=== PATIENT | female | born 1970 ===

== ENCOUNTER 2020-01-12 12:18 | Emergency (ER) | payer OTHER, SELFPAY ==
[2020-01-12 13:01] VITALS: BP 141/74; PULSE 70; RESP 20; TEMP 37.1; O2SAT 99; BMI 34.9
[2020-01-12 13:11] VITALS: O2SAT 99
--- NOTE | 2020-01-12 13:39 | XR_ITS ---
EXAMINATION: CHEST 1 VIEW CLINICAL INFORMATION: Shortness of breath. COMPARISON: September 09, 2019. TECHNIQUE: An AP view of the chest is provided. FINDINGS: The cardiac silhouette is not enlarged. The mediastinal and hilar contours are unremarkable. There are neither pleural effusions nor pneumothoraces. There are no consolidations. The osseous structures are stable. XR/XR chest 1V IMPRESSION: No evidence for acute disease.
--- NOTE | 2020-01-12 13:45 | ED_ITS ---
HPI - SOB/Dyspnea General Chief Complaint: Dyspnea Stated Complaint: COUGH,SOB Time Seen by Provider: 01/12/20 13:27 Source: patient Mode of arrival: ambulatory Limitations: no limitations History of Present Illness HPI Narrative: patient is a 49-year-old female with a past medical history of HTN, anemia, asthma, seasonal allergies and migraines complaining of a 4 days of fatigue, chills, body aches, abdominal pain, dizziness, dry cough. Also states her sister has been tested positive for COVID, she did see her sister last week. She denies fever, nausea vomiting diarrhea. States she has been eating a redu asaf amount every day but still manages to have small intake of food and fluids. Related Data Previous Rx's Medication Instructions Recorded lisinopril 20 mg tablet 20 mg PO DAILY #30 tab 01/11/20 azithromycin 500 mg PO DAILY 3 Days #3 tab 01/12/20 Allergies Allergy/AdvReac Type Severity Reaction Status Date / Time iron Allergy Unknown vomiting Unverified 09/12/19 00:00 iron dextran complex AdvReac Intermediate FLUSHING,SOB,VOMITING,INCREASED Unverified 12/01/19 15:58 [Iron Dextran Complex] ANXIETY,LOW BACK PAIN, Review of Systems Review of Systems: Const: + chills, + body aches, + dizziness ENT/Mouth: no sore throat, no runny nose Eyes: No Discharge Cardiovascular: No Chest Pain, No SOB Respiratory: + Cough, No Sputum, No Wheezing, No Smoke Exposure, + Dyspnea Gastrointestinal: No Nausea, No Vomiting, No Diarrhea, + abd pn Genitourinary: no irregular bleeding, No Dysuria, No Urinary Frequency, No Hematuria, No Urinary Incontinence, No Urgency, No Flank Pain, Musculoskeletal: + Myalgia Skin: No rash Neuro: No Headache Yes all other systems are reviewed and are negative PMFSH Past Medical History Attestation statement: The following information was validated with the patient. Medical History (Updated 01/12/20 @ 15:05 by OSIEL Solis) Anemia Asthma HTN (hypertension) Migraines Surgical History H/O: hysterectomy History of knee surgery Social History Social History Alcohol intake: never Smoking Status: Never smoker Use of substances other than those prescribed or required for medical reasons: No Advance Directives: No Advance Directives Information Provided: No Physical Exam Vital Signs: Vital Signs: Vital Signs Temp Pulse Resp BP Pulse Ox 01/12/20 16:40 96.8 F 66 19 116/74 97 01/12/20 15:24 98.3 F 54 14 109/63 98 01/12/20 14:00 98.7 F 70 19 141/74 H 98 01/12/20 13:11 99 01/12/20 13:01 98.7 F 70 20 141/74 H 99 Body Mass Index 34.9 Const: General: cooperative, healthy appearing, comfortable, no acute distress and well developed Orientation/consciousness: patient oriented x3 Limitations: no limitations HENMT: Head: Yes normal to inspection Face and sinus: Yes normal facial exam Mouth: moist mucous membranes abnormal (dry) Eyes: General: appearance normal, both eyes and all related structures Neck: Neck: Yes normal visual inspection, Yes full ROM and Yes supple Resp: Effort & Inspection: normal respiratory effort and able to speak in complete sentences Auscultation: clear to auscultation bilaterally, no crackles, no rales, no rhonchi and no wheezes Cardio: Rate: regular rate Rhythm: regular rhythm Heart sounds: normal S1 and S2 GI: Inspection: Yes normal to inspection Palpation (GI): Soft to palpation and Tenderness to palpation present (GI) ( Slightly tender throughout) Auscultation: normal bowel sounds Skin: General skin exam: no rashes or lesions noted Neuro: General: patient oriented x3 Extrem: General: Yes normal to inspection and Yes no pedal edema Psych: Appearance: grossly normal Course Course Course Narrative: 49-year-old female with past medical history of hypertension, anemia, asthma, migraines and seasonal allergies presents with 4 days of chills, body aches, fatigue, abdominal pain, dizziness, shortness of breath and dry cough she was exposed to her sister last week who tested positive for COVID. will get chest x-ray, EKG, COVID test and labs. MDM - SOB/Dyspnea MDM Narrative Medical decision making narrative: labs unremarkable, chest x-ray no acute disease, repeat VSS, COVID test will not results for 1-2days but as patient did have a positive contact from her sister, presumptive COVID, will give some rehydration, Tylenol and discharged with strict precautions on when to return to the emergency department or seek emergency medical care. RX sent in correctly, I called [facility] and spoke with pharmacy staff and had it did to be a Z-Wei. they will change the prescription. Differential Diagnosis Differential diagnosis: Likely congestive heart failure, pneumonia, asthma with exacerbation and pleural effusion Lab Data Attestation: I reviewed the patient's lab results. Result diagrams: 01/12/20 13:55 01/12/20 13:55 Labs: Lab Results 01/12/20 01/12/20 01/12/20 Range/Units 13:55 13:55 13:55 WBC 7.4 (4.8-10.8) X10*3/uL RBC 3.90 L (4.20-5.50) X10*6/uL Hgb 12.6 (12.0-16.0) g/dl Hct 37.1 (37-47) % MCV 95.1 (80-98) fL MCH 32.3 (27.0-33.0) pg MCHC 34.0 (31.0-35.0) g/dl RDW 12.0 (11.0-16.0) % Plt Count 291 (160-400) X10*3/uL MPV 9.6 (9.4-12.3) fL Immature Gran % (Auto) 0.4 (0.0-0.4) % Neut % (Auto) 66.0 (45-73) % Lymph % (Auto) 24.8 (20-40) % [place] % (Auto) 7.2 (2-11) % Eos % (Auto) 1.2 (0-4) % Baso % (Auto) 0.4 (0-2) % Lymph # (Auto) 1.8 (1.2-4.9) X10*3/uL [place] # (Auto) 0.5 (0.1-1.2) X10*3/uL Eos # (Auto) 0.1 (0.0-0.4) X10*3/uL Baso # (Auto) 0.0 (0.0-0.2) X10*3/uL Abs Immat Gran (auto) 0.03 (0.00-0.03) X10*3/uL Absolute Neuts (auto) 4.9 (2.0-8.3) X10*3/uL Absolute Nucleated RBC 0.000 (0.0-0.012) X10*3/uL Nucleated RBC % (auto) 0.0 (0.0-0.2) /100WBC Hold Blue Top SEE NOTE Sodium 138 (135-145) mmol/L Potassium 4.1 (3.3-5.1) mmol/l Chloride 105 (96-108) mmol/L Carbon Dioxide 26 (22-29) mmol/L Anion Gap 11 L (12-20) BUN 10 (9-16) mg/dL Creatinine 0.71 (0.5-1.4) mg/dL Estim Creat Clear Calc 96.8 Estimated GFR > 60 Random Glucose 92 (60-115) mg/dL Calcium 9.2 (8.4-10.2) mg/dL Troponin I High Sens (<3.5-17.0) ng/L B-Natriuretic Peptide (<100) pg/mL Urine Color Urine Appearance Urine pH (5.0-8.0) Ur Specific Al[place] (1.005-1.025) Urine Protein (NEG-TRACE) MG/DL Urine Glucose (UA) (NEG) MG/DL Urine Ketones (NEG) MG/DL Urine Blood (NEG) Urine Nitrite (NEG) Ur Leukocyte Esterase (NEG) Urine RBC (0) /HPF Urine WBC (0-4) /HPF Ur Squamous Epith Cells /LPF Urine Bacteria /LPF Urine Mucus /LPF 01/12/20 01/12/20 Range/Units 13:55 14:33 WBC (4.8-10.8) X10*3/uL RBC (4.20-5.50) X10*6/uL Hgb (12.0-16.0) g/dl Hct (37-47) % MCV (80-98) fL MCH (27.0-33.0) pg MCHC (31.0-35.0) g/dl RDW (11.0-16.0) % Plt Count (160-400) X10*3/uL MPV (9.4-12.3) fL Immature Gran % (Auto) (0.0-0.4) % Neut % (Auto) (45-73) % Lymph % (Auto) (20-40) % [place] % (Auto) (2-11) % Eos % (Auto) (0-4) % Baso % (Auto) (0-2) % Lymph # (Auto) (1.2-4.9) X10*3/uL [place] # (Auto) (0.1-1.2) X10*3/uL Eos # (Auto) (0.0-0.4) X10*3/uL Baso # (Auto) (0.0-0.2) X10*3/uL Abs Immat Gran (auto) (0.00-0.03) X10*3/uL Absolute Neuts (auto) (2.0-8.3) X10*3/uL Absolute Nucleated RBC (0.0-0.012) X10*3/uL Nucleated RBC % (auto) (0.0-0.2) /100WBC Hold Blue Top Sodium (135-145) mmol/L Potassium (3.3-5.1) mmol/l Chloride (96-108) mmol/L Carbon Dioxide (22-29) mmol/L Anion Gap (12-20) BUN (9-16) mg/dL Creatinine (0.5-1.4) mg/dL Estim Creat Clear Calc Estimated GFR Random Glucose (60-115) mg/dL Calcium (8.4-10.2) mg/dL Troponin I High Sens < 3.5 (<3.5-17.0) ng/L B-Natriuretic Peptide 33 (<100) pg/mL Urine Color YELLOW Urine Appearance HAZY Urine pH 6.0 (5.0-8.0) Ur Specific Albers 1.025 (1.005-1.025) Urine Protein NEG (NEG-TRACE) MG/DL Urine Glucose (UA) NEG (NEG) MG/DL Urine Ketones NEG (NEG) MG/DL Urine Blood 1+ H (NEG) Urine Nitrite NEG (NEG) Ur Leukocyte Esterase 1+ H (NEG) Urine RBC 1-4 (0) /HPF Urine WBC 10-14 H (0-4) /HPF Ur Squamous Epith Cells 1+ /LPF Urine Bacteria 1+ /LPF Urine Mucus 1+ /LPF Imaging Data Chest x-ray: Attestation: I personally reviewed and interpreted this imaging study as follows: My impression: no acute disease Radiologist's impression: [facility] [address] [place] [address] XRay Report Signed Patient: Kiki Banks#: [id number] : 1970Acct:[id number] Age/Sex: 49 / FADM Date: 01/12/20 Loc: HO.ED Attending Dr: Ordering Physician: ADY NÚÑEZ Date of Service: 01/12/20 Procedure(s): XR chest 1V Accession Number(s): [id number] cc: ADY NÚÑEZ~ EXAMINATION: CHEST 1 VIEW CLINICAL INFORMATION: Shortness of breath. COMPARISON: September 09, 2019. TECHNIQUE: An AP view of the chest is provided. FINDINGS: The cardiac silhouette is not enlarged. The mediastinal and hilar contours are unremarkable. There are neither pleural effusions nor pneumothoraces. There are no consolidations. The osseous structures are stable. XR/XR chest 1V IMPRESSION: No evidence for acute disease. Dictated By:ODELL SHORT MD Signed By:<Electronically signed by ODELL SHORT MD in OV>01/12/20 1414 ECG Data Attestation: I personally reviewed and interpreted this ECG as follows: ECG interpretation date: 01/12/20 ECG interpretation time: 16:44 Prior ECG tracings: not available for review Interpretation: bradycardia 56bpm, pr int 132ms, QRS 70ms, QTc 414ms Discharge Plan Discharge Clinical Impression: Viral URI Patient Disposition: Home, Self-Care Instructions: COVID-19 (Coronavirus Disease 2019) (ED) Prescriptions: New azithromycin 500 mg tablet 500 mg PO DAILY 3 Days Qty: 3 RF: 0 No Action lisinopril 20 mg tablet 20 mg PO DAILY Qty: 30 RF: 1 Referrals: Rj,Maurice Heart MD [Primary Care Provider] - 2 days Discharge Date/Time: 01/12/20 16:48
[2020-01-12 14:00] VITALS: BP 141/74; PULSE 70; RESP 19; TEMP 37.1; O2SAT 98
--- NOTE | 2020-01-12 14:07 | PC.NURSE ---
iv inserted, labs drawn, covid swab performed, patient sinus sherri to nsr on the clinical research monitor 60s-70s, vss, pt states she is unable to give a urine at this time, will continue to monitor.
[2020-01-12 14:11] LABS: MANUAL DIFF FLAG NO
[2020-01-12 14:12] LABS: Basophils Percent Auto 0.4 % (0-2); Eosinophils Absolute Auto 0.1 X10*3/uL (0.0-0.4); Eosinophils Percent Auto 1.2 % (0-4); Hematocrit 37.1 % (37-47); Hemoglobin 12.6 g/dl (12.0-16.0); Imm Gran Abs Auto 0.03 X10*3/uL (0.00-0.03); Imm Gran Pct Auto 0.4 % (0.0-0.4); Lymphocytes Absolute Auto 1.8 X10*3/uL (1.2-4.9); Lymphocytes Percent Auto 24.8 % (20-40); Mean Corpuscular Hemoglobin 32.3 pg (27.0-33.0); Mean Corpuscular Volume 95.1 fL (80-98); Mean Platelet Volume 9.6 fL (9.4-12.3); Monocytes Absolute Auto 0.5 X10*3/uL (0.1-1.2); Monocytes Percent Auto 7.2 % (2-11); Neutrophils Absolute Auto 4.9 X10*3/uL (2.0-8.3); Platelet Count 291 X10*3/uL (160-400); White Blood Count 7.4 X10*3/uL (4.8-10.8)
[2020-01-12] MEDS: Acetaminophen 325 MG TABLET 650 MG PO (14:23)
--- NOTE | 2020-01-12 14:24 | PC.NURSE ---
patient medicated per order
[2020-01-12 14:40] LABS: Anion Gap 11 (12-20); Blood Urea Nitrogen 10 mg/dL (9-16); Calcium 9.2 mg/dL (8.4-10.2); Carbon Dioxide 26 mmol/L (22-29); Chloride 105 mmol/L (96-108); Creatinine Clr Calc Pharmacy 96.8; Estimated Glomerular Filt Rate > 60; Glucose Random 92 mg/dL (60-115); Potassium 4.1 mmol/l (3.3-5.1); Sodium 138 mmol/L (135-145)
[2020-01-12 14:42] LABS: Glucose Urine UA NEG (NEG); Leukocyte Esterase Urine 1+ (NEG); Nitrite Urine NEG (NEG); Specific Gravity - Urine 1.025 (1.005-1.025); Urine Blood 1+ (NEG); Urine Ketones NEG (NEG); Urine Protein NEG (NEG-TRACE)
[2020-01-12 14:43] LABS: Appearance Urine HAZY; Color Urine YELLOW
[2020-01-12 14:48] LABS: B Type Natriuretic Peptide 33 pg/mL (<100); Troponin-I High Sensitivity < 3.5 ng/L (<3.5-17.0)
[2020-01-12 14:52] LABS: Bacteria Urine 1+ /LPF; Mucus Urine 1+ /LPF; Squamous Epithelial Cell Urine 1+ /LPF
[2020-01-12] MEDS: 0.9 % Sodium Chloride 1,000 ML 999 ML IVCONT (15:23)
[2020-01-12 15:24] VITALS: BP 109/63; PULSE 54; RESP 14; TEMP 36.8; O2SAT 98
[2020-01-12 16:40] VITALS: BP 116/74; PULSE 66; RESP 19; TEMP 36; O2SAT 97
== END 2020-01-12 16:48 | disposition home or self-care (01) ==
PROVIDERS: Physician Assistant; Emergency Provider Emergency Medicine; PCP Internal Medicine
DX: J06.9 Acute upper respiratory infection, unspecified (principal); R05 Cough; R06.02 Shortness of breath; I10 Essential (primary) hypertension; Z20.828 Contact with and (suspected) exposure to other viral communicable diseases
CPT/HCPCS: 36415; 71045; 80048; 81001; 83880; 84484; 85025; 87086; 87635; 96360; 99284

== ENCOUNTER 2020-01-16 16:38 | Outpatient (REF) | payer OTHER, SELFPAY ==
[2020-01-16 17:29] LABS: Influenza A PCR NEGATIVE (Negative); Influenza B PCR NEGATIVE (Negative)
[2020-01-16 17:34] LABS: Resp Syncy Virus RNA Qual PCR NEGATIVE (Negative)
== END 2020-01-16 16:39 | disposition home or self-care (01) ==
LOC: HO.LNP 16:38
PROVIDERS: Visit Provider Hospitalist
DX: Z20.828 Contact with and (suspected) exposure to other viral communicable diseases (principal); B34.9 Viral infection, unspecified
CPT/HCPCS: 87631; U0003

== ENCOUNTER 2020-01-31 15:42 | Outpatient (REF) | payer OTHER, SELFPAY ==
--- NOTE | 2020-01-31 15:48 | XR_ITS ---
EXAMINATION: XR CHEST CLINICAL INFORMATION: Asthma with acute exacerbation COMPARISON: 01/12/2020 TECHNIQUE: 2 views of the chest were obtained. FINDINGS: The lungs are well expanded. There is no focal consolidation, edema, or effusion. No pneumothorax. The cardiomediastinal silhouette is within normal limits. No acute osseous abnormality. XR/XR chest 2V IMPRESSION: No acute pulmonary finding.
== END 2020-01-31 15:43 | disposition home or self-care (01) ==
LOC: HO.XRAY 15:42
PROVIDERS: PCP Internal Medicine; Visit Provider Internal Medicine
DX: J45.901 Unspecified asthma with (acute) exacerbation (principal)
CPT/HCPCS: 71046

== ENCOUNTER 2020-02-21 12:10 | Outpatient (REF) | payer OTHER, SELFPAY ==
[2020-02-21 13:17] LABS: Alanine Aminotransferase < 6 U/L (0-31); Albumin Level 4.2 g/dL (3.5-5.0); Alkaline Phosphatase 76 U/L (39-117); Anion Gap 13 (12-20); Aspartate Amino Transferase 17 U/L (5-31); Bilirubin Total 0.6 mg/dL (0.0-1.0); Blood Urea Nitrogen 10 mg/dL (9-16); Calcium 9.6 mg/dL (8.4-10.2); Carbon Dioxide 27 mmol/L (22-29); Chloride 102 mmol/L (96-108); Estimated Glomerular Filt Rate > 60; Glucose Fasting 93 mg/dL (60-99); Potassium 4.4 mmol/l (3.3-5.1); Sodium 138 mmol/L (135-145); Total Protein 7.2 g/dL (6.5-8.0)
[2020-02-21 13:27] LABS: Rheumatoid Factor < 15.0 IU/mL (<15.0)
[2020-02-21 14:09] LABS: Erythrocyte Sedimentation Rate 19 MM/HR (0-20)
[2020-02-21 14:11] LABS: Urine Cytology See Pathology rpt
[2020-02-24 00:12] LABS: Anti Nuclear Antibody Pattern Nuclear, Speckled; Anti Nuclear Antibody Screen POSITIVE (NEGATIVE); Anti Nuclear Antibody Titer 1:40 titer
== END 2020-02-21 12:11 | disposition home or self-care (01) ==
LOC: HO.LAB 12:10
PROVIDERS: PCP Internal Medicine; Visit Provider Internal Medicine
DX: J45.909 Unspecified asthma, uncomplicated (principal); I10 Essential (primary) hypertension; E66.9 Obesity, unspecified; K21.9 Gastro-esophageal reflux disease without esophagitis; R31.9 Hematuria, unspecified; M25.50 Pain in unspecified joint; R73.01 Impaired fasting glucose
CPT/HCPCS: 36415; 80053; 85652; 86038; 86039; 86431; 88112

== ENCOUNTER 2020-03-13 15:25 | Outpatient (REF) | payer OTHER, SELFPAY ==
--- NOTE | 2020-03-13 16:14 | XR_ITS ---
EXAMINATION: XR SHOULDER, LEFT CLINICAL INFORMATION: Left shoulder pain. COMPARISON: Left humerus fractures dated 09/09/2019. TECHNIQUE: AP external rotation, Grashey, scapular Y, and axillary views of the left shoulder. FINDINGS: The bones and soft tissues are normal. No fracture. Glenohumeral and acromioclavicular alignment is anatomic with normal joint space. No abnormal soft tissue calcifications. XR/XR shoulder LT min 2V IMPRESSION: Unremarkable left shoulder.
--- NOTE | 2020-03-13 16:14 | XR_ITS ---
EXAMINATION: XR FOOT, RIGHT CLINICAL INFORMATION: Right foot pain. COMPARISON: None TECHNIQUE: AP, lateral, and oblique views of the right foot. FINDINGS: There is no acute fracture or dislocation. The tarsal bones are normally aligned. Small plantar and retrocalcaneal spurs are seen. The soft tissues are unremarkable. XR/XR foot RT 2V IMPRESSION: Small degenerative calcaneal spurs without other significant abnormality.
--- NOTE | 2020-03-13 16:14 | XR_ITS ---
EXAMINATION: XR WRIST, RIGHT CLINICAL INFORMATION: Right wrist pain. COMPARISON: None TECHNIQUE: PA, lateral, and oblique views of the right wrist. FINDINGS: A curvilinear lucency is seen to the lunate bone seen on a single image. The carpal bones are normally aligned. The distal radius and ulna are intact. The soft tissues are unremarkable. XR/XR wrist RT 2V IMPRESSION: Curvilinear lucency through the lunate bone is only seen on one image and is nonspecific. This is likely secondary to position/artifact however a nondisplaced fracture of indeterminate age cannot be completely excluded. If suspicion is high for acute fracture and/or the patient has persistent pain in this region, MRI should be considered.
[2020-03-13 17:07] LABS: MANUAL DIFF FLAG NO
[2020-03-13 17:12] LABS: Appearance Urine HAZY; Color Urine YELLOW; Glucose Urine UA NEG (NEG); Leukocyte Esterase Urine TRACE (NEG); Nitrite Urine NEG (NEG); Specific Gravity - Urine >= 1.030 (1.005-1.025); Urine Blood 2+ (NEG); Urine Ketones NEG (NEG); Urine Protein NEG (NEG-TRACE)
[2020-03-13 17:13] LABS: Basophils Percent Auto 0.3 % (0-2); Eosinophils Absolute Auto 0.1 X10*3/uL (0.0-0.4); Eosinophils Percent Auto 0.7 % (0-4); Hematocrit 39.4 % (37-47); Hemoglobin 13.3 g/dl (12.0-16.0); Imm Gran Abs Auto 0.03 X10*3/uL (0.00-0.03); Imm Gran Pct Auto 0.3 % (0.0-0.4); Lymphocytes Absolute Auto 2.5 X10*3/uL (1.2-4.9); Lymphocytes Percent Auto 28.5 % (20-40); Mean Corpuscular HGB Conc 33.8 g/dl (31.0-35.0); Mean Corpuscular Hemoglobin 32.4 pg (27.0-33.0); Mean Corpuscular Volume 96.1 fL (80-98); Mean Platelet Volume 9.7 fL (9.4-12.3); Monocytes Absolute Auto 0.6 X10*3/uL (0.1-1.2); Monocytes Percent Auto 6.6 % (2-11); Neutrophils Absolute Auto 5.5 X10*3/uL (2.0-8.3); Neutrophils Percent Auto 63.6 % (45-73); Platelet Count 341 X10*3/uL (160-400); Red Cell Distribution Width 12.1 % (11.0-16.0); White Blood Count 8.6 X10*3/uL (4.8-10.8)
[2020-03-13 17:25] LABS: Bacteria Urine 2+ /LPF; Hyaline Casts Urine 0-2 /LPF; Mucus Urine 1+ /LPF; Squamous Epithelial Cell Urine 3+ /LPF
[2020-03-13 17:47] LABS: Alanine Aminotransferase 8 U/L (0-31); Albumin Level 4.7 g/dL (3.5-5.0); Alkaline Phosphatase 80 U/L (39-117); Anion Gap 11 (12-20); Aspartate Amino Transferase 18 U/L (5-31); Bilirubin Total 0.4 mg/dL (0.0-1.0); Blood Urea Nitrogen 13 mg/dL (9-16); C Reactive Protein 0.84 mg/dL (< or = 0.50); Calcium 9.9 mg/dL (8.4-10.2); Carbon Dioxide 29 mmol/L (22-29); Chloride 102 mmol/L (96-108); Estimated Glomerular Filt Rate > 60; Glucose Random 93 mg/dL (60-115); Potassium 4.4 mmol/l (3.3-5.1); Rheumatoid Factor < 15.0 IU/mL (<15.0); Sodium 138 mmol/L (135-145); Total Protein 7.8 g/dL (6.5-8.0)
[2020-03-13 18:01] LABS: Erythrocyte Sedimentation Rate 19 MM/HR (0-20)
[2020-03-14 14:42] LABS: Complement C3 144 mg/dL (83-193)
[2020-03-14 17:47] LABS: Thyroglobulin Antibodies 3 IU/mL (< or = 1); Thyroid Peroxidase Antibodies 219 IU/mL (<9)
[2020-03-15 12:03] LABS: Cyclic Citrullinated Peptide <16 UNITS
[2020-03-15 14:03] LABS: Anti DNA DS Antibody 1 IU/mL; Antibody to SS-A Antigen <1.0 NEG AI (<1.0 NEG); Antibody to SS-B Antigen <1.0 NEG AI (<1.0 NEG); SM/Ribonucleoprotein Ab <1.0 NEG AI (<1.0 NEG); Smith Protein <1.0 NEG AI (<1.0 NEG)
== END 2020-03-13 15:26 | disposition home or self-care (01) ==
LOC: HO.LAB 15:25
PROVIDERS: PCP Internal Medicine; Visit Provider Student in an Organized Health Care Education/Training Program
DX: M25.512 Pain in left shoulder (principal); M79.671 Pain in right foot
CPT/HCPCS: 36415; 73030; 73100; 73620; 80053; 81001; 85025; 85652; 86140; 86160; 86200; 86225; 86235; 86376; 86431; 86800; 99202

== ENCOUNTER → 2020-04-17 14:16 | Outpatient (BNVA) | payer OTHER, SELFPAY | PROVIDERS: PCP Internal Medicine; Visit Provider Student in an Organized Health Care Education/Training Program | DX: M25.50 Pain in unspecified joint (principal); R76.8 Other specified abnormal immunological findings in serum; R93.7 Abnormal findings on diagnostic imaging of other parts of musculoskeletal system | CPT/HCPCS: 99212 ==

== ENCOUNTER 2020-05-02 12:50 | Outpatient (REF) | payer OTHER, SELFPAY ==
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
== END 2020-05-02 12:51 | disposition home or self-care (01) ==
LOC: HO.MRI 12:50
PROVIDERS: Visit Provider Student in an Organized Health Care Education/Training Program
DX: R93.7 Abnormal findings on diagnostic imaging of other parts of musculoskeletal system (principal)
CPT/HCPCS: 73221

== ENCOUNTER 2020-05-22 13:35 | Outpatient (REF) | payer OTHER, SELFPAY ==
--- NOTE | ~2020-05-22 | MM_ITS ---
EXAMINATION: MM SCREENING DIGITAL BREAST TOMOSYNTHESIS, BILATERAL CLINICAL INFORMATION: Screening. Asymptomatic. The lifetime risk of breast cancer based on the Tyrer-Cuzick Model is 5.7%. COMPARISON: Mammography: May 19, 2019 and studies dating back to January 03, 2010 TECHNIQUE: Digital breast tomosynthesis is performed in both the craniocaudal and mediolateral oblique views along with computer-aided detection (CAD). Synthesized 2D images are generated from the tomosynthesis. FINDINGS: There are scattered areas of fibroglandular density (ACR BI-RADS breast composition Category b). There are no significant masses, abnormal calcifications, or other abnormalities. MM/MM tomosynthesis screening BI IMPRESSION: There are no significant changes from prior study. ASSESSMENT: BI-RADS 1: Negative RECOMMENDATION: Routine annual mammography screening. This patient's information was entered into a reminder system with a target due date for their next mammogram.
== END 2020-05-22 13:36 | disposition home or self-care (01) ==
LOC: HO.MAMMO 13:35
PROVIDERS: PCP Internal Medicine; Visit Provider Internal Medicine
DX: Z12.31 Encounter for screening mammogram for malignant neoplasm of breast (principal)
CPT/HCPCS: 77063; 77067

== ENCOUNTER 2020-07-20 10:01 | Outpatient (REF) | payer OTHER, SELFPAY ==
[2020-07-20 11:09] LABS: MANUAL DIFF FLAG NO
[2020-07-20 12:03] LABS: Basophils Absolute Auto 0.1 X10*3/uL (0.0-0.2); Basophils Percent Auto 0.5 % (0-2); Eosinophils Absolute Auto 0.1 X10*3/uL (0.0-0.4); Eosinophils Percent Auto 0.5 % (0-4); Hematocrit 38.6 % (37-47); Hemoglobin 13.2 g/dl (12.0-16.0); Imm Gran Abs Auto 0.04 X10*3/uL (0.00-0.03); Imm Gran Pct Auto 0.4 % (0.0-0.4); Lymphocytes Absolute Auto 3.7 X10*3/uL (1.2-4.9); Mean Corpuscular HGB Conc 34.2 g/dl (31.0-35.0); Mean Corpuscular Volume 93.7 fL (80-98); Mean Platelet Volume 9.8 fL (9.4-12.3); Monocytes Absolute Auto 0.6 X10*3/uL (0.1-1.2); Monocytes Percent Auto 5.6 % (2-11); Neutrophils Absolute Auto 6.5 X10*3/uL (2.0-8.3); Platelet Count 341 X10*3/uL (160-400); Red Blood Count 4.12 X10*6/uL (4.20-5.50); Red Cell Distribution Width 11.9 % (11.0-16.0); White Blood Count 10.9 X10*3/uL (4.8-10.8)
[2020-07-20 12:11] LABS: Alanine Aminotransferase < 6 U/L (0-31); Albumin Level 4.3 g/dL (3.5-5.0); Alkaline Phosphatase 67 U/L (39-117); Anion Gap 12 (12-20); Aspartate Amino Transferase 14 U/L (5-31); Bilirubin Total 0.5 mg/dL (0.0-1.0); Blood Urea Nitrogen 14 mg/dL (9-16); Calcium 9.7 mg/dL (8.4-10.2); Carbon Dioxide 28 mmol/L (22-29); Chloride 105 mmol/L (96-108); Cholesterol 205 mg/dL; Estimated Glomerular Filt Rate > 60; Glucose Random 79 mg/dL (60-115); HDL Cholesterol 52 mg/dL; LDL Cholesterol Calculated 119 mg/dl; Potassium 3.9 mmol/L (3.3-5.1); Sodium 141 mmol/L (135-145); Total Protein 7.4 g/dL (6.5-8.0); Triglycerides 172 mg/dL
[2020-07-20 12:28] LABS: Folate 11.9 ng/mL (> or = 4.0); Vitamin B12 276 pg/mL (200-900)
[2020-07-20 12:32] LABS: Free T4 (Free Thyroxine) 0.93 ng/dL (0.71-1.85); Thyroid Stimulating Hormone 7.64 uIU/mL (0.32-4.0); Vitamin D 25-OH Total 17.4 ng/mL (>30)
== END 2020-07-20 10:02 | disposition home or self-care (01) ==
LOC: HO.LAB 10:01
PROVIDERS: PCP Internal Medicine; Visit Provider Internal Medicine
DX: E78.00 Pure hypercholesterolemia, unspecified (principal); R79.89 Other specified abnormal findings of blood chemistry; I10 Essential (primary) hypertension
CPT/HCPCS: 36415; 80053; 80061; 82306; 82607; 82746; 84439; 84443; 85025

== ENCOUNTER 2020-08-28 15:00 | Outpatient (RCR) | payer OTHER, SELFPAY ==
--- NOTE | 2020-07-06 15:40 | MHC.PT.EP ---
[facility] [place] [facility] [place] Office [place] Office [address] [phone] F: [phone] F: [phone] F: [phone] F: [phone] Physical Therapy Plan of Care Date of Evaluation: Date of Surgery: NA Diagnosis: LEFT SHOULDER PAIN (IMPINGEMENT) Assessment: Pt IS A PLEASANT 50 YO FEMALE WITH INCREASING SHOULDER PAIN OVER THE LAST SEVERAL MONTHS. IMPAIRMENTS INCLUDE DECREASED SHOULDER ROM, DECREASED STRENGTH, ALTERED POSTURE AND POSITIONING, INCREASED PAIN. FUNCTIONAL LIMITATIONS INCLUDE DECREASED TOLERANCE TO LIFTING, REACHING, PUSHING PULLING AND CARRYING. SHE REPORTS DISRUPTED SLEEP AND DECREASED ABILITY TO PARTICIPATE IN FITNESS AND RECREATIONAL TASKS. 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 Manual therapy to restore motion and function. Therapeutic exercise to improve strength and flexibility. Neuromuscular re-education for posture and balance. Therapeutic activities to return to functional activities of daily living. Electronically signed by: ALEXANDRIA RAMIREZ PT, DPT Please sign and return to therapist. Thank you for your referral.
--- NOTE | 2020-10-26 09:35 | MHC.PT.DC ---
[facility] [place] Office [place] Office [place] Office [address] [phone] F: [phone] F: [phone] F: [phone] F: [phone] Physical Therapy Discharge Report Diagnosis: LEFT SHOULDER PAIN (IMPINGEMENT) Date of Surgery: NA Date of Evaluation: 07/05/20 Date of Discharge: 09/06/20 Treatments to Date: 8 Cancellations to Date: 4 No Shows to Date: Discharge Status: Improved Function Independent with HEP Discharge Summary: Whitney cancelled last visit, did not wish to schedule more at that time and we have not heard from her. At last attended visit, note states pt reported slight increase in pain after ER strengthening but otherwise reported good stretch sensation. pt required very little verbal cueing for correct performance of ther ex. pt self-limited to 90* w/ flexion AAROM at this time. Continue to progress periscap strengthening and AAROM next visit. Electronically signed by: Debbie Roque PT, DPT Please sign and return to therapist. Thank you for your referral.
--- NOTE | 2020-10-26 09:36 | MHC.PT.DC ---
[facility] [place] Office [place] Office [place] Office [address] [phone] F: [phone] F: [phone] F: [phone] F: [phone] Physical Therapy Discharge Report Diagnosis: LEFT SHOULDER PAIN (IMPINGEMENT) Date of Surgery: NA Date of Evaluation: 07/05/20 Date of Discharge: 09/06/20 Treatments to Date: 8 Cancellations to Date: 4 No Shows to Date: Discharge Status: Improved Function Independent with HEP Discharge Summary: Whitney cancelled last visit, did not wish to schedule more at that time and we have not heard from her. At last attended visit, note states pt reported slight increase in pain after ER strengthening but otherwise reported good stretch sensation. pt required very little verbal cueing for correct performance of ther ex. pt self-limited to 90* w/ flexion AAROM at this time. Continue to progress periscap strengthening and AAROM next visit. Electronically signed by: Debbie Roque PT, DPT Please sign and return to therapist. Thank you for your referral.
== END 2020-10-26 09:36 | disposition home or self-care (01) ==
LOC: HO.PT 15:00
PROVIDERS: PCP Internal Medicine; Visit Provider Internal Medicine
DX: M25.512 Pain in left shoulder (principal)
CPT/HCPCS: 97110; 97112; 97140; 97162

== ENCOUNTER 2020-10-01 13:32 | Outpatient (REF) | payer OTHER, SELFPAY ==
[2020-10-01 14:34] LABS: Blood Urea Nitrogen 15 mg/dL (9-16); Estimated Glomerular Filt Rate > 60
[2020-10-01 14:53] LABS: Free T4 (Free Thyroxine) 0.96 ng/dL (0.71-1.85)
[2020-10-01 14:56] LABS: Thyroid Stimulating Hormone 2.05 uIU/mL (0.32-4.0)
== END 2020-10-01 13:33 | disposition home or self-care (01) ==
LOC: HO.LAB 13:32
PROVIDERS: Student in an Organized Health Care Education/Training Program; PCP Internal Medicine; Visit Provider Internal Medicine
DX: R93.7 Abnormal findings on diagnostic imaging of other parts of musculoskeletal system (principal); E03.9 Hypothyroidism, unspecified
CPT/HCPCS: 36415; 82565; 84439; 84443; 84520

== ENCOUNTER 2020-11-14 15:04 | Outpatient (REF) | payer OTHER, SELFPAY ==
[2020-11-14 16:12] LABS: COVID-19 Test Negative (Negative)
== END 2020-11-14 15:05 | disposition home or self-care (01) ==
LOC: HO.LAB 15:04
PROVIDERS: PCP Internal Medicine; Visit Provider Internal Medicine
DX: Z20.822 Contact with and (suspected) exposure to COVID-19 (principal)
CPT/HCPCS: 36415; 87635

== ENCOUNTER 2020-11-23 14:31 | Emergency (ER) | payer OTHER, SELFPAY ==
--- NOTE | 2020-11-23 | ECG_ITS ---
Test Reason : CP,COUGH Blood Pressure : / mmHG Vent. Rate : 074 BPM Atrial Rate : 074 BPM P-R Int : 132 ms QRS Dur : 068 ms QT Int : 398 ms P-R-T Axes : 042 000 056 degrees QTc Int : 441 ms Normal sinus rhythm Normal ECG When compared with ECG of 09-SEP-2019 12:40, No significant change was found Referred By: Generic ED Physician Electronically Signed By:GILMA GONZALEZ
--- NOTE | ~2020-11-23 | XR_ITS ---
EXAMINATION: XR CHEST CLINICAL INFORMATION: Chest pain, shortness of breath COMPARISON: Chest radiographs 01/31/2020, 01/12/2020 TECHNIQUE: Frontal view of the chest was obtained. FINDINGS: The lungs are clear. There is no pneumothorax, pleural reaction, airspace opacity, or effusion. The heart is normal in size. The vascularity is normal. The hilar and mediastinal contours and visualized bony structures are unremarkable. XR/XR chest 1V IMPRESSION: Unremarkable examination.
[2020-11-23 14:47] VITALS: BP 150/72; PULSE 72; RESP 16; TEMP 36.8; O2SAT 98; BMI 25.0
[2020-11-23 16:06] LABS: MANUAL DIFF FLAG NO
[2020-11-23 16:09] LABS: Basophils Percent Auto 0.4 % (0-2); Eosinophils Absolute Auto 0.1 X10*3/uL (0.0-0.4); Hematocrit 37.9 % (37-47); Imm Gran Abs Auto 0.02 X10*3/uL (0.00-0.03); Imm Gran Pct Auto 0.2 % (0.0-0.4); Lymphocytes Percent Auto 24.9 % (20-40); Mean Corpuscular HGB Conc 34.3 g/dl (31.0-35.0); Mean Corpuscular Hemoglobin 32.4 pg (27.0-33.0); Mean Corpuscular Volume 94.5 fL (80-98); Mean Platelet Volume 9.7 fL (9.4-12.3); Monocytes Absolute Auto 0.5 X10*3/uL (0.1-1.2); Monocytes Percent Auto 5.9 % (2-11); Neutrophils Absolute Auto 5.5 X10*3/uL (2.0-8.3); Neutrophils Percent Auto 67.6 % (45-73); Platelet Count 296 X10*3/uL (160-400); Red Blood Count 4.01 X10*6/uL (4.20-5.50); Red Cell Distribution Width 11.9 % (11.0-16.0); White Blood Count 8.2 X10*3/uL (4.8-10.8)
[2020-11-23 16:20] LABS: Anion Gap 10 (12-20); Blood Urea Nitrogen 10 mg/dL (9-16); Calcium 9.9 mg/dL (8.4-10.2); Carbon Dioxide 28 mmol/L (22-29); Chloride 106 mmol/L (96-108); Creatinine Clr Calc Pharmacy 77.9; Estimated Glomerular Filt Rate > 60; Glucose Random 109 mg/dL (60-115); Potassium 4.1 mmol/L (3.3-5.1); Sodium 140 mmol/L (135-145)
[2020-11-23 16:23] LABS: COVID-19 Test Negative (Negative); IDNOW Serial# 9DD0AD1C
[2020-11-23 16:28] LABS: B Type Natriuretic Peptide 60 pg/mL (<100); Troponin-I High Sensitivity < 3.5 ng/L (<3.5-17.0)
--- NOTE | 2020-11-23 20:51 | ED_ITS ---
HPI - SOB/Dyspnea General Chief Complaint: Dyspnea Stated Complaint: sob, chest pain, flu like symptoms Time Seen by Provider: 11/23/20 18:35 Source: patient Mode of arrival: ambulatory Limitations: no limitations History of Present Illness HPI Narrative: 40-year-old who presents for cough, headache, body aches, fat igue, chest pain, and shortness of breath. Symptoms started yesterday evening. Patient's chest pain started at 7:00 p.m. last night and is intermittent but worse with coughing. Patient is vaccinated for COVID, her is positive for COVID and her sister is positive for COVID. Patient has a history of asthma. No hemoptysis, no nausea vomiting diarrhea abdominal pain MD elicited complaint: cough Pertinent past history: asthma Onset (ago): day(s) (1) Timing: intermittent Severity: moderate Exacerbating factors: exertion Relieving factors: rest Known history of: asthma Associated symptoms: chest pain and cough Treatment prior to arrival: none Related Data Home Medications Medication Instructions Recorded Confirmed albuterol sulfate 90 mcg/actuation 2 puff INHALATION Q4-6H PRN 01/31/20 08/27/20 aerosol inhaler (ProAir HFA) multivitamin 1 tab PO DAILY 01/31/20 08/27/20 Previous Rx's Medication Instructions Recorded lisinopril 20 mg tablet 20 mg PO DAILY #90 tab 08/09/20 levothyroxine 25 mcg tablet 25 mcg PO DAILY #90 tab 10/30/20 (Synthroid) albuterol sulfate 1.25 mg/3 mL 2.5 mg INHALATION Q4-6H PRN #90 ml 11/23/20 solution for nebulization albuterol sulfate 90 mcg/actuation 2 puff INHALATION Q4-6H PRN #8.5 g 11/23/20 aerosol inhaler benzonatate 200 mg capsule 200 mg PO TID 5 Days #15 cap 11/23/20 dexamethasone 6 mg tablet 6 mg PO DAILY 7 Days #7 tab 11/23/20 Allergies Allergy/AdvReac Type Severity Reaction Status Date / Time iron Allergy Unknown vomiting Verified 08/27/20 14:20 iron dextran complex AdvReac Intermediate FLUSHING,SOB,VOMITING,INCREASED Verified 08/27/20 14:20 [Iron Dextran Complex] ANXIETY,LOW BACK PAIN, Review of Systems Constitutional: Constitutional: Reports body ache(s), Denies chills, Reports fatigue, Denies fever(s), Reports headache(s), Reports malaise and Denies weakness Eyes: Eyes: Denies blurry vision and Denies diplopia ENT: Denies vertigo, Denies dizziness, Denies otalgia, Reports headache(s), Denies mouth pain, Denies post nasal drip, Denies sinus pain, Denies sinus pressure, Reports sore throat and Denies throat swelling Cardiovascular: Cardiovascular: Reports chest pain, Denies syncope, Denies leg edema, Denies lightheadedness, Denies Loss of Consciousness, Denies palpitations and Reports dyspnea Respiratory: Respiratory: Reports chest congestion, Reports cough, Reports dyspnea and Reports wheezing Gastrointestinal: Gastrointestinal: Denies abdominal pain, Denies hematochezia, Denies constipation, Denies diarrhea and Denies vomiting Musculoskeletal: Musculoskeletal: Reports no additional musculoskeletal com plaints Integumentary/Breasts: Skin/Breast: Reports system reviewed and no additional complaints, except as docu Neurologic: Denies confusion, Denies vertigo, Denies dizziness, Denies syncope, Reports headache(s) and Denies weakness Psychiatric: Psychiatric: Denies anxiety, Denies confusion and Denies depression Endocrine: Endocrine: Reports fatigue and Denies palpitations Allergic/Immunologic: Allergic/Immunologic: Denies throat swelling and Reports wheezing PMFSH Past Medical History Medical History Anemia Arthritis Asthma Esophageal stricture HTN (hypertension) Migraines Obesity (BMI 30-39.9) Polyarthralgia TSH elevation Uterine fibroid Vitamin D deficiency Surgical History H/O: hysterectomy History of arthroscopy of right knee History of bladder surgery History of knee surgery History of laparoscopy History of tubal ligation Family History Family History (Updated 08/27/20 @ 14:46 by Maurice De La Rosa MD) Father Stroke Mother Bladder cancer Maternal Grandmother Myocardial infarction Maternal Aunt Myocardial infarction Paternal Aunt No problems noted. Social History Social History Housing: House Alcohol intake: never Patient Tobacco Use Status: Never used Tobacco Second Hand Smoke Exposure: No Advance Directives: No Advance Directives Information Provided: No service: No Current occupational status: employed Physical Exam Vital Signs: Vital Signs: Last Vital Signs Temp 98.2 F 11/23/20 14:47 Pulse 72 11/23/20 14:47 Resp 16 11/23/20 14:47 BP 150/72 H 11/23/20 14:47 Pulse Ox 98 11/23/20 14:47 Body Mass Index 25.0 Const: General: No confusion Nutritional Appearance: well nourished Orientation/consciousness: No confusion Limitations: no limitations HENMT: Head: Yes normal to inspection, Yes normocephalic and Yes atraumatic Ears: hearing grossly normal bilaterally, external ears normal, TM's normal b ilaterally and EAC's normal General nose exam: Normal external nose present Face and sinus: Yes normal facial exam and Yes sinuses nontender Mouth: Normal oral and palatal mucosa present Throat: Yes posterior oropharynx normal Eyes: Conjunctivae: conjunctivae normal Pupils: Equal, round and reactive pupils present EOM: EOMs intact bilaterally Neck: Neck: Yes full ROM, Yes no lymphadenopathy and Yes supple Resp: Effort & Inspection: normal respiratory effort and able to speak in complete sentences Auscultation: clear to auscultation bilaterally, no crackles, no rales, no rhonchi and no wheezes Cardio: Rate: regular rate Rhythm: regular rhythm Heart sounds: S1 normal heart sound present and S2 normal heart sound present GI: Inspection: Yes normal to inspection Palpation (GI): Soft to palpation, nontender, no guarding and not rigid Percussion: Yes normal to percussion Auscultation: normal bowel sounds Skin: General skin exam: no rashes or lesions noted Neuro: General: No confusion Cranial nerves: Yes Equal, round and reactive pupils present Extrem: General: Yes normal to inspection and Yes full ROM Psych: Appearance: grossly normal Affect: Anxious affect present Attitude: cooperative Thought process: Normal thought process present Course Course Course Narrative: 50-year-old female presents with cough, chest pain, shortness of breath, in the setting of COVID exposures and associated upper respiratory symptoms. Patient has also had headache, body aches, nasal congestion, mild sore throat. On exam, patient is anxious, afebrile, satting 98% on room air with a respiratory rate of 16. Patient's lungs are clear to auscultation bilaterally. Patient's COVID test is negative. CXR was normal. Labs are unremarkable, troponin is negative, EKG is normal. Chest pain is associated with coughing. Prescribed Tessalon Perles, albuterol nebulizer bullets, albuterol MDI, dexamethasone, advised patient to quarantine and take Tylenol and ibuprofen. Advised patient to return if she got more short of breath, her coughing got worse, her chest pain did not resolve, or if she had any other new or concerning symptoms. MDM - SOB/Dyspnea Lab Data Result diagrams: 11/23/20 15:51 11/23/20 15:51 Labs: Lab Results 11/23/20 11/23/20 11/23/20 Range/Units 15:47 15:51 15:51 WBC 8.2 (4.8-10.8) X10*3/uL RBC 4.01 L (4.20-5.50) X10*6/uL Hgb 13.0 (12.0-16.0) g/dl Hct 37.9 (37-47) % MCV 94.5 (80-98) fL MCH 32.4 (27.0-33.0) pg MCHC 34.3 (31.0-35.0) g/dl RDW 11.9 (11.0-16.0) % Plt Count 296 (160-400) X10*3/uL MPV 9.7 (9.4-12.3) fL Immature Gran % (Auto) 0.2 (0.0-0.4) % Neut % (Auto) 67.6 (45-73) % Lymph % (Auto) 24.9 (20-40) % Scott % (Auto) 5.9 (2-11) % Eos % (Auto) 1.0 (0-4) % Baso % (Auto) 0.4 (0-2) % Lymph # (Auto) 2.0 (1.2-4.9) X10*3/uL Scott # (Auto) 0.5 (0.1-1.2) X10*3/uL Eos # (Auto) 0.1 (0.0-0.4) X10*3/uL Baso # (Auto) 0.0 (0.0-0.2) X10*3/uL Abs Immat Gran (auto) 0.02 (0.00-0.03) X10*3/uL Absolute Neuts (auto) 5.5 (2.0-8.3) X10*3/uL Absolute Nucleated RBC 0.000 (0.0-0.012) X10*3/uL Nucleated RBC % (auto) 0.0 (0.0-0.2) /100WBC Sodium 140 (135-145) mmol/L Potassium 4.1 (3.3-5.1) mmol/L Chloride 106 (96-108) mmol/L Carbon Dioxide 28 (22-29) mmol/L Anion Gap 10 L (12-20) BUN 10 (9-16) mg/dL Creatinine 0.74 (0.5-1.4) mg/dL Estim Creat Clear Calc 77.9 Estimated GFR > 60 Random Glucose 109 (60-115) mg/dL Calcium 9.9 (8.4-10.2) mg/dL Troponin I High Sens (<3.5-17.0) ng/L B-Natriuretic Peptide (<100) pg/mL COVID-19 ([facility]) Negative (Negative) COVID-19 Clin Com See Note 11/23/20 Range/Units 15:51 WBC (4.8-10.8) X10*3/uL RBC (4.20-5.50) X10*6/uL Hgb (12.0-16.0) g/dl Hct (37-47) % MCV (80-98) fL MCH (27.0-33.0) pg MCHC (31.0-35.0) g/dl RDW (11.0-16.0) % Plt Count (160-400) X10*3/uL MPV (9.4-12.3) fL Immature Gran % (Auto) (0.0-0.4) % Neut % (Auto) (45-73) % Lymph % (Auto) (20-40) % Scott % (Auto) (2-11) % Eos % (Auto) (0-4) % Baso % (Auto) (0-2) % Lymph # (Auto) (1.2-4.9) X10*3/uL Scott # (Auto) (0.1-1.2) X10*3/uL Eos # (Auto) (0.0-0.4) X10*3/uL Baso # (Auto) (0.0-0.2) X10*3/uL Abs Immat Gran (auto) (0.00-0.03) X10*3/uL Absolute Neuts (auto) (2.0-8.3) X10*3/uL Absolute Nucleated RBC (0.0-0.012) X10*3/uL Nucleated RBC % (auto) (0.0-0.2) /100WBC Sodium (135-145) mmol/L Potassium (3.3-5.1) mmol/L Chloride (96-108) mmol/L Carbon Dioxide (22-29) mmol/L Anion Gap (12-20) BUN (9-16) mg/dL Creatinine (0.5-1.4) mg/dL Estim Creat Clear Calc Estimated GFR Random Glucose (60-115) mg/dL Calcium (8.4-10.2) mg/dL Troponin I High Sens < 3.5 (<3.5-17.0) ng/L B-Natriuretic Peptide 60 (<100) pg/mL COVID-19 ([facility]) (Negative) COVID-19 Clin Com ECG Data Interpretation: Sinus at a rate of 74 beats per minute, normal axis, QRS 68, QTC 441, no VA prolongation, no ST elevation or depression. Discharge Plan Discharge Clinical Impression: Viral respiratory illness Patient Disposition: Home, Self-Care Instructions: Viral Syndrome (ED) Additional Instructions: Fall please fill prescriptions at [facility]. Please quarantine. Please return to emergency room if you feel more short of breath. YOur chest x-ray was negative today, all your labs were fine, a new chest x-ray was normal. However, this could be COVID despite a pelvic negative test today, and if you feel worse please return Call PCP for follow-up appointment on Thursday Prescriptions: New albuterol sulfate 1.25 mg/3 mL solution for nebulization 2.5 mg inhalation Q4-6H PRN (Reason: shortness of breath or wheezing) Qty: 90 RF: 0 albuterol sulfate 90 mcg/actuation HFA aerosol inhaler 2 puff inhalation Q4-6H PRN (Reason: shortness of breath or wheezing) Qty: 8.5 RF: 0 dexamethasone 6 mg tablet 6 mg PO DAILY 7 Days Qty: 7 RF: 0 benzonatate 200 mg capsule 200 mg PO TID 5 Days Qty: 15 RF: 0 No Action lisinopril 20 mg tablet 20 mg PO DAILY Qty: 90 RF: 2 levothyroxine [Synthroid] 25 mcg tablet 25 mcg PO DAILY Qty: 90 RF: 2 multivitamin Tablet 1 tab PO DAILY RF: 0 albuterol sulfate [ProAir HFA] 90 mcg/actuation HFA aerosol inhaler 2 puff inhalation Q4-6H PRNRF: 0 Interventions: ED Discharge Assessment Last Done: 11/23/20 19:11 Discharge Date/Time: 11/23/20 19:11
== END 2020-11-23 19:11 | disposition home or self-care (01) ==
PROVIDERS: Emergency Provider Emergency Medicine Emergency Medical Services; PCP Internal Medicine
DX: J06.9 Acute upper respiratory infection, unspecified (principal); R06.02 Shortness of breath; R06.00 Dyspnea, unspecified; Z20.822 Contact with and (suspected) exposure to COVID-19; Z79.899 Other long term (current) drug therapy
CPT/HCPCS: 36415; 71045; 80048; 83880; 84484; 85025; 87635; 93005; 99283

== ENCOUNTER 2020-11-30 16:46 | Emergency (ER) | payer OTHER, SELFPAY ==
--- NOTE | ~2020-11-30 | US_ITS ---
EXAMINATION: US ABDOMEN LIMITED CLINICAL INFORMATION: Abdominal pain. COMPARISON: CT abdomen pelvis 02/02/2018 and ultrasound abdomen 05/21/2017 TECHNIQUE: Real-time imaging of the right upper quadrant abdominal viscera. FINDINGS: PANCREAS: The pancreas appears unremarkable, without masses or ductal dilatation, with the exception of the tail which is obscured by bowel gas. LIVER: The liver is normal in size. The liver contour is normal. Parenchymal echogenicity is normal. No focal hepatic lesion. There is no intrahepatic biliary duct dilatation seen. GALLBLADDER: The gallbladder is physiologically distended without evidence of stones, sludge, polyps, wall thickening or pericholecystic fluid. COMMON BILE DUCT: Common bile duct is mildly dilated measuring measuring at its largest diameter 1.1 cm. Findings were similar on the 05/21/2017 ultrasound RIGHT KIDNEY: No hydronephrosis. No renal calculi or focal parenchymal lesions. The kidney measures 10.4 cm in maximum dimension. FREE FLUID: None. US/US abdomen limited IMPRESSION: Negative study aside from mild stable prominence of the common bile duct
--- NOTE | ~2020-11-30 | XR_ITS ---
EXAMINATION: XR CHEST CLINICAL INFORMATION: Right-sided chest pain COMPARISON: Chest x-ray November 23, 2020 TECHNIQUE: Frontal view of the chest was obtained. 6:56 PM FINDINGS: No significant abnormality is noted involving the heart, lungs, mediastinum, bony thorax or soft tissues. XR/XR chest 1V IMPRESSION: Unremarkable examination.
--- NOTE | ~2020-11-30 | CT_ITS ---
EXAMINATION: CT ABDOMEN AND PELVIS WITHOUT CONTRAST CLINICAL INFORMATION: Right flank pain COMPARISON: 02/02/2018 TECHNIQUE: Multidetector volumetric imaging was performed from the superior aspect of the liver through the pubic symphysis. Sagittal and coronal reformatted images were obtained on the technologist's workstation. This CT examination was performed using dose optimization techniques as appropriate, variously including the following: *Automated exposure control *Adjustment of mA and/or kV according to patient size (this includes techniques or standardized protocols for targeted exams where dose is matched to indication/reason for exam; i.e. extremities or head) *Use of iterative reconstruction technique DLP: 1149 mGy-cm FINDINGS: LUNG BASES: The visualized lung bases are unremarkable. LIVER, GALLBLADDER, AND BILIARY TREE: The liver is normal in size, shape, and attenuation. No focal hepatic lesion or biliary ductal dilatation is present. The gallbladder is unremarkable with no evidence of radiopaque gallstones, gallbladder wall thickening, or obvious pericholecystic inflammatory changes. PANCREAS: Unremarkable. SPLEEN: Unremarkable. ADRENAL GLANDS: Unremarkable. KIDNEYS AND URETERS: The kidneys are normal in size, shape, and attenuation. No hydronephrosis, hydroureter, or calculi seen. No perinephric stranding. BLADDER: Unremarkable. GASTROINTESTINAL TRACT: The small and large bowel are unremarkable. The appendix is unremarkable. ABDOMINAL WALL: No significant hernia is appreciated. LYMPH NODES: Normal. VASCULAR: Unremarkable. PELVIC VISCERA: Pelvic organs appear to be surgically absent. OSSEOUS STRUCTURES: Unremarkable. CT/CT abdomen pelvis wo con IMPRESSION: No significant abnormality.
[2020-11-30 16:52] VITALS: BP 148/92; PULSE 66; O2SAT 100
[2020-11-30 17:15] VITALS: BP 131/77; PULSE 75; RESP 18; TEMP 36.3; O2SAT 97; BMI 34.4
--- NOTE | 2020-11-30 17:47 | ECG_ITS ---
Test Reason : CHEST TIGHTNESS Blood Pressure : / mmHG Vent. Rate : 061 BPM Atrial Rate : 061 BPM P-R Int : 128 ms QRS Dur : 072 ms QT Int : 444 ms P-R-T Axes : 038 030 055 degrees QTc Int : 446 ms Normal sinus rhythm Normal ECG When compared with ECG of 23-NOV-2020 14:33, No significant change was found Referred By: Rick Mireles Electronically Signed By:GILMA GONZALEZ
--- NOTE | 2020-11-30 17:49 | ED_ITS ---
HPI - General Adult General Chief complaint: Back Pain/Injury Stated complaint: abd pain Time Seen by Provider: 11/30/20 17:40 Source: patient, family, EMS and mill controller Mode of arrival: EMS Limitations: no limitations History of Present Illness HPI narrative: 50-year-old female came in by EMS for evaluation of right upper quadrant pain and right upper back pain. Patient's symptoms started since 5 days ago patient was seen in the emergency department was told to have a viral infection, patient returned today because worsening of the pain in the right upper quadrant/right flank area since this morning, patient stated that the pain is constant and severe /, mostly focal an epigastric goes to the right upper quadrant and radiates to the right flank area under the right breast area. No associated symptoms with that. Related Data Home Medications Medication Instructions Recorded Confirmed albuterol sulfate 90 mcg/actuation 2 puff INHALATION Q4-6H PRN 01/31/20 11/30/20 aerosol inhaler (ProAir HFA) multivitamin 1 tab PO DAILY 01/31/20 11/30/20 Previous Rx's Medication Instructions Recorded lisinopril 20 mg tablet 20 mg PO DAILY #90 tab 08/09/20 levothyroxine 25 mcg tablet 25 mcg PO DAILY #90 tab 10/30/20 (Synthroid) albuterol sulfate 1.25 mg/3 mL 2.5 mg INHALATION Q4-6H PRN #90 ml 11/23/20 solution for nebulization albuterol sulfate 90 mcg/actuation 2 puff INHALATION Q4-6H PRN #8.5 g 11/23/20 aerosol inhaler benzonatate 200 mg capsule 200 mg PO TID 5 Days #15 cap 11/23/20 nitrofurantoin 100 mg PO Q12H 7 Days #14 cap 11/30/20 monohydrate/macrocrystals 100 mg capsule (Macrobid) prednisone 20 mg tablet 20 mg PO DAILY 5 Days #5 tab 11/30/20 Allergies Allergy/AdvReac Type Severity Reaction Status Date / Time iron Allergy Unknown vomiting Verified 11/30/20 15:56 iron dextran complex AdvReac Intermediate FLUSHING,SOB,VOMITING,INCREASED Verified 11/30/20 15:56 [Iron Dextran Complex] ANXIETY,LOW BACK PAIN, Review of Systems Review of Systems: All other systems are reviewed and are negative Constitutional: Reports as per HPI and Reports no additional constitutional complaints Eyes: Reports as per HPI and Reports no additional eye complaints Reports system reviewed and no additional complaints, except as documented Cardiovascular: Reports as per HPI and Reports no additional cardiovascular complaints Respiratory: Reports as per HPI and Reports no additional respiratory complaints Gastrointestinal: Reports as per HPI and Reports no additional gastrointestinal complaints Genitourinary: Reports no additional female genitourinary complaints Musculoskeletal: Reports no additional musculoskeletal complaints Skin/Breast: Reports system reviewed and no additional complaints, except as docu Psychiatric: Reports no additional psychiatric complaints Endocrine: Reports no additional endocrine complaints Hematologic/Lymphatic: Reports no additional hematologic/lymphatic complaints Allergic/Immunologic: Reports no additional allergic/immunologic complaints Reports system reviewed and no additional complaints, except as documented and Reports Abnormal speech present REPLACED BY [facility] Past Medical History Medical History Anemia Arthritis Asthma Esophageal stricture HTN (hypertension) Migraines Obesity (BMI 30-39.9) Polyarthralgia TSH elevation Uterine fibroid Vitamin D deficiency Surgical History H/O: hysterectomy History of arthroscopy of right knee History of bladder surgery History of knee surgery History of laparoscopy History of tubal ligation Family History Family History Father Stroke Mother Bladder cancer Maternal Grandmother Myocardial infarction Maternal Aunt Myocardial infarction Paternal Aunt No problems noted. Social History Social History Housing: House Alcohol intake: never Patient Tobacco Use Status: Never used Tobacco Second Hand Smoke Exposure: No Use of substances other than those prescribed or required for medical reasons: No Advance Directives: No Advance Directives Information Provided: No service: No Current occupational status: employed Physical Exam Vital Signs: Vital Signs: Last Vital Signs Temp 97.4 F 11/30/20 17:15 Pulse 75 11/30/20 17:15 Resp 18 11/30/20 17:15 BP 131/77 11/30/20 17:15 Pulse Ox 97 11/30/20 17:15 Body Mass Index 34.4 Vital signs have been reviewed as appeared to be correct. Blood pressure normal. Heart rate normal. Respiration rate normal. Temperature normal. Oxygen saturation normal. Appearance: Alert. Oriented X3. No acute distress. Head: Normal external exam. Normocephalic. Atraumatic. No Mora signs noted. No raccoon eyes noted Eyes: PERRLA. EOMI. Conjunctiva and sclera normal. Eyelids normal. ENT: TM's Normal. Pharynx normal. Uvula midline. Moist mucous membranes. No trismus noted. No drooling noted. No muffled voice noted. Neck: Normal inspection. Neck supple. FROM. No adenopathy. Thyroid Normal. No m eningeal signs. No neck mass noted. CVS: Normal heart rate and rhythm. Heart sound normal. No murmurs noted. Pulses normal throughout. Respiratory: No respiratory distress. Painless inspiration. Breath sounds normal. No wheezes/rales/rhonchi noted. Chest nontender. No accessory muscle usage noted or decreased air movement noted. Abdomen: Soft,+ right upper quadrant tenderness,+ right CVA tenderness, Bowel sounds normal in all 4 quadrants. No distention noted. No organomegaly noted. No visible injury noted. Back: R CVA tenderness. Full range of motion noted. Skin: Skin warm and dry. Normal skin color. Normal skin turgor. No rashes/lesions/lacerations noted. Extremities: No lower extremity edema. Extremities exhibit normal range of motion. Extremities nontender. Neuro: Oriented X 3. Cranial nerve exam: II-XII are grossly intact No motor deficit. No sensory deficit. Reflexes normal. Course Course Course Narrative: Assessment and plan. 50-year-old female came in for evaluation of a right flank/right upper quadrant pain for a while but worsening today. Patient was given morphine in the emergency department on IV hydration now is feeling better. Patient also had blood workup including troponin which is unremarkable. EKG was unremarkable, chest x-ray was unremarkable, patient also had CT of the abdomen pelvis which was unremarkable, a slight elevation of WBCs in the urine analyses but patient has no symptoms to indicate UTI, Patient also had an ultrasound of the gallbladder which was unremarkable, CT of the abdomen pelvis was unremarkable so. Impression: questionable asymptomatic UTI that now is worsening to a right pyelonephritis versus right flank muscular pain. Will start the patient on Macrobid for 1 week and drink plenty of fluids, patient was instructed to use Tylenol or ibuprofen for pain. Medical Decision Making Lab Data Lab results reviewed: Yes I reviewed the patient's lab results. Result diagrams: 11/30/20 18:38 11/30/20 18:38 Labs: Lab Results 11/30/20 11/30/20 11/30/20 Range/Units 18:38 18:38 18:38 WBC 15.4 H (4.8-10.8) X10*3/uL RBC 4.35 (4.20-5.50) X10*6/uL Hgb 14.1 (12.0-16.0) g/dl Hct 40.3 (37-47) % MCV 92.6 (80-98) fL MCH 32.4 (27.0-33.0) pg MCHC 35.0 (31.0-35.0) g/dl RDW 11.9 (11.0-16.0) % Plt Count 338 (160-400) X10*3/uL MPV 9.5 (9.4-12.3) fL Immature Gran % (Auto) 1.7 H (0.0-0.4) % Neut % (Auto) 57.8 (45-73) % Lymph % (Auto) 32.9 (20-40) % Scott % (Auto) 6.8 (2-11) % Eos % (Auto) 0.5 (0-4) % Baso % (Auto) 0.3 (0-2) % Lymph # (Auto) 5.1 H (1.2-4.9) X10*3/uL Scott # (Auto) 1.0 (0.1-1.2) X10*3/uL Eos # (Auto) 0.1 (0.0-0.4) X10*3/uL Baso # (Auto) 0.0 (0.0-0.2) X10*3/uL Abs Immat Gran (auto) 0.26 H (0.00-0.03) X10*3/uL Absolute Neuts (auto) 8.9 H (2.0-8.3) X10*3/uL Absolute Nucleated RBC 0.000 (0.0-0.012) X10*3/uL Nucleated RBC % (auto) 0.0 (0.0-0.2) /100WBC Smear Tech's Comments VERIFIED D-Dimer < 200 NG/ML Sodium 138 (135-145) mmol/L Potassium 3.8 (3.3-5.1) mmol/L Chloride 104 (96-108) mmol/L Carbon Dioxide 23 (22-29) mmol/L Anion Gap 15 (12-20) BUN 20 H D (9-16) mg/dL Creatinine 0.87 (0.5-1.4) mg/dL Estim Creat Clear Calc 77.4 Estimated GFR > 60 Random Glucose 105 (60-115) mg/dL Calcium 9.3 D (8.4-10.2) mg/dL Total Bilirubin 0.5 (0.0-1.0) mg/dL Direct Bilirubin < 0.2 (0.0-0.5) mg/dL AST 13 (5-31) U/L ALT 9 (0-31) U/L Alkaline Phosphatase 69 (39-117) U/L Troponin I High Sens (<3.5-17.0) ng/L B-Natriuretic Peptide (<100) pg/mL Total Protein 7.1 (6.5-8.0) g/dL Albumin 4.3 (3.5-5.0) g/dL Lipase 81 H (8-78) U/L Urine Color Urine Appearance Urine pH (5.0-8.0) Ur Specific [place] (1.005-1.025) Urine Protein (NEG-TRACE) MG/DL Urine Glucose (UA) (NEG) MG/DL Urine Ketones (NEG) MG/DL Urine Blood (NEG) Urine Nitrite (NEG) Ur Leukocyte Esterase (NEG) Urine RBC (0) /HPF Urine WBC (0-4) /HPF Ur Squamous Epith Cells /LPF Urine Bacteria /LPF Urine Mucus /LPF 11/30/20 11/30/20 Range/Units 18:38 18:38 WBC (4.8-10.8) X10*3/uL RBC (4.20-5.50) X10*6/uL Hgb (12.0-16.0) g/dl Hct (37-47) % MCV (80-98) fL MCH (27.0-33.0) pg MCHC (31.0-35.0) g/dl RDW (11.0-16.0) % Plt Count (160-400) X10*3/uL MPV (9.4-12.3) fL Immature Gran % (Auto) (0.0-0.4) % Neut % (Auto) (45-73) % Lymph % (Auto) (20-40) % Scott % (Auto) (2-11) % Eos % (Auto) (0-4) % Baso % (Auto) (0-2) % Lymph # (Auto) (1.2-4.9) X10*3/uL Scott # (Auto) (0.1-1.2) X10*3/uL Eos # (Auto) (0.0-0.4) X10*3/uL Baso # (Auto) (0.0-0.2) X10*3/uL Abs Immat Gran (auto) (0.00-0.03) X10*3/uL Absolute Neuts (auto) (2.0-8.3) X10*3/uL Absolute Nucleated RBC (0.0-0.012) X10*3/uL Nucleated RBC % (auto) (0.0-0.2) /100WBC Smear Tech's Comments D-Dimer NG/ML Sodium (135-145) mmol/L Potassium (3.3-5.1) mmol/L Chloride (96-108) mmol/L Carbon Dioxide (22-29) mmol/L Anion Gap (12-20) BUN (9-16) mg/dL Creatinine (0.5-1.4) mg/dL Estim Creat Clear Calc Estimated GFR Random Glucose (60-115) mg/dL Calcium (8.4-10.2) mg/dL Total Bilirubin (0.0-1.0) mg/dL Direct Bilirubin (0.0-0.5) mg/dL AST (5-31) U/L ALT (0-31) U/L Alkaline Phosphatase (39-117) U/L Troponin I High Sens < 3.5 (<3.5-17.0) ng/L B-Natriuretic Peptide 65 (<100) pg/mL Total Protein (6.5-8.0) g/dL Albumin (3.5-5.0) g/dL Lipase (8-78) U/L Urine Color YELLOW Urine Appearance CLEAR Urine pH 5.5 (5.0-8.0) Ur Specific [place] 1.025 (1.005-1.025) Urine Protein NEG (NEG-TRACE) MG/DL Urine Glucose (UA) NEG (NEG) MG/DL Urine Ketones 5 (NEG) MG/DL Urine Blood TRACE (NEG) Urine Nitrite NEG (NEG) Ur Leukocyte Esterase NEG (NEG) Urine RBC 1-4 (0) /HPF Urine WBC 5-9 H (0-4) /HPF Ur Squamous Epith Cells TRACE /LPF Urine Bacteria TRACE /LPF Urine Mucus TRACE /LPF Imaging Data CT scan - abdomen: Radiologist's impression: No significant abnormality. Abdominal ultrasound.: Radiologist's impression: Negative study aside from mild stable prominence of the common bile duct Chest x-ray: Radiologist's impression: Unremarkable examination. ECG Data Interpretation: Normal sinus rhythm at 61 beats per minutes, normal intervals, no ST-T changes. Discharge Plan Discharge Clinical Impression: Acute myofascial pain, Pyelonephritis Patient Disposition: Home, Self-Care Instructions: Kidney Infection (ED) Prescriptions: New nitrofurantoin monohyd/m-cryst [Macrobid] 100 mg capsule 100 mg PO Q12H 7 Days Qty: 14 RF: 0 No Action lisinopril 20 mg tablet 20 mg PO DAILY Qty: 90 RF: 2 levothyroxine [Synthroid] 25 mcg tablet 25 mcg PO DAILY Qty: 90 RF: 2 albuterol sulfate 1.25 mg/3 mL solution for nebulization 2.5 mg inhalation Q4-6H PRN (Reason: shortness of breath or wheezing) Qty: 90 RF: 0 albuterol sulfate 90 mcg/actuation HFA aerosol inhaler 2 puff inhalation Q4-6H PRN (Reason: shortness of breath or wheezing) Qty: 8.5 RF: 0 benzonatate 200 mg capsule 200 mg PO TID 5 Days Qty: 15 RF: 0 prednisone 20 mg tablet 20 mg PO DAILY 5 Days Qty: 5 RF: 0 multivitamin Tablet 1 tab PO DAILY RF: 0 albuterol sulfate [ProAir HFA] 90 mcg/actuation HFA aerosol inhaler 2 puff inhalation Q4-6H PRNRF: 0 Referrals: Po,Maurice Heart MD [Primary Care Provider] - 2 days
[2020-11-30] MEDS: 0.9 % Sodium Chloride 1,000 ML 999 ML IVCONT (18:13)
[2020-11-30] MEDS: Ketorolac Tromethamine 15 MG/ML VIAL IVPUSH (18:13)
[2020-11-30] MEDS: Morphine Sulfate 2 MG/ML CARTRIDGE 1 MG IVPUSH (18:14)
[2020-11-30 18:50] LABS: Appearance Urine CLEAR; Color Urine YELLOW; Glucose Urine UA NEG (NEG); Leukocyte Esterase Urine NEG (NEG); Nitrite Urine NEG (NEG); PH 5.5 (5.0-8.0); Specific Gravity - Urine 1.025 (1.005-1.025); UACC Culture Trigger NO; Urine Blood TRACE (NEG); Urine Ketones 5 MG/DL (NEG); Urine Protein NEG (NEG-TRACE)
[2020-11-30 18:57] LABS: D Dimer < 200 NG/ML
[2020-11-30 19:00] LABS: Alanine Aminotransferase 9 U/L (0-31); Albumin Level 4.3 g/dL (3.5-5.0); Alkaline Phosphatase 69 U/L (39-117); Anion Gap 15 (12-20); Aspartate Amino Transferase 13 U/L (5-31); Bilirubin Direct < 0.2 mg/dL (0.0-0.5); Bilirubin Total 0.5 mg/dL (0.0-1.0); Blood Urea Nitrogen 20 mg/dL (9-16); Calcium 9.3 mg/dL (8.4-10.2); Carbon Dioxide 23 mmol/L (22-29); Chloride 104 mmol/L (96-108); Creatinine Clr Calc Pharmacy 77.4; Estimated Glomerular Filt Rate > 60; Glucose Random 105 mg/dL (60-115); Lipase 81 U/L (8-78); Potassium 3.8 mmol/L (3.3-5.1); Sodium 138 mmol/L (135-145); Total Protein 7.1 g/dL (6.5-8.0)
[2020-11-30 19:01] LABS: Basophils Percent Auto 0.3 % (0-2); Eosinophils Absolute Auto 0.1 X10*3/uL (0.0-0.4); Eosinophils Percent Auto 0.5 % (0-4); Hematocrit 40.3 % (37-47); Hemoglobin 14.1 g/dl (12.0-16.0); Imm Gran Abs Auto 0.26 X10*3/uL (0.00-0.03); Imm Gran Pct Auto 1.7 % (0.0-0.4); Lymphocytes Absolute Auto 5.1 X10*3/uL (1.2-4.9); Lymphocytes Percent Auto 32.9 % (20-40); MANUAL DIFF FLAG SCAN; Mean Corpuscular Hemoglobin 32.4 pg (27.0-33.0); Mean Corpuscular Volume 92.6 fL (80-98); Mean Platelet Volume 9.5 fL (9.4-12.3); Monocytes Percent Auto 6.8 % (2-11); Neutrophils Absolute Auto 8.9 X10*3/uL (2.0-8.3); Neutrophils Percent Auto 57.8 % (45-73); Platelet Count 338 X10*3/uL (160-400); Red Blood Count 4.35 X10*6/uL (4.20-5.50); Red Cell Distribution Width 11.9 % (11.0-16.0); SCAN SMEAR FLAG 1; White Blood Count 15.4 X10*3/uL (4.8-10.8)
[2020-11-30 19:06] LABS: B Type Natriuretic Peptide 65 pg/mL (<100); Troponin-I High Sensitivity < 3.5 ng/L (<3.5-17.0)
[2020-11-30 19:28] LABS: SLIDE REVIEW VERIFIED
[2020-11-30 19:30] LABS: Bacteria Urine TRACE /LPF; Mucus Urine TRACE /LPF; Squamous Epithelial Cell Urine TRACE /LPF; UACC CULT YES
[2020-11-30] MEDS: Nitrofurantoin Monohyd/M-Cryst 100 MG CAPSULE PO (20:44)
[2020-11-30 20:50] VITALS: BP 118/66; PULSE 55; RESP 16; TEMP 36.6; O2SAT 99
== END 2020-11-30 20:55 | disposition home or self-care (01) ==
PROVIDERS: Emergency Provider Emergency Medicine; PCP Internal Medicine
DX: N12 Tubulo-interstitial nephritis, not specified as acute or chronic (principal); R10.11 Right upper quadrant pain; R06.02 Shortness of breath; Z79.899 Other long term (current) drug therapy
CPT/HCPCS: 36415; 71045; 74176; 76705; 80048; 80076; 81001; 83690; 83880; 84484; 85025; 85379; 87086; 93005; 96361; 96374; 96375; 99284; J1885; J2270

== ENCOUNTER 2021-03-13 14:39 | Emergency (ER) | payer OTHER, SELFPAY ==
--- NOTE | ~2021-03-13 | CT_ITS ---
EXAMINATION: CT ABDOMEN AND PELVIS WITHOUT CONTRAST CLINICAL INFORMATION: Left-sided abdominal pain COMPARISON: 11/30/2020 TECHNIQUE: Multidetector volumetric imaging was performed from the superior aspect of the liver through the pubic symphysis. Sagittal and coronal reformatted images were obtained on the technologist's workstation. This CT examination was performed using dose optimization techniques as appropriate, variously including the following: *Automated exposure control *Adjustment of mA and/or kV according to patient size (this includes techniques or standardized protocols for targeted exams where dose is matched to indication/reason for exam; i.e. extremities or head) *Use of iterative reconstruction technique DLP: 707 mGy-cm FINDINGS: LUNG BASES: Minimal dependent atelectasis bilaterally. LIVER, GALLBLADDER, AND BILIARY TREE: The liver is normal in size, shape, and attenuation. No focal hepatic lesion or biliary ductal dilatation is present. The gallbladder is unremarkable with no evidence of radiopaque gallstones, gallbladder wall thickening, or obvious pericholecystic inflammatory changes. PANCREAS: Unremarkable. SPLEEN: Unremarkable. ADRENAL GLANDS: Unremarkable. KIDNEYS AND URETERS: The kidneys are normal in size, shape, and attenuation. No hydronephrosis, hydroureter, or calculi seen. No perinephric stranding. BLADDER: Unremarkable. GASTROINTESTINAL TRACT: No evidence of bowel obstruction or significant wall thickening. The appendix is unremarkable. No free fluid or free air is seen. ABDOMINAL WALL: No significant hernia is appreciated. LYMPH NODES: There is mild interval increase in prominence of multiple left-sided mesenteric lymph nodes compared to 11/30/2020, though these remain subcentimeter in size in the short axis dimension. VASCULAR: Unremarkable. PELVIC VISCERA: Patient appears to be status post hysterectomy. OSSEOUS STRUCTURES: Unremarkable. CT/CT abdomen pelvis wo con IMPRESSION: Mild prominence of subcentimeter mesenteric lymph nodes in the left abdomen, increased compared to 11/30/2020. Follow-up CT in approximately 3 months is advised to assess for progressive enlargement, which would increase suspicion for a malignant etiology. No additional acute findings identified in the abdomen/pelvis. Fleischner guidelines were followed.
[2021-03-13 17:02] VITALS: BP 168/81; PULSE 82; RESP 18; TEMP 36.2; O2SAT 98; BMI 34.7
[2021-03-13] MEDS: Acetaminophen 325 MG TABLET 650 MG PO (17:11)
[2021-03-13 17:33] LABS: MANUAL DIFF FLAG NO
[2021-03-13 17:38] LABS: Basophils Percent Auto 0.3 % (0-2); Eosinophils Absolute Auto 0.1 X10*3/uL (0.0-0.4); Eosinophils Percent Auto 1.4 % (0-4); Hematocrit 39.5 % (37.0-47.0); Hemoglobin 13.7 g/dl (12.0-16.0); Imm Gran Abs Auto 0.02 X10*3/uL (0.00-0.03); Imm Gran Pct Auto 0.3 % (0.0-0.4); Lymphocytes Absolute Auto 1.7 X10*3/uL (1.2-4.9); Lymphocytes Percent Auto 22.3 % (20-40); Mean Corpuscular HGB Conc 34.7 g/dl (31.0-35.0); Mean Corpuscular Hemoglobin 32.5 pg (27.0-33.0); Mean Corpuscular Volume 93.8 fL (80.0-98.0); Mean Platelet Volume 9.4 fL (9.4-12.3); Monocytes Absolute Auto 0.7 X10*3/uL (0.1-1.2); Monocytes Percent Auto 9.3 % (2-11); Neutrophils Absolute Auto 5.2 x10*3/uL (2.0-8.3); Neutrophils Percent Auto 66.4 % (45-73); Platelet Count 277 X10*3/uL (160-400); Red Blood Count 4.21 X10*6/uL (4.20-5.50); Red Cell Distribution Width 11.8 % (11.0-16.0); White Blood Count 7.8 X10*3/uL (4.8-10.8)
[2021-03-13 17:52] LABS: Appearance Urine HAZY; Color Urine YELLOW; Glucose Urine UA NEG (NEG); Leukocyte Esterase Urine NEG (NEG); Nitrite Urine NEG (NEG); PH 5.5 (5.0-8.0); Specific Gravity - Urine >= 1.030 (1.005-1.025); UACC Culture Trigger NO; Urine Blood 2+ (NEG); Urine Ketones NEG (NEG); Urine Protein NEG (NEG-TRACE)
[2021-03-13 18:02] LABS: Alanine Aminotransferase 10 U/L (0-31); Albumin Level 4.4 g/dL (3.5-5.0); Alkaline Phosphatase 79 U/L (39-117); Anion Gap 9 (12-20); Aspartate Amino Transferase 21 U/L (5-31); Bilirubin Total 0.6 mg/dL (0.0-1.0); Blood Urea Nitrogen 12 mg/dL (9-16); Calcium 9.7 mg/dL (8.4-10.2); Carbon Dioxide 29 mmol/L (22-29); Chloride 104 mmol/L (96-108); Creatinine Clr Calc Pharmacy 97.2; Estimated Glomerular Filt Rate > 60; Glucose Random 94 mg/dL (60-115); Potassium 3.8 mmol/L (3.3-5.1); Sodium 138 mmol/L (135-145); Total Protein 7.5 g/dL (6.5-8.0)
[2021-03-13 18:15] LABS: Squamous Epithelial Cell Urine 2+ /LPF; UACC CULT YES
[2021-03-13 22:28] VITALS: BP 177/88; PULSE 72; RESP 16; TEMP 36.7; O2SAT 99
--- NOTE | 2021-03-13 22:33 | ED_ITS ---
HPI - Female Genitourinary General Chief complaint: Urogenital-Female Stated complaint: abdominal pain back pain blood in urine Time Seen by Provider: 03/13/21 22:24 Source: patient Limitations: no limitations History of Present Illness HPI Narrative: This is a 51-year-old female who complains of left-sided abdominal pain as well as flank pain that has been constant since Thursday. The patient has felt like she has had a fever, has not measured it. She has had a headache off and on. She denies any cough or shortness of breath. She has had nausea, denies vomiting. She denies any diarrhea. She denies hematuria but notes she went to urgent care today and they told her she had blood in her urine and referred her to the emergency department. A she denies dysuria per se, has had urinary frequency as well. She also notes that she has pain in her legs, Related Data Home Medications Medication Instructions Recorded Confirmed albuterol sulfate 90 mcg/actuation 2 puff INHALATION Q4-6H PRN 01/31/20 11/30/20 aerosol inhaler (ProAir HFA) multivitamin 1 tab PO DAILY 01/31/20 11/30/20 Previous Rx's Medication Instructions Recorded lisinopril 20 mg tablet 20 mg PO DAILY #90 tab 08/09/20 levothyroxine 25 mcg tablet 25 mcg PO DAILY #90 tab 10/30/20 (Synthroid) albuterol sulfate 1.25 mg/3 mL 2.5 mg (6 mL) INHALATION Q4-6H PRN 11/23/20 solution for nebulization #90 ml albuterol sulfate 90 mcg/actuation 2 puff INHALATION Q4-6H PRN #8.5 g 11/23/20 aerosol inhaler benzonatate 200 mg capsule 200 mg PO TID 5 Days #15 cap 11/23/20 nitrofurantoin 100 mg PO Q12H 7 Days #14 cap 11/30/20 monohydrate/macrocrystals 100 mg capsule (Macrobid) prednisone 20 mg tablet 20 mg PO DAILY 5 Days #5 tab 11/30/20 cephalexin 500 mg capsule 500 mg PO Q8H #20 cap 03/14/21 tramadol 50 mg tablet 50 - 100 mg PO Q4H PRN #20 tab 03/14/21 Allergies Allergy/AdvReac Type Severity Reaction Status Date / Time iron Allergy Unknown vomiting Verified 03/13/21 13:45 iodine Allergy Vomiting Verified 03/13/21 17:02 iron dextran complex AdvReac Intermediate FLUSHING,SOB,VOMITING,INCREASED Verified 03/13/21 13:45 [Iron Dextran Complex] ANXIETY,LOW BACK PAIN, Review of Systems Review of Systems: Yes all other systems are reviewed and are negative Constitutional: Constitutional: Reports as per HPI, Reports body ache(s) and Denies fever(s) Eyes: Eyes: Reports as per HPI and Reports no additional eye complaints ENT: Reports system reviewed and no additional complaints, except as documented, Reports as per HPI, Denies nasal congestion, Denies nasal discharge and Denies sore throat Cardiovascular: Cardiovascular: Reports as per HPI, Denies chest pain and Denies dyspnea Respiratory: Respiratory: Reports as per HPI, Denies cough and Denies dyspnea Gastrointestinal: Gastrointestinal: Reports as per HPI, Denies abdominal pain, Denies diarrhea and Denies vomiting Genitourinary: Genitourinary: Reports as per HPI, Denies hematuria, Denies urinary frequency and Denies dysuria Musculoskeletal: Musculoskeletal: Reports no additional musculoskeletal complaints and Denies numbness Integumentary/Breasts: Skin/Breast: Reports as per HPI and Denies rash Neurologic: Reports as per HPI, Denies focal weakness, Denies numbness and Denies Sensory deficit (Neuro) Psychiatric: Psychiatric: Reports no additional psychiatric complaints and Reports as per HPI Endocrine: Endocrine: Reports no additional endocrine complaints and Reports as per HPI Hematologic/Lymphatic: Hematologic/Lymphatic: Reports no additional hematologic/lymphatic complaints, Reports as per HPI and Reports other (No peripheral edema) PMFSH Past Medical History Medical History Anemia Arthritis Asthma Esophageal stricture HTN (hypertension) Migraines Obesity (BMI 30-39.9) Polyarthralgia TSH elevation Uterine fibroid Vitamin D deficiency Surgical History H/O: hysterectomy History of arthroscopy of right knee History of bladder surgery History of knee surgery History of laparoscopy History of tubal ligation Family History Family History Father Stroke Mother Bladder cancer Maternal Grandmother Myocardial infarction Maternal Aunt Myocardial infarction Paternal Aunt No problems noted. Social History Social History Housing: House Alcohol intake: never Patient Tobacco Use Status: Never used Tobacco Second Hand Smoke Exposure: No Use of substances other than those prescribed or required for medical reasons: No Advance Directives: No Advance Directives Information Provided: No Patient : No service: No Current occupational status: employed Physical Exam Vital Signs: Vital Signs: Last Vital Signs Temp 98.0 F 03/13/21 22:28 Pulse 65 03/13/21 23:48 Resp 18 03/13/21 23:48 BP 116/69 03/13/21 23:48 Pulse Ox 96 03/13/21 23:48 BMI result Body Mass Index 34.7 Const: Other: Depressed, mildly anxious appearing affect General: cooperat tr[place], no acute distress and alert Orientation/consciousness: patient oriented x3 HENMT: Head: Yes normal to inspection Eyes: General: appearance normal, both eyes and all related structures Eyelids: Yes eyelids normal Conjunctivae: conjunctivae normal Pupils: Equal, round and reactive pupils present Neck: Neck: Yes normal visual inspection and Yes supple Chest: Chest palpation & inspection: normal inspection of the chest Resp: Effort & Inspection: normal respiratory effort Auscultation: clear to auscultation bilaterally Cardio: Rate: regular rate Rhythm: regular rhythm Heart sounds: S1 normal heart sound present, S2 normal heart sound present, no gallops, no murmurs and no rubs GI: Palpation (GI): Soft to palpation, Tenderness to palpation present (GI) (Mildly tender left upper quadrant, left lower quadrant, no guarding), No Rebound tenderness present and Other GI palpation findings present (Non- distended) Auscultation: normal bowel sounds Skin: General skin exam: no rashes or lesions noted Neuro: General: patient oriented x3, no focal motor deficits and CN's II-XI intact bilaterally Cranial nerves: Yes Equal, round and reactive pupils present Cognition (Neuro): normal cognition Motor exam (neuro): 5/5 motor strength present throughout Sensory Exam: No Sensory deficit (Neuro) Extrem: General: Yes normal to inspection and Yes no pedal edema Psych: Appearance: grossly normal Affect: normal affect MDM - Female Genitourinary MDM Narrative Medical decision making narrative: Patient with complaint of abdominal pain, worse on the left, for 4 days. Patient appeared somewhat depressed and anxious. Labs unremarkable except for mild pyuria. Urine was sent for culture. CT of the abdomen pelvis showed no evidence of kidney stone or diverticulitis. There was nonspecific adenopathy that was present on prior but somewhat worse. Patient advised to have repeat CT 3 months. Patient will be treated for UTI. Lab Data Attestation: I reviewed the patient's lab results. Result diagrams: 03/13/21 17:28 03/13/21 17:28 Labs: Lab Results 03/13/21 03/13/21 03/13/21 Range/Units 17:28 17:28 17:34 WBC 7.8 (4.8-10.8) X10*3/uL RBC 4.21 (4.20-5.50) X10*6/uL Hgb 13.7 (12.0-16.0) g/dl Hct 39.5 (37.0-47.0) % MCV 93.8 (80.0-98.0) fL MCH 32.5 (27.0-33.0) pg MCHC 34.7 (31.0-35.0) g/dl RDW 11.8 (11.0-16.0) % Plt Count 277 (160-400) X10*3/uL MPV 9.4 (9.4-12.3) fL Immature Gran % (Auto) 0.3 (0.0-0.4) % Neut % (Auto) 66.4 (45-73) % Lymph % (Auto) 22.3 (20-40) % [place] % (Auto) 9.3 (2-11) % Eos % (Auto) 1.4 (0-4) % Baso % (Auto) 0.3 (0-2) % Lymph # (Auto) 1.7 (1.2-4.9) X10*3/uL [place] # (Auto) 0.7 (0.1-1.2) X10*3/uL Eos # (Auto) 0.1 (0.0-0.4) X10*3/uL Baso # (Auto) 0.0 (0.0-0.2) X10*3/uL Abs Immat Gran (auto) 0.02 (0.00-0.03) X10*3/uL Absolute Neuts (auto) 5.2 (2.0-8.3) x10*3/uL Absolute Nucleated RBC 0.000 (0.0-0.012) X10*3/uL Nucleated RBC % (auto) 0.0 (0.0-0.2) /100WBC Sodium 138 (135-145) mmol/L Potassium 3.8 (3.3-5.1) mmol/L Chloride 104 (96-108) mmol/L Carbon Dioxide 29 (22-29) mmol/L Anion Gap 9 L (12-20) BUN 12 (9-16) mg/dL Creatinine 0.69 (0.5-1.4) mg/dL Estim Creat Clear Calc 97.2 Estimated GFR > 60 Random Glucose 94 (60-115) mg/dL Calcium 9.7 (8.4-10.2) mg/dL Total Bilirubin 0.6 (0.0-1.0) mg/dL AST 21 D (5-31) U/L ALT 10 (0-31) U/L Alkaline Phosphatase 79 (39-117) U/L Total Protein 7.5 (6.5-8.0) g/dL Albumin 4.4 (3.5-5.0) g/dL Urine Color YELLOW Urine Appearance HAZY Urine pH 5.5 (5.0-8.0) Ur Specific [place] >= 1.030 H (1.005-1.025) Urine Protein NEG (NEG-TRACE) MG/DL Urine Glucose (UA) NEG (NEG) MG/DL Urine Ketones NEG (NEG) MG/DL Urine Blood 2+ H (NEG) Urine Nitrite NEG (NEG) Ur Leukocyte Esterase NEG (NEG) Urine RBC 1-4 (0) /HPF Urine WBC 15-29 H (0-4) /HPF Ur Squamous Epith Cells 2+ /LPF Urine Bacteria NONE /LPF Imaging Data CT scan - abdomen: Radiologist's impression: IMPRESSION: Mild prominence of subcentimeter mesenteric lymph nodes in the left abdomen, increased compared to 11/30/2020. Follow-up CT in approximately 3 months is advised to assess for progressive enlargement, which would increase suspicion for a malignant etiology. No additional acute findings identified in the abdomen/pelvis.? Discharge Plan Discharge Clinical Impression: Abdominal pain, UTI (urinary tract infection), Lymphadenopathy, abdominal Patient Disposition: Home, Self-Care Instructions: Urinary Tract Infection in Women (ED), Lymphadenopathy (ED), Abdominal Pain (ED) Additional Instructions: Drink plenty of fluids. Take the cephalexin as prescribed for urinary tract infection. Follow up with primary care physician: You do have some enlarged lymph nodes in her abdomen and the radiologist recommends a repeat CT scan in 3 months to reassess these. You have no other definite pathology and her abdomen. You do have an elevated number of white blood cells in your urine which might suggest a urinary tract infection. Use the tramadol as prescribed for pain. You can also use acetaminophen. Prescriptions: New tramadol 50 mg tablet 50 - 100 mg PO Q4H PRN (Reason: pain) Qty: 20 RF: 0 cephalexin 500 mg capsule 500 mg PO Q8H Qty: 20 RF: 0 No Action lisinopril 20 mg tablet 20 mg PO DAILY Qty: 90 RF: 2 levothyroxine [Synthroid] 25 mcg tablet 25 mcg PO DAILY Qty: 90 RF: 2 albuterol sulfate 1.25 mg/3 mL solution for nebulization 2.5 mg inhalation Q4-6H PRN (Reason: shortness of breath or wheezing) Qty: 90 RF: 0 albuterol sulfate 90 mcg/actuation HFA aerosol inhaler 2 puff inhalation Q4-6H PRN (Reason: shortness of breath or wheezing) Qty: 8.5 RF: 0 benzonatate 200 mg capsule 200 mg PO TID 5 Days Qty: 15 RF: 0 nitrofurantoin monohyd/m-cryst [Macrobid] 100 mg capsule 100 mg PO Q12H 7 Days Qty: 14 RF: 0 prednisone 20 mg tablet 20 mg PO DAILY 5 Days Qty: 5 RF: 0 multivitamin Tablet 1 tab PO DAILY RF: 0 albuterol sulfate [ProAir HFA] 90 mcg/actuation HFA aerosol inhaler 2 puff inhalation Q4-6H PRNRF: 0 Stand Alone Forms: Work/School Release Interventions: ED Discharge Assessment Last Done: 03/14/21 01:05 Discharge Date/Time: 03/14/21 01:35
[2021-03-13 22:47] VITALS: RESP 18
[2021-03-13] MEDS: 0.9 % Sodium Chloride 1,000 ML 999 ML IV (22:47)
[2021-03-13] MEDS: ondansetron HCL 4 MG/2 ML VIAL IVPUSH (22:47)
[2021-03-13] MEDS: Morphine Sulfate 4 MG/ML CARTRIDGE IVPUSH (22:47)
[2021-03-13 23:48] VITALS: BP 116/69; PULSE 65; RESP 18; O2SAT 96
[2021-03-14] MEDS: cephALEXin 500 MG CAPSULE PO (01:14)
== END 2021-03-14 01:35 | disposition home or self-care (01) ==
PROVIDERS: Emergency Provider Emergency Medicine; PCP Internal Medicine
DX: R10.9 Unspecified abdominal pain (principal); N39.0 Urinary tract infection, site not specified; R59.9 Enlarged lymph nodes, unspecified; I10 Essential (primary) hypertension
CPT/HCPCS: 36415; 74176; 80053; 81001; 85025; 87086; 96361; 96374; 96375; 99284; 99285; J2270; J2405

== ENCOUNTER 2021-04-05 12:41 | Outpatient (REF) | payer OTHER, SELFPAY ==
[2021-04-05 14:06] LABS: Appearance Urine CLEAR; Color Urine YELLOW; Glucose Urine UA NEG (NEG); Leukocyte Esterase Urine NEG (NEG); Nitrite Urine NEG (NEG); PH 5.5 (5.0-8.0); Specific Gravity - Urine >= 1.030 (1.005-1.025); UACC Culture Trigger NO; Urine Blood 1+ (NEG); Urine Ketones NEG (NEG); Urine Protein NEG (NEG-TRACE)
[2021-04-05 14:35] LABS: Bacteria Urine TRACE /LPF; Squamous Epithelial Cell Urine 1+ /LPF
== END 2021-04-05 12:42 | disposition home or self-care (01) ==
LOC: HO.LAB 12:41
PROVIDERS: PCP Internal Medicine; Visit Provider Nurse Practitioner Family
DX: R31.9 Hematuria, unspecified (principal)
CPT/HCPCS: 81001; 81003

== ENCOUNTER 2021-05-23 13:39 | Outpatient (REF) | payer OTHER, SELFPAY ==
--- NOTE | ~2021-05-23 | MM_ITS ---
EXAMINATION: MM SCREENING DIGITAL BREAST TOMOSYNTHESIS, BILATERAL CLINICAL INFORMATION: Screening. Asymptomatic. The lifetime risk of breast cancer based on the Tyrer-Cuzick Model is 7%. COMPARISON: Mammography: 05/22/2020, 05/19/2019, 05/17/2019, 07/29/2017 TECHNIQUE: Digital breast tomosynthesis is performed in both the craniocaudal and mediolateral oblique views along with computer-aided detection (CAD). Synthesized 2D images are generated from the tomosynthesis. FINDINGS: There are scattered areas of fibroglandular density (ACR BI-RADS breast composition Category b). There are no significant masses, abnormal calcifications, or other abnormalities. Parenchymal pattern is similar to prior studies. There is no developing density or architectural abnormality. The axilla and skin contours are unremarkable. No significant changes. MM/MM tomosynthesis screening BI IMPRESSION: No mammographic evidence of malignancy. ASSESSMENT: BI-RADS 1: Negative RECOMMENDATION: Routine annual mammography screening. This patient's information was entered into a reminder system with a target due date for their next mammogram.
== END 2021-05-23 13:40 | disposition home or self-care (01) ==
LOC: HO.MAMMO 13:39
PROVIDERS: PCP Internal Medicine; Visit Provider Internal Medicine
DX: Z12.31 Encounter for screening mammogram for malignant neoplasm of breast (principal)
CPT/HCPCS: 77063; 77067

== ENCOUNTER 2021-05-30 10:36 | Outpatient (REF) | payer OTHER, SELFPAY ==
[2021-05-30 16:33] LABS: Urine Cytology See Pathology rpt
== END 2021-05-30 10:37 | disposition home or self-care (01) ==
LOC: HO.LAB 10:36
PROVIDERS: PCP Internal Medicine
DX: R31.9 Hematuria, unspecified (principal)
CPT/HCPCS: 88112; 99212

== ENCOUNTER → 2021-08-08 11:56 | Outpatient (BNVA) | payer OTHER, SELFPAY | PROVIDERS: PCP Internal Medicine; Visit Provider Obstetrics & Gynecology | DX: N90.4 Leukoplakia of vulva (principal) | CPT/HCPCS: 99202 ==

== ENCOUNTER 2021-09-09 14:42 | Outpatient (REF) | payer OTHER, SELFPAY | END 2021-09-09 14:43 | disposition home or self-care (01) | LOC: HO.LAB 14:42 | PROVIDERS: Visit Provider Obstetrics & Gynecology | DX: N90.89 Other specified noninflammatory disorders of vulva and perineum (principal) | CPT/HCPCS: 56605; 56606; 88305; 88312 ==

== ENCOUNTER → 2021-09-10 10:16 | Outpatient (REF) | payer OTHER, SELFPAY ==
--- NOTE | ~2021-09-10 | XR_ITS ---
EXAMINATION: XR hips LISA min 3V CLINICAL INFORMATION: Pain COMPARISON: CT abdomen pelvis 03/14/2021 TECHNIQUE: 2 views of the bilateral hips. FINDINGS: No acute fracture or dislocation. Mild degenerative changes of the hips with marginal acetabular osteophytes. Soft tissues are unremarkable. Narrowing of the pubic symphysis with sclerosis and subchondral cystic change, similar to 2020. XR/XR hips LISA min 3V IMPRESSION: Mild degenerative changes of the hips. Narrowing of the pubic symphysis with sclerosis and subchondral cystic change similar to 202. Differential considerations could include degenerative changes or osteitis pubis, correlation with clinical symptoms is recommended.
--- NOTE | ~2021-09-10 | XR_ITS ---
EXAMINATION: XR SHOULDER, LEFT CLINICAL INFORMATION: Pain COMPARISON: 03/13/2020 shoulder radiographs TECHNIQUE: Four views of the left shoulder. FINDINGS: Mild degenerative changes of the acromioclavicular joint with degenerative spurring. Glenohumeral joint space is maintained. No acute fracture or dislocation. Soft tissues are unremarkable. XR/XR shoulder LT min 2V IMPRESSION: Mild degenerative changes of the acromioclavicular joint.
--- NOTE | ~2021-09-10 | XR_ITS ---
EXAMINATION: XR knee LT 4V, XR knee RT 4V CLINICAL INFORMATION: Pain COMPARISON: 05/24/2019 knee radiographs TECHNIQUE: 4 views of the bilateral knees FINDINGS: Right knee: Moderate degenerative changes of the knee with loss of medial and lateral compartment joint space and quadriceps tendon enthesopathy. Trace suprapatellar joint effusion. Mineralization within the tibiofemoral joint space suggesting chondrocalcinosis. Mild varus examination of the knee. No acute fracture or dislocation. Left knee: No acute fracture or dislocation. Mild degenerative changes of the knee with quadriceps tendon enthesopathy similar to prior. Trace suprapatellar joint effusion. Joint spaces are maintained. Soft tissues otherwise unremarkable. XR/XR knee LT 4V IMPRESSION: * Similar moderate degenerative changes of the right knee with findings of chondrocalcinosis and a new trace suprapatellar joint effusion. * Similar mild degenerative changes of the left knee with a trace joint effusion.
--- NOTE | ~2021-09-10 | XR_ITS ---
EXAMINATION: XR knee LT 4V, XR knee RT 4V CLINICAL INFORMATION: Pain COMPARISON: 05/24/2019 knee radiographs TECHNIQUE: 4 views of the bilateral knees FINDINGS: Right knee: Moderate degenerative changes of the knee with loss of medial and lateral compartment joint space and quadriceps tendon enthesopathy. Trace suprapatellar joint effusion. Mineralization within the tibiofemoral joint space suggesting chondrocalcinosis. Mild varus examination of the knee. No acute fracture or dislocation. Left knee: No acute fracture or dislocation. Mild degenerative changes of the knee with quadriceps tendon enthesopathy similar to prior. Trace suprapatellar joint effusion. Joint spaces are maintained. Soft tissues otherwise unremarkable. XR/XR knee RT 4V IMPRESSION: * Similar moderate degenerative changes of the right knee with findings of chondrocalcinosis and a new trace suprapatellar joint effusion. * Similar mild degenerative changes of the left knee with a trace joint effusion.
--- NOTE | ~2021-09-10 | XR_ITS ---
EXAMINATION: XR SHOULDER, RIGHT CLINICAL INFORMATION: Pain COMPARISON: Right scapular radiographs 07/04/2015 TECHNIQUE: Four views of the right shoulder. FINDINGS: No fracture or dislocation. Moderate degenerative changes of the acromioclavicular joint with loss of joint space and degenerative spurring. Glenohumeral joint space is maintained. Soft tissues are unremarkable. XR/XR shoulder RT min 2V IMPRESSION: Moderate degenerative changes of the shoulder involving the acromioclavicular joint.
[2021-09-10 10:35] LABS: MANUAL DIFF FLAG NO
[2021-09-10 11:05] LABS: Basophils Percent Auto 0.4 % (0-2); Eosinophils Absolute Auto 0.1 X10*3/uL (0.0-0.4); Hematocrit 38.2 % (37.0-47.0); Hemoglobin 13.1 g/dl (12.0-16.0); Imm Gran Abs Auto 0.02 X10*3/uL (0.00-0.03); Imm Gran Pct Auto 0.3 % (0.0-0.4); Lymphocytes Absolute Auto 1.9 X10*3/uL (1.2-4.9); Lymphocytes Percent Auto 26.8 % (20-40); Mean Corpuscular HGB Conc 34.3 g/dl (31.0-35.0); Mean Corpuscular Hemoglobin 32.3 pg (27.0-33.0); Mean Corpuscular Volume 94.1 fL (80.0-98.0); Mean Platelet Volume 9.7 fL (9.4-12.3); Monocytes Absolute Auto 0.5 X10*3/uL (0.1-1.2); Neutrophils Absolute Auto 4.4 x10*3/uL (2.0-8.3); Neutrophils Percent Auto 63.5 % (45-73); Platelet Count 300 X10*3/uL (160-400); Red Blood Count 4.06 X10*6/uL (4.20-5.50); Red Cell Distribution Width 11.9 % (11.0-16.0)
[2021-09-10 11:44] LABS: Alanine Aminotransferase 7 U/L (0-31); Albumin Level 4.3 g/dL (3.5-5.0); Alkaline Phosphatase 73 U/L (39-117); Anion Gap 11 (12-20); Aspartate Amino Transferase 20 U/L (5-31); Bilirubin Total 0.4 mg/dL (0.0-1.0); Blood Urea Nitrogen 14 mg/dL (9-16); C Reactive Protein 0.75 mg/dL (< or = 0.50); Calcium 9.7 mg/dL (8.4-10.2); Carbon Dioxide 27 mmol/L (22-29); Chloride 105 mmol/L (96-108); Cholesterol 210 mg/dL; Estimated Glomerular Filt Rate > 60; Glucose Random 94 mg/dL (60-115); HDL Cholesterol 46 mg/dL; LDL Cholesterol Calculated 134 mg/dl; Potassium 4.3 mmol/L (3.3-5.1); Sodium 139 mmol/L (135-145); Total Protein 7.3 g/dL (6.5-8.0); Triglycerides 154 mg/dL
[2021-09-10 11:49] LABS: Erythrocyte Sedimentation Rate 23 MM/HR (0-20)
[2021-09-10 12:06] LABS: Free T4 (Free Thyroxine) 1.03 ng/dL (0.71-1.85); Thyroid Stimulating Hormone 2.39 uIU/mL (0.32-4.0); Vitamin D 25-OH Total 30.8 ng/mL (>30)
[2021-09-10 12:37] LABS: Folate > 20.0 ng/mL (> or = 4.0); Vitamin B12 374 pg/mL (200-900)
== END ==
LOC: HO.SL 10:16
PROVIDERS: PCP Internal Medicine; Visit Provider Internal Medicine
DX: E03.9 Hypothyroidism, unspecified (principal); E78.00 Pure hypercholesterolemia, unspecified; M25.551 Pain in right hip; M25.552 Pain in left hip; G47.10 Hypersomnia, unspecified; G47.33 Obstructive sleep apnea (adult) (pediatric); R31.9 Hematuria, unspecified
CPT/HCPCS: 36415; 73030; 73522; 73564; 80053; 80061; 82306; 82607; 82746; 84439; 84443; 85025; 85652; 86140; 95806; 99212

== ENCOUNTER → 2021-09-17 13:20 | Outpatient (BNVA) | payer OTHER, SELFPAY | PROVIDERS: PCP Internal Medicine; Visit Provider Obstetrics & Gynecology | DX: L28.0 Lichen simplex chronicus (principal) | CPT/HCPCS: 99212 ==

== ENCOUNTER → 2021-10-15 14:40 | Outpatient (BNVA) | payer OTHER, SELFPAY | PROVIDERS: PCP Internal Medicine; Visit Provider Obstetrics & Gynecology | DX: L28.0 Lichen simplex chronicus (principal) | CPT/HCPCS: 99212 ==

== ENCOUNTER 2021-11-04 12:29 | Outpatient (REF) | payer OTHER, SELFPAY ==
--- NOTE | ~2021-11-04 | US_ITS ---
EXAMINATION: US RETROPERITONEAL LIMITED (RENAL ONLY) CLINICAL INFORMATION: Hematuria, unspecified. COMPARISON: CT abdomen and pelvis 03/14/2021. Ultrasound abdomen limited 11/30/2020. Ultrasound abdomen complete 05/21/2017. X-ray KUB 07/12/2015 and 11/12/2012. TECHNIQUE: Real-time imaging of the kidneys. FINDINGS: RIGHT KIDNEY: 11.7 x 5.2 x 5.9 cm (SAG x AP x TRV). The kidney is normal in size, contour, and echogenicity. Renal cortical thickness is normal. No calculi or focal parenchymal lesions. No hydronephrosis. LEFT KIDNEY: 10.6 x 5.3 x 5.4 cm (SAG x AP x TRV). The kidney is normal in size, contour, and echogenicity. Renal cortical thickness is normal. No renal calculi or hydronephrosis. There is anechoic cyst lower pole measuring 2.1 x 1.7 x 1.9 cm. US/US renal BI IMPRESSION: Anechoic cyst lower pole left kidney. The right kidney is unremarkable.
== END 2021-11-04 12:30 | disposition home or self-care (01) ==
LOC: HO.US 12:29
DX: R31.9 Hematuria, unspecified (principal)
CPT/HCPCS: 76775

== ENCOUNTER → 2021-11-20 09:30 | Outpatient (BNVA) | payer OTHER, SELFPAY | PROVIDERS: PCP Internal Medicine; Visit Provider Obstetrics & Gynecology | DX: L28.0 Lichen simplex chronicus (principal) | CPT/HCPCS: 99212 ==

== ENCOUNTER → 2021-12-18 14:27 | Outpatient (BNVA) | payer OTHER, SELFPAY | PROVIDERS: PCP Internal Medicine; Visit Provider Obstetrics & Gynecology | DX: L28.0 Lichen simplex chronicus (principal) | CPT/HCPCS: 99212 ==

== ENCOUNTER 2022-02-28 16:58 | Outpatient (REF) | payer OTHER, SELFPAY ==
[2022-02-28 17:50] LABS: Influenza A PCR NEGATIVE (Negative); Influenza B PCR NEGATIVE (Negative); Resp Syncy Virus RNA Qual PCR NEGATIVE (Negative); SARS COV2 PCR INHOUSE NEGATIVE (Negative)
== END 2022-02-28 16:59 | disposition home or self-care (01) ==
LOC: HO.LNP 16:58
PROVIDERS: Visit Provider Physician Assistant
DX: Z20.822 Contact with and (suspected) exposure to COVID-19 (principal); B34.9 Viral infection, unspecified
CPT/HCPCS: 0241U

== ENCOUNTER 2022-05-28 14:01 | Outpatient (REF) | payer OTHER, SELFPAY ==
--- NOTE | ~2022-05-28 | MM_ITS ---
EXAMINATION: MM SCREENING DIGITAL BREAST TOMOSYNTHESIS, BILATERAL CLINICAL INFORMATION: Screening. Asymptomatic. The lifetime risk of breast cancer based on the Tyrer-Cuzick Model is 6%. COMPARISON: Mammography: 05/23/2021, 05/22/2020, 05/19/2019, 05/17/2019, 07/29/2017 TECHNIQUE: Digital breast tomosynthesis is performed in both the craniocaudal and mediolateral oblique views along with computer-aided detection (CAD). Synthesized 2D images are generated from the tomosynthesis. FINDINGS: There are scattered areas of fibroglandular density (ACR BI-RADS breast composition Category b). There are no significant masses, abnormal calcifications, or other abnormalities. No architectural abnormality or developing density or significant change from prior studies. The axilla and skin contours are unremarkable. MM/MM tomosynthesis screening BI IMPRESSION: No mammographic evidence of malignancy. ASSESSMENT: BI-RADS 1: Negative RECOMMENDATION: Routine annual mammography screening. This patient's information was entered into a reminder system with a target due date for their next mammogram.
== END 2022-05-28 14:02 | disposition home or self-care (01) ==
LOC: HO.MAMMO 14:01
PROVIDERS: PCP Internal Medicine; Visit Provider Internal Medicine
DX: Z12.31 Encounter for screening mammogram for malignant neoplasm of breast (principal)
CPT/HCPCS: 77063; 77067

== ENCOUNTER 2022-06-04 10:48 | Outpatient (REF) | payer OTHER, SELFPAY ==
[2022-06-04 10:55] LABS: MANUAL DIFF FLAG NO
[2022-06-04 12:08] LABS: Basophils Absolute Auto 0.1 X10*3/uL (0.0-0.2); Basophils Percent Auto 0.8 % (0-2); Eosinophils Absolute Auto 0.2 X10*3/uL (0.0-0.4); Eosinophils Percent Auto 2.7 % (0-4); Hematocrit 41.1 % (37.0-47.0); Hemoglobin 13.7 g/dl (12.0-16.0); Imm Gran Abs Auto 0.02 X10*3/uL (0.00-0.03); Imm Gran Pct Auto 0.3 % (0.0-0.4); Lymphocytes Absolute Auto 2.4 X10*3/uL (1.2-4.9); Lymphocytes Percent Auto 30.4 % (20-40); Mean Corpuscular HGB Conc 33.3 g/dl (31.0-35.0); Mean Corpuscular Hemoglobin 31.6 pg (27.0-33.0); Mean Corpuscular Volume 94.7 fL (80.0-98.0); Mean Platelet Volume 9.9 fL (9.4-12.3); Monocytes Absolute Auto 0.6 X10*3/uL (0.1-1.2); Monocytes Percent Auto 7.4 % (2-11); Neutrophils Absolute Auto 4.6 x10*3/uL (2.0-8.3); Neutrophils Percent Auto 58.4 % (45-73); Platelet Count 332 X10*3/uL (160-400); Red Blood Count 4.34 X10*6/uL (4.20-5.50); Red Cell Distribution Width 11.7 % (11.0-16.0); White Blood Count 7.9 X10*3/uL (4.8-10.8)
[2022-06-04 14:52] LABS: Alanine Aminotransferase 7 U/L (0-31); Albumin Level 4.4 g/dL (3.5-5.0); Alkaline Phosphatase 86 U/L (39-117); Anion Gap 11 (12-20); Aspartate Amino Transferase 20 U/L (5-31); Bilirubin Total 0.6 mg/dL (0.0-1.0); Blood Urea Nitrogen 15 mg/dL (9-16); Carbon Dioxide 30 mmol/L (22-29); Chloride 103 mmol/L (96-108); Cholesterol 223 mg/dL; Estimated Glomerular Filt Rate > 60; Glucose Random 88 mg/dL (60-115); HDL Cholesterol 47 mg/dL; LDL Cholesterol Calculated 143 mg/dl; Potassium 4.3 mmol/L (3.3-5.1); Sodium 140 mmol/L (135-145); Total Protein 7.3 g/dL (6.5-8.0); Triglycerides 167 mg/dL
[2022-06-04 15:27] LABS: Folate 14.9 ng/mL (> or = 4.0); Free T4 (Free Thyroxine) 0.98 ng/dL (0.71-1.85); Thyroid Stimulating Hormone 3.19 uIU/mL (0.32-4.0); Vitamin D 25-OH Total 37.6 ng/mL (>30)
[2022-06-05 06:46] LABS: Vitamin B12 434 pg/mL (200-900)
== END 2022-06-04 10:49 | disposition home or self-care (01) ==
LOC: HO.LAB 10:48
PROVIDERS: PCP Internal Medicine; Visit Provider Internal Medicine
DX: I10 Essential (primary) hypertension (principal); E78.00 Pure hypercholesterolemia, unspecified
CPT/HCPCS: 36415; 80053; 80061; 82306; 82607; 82746; 84439; 84443; 85025

== ENCOUNTER 2022-10-07 10:06 | Outpatient (AMB) | payer OTHER, SELFPAY ==
--- NOTE | 2022-10-07 10:16 | A.OFFVIS_ITS ---
Intake Vital Signs 10/07/22 10:23 Height 5 ft 2 in Weight 184 lb BMI 33.7 Intake Visit Reasons: New Pt - right knee pain Intake Note: Whitney is a 52 year old female who presents today as a new patient for a evaluation for her bilateral knee pain, hx of right knee . Hx of injections with 2-3 months of relief. Hx of PT with no relief. Patient reports ongoing pain for many years but in the last 2-3 months her right knee has gotten worse. She states that her right knee gives out daily which causes her a lot of pain. Her pain is on the lateral and medial aspect of the knee and it moves to the back of the knee. Pain is worse when walking, when getting up from the chair and using the stairs. Allergies iron Allergy (Unknown, Verified 10/07/22 10:18) vomiting iodine Allergy (Verified 10/07/22 10:18) Vomiting iron dextran complex [Iron Dextran Complex] Adverse Reaction (Intermediate, Verified 10/07/22 10:18) FLUSHING,SOB,VOMITING,INCREASED ANXIETY,LOW BACK PAIN, HPI New Pt - right knee pain HPI Details 52-year-old female who presents in the office today, as a new patient, for an evaluation of right knee pain. The patient reports chronic pain in the bilateral knees for many years. She reports an increase in pain in the last 2-3 months in the right knee. She claims the right knee gives out daily, which causes her pain. She reports the pain is located on the lateral and medial aspect of the right knee that radiates to the back of the knee. She states her pain increases when ambulating, getting up from the chair, or use of stairs. She states she feels the knee is shifting in. Patient has a history of right knee arthroscopy. Patient has a history of cortisone injections with 2-3 months of relief. Patient has a history of physical therapy with no relief. [facility] Medical History Anemia Asthma Axillary adenopathy Bilateral flank pain Esophageal stricture HTN (hypertension) Left lower quadrant abdominal pain Low back pain Migraines Obesity (BMI 30-39.9) Polyarthralgia Right upper quadrant pain Seasonal allergies Shortness of breath TSH elevation Upper respiratory infection Uterine fibroid Viral infection Vitamin D deficiency Surgical History H/O: hysterectomy History of arthroscopy of right knee History of bladder surgery History of knee surgery History of laparoscopy History of tubal ligation Family History Father Stroke Mother Bladder cancer Maternal Grandmother Myocardial infarction Maternal Aunt Myocardial infarction Paternal Aunt No problems noted. Maternal Aunt Stroke Social History Housing: House Alcohol intake: never Patient Tobacco Use Status: Never used Tobacco e-Cigarette/Vaping Use: Never Used Second Hand Smoke Exposure: No service: No Current occupational status: employed Cognitive needs: No Hearing needs: No Vision needs: Yes (reading glasses) Female Reproductive History Menstrual Age of Menarche: 12 Review of Systems Const All systems reviewed & are unremarkable except as noted in HPI and below Physical Exam Vital Signs: BMI result Body Mass Index 33.7 Const General: cooperative, healthy appearing, comfortable, no acute distress, well developed and alert Orientation/consciousness: patient oriented x3 HEENT Head: Yes normal to inspection, Yes normocephalic and Yes atraumatic Eyes General: appearance normal, both eyes and all related structures Resp Effort & Inspection: normal respiratory effort and able to speak in complete sentences Cardio Rate: regular rate Peripheral pulses: Peripheral pulses 2+ throughout GI Palpation (GI): Soft to palpation Skin Lesions: no lesions Rashes: no rashes Neuro General: patient oriented x3 Extrem Other: Right knee: Normal to inspection. No ecchymosis, erythema, or joint effusion. No tenderness to palpation to the medial or lateral joint lines. Full knee extension and flexion. Crepitus felt with ROM. NVI. Office Procedures Joint Injection/Drain Joint Injection/Drain Secondary Site: right knee Prep: site was prepped using aseptic technique, ethochloride spray was applied and injection warnings given Injected: 80 mg of, DepoMedrol and with 8 mL of (2% plain lido ) Approach Used: anterolateral Procedure: The patient tolerated the procedure well, but had some pain with the injection and there was some relief with the local anesthesia Coding 66620 - Large joint Procedure code (CPT) selection complete Results Reviewed Results Reviewed: 10/07/22 10:29 Lidocaine HCl 2 % MPF [Xylocaine 2 % MPF] 5 ml .ROUTE .STK-MED ONE methylPREDNISolone acetate [DEPO-MedroL] 80 mg .ROUTE .STK-MED ONE Assessment & Plan Assessment & Plan (1) Osteoarthritis of right knee: Code(s): M17.11 - Unilateral primary osteoarthritis, right knee Plan Ms. Banks is a 52-year-old female, who is Uzbek speaking, presents in the office today, as a new patient, for an evaluation of right knee pain. The patient reports chronic pain in the bilateral knees for many years. She reports an increase in pain in the last 2-3 months in the right knee. She claims the right knee gives out daily, which causes her pain. She reports the pain is located on the lateral and medial aspect of the right knee that radiates to the back of the knee. She states her pain increases when ambulating, getting up from the chair, or use of stairs. She states she feels the knee is shifting in. Patient has a history of right knee arthroscopy. Patient has a history of cortisone injections with 2-3 months of relief. Patient has a history of physical therapy with no relief. The patient was offered a cortisone injection in the right knee with 80 mg of DepoMedrol. The patient was explained the risk, benefits, and alternatives to receiving this injection. After receiving consent for the injection, the patient had the procedure done while in office today. The patient tolerated the procedure well with no complications. Follow up will be PRN, or sooner if needed. X-rays of the right knee which were obtained while in the office today and were reviewed by me, Radha Farah PA-C, revealed no evidence of acute fractures or dislocation. Right osteoarthritis. Orders: Orders XR knee RT 2V Today M25.569 - Pain in unspecified knee XR knee standing BI Today M25.569 - Pain in unspecified knee Patient Instructions: Scribed for Radha Farah PA-C by Halle López infertility medical assistant, on 10/07/2022 at 10:11 am, EST. Your attestation Coding Level of Care Code New Pt Level 4 (60397) Diagnoses Osteoarthritis of right knee M17.11 CPT Codes Coding - 93060 Large joint: 17987 - Large joint ([id number])
[2022-10-07 10:23] VITALS: BMI 33.7
== END 2022-10-07 11:54 | disposition home or self-care (01) ==
PROVIDERS: PCP Internal Medicine; Visit Provider Physician Assistant
DX: M17.11 Unilateral primary osteoarthritis, right knee (principal)
CPT/HCPCS: 20610; 99204

== ENCOUNTER 2022-10-07 10:52 | Outpatient (REF) | payer OTHER, SELFPAY ==
--- NOTE | ~2022-10-07 | XR_ITS ---
Examination: Bilateral knee standing and right knee. CLINICAL INDICATION: Pain. COMPARISON: Right knee 09/10/2021. TECHNIQUE: Right knee 2 views. AP bilateral knee standing 1 view. FINDINGS: AP bilateral knee: There is moderate loss of medial and lateral compartment joint space both knees with mild periarticular spurring medial compartment right knee. Also visualized is lateral intercondylar eminence spurring both knees. No loose body seen. Right knee: There is loss of patellofemoral compartment joint space with superior patellar spurring. No loose bodies, joint effusion or soft tissue swelling seen. XR/XR knee RT 2V IMPRESSION: 1. Degenerative arthritic changes medial and lateral compartment both knees with periarticular spurring. 2. Mild degenerative changes patellofemoral compartment right knee with superior patellar spurring.
--- NOTE | ~2022-10-07 | XR_ITS ---
Examination: Bilateral knee standing and right knee. CLINICAL INDICATION: Pain. COMPARISON: Right knee 09/10/2021. TECHNIQUE: Right knee 2 views. AP bilateral knee standing 1 view. FINDINGS: AP bilateral knee: There is moderate loss of medial and lateral compartment joint space both knees with mild periarticular spurring medial compartment right knee. Also visualized is lateral intercondylar eminence spurring both knees. No loose body seen. Right knee: There is loss of patellofemoral compartment joint space with superior patellar spurring. No loose bodies, joint effusion or soft tissue swelling seen. XR/XR knee standing BI IMPRESSION: 1. Degenerative arthritic changes medial and lateral compartment both knees with periarticular spurring. 2. Mild degenerative changes patellofemoral compartment right knee with superior patellar spurring.
== END 2022-10-07 10:53 | disposition home or self-care (01) ==
LOC: HO.HOSX 10:52
PROVIDERS: Visit Provider Physician Assistant
DX: M25.561 Pain in right knee (principal)
CPT/HCPCS: 73560; 73565

== ENCOUNTER 2022-10-07 12:57 | Outpatient (REF) | payer OTHER, SELFPAY ==
--- NOTE | ~2022-10-07 | US_ITS ---
EXAMINATION: US RETROPERITONEAL LIMITED (RENAL ONLY) CLINICAL INFORMATION: Hematuria, unspecified. COMPARISON: Ultrasound retroperitoneal limited (renal only) 11/04/2021. CT abdomen and pelvis without contrast 03/14/2021. Ultrasound abdomen limited 11/30/2020. X-ray abdomen KUB 07/12/2015 and 11/12/2012. TECHNIQUE: Real-time imaging of the kidneys. FINDINGS: RIGHT KIDNEY: 10.9 x 5.3 x 5.5 cm (SAG x AP x TRV). The kidney is normal in size, contour, and echogenicity. Renal cortical thickness is normal. No calculi or focal parenchymal lesions. No hydronephrosis. LEFT KIDNEY: 10.3 x 6.0 x 4.6 cm (SAG x AP x TRV). The kidney is normal in size, contour, and echogenicity. Renal cortical thickness is normal. No calculi or focal parenchymal lesions. No hydronephrosis. A previously described 2 cm simple cyst in the lower pole the left kidney is not identified in this examination. US/US renal BI IMPRESSION: No acute sonographic abnormalities.
== END 2022-10-07 12:58 | disposition home or self-care (01) ==
LOC: HO.US 12:57
PROVIDERS: PCP Internal Medicine; Visit Provider Urology
DX: R31.9 Hematuria, unspecified (principal); M17.11 Unilateral primary osteoarthritis, right knee
CPT/HCPCS: 20610; 76775; 99202; J1040

== ENCOUNTER 2022-10-20 12:57 | Outpatient (AMB) | payer OTHER, SELFPAY ==
--- NOTE | 2022-10-20 13:04 | MHC.OFFVIS ---
Intake Intake Visit Reasons: 1 year follow up hematuria with u.s.(set) Intake Note: Patient presents for follow up hematuria/ultrasound (imaging 10/07) Urology Medications: none Blood Thinner: none Head Of Sales Promotion Required: Yes Head Of Sales Promotion Name: marilu Prototype Model Maker: Prototype Model Maker Present Accompanied by: Self / Same As Patient Allergies iron Allergy (Unknown, Verified 10/20/22 13:32) vomiting iodine Allergy (Verified 10/20/22 13:32) Vomiting iron dextran complex [Iron Dextran Complex] Adverse Reaction (Intermediate, Verified 10/20/22 13:32) FLUSHING,SOB,VOMITING,INCREASED ANXIETY,LOW BACK PAIN, Medication List - Last Reconciled 10/20/22 by RICHMOND Vivar albuterol sulfate 90 mcg/actuation 2 puffs inhalation Q4-6H PRN albuterol sulfate 2.5 mg (0.5 mL) inhalation Q6H PRN hydroxyzine HCl 25 mg PO QID PRN levothyroxine (Synthroid) 25 mcg PO DAILY lidocaine 5% 1 patch topical DAILY melatonin 3 mg PO BEDTIME PRN meloxicam 15 mg PO DAILY multivitamin 1 tab PO DAILY HPI HPI Comments History of Present Illness Details Whitney is a very pleasant 52-year-old French-speaking female patient of Dr. De La Rosa. She has a past medical history of anemia, asthma, esophageal stricture, hypertension, low back pain, migraines, obesity, polyarthralgia, seasonal allergies, uterine fibroid, and vitamin-D deficiency. She presents to the office today for follow-up of her microscopic hematuria. In discussion with the patient today she reports to be doing and feeling well. She discusses her ongoing issues with vaginal itching and buring. She reports having followed up with [facility] SUPERVISOR here at [facility] last year and being put on multiple topical creams as well as p.r.n. medications for pruritus. She reports she continues with intermittent episodes of vaginal itching and burning. In review of patient's chart it appears biopsy was performed and reported Lichen simplex chronicus. She otherwise denies any urinary issues or concerns at this time. She denies urinary urgency, urinary frequency, incontinence, nocturia, hematuria, foul smelling urine, changes to urinary stream, flank pain, fever, and or chills. She is happy with her current voiding parameters. Recent renal imaging results reviewed with the patient today. Right kidney with no calculi, lesions, and or hydronephrosis noted. Left kidney with no lesions or hydronephrosis. A previously described 2 cm simple cyst in the lower pole of the left kidney is not identified on this examination. No acute sonographic abnormalities noted. In office urinalysis results reviewed with the patient today. Previous urine cytologies time two Negative for high grade urothelial carcinoma.? Patient denies any known chemical exposure or smoking history. She otherwise offers no issues or concerns at this time. [facility] Medical History Anemia Asthma Axillary adenopathy Bilateral flank pain Esophageal stricture HTN (hypertension) Left lower quadrant abdominal pain Low back pain Migraines Obesity (BMI 30-39.9) Polyarthralgia Right upper quadrant pain Seasonal allergies Shortness of breath TSH elevation Upper respiratory infection Uterine fibroid Viral infection Vitamin D deficiency Surgical History H/O: hysterectomy History of arthroscopy of right knee History of bladder surgery History of knee surgery History of laparoscopy History of tubal ligation Family History Father Stroke Mother Bladder cancer Maternal Grandmother Myocardial infarction Maternal Aunt Myocardial infarction Paternal Aunt No problems noted. Maternal Aunt Stroke Social History Housing: House Alcohol intake: never Patient Tobacco Use Status: Never used Tobacco e-Cigarette/Vaping Use: Never Used Second Hand Smoke Exposure: No service: No Current occupational status: employed Cognitive needs: No Hearing needs: No Vision needs: Yes (reading glasses) Female Reproductive History Menstrual Age of Menarche: 12 Review of Systems Const Reports as per HPI Eyes Reports no additional complaints ENT Reports no additional complaints Card Reports as per HPI Resp Reports as per HPI GI Reports as per HPI Reports as per HPI Musc Reports as per HPI Neuro Reports as per HPI Psych Reports no additional complaints Endo Reports no additional complaints Aller/Immun Reports as per HPI Physical Exam Const General: cooperative, healthy appearing, comfortable, no acute distress, well developed, alert and awake Orientation/consciousness: patient oriented x3 Limitations: no limitations HEENT Head: Yes normal to inspection, Yes normocephalic and Yes atraumatic Ears: hearing grossly normal bilaterally Eyes General: appearance normal, both eyes and all related structures Neck Neck: Yes normal visual inspection and Yes trachea midline Chest Chest palpation & inspection: normal inspection of the chest Resp Effort & Inspection: normal respiratory effort and able to speak in complete sentences Cardio Rate: regular rate GI Inspection: Yes normal to inspection General: Yes no CVA tenderness External Female Exam: other (bilateral leukoplakia no open areas noted) Speculum Exam - Vagina: normal appearance of the vagina, normal palpation and normal vaginal discharge Bimanual exam- vagina & uterus: normal palpation Back/Spine/Pelvis Back: no CVA tenderness Skin General skin exam: no rashes or lesions noted Neuro General: patient oriented x3 Extrem General: Yes normal to inspection Psych Appearance: grossly normal and well kempt Mental Status: mental status grossly normal Speech and movement: Normal speech and movement present and Clear speech present Affect: normal affect Attitude: cooperative Thought process: Normal thought process present Thought content: Normal thought content present Insight: Good insight present (Psych) Judgement: Good judgement present (Psych) Results AMB Urinalysis, Automated UA Leukoctes 15 Kaitlyn/uL Last Edit by adaffix on 10/20/22 13:24 UA Nitrite Negative Last Edit by adaffix on 10/20/22 13:24 UA Urobilinogen 0.2 mg/dL Last Edit by adaffix on 10/20/22 13:24 UA Protein 0 mg/dL Last Edit by adaffix on 10/20/22 13:24 UA pH 5.5 Last Edit by adaffix on 10/20/22 13:24 UA Blood 80 Bao/uL Last Edit by adaffix on 10/20/22 13:24 UA Specific [place] 1.025 Last Edit by adaffix on 10/20/22 13:24 UA Ketone Last Edit by adaffix on 10/20/22 13:24 UA Bilirubin 1 mg/dL Last Edit by adaffix on 10/20/22 13:24 UA Glucose 0 mg/dL Last Edit by adaffix on 10/20/22 13:24 Results Reviewed Results Reviewed: Laboratory Last Values Urine pH (Auto) 5.5 10/20/22 13:12 Specific [place] (Auto) 1.025 10/20/22 13:12 Urine Protein (Auto) 0 mg/dL 10/20/22 13:12 Glucose (UA)(Auto) 0 mg/dL 10/20/22 13:12 Urine Blood (Auto) 80 Bao/uL 10/20/22 13:12 Urine Nitrite (Auto) Negative 10/20/22 13:12 Urine Bilirubin (Auto) 1 mg/dL 10/20/22 13:12 Urine Urobilinogen (Auto) 0.2 mg/dL 10/20/22 13:12 Leukocyte Esterase (Auto) 15 Kaitlyn/uL 10/20/22 13:12 Date of Service: 10/07/22 EXAMINATION: US RETROPERITONEAL LIMITED (RENAL ONLY) FINDINGS: RIGHT KIDNEY: 10.9 x 5.3 x 5.5 cm (SAG x AP x TRV). The kidney is normal in size, contour, and echogenicity. Renal cortical thickness is normal. No calculi or focal parenchymal lesions. No hydronephrosis. LEFT KIDNEY: 10.3 x 6.0 x 4.6 cm (SAG x AP x TRV). The kidney is normal in size, contour, and echogenicity. Renal cortical thickness is normal. No calculi or focal parenchymal lesions. No hydronephrosis. A previously described 2 cm simple cyst in the lower pole the left kidney is not identified in this examination. IMPRESSION: No acute sonographic abnormalities. Assessment & Plan Assessment & Plan (1) Renal cyst: Code(s): N28.1 - Cyst of kidney, acquired (2) Microhematuria: Code(s): R31.29 - Other microscopic hematuria (3) Lichen simplex chronicus: Code(s): L28.0 - Lichen simplex chronicus Plan In office urinalysis results reviewed with the patient today; will send for urine cytology. Discussed at length potential causes for microscopic hematuria Discussed further microscopic hematuria workup with in office cystoscopy however patient declines at this time. Start Estrace cream as discussed and prescribed. Start betamethasone as discussed and prescribed. Discussed avoiding irritants such as soaps, detergents, shower gels, bubble baths, and overzealous washing and drying of the vagina. Continue hydroxyzine p.r.n. Recent renal imaging results reviewed with the patient today. Patient denies any bothersome urinary issues at this time Patient reports to be happy with current voiding parameters Retroperitoneal ultrasound in 1 year Follow-up in 1 year with imaging to be completed; or sooner with any issues, concerns, and or questions Orders: Orders US retroperitoneal comp 364 Days N28.1 - Cyst of kidney, acquired, R31.29 - Other microscopic hematuria Urine Cytology Today R31.29 - Other microscopic hematuria AMB Urinalysis Automated Today Z13.9 - Encounter for screening, unspecified Medications: New estradiol 0.01%(0.1mg/gram) 2 grams vaginal 3XW 30 days 42.5 grams 3RF betamethasone dipropionate 0.05% alternate with estrogen cream that was also prescribed as discussed in the office 1 appl topical .every other day 30 days 15 grams 0RF L28.0 - Lichen simplex chronicus Patient Instructions: The patient had an opportunity to ask questions regarding the treatment plan. All questions were answered. Physical exam, labs, and imaging were discussed and reviewed in detail. As well as risks, benefits, and discussion of treatment choices. No major barriers to understanding were identified. The patient expressed understanding and agreement with the above treatment plan. The patient was made aware they should contact our office by phone for worsening of their current condition, the appearance of new symptoms, or with any questions or concerns. Compliance is encouraged with any medications and follow up testing that is ordered. It is a privilege to be allowed the opportunity to participate in? your urological care.? Again, if you have any questions or concerns If you have any questions or concerns please do not hesitate to contact me. The office is [phone]. This note is constructed using voice recognition software. While every effort has been made to ensure accuracy drier take off tender errors may have been included. Yours sincerely, RICHMOND Vivar Coding Level of Care Code Est Pt Level 4 (91742) Diagnoses Renal cyst N28.1 Microhematuria R31.29 Lichen simplex chronicus L28.0
== END 2022-10-20 13:58 | disposition home or self-care (01) ==
PROVIDERS: Visit Provider Nurse Practitioner Family
DX: N28.1 Cyst of kidney, acquired (principal); R31.29 Other microscopic hematuria; L28.0 Lichen simplex chronicus
CPT/HCPCS: 99214

== ENCOUNTER 2022-10-20 12:57 | Outpatient (REF) | payer OTHER, SELFPAY ==
[2022-10-20 17:20] LABS: Urine Cytology See Pathology rpt
== END 2022-10-20 12:58 | disposition home or self-care (01) ==
LOC: HO.LNP 12:57
PROVIDERS: Visit Provider Nurse Practitioner Family
DX: R31.29 Other microscopic hematuria (principal); L28.0 Lichen simplex chronicus; N28.1 Cyst of kidney, acquired; I10 Essential (primary) hypertension; Z79.899 Other long term (current) drug therapy
CPT/HCPCS: 88112; 99212

== ENCOUNTER 2022-12-15 11:30 | Outpatient (AMB) | payer OTHER, SELFPAY ==
[2022-12-15 11:31] VITALS: BP 110/62; PULSE 67; O2SAT 97; BMI 33.3
--- NOTE | 2022-12-15 11:31 | MHC.PC.OV ---
Vital Signs 12/15/22 11:31 Height 5 ft 2 in Weight 82.554 kg BMI 33.3 BP 110/62 Blood Pressure Location Lt brachial Position Sitting Pulse 67 Pulse Source Pulse Oximeter Temp Source Skin Pulse Oximetry (%) 97 Oxygen Delivery Method Room Air Intake Visit Reasons: 3 Months F/U KNEE PAIN Continuous Pillowcase Cutter Required: No Allergies iron Allergy (Unknown, Verified 12/15/22 11:32) vomiting iodine Allergy (Verified 12/15/22 11:32) Vomiting iron dextran complex [Iron Dextran Complex] Adverse Reaction (Intermediate, Verified 12/15/22 11:32) FLUSHING,SOB,VOMITING,INCREASED ANXIETY,LOW BACK PAIN, Medication List - Last Reconciled 12/15/22 by Maurice De La Rosa, albuterol sulfate 90 mcg/actuation 2 puffs inhalation Q4-6H PRN albuterol sulfate 2.5 mg (0.5 mL) inhalation Q6H PRN betamethasone dipropionate 0.05% 1 appl topical .every other day 30 days estradiol 0.01%(0.1mg/gram) 2 grams vaginal 3XW 30 days hydroxyzine HCl 25 mg PO QID PRN levothyroxine (Synthroid) 25 mcg PO DAILY lidocaine 5% 1 patch topical DAILY lisinopril 20 mg PO DAILY melatonin 3 mg PO BEDTIME PRN meloxicam 15 mg PO DAILY multivitamin 1 tab PO DAILY Tobacco use date assessed: 12/15/22 Dental Screening Dental Screen Date: 12/15/22 Did you have a dental visit in the last 12 months?: Yes Did you have a dental problem in the last 6 months where you did not have access to dental care?: No Was dental information given to patient?: Patient has dentist HPI 3 Months F/U KNEE PAIN HPI Details 52-year-old obese female with hypertension asthma hypothyroid hypercholesterolemia GERD migraines and right knee osteoarthritis coming in for follow-up. Patient was last seen in August 2022 patient is up-to-date with colonoscopy and mammogram. With the hematuria patient was sent to urology ultrasound of the kidneys negative advised urine cytology started on steroid and female hormone cream. Patient has bilateral knee osteoarthritis and has been referred to orthopedics. Patient did have a shot on the right knee little bit better but still having a lot of pain. Deny any fall or trauma patient also complains about right flank pain. Ultrasound has been done before no kidney stone discussed about muscle pains also patient has meloxicam and this is revealed. As for the blood pressure continuing with blood pressure medication and refill done. Patient was supposed to have cholesterol test and reminded about this blood work [facility] Medical History Anemia Asthma Axillary adenopathy Bilateral flank pain Esophageal stricture HTN (hypertension) Left lower quadrant abdominal pain Low back pain Migraines Obesity (BMI 30-39.9) Polyarthralgia Right upper quadrant pain Seasonal allergies Shortness of breath TSH elevation Upper respiratory infection Uterine fibroid Viral infection Vitamin D deficiency Surgical History H/O: hysterectomy History of arthroscopy of right knee History of bladder surgery History of knee surgery History of laparoscopy History of tubal ligation Family History Father Stroke Mother Bladder cancer Maternal Grandmother Myocardial infarction Maternal Aunt Myocardial infarction Paternal Aunt No problems noted. Maternal Aunt Stroke Social History Housing: House Alcohol intake: never Patient Tobacco Use Status: Never used Tobacco e-Cigarette/Vaping Use: Never Used Second Hand Smoke Exposure: No service: No Current occupational status: employed Cognitive needs: No Hearing needs: No Vision needs: Yes (reading glasses) Female Reproductive History Menstrual Age of Menarche: 12 Questionnaire Thrive Questionnaire Date Thrive assessed: 06/02/22 AUDIT C Alcohol Use Questionnaire (AUDIT-C) 1. How often do you have a drink containing alcohol?: Never Total Score: 0 LOTUS-7 AMB Questionnaire LOTUS-7 Date LOTUS - 7 assessed: 06/02/22 Source: Developed by Drs. Jorge Cameron, Yaneth Blair, Jakub Salvador and colleagues, with an educational johnson from [employer]. Physical exam (Primary Care) Vital Signs: Last Vital Signs Pulse 67 12/15/22 11:31 BP 110/62 12/15/22 11:31 Pulse Ox 97 12/15/22 11:31 Oxygen Delivery Method Room Air 12/15/22 11:31 BMI result Body Mass Index 33.3 Tobacco/Smoking Status: Tobacco use Status Tobacco use date assessed 12/15/22 12/15/22 11:32 Patient Tobacco Use Status Never used Tobacco 12/15/22 11:32 e-Cigarette/Vaping Use Never Used 12/15/22 11:32 Thrive Assessment: Date of Thrive Assessment Date Thrive assessed 06/02/22 12/15/22 11:32 Const General: alert; No acute distress Eyes Conjunctivae: conjunctivae normal Resp Auscultation: clear to auscultation bilaterally Cardio Rate: regular rate Rhythm: regular rhythm GI Inspection: Yes normal to inspection Extrem General: Yes normal to inspection and No edema Office Procedures Flu Questionnaire Does the patient have a severe egg allergy?: No Does the patient have severe life threatening allergies?: No Does the patient have a fever or illness today?: No Has the patient ever had Guillain-[place] Syndrome?: No Has the patient ever had any past reaction to a flu shot?: No Flu Questionnaire Does the patient have a severe egg allergy?: No Does the patient have severe life threatening allergies?: No Does the patient have a fever or illness today?: No Has the patient ever had Guillain-[place] Syndrome?: No Has the patient ever had any past reaction to a flu shot?: No Immunizations flu vacc [id number] 6mos up(PF) 60 mcg(15 mcgx4)/0.5 mL IM syringe Performing Provider: Maurice De La Rosa MD Performing Location: [facility] Documented (not given) by: BOBBY Carroll on 12/15/22 11:37 Reason Not Given: Patient Refused flu vacc [id number] 6mos up(PF) 60 mcg(15 mcgx4)/0.5 mL IM syringe Performing Provider: Maurice De La Rosa MD Performing Location: [facility] Administered by: Flor Deal CMA on 12/15/22 12:11 Dose Route Admin Location Dispensed Lot Number Expiration Date NDC Party Host 0.5 mL IM Left Deltoid 0.5 mL [id number] 09/13/23 69549-899-88 [employer] VIS Given Date VIS Provided VIS Publication Date 12/15/22 Single Vaccine 20 Eligibility Eligibility Date Funding Source Not [facility] Eligible 12/15/22 Private Assessment and Plan Assessment & Plan (1) Asthma: Code(s): J45.909 - Unspecified asthma, uncomplicated Qualifiers: Asthma complication type: uncomplicated Asthma persistence: intermittent Asthma severity: mild Qualified Code(s): J45.20 - Mild intermittent asthma, uncomplicated Plan: Continue with the inhaler. (2) HTN (hypertension): Code(s): I10 - Essential (primary) hypertension Qualifiers: Hypertension type: essential hypertension Qualified Code(s): I10 - Essential (primary) hypertension Plan: Continue with blood pressure medication. Decrease salt intake and exercise patient takes lisinopril 20 mg once a day (3) Obesity (BMI 30-39.9): Code(s): E66.9 - Obesity, unspecified Plan: Diet and exercise (4) Hypothyroid: Code(s): E03.9 - Hypothyroidism, unspecified Qualifiers: Hypothyroidism type: acquired Qualified Code(s): E03.9 - Hypothyroidism, unspecified Plan: Continue with thyroid medication May 2022 last blood (5) GERD (gastroesophageal reflux disease): Code(s): K21.9 - Gastro-esophageal reflux disease without esophagitis Plan: Avoid the foods that causes that usually spicy foods, tomato products, juices, coffee, soda and foods that your sensitive to. After eating do not lie down, allow 3-4 hours before in lie down. And keep the head of bed above 30 degrees to avoid the acid from going up. (6) Knee pain, bilateral: Code(s): M25.561 - Pain in right knee; M25.562 - Pain in left knee Plan: Patient has seen ortho and x-rays done showing degenerative changes (7) Hypercholesterolemia: Code(s): E78.00 - Pure hypercholesterolemia, unspecified Plan: Avoid fried foods, chicken skin, eggs, butter margarine, pastries and meat. Be it pork or beef they have a lot of cholesterol LDL goal of less than 130 and triglyceride of less than 150 (8) Microhematuria: Code(s): R31.29 - Other microscopic hematuria Plan: Patient has seen urology and cytology requested patient was prescribed steroid cream and hormone cream. Orders: Orders Influenza [id number] Immunization Today Z23 - Encounter for immunization Influenza [id number] Immunization Today Z23 - Encounter for immunization Medications: Refilled lisinopril 20 mg PO DAILY 90 tabs 2RF meloxicam 15 mg PO DAILY 30 tabs 2RF M17.11 - Unilateral primary osteoarthritis, right knee Coding Level of Care Code Est Pt Level 4 (50545) Diagnoses Mild intermittent asthma without complication J45.20 Asthma complication type: uncomplicated Asthma persistence: intermittent Asthma severity: mild Essential hypertension I10 Hypertension type: essential hypertension Obesity (BMI 30-39.9) E66.9 Acquired hypothyroidism E03.9 Hypothyroidism type: acquired GERD (gastroesophageal reflux disease) K21.9 Knee pain, bilateral M25.561; M25.562 Hypercholesterolemia E78.00 Microhematuria R31.29
== END 2022-12-15 12:14 | disposition home or self-care (01) ==
PROVIDERS: PCP Internal Medicine; Visit Provider Internal Medicine
DX: Z23 Encounter for immunization (principal); J45.20 Mild intermittent asthma, uncomplicated; I10 Essential (primary) hypertension; E03.9 Hypothyroidism, unspecified; K21.9 Gastro-esophageal reflux disease without esophagitis
CPT/HCPCS: 90471; 90686; 99214

== ENCOUNTER 2022-12-24 09:32 | Outpatient (REF) | payer OTHER, SELFPAY | END 2022-12-24 09:33 | disposition home or self-care (01) | LOC: HO.LAB 09:32 | PROVIDERS: PCP Internal Medicine; Visit Provider Internal Medicine | DX: E78.00 Pure hypercholesterolemia, unspecified (principal) | CPT/HCPCS: 36415; 80053; 80061 ==

== ENCOUNTER 2023-03-17 08:42 | Outpatient (REF) | payer OTHER, SELFPAY ==
[2023-03-18 10:04] LABS: Influenza A PCR NEGATIVE (Negative); Influenza B PCR NEGATIVE (Negative); Resp Syncy Virus RNA Qual PCR NEGATIVE (Negative); SARS COV2 PCR INHOUSE POSITIVE (Negative)
== END 2023-03-17 08:43 | disposition home or self-care (01) ==
LOC: HO.LNP 08:42
PROVIDERS: Visit Provider Nurse Practitioner Primary Care
DX: J06.9 Acute upper respiratory infection, unspecified (principal); Z11.52 Encounter for screening for COVID-19; Z20.828 Contact with and (suspected) exposure to other viral communicable diseases
CPT/HCPCS: 0241U

== ENCOUNTER 2023-03-17 09:38 | Outpatient (AMB) | payer SELFPAY ==
[2023-03-17 12:29] VITALS: BP 110/70; PULSE 74; TEMP 36.7; O2SAT 98; BMI 33.7
--- NOTE | 2023-03-17 12:29 | MHC.OFFWIV ---
Intake Vital Signs 03/17/23 12:29 Height 5 ft 2 in Weight 184 lb BMI 33.7 BP 110/70 Blood Pressure Location Lt brachial Position Sitting Pulse 74 Pulse Source Pulse Oximeter Temp 98.0 F Pulse Oximetry (%) 98 Oxygen Delivery Method Room Air Intake Visit Reasons: EP cough chest tightness (masked) Intake Note: pt is here today for cough chest tightness started 3weeks ago Patient Tobacco Use Status: Never used Tobacco Allergies iron Allergy (Unknown, Verified 03/17/23 13:19) vomiting iodine Allergy (Verified 03/17/23 13:19) Vomiting iron dextran complex [Iron Dextran Complex] Adverse Reaction (Intermediate, Verified 03/17/23 13:19) FLUSHING,SOB,VOMITING,INCREASED ANXIETY,LOW BACK PAIN, Medication List - Last Reconciled 03/17/23 by Lyle Jang, SCARLETT albuterol sulfate 90 mcg/actuation 2 puffs inhalation Q4-6H PRN albuterol sulfate 2.5 mg (0.5 mL) inhalation Q6H PRN betamethasone dipropionate 0.05% 1 appl topical .every other day 30 days estradiol 0.01%(0.1mg/gram) 2 grams vaginal 3XW 30 days hydroxyzine HCl 25 mg PO QID PRN levothyroxine (Synthroid) 25 mcg PO DAILY lidocaine 5% 1 patch topical DAILY lisinopril 20 mg PO DAILY melatonin 3 mg PO BEDTIME PRN meloxicam 15 mg PO DAILY multivitamin 1 tab PO DAILY Do you need a note to return to daycare/school/sports/work: Yes HPI HPI Comments History of Present Illness Details Patient is a 53-year-old female in today for a sick visit. She develops symptoms of fever, cough, chest tightness, sore throat, headache, 9 days prior to arrival. She was around family during the holiday season and states that many of them recently came back with a positive diagnosis of COVID. She has a past medical history significant for asthma. Since that her fever has resolved but it she still has sore throat, cough, chest tightness. She denies nausea, vomiting, chest pain, shortness a breath, diarrhea, dizziness. She states that she is having coughing fits which are keeping up at night. Her albuterol inhaler has had little effect. [facility] Medical History Anemia Asthma Axillary adenopathy Bilateral flank pain Esophageal stricture HTN (hypertension) Left lower quadrant abdominal pain Low back pain Migraines Obesity (BMI 30-39.9) Polyarthralgia Right upper quadrant pain Seasonal allergies Shortness of breath TSH elevation Upper respiratory infection Uterine fibroid Viral infection Vitamin D deficiency Surgical History H/O: hysterectomy History of arthroscopy of right knee History of bladder surgery History of knee surgery History of laparoscopy History of tubal ligation Family History Father Stroke Mother Bladder cancer Maternal Grandmother Myocardial infarction Maternal Aunt Myocardial infarction Paternal Aunt No problems noted. Maternal Aunt Stroke Social History Housing: House Alcohol intake: never Patient Tobacco Use Status: Never used Tobacco e-Cigarette/Vaping Use: Never Used Second Hand Smoke Exposure: No service: No Current occupational status: employed Cognitive needs: No Hearing needs: No Vision needs: Yes (reading glasses) Female Reproductive History Menstrual Age of Menarche: 12 Review of Systems Const Details: Constitutional : No Weight loss, No Fever, No Chills, No Fatigue, Admits some Malaise ENT/Mouth : Admits sore throat, No Rhinorrhea Eyes: No Eye Pain, No Swelling, No Redness Cardiovascular : No Chest Pain, No SOB, No Dyspnea on Exertion, No Orthopnea, No Edema, No Palpitations Respiratory : Admits Cough, No Sputum, Admits Wheezing Gastrointestinal : No Nausea, No Vomiting, No Diarrhea, No Constipation, No abdominal Pain, No Hematochezia, No Melena Genitourinary : No Dysuria, No Urinary Frequency, No Hematuria, Musculoskeletal : No joint pain, No Myalgias, No Joint Swelling Skin : No Skin Lesions, No rash Neuro : No Weakness, No Numbness, No Dizziness, Admits headache Psych : No Anxiety/Panic, No Depression Heme/Lymph: No Bruising, No Bleeding,No Lymphadenopathy Endocrine : No Polyuria, No Polydipsia All other systems reviewed and are negative Physical Exam Vital Signs: Last Vital Signs Temp 98.0 F 03/17/23 12:29 Pulse 74 03/17/23 12:29 BP 110/70 03/17/23 12:29 Pulse Ox 98 03/17/23 12:29 Oxygen Delivery Method Room Air 03/17/23 12:29 BMI result Body Mass Index 33.7 Vital signs reviewed and are stable Const Other: Appearance: Alert.? Oriented X3.? No acute distress.? Head: Normocephalic, atraumatic, no step-offs or deformities Eyes: Pupils equal, round and reactive to light.? ENT: Pharynx normal.?Septum midline. TM intact and pearly davila. Some effusion, no erythema. Neck: Normal inspection.? Neck supple.?Full ROM CVS: Normal heart rate and rhythm.? Pulses normal.? Respiratory: No respiratory distress.? Bilateral wheeze of the upper lobes. ? Neuro: Oriented X 3.? No motor deficit.? No sensory deficit. CN 2-12 intact Post in office nebulizer treatment patient's lung sounds improved. Slight bilateral wheeze of the upper lobes. Office Procedures Nebulizer Treatment Nebulizer Treatment [id number]/[id number] RX initial, or Nebulizer Subsequent Treatment Office Meds ipratropium 0.5 mg-albuterol 3 mg (2.5 mg base)/3 mL nebulization soln Performing Provider: SCARLETT Barahona Performing Location: [facility] Administered by: SCARLETT Barahona on 03/17/23 13:38 Dose Route Admin Location Dispensed Lot Number Expiration Date ND Otolaryngology Rep 3 mL inhalation office 3 mL [id number] 12/15/23 4376-9417-42 [facility] Results Reviewed Results Reviewed: Will call patient with swab results. Assessment & Plan Assessment & Plan (1) Upper respiratory tract infection: Comment: Patient had in office nebulizer treatment for bilateral wheeze of upper lobes. She will be given azithromycin, prednisone, benzonatate Na to be taken as prescribed and as directed. She has been educated on side effects of the medication. She has been educated on signs of worsening symptoms and when to report back to the emergency room or when to report to the walk-in clinic. Code(s): J06.9 - Acute upper respiratory infection, unspecified Qualifiers: URI type: unspecified viral URI Qualified Code(s): J06.9 - Acute upper respiratory infection, unspecified Plan: Patient should follow-up with PCP Plan Take your medications as prescribed. If you were prescribed antibiotics today, it is important that you take your medication to their entirety, do not skip any doses, do not finish them early. Follow-up with your primary care provider this week. Return to the emergency department with new or worsening symptoms. Such as fevers, chills, chest pain, shortness of breath, nausea, vomiting, dizziness, headache, vision changes, lethargy In case of emergency call 911 Orders: Orders SARS-CoV2/FLU/RSV Today J06.9 - Acute upper respiratory infection, unspecified AMB Nebulizer Treatment Today R06.2 - Wheezing Medications: New azithromycin For 250 mg dose pack: take 500 mg today (day 1), then 250 mg for 4 days (days 2-5) PO 6 tabs 0RF benzonatate 100 mg PO BID-TID PRN 30 caps 0RF cough prednisone 20 mg PO BID 10 tabs 0RF Refilled albuterol sulfate 2.5 mg (0.5 mL) inhalation Q6H PRN 20 mL 0RF shortness of breath or wheezing Coding Level of Care Code Est Pt Level 3 (00518) Diagnoses Viral upper respiratory tract infection J06.9 URI type: unspecified viral URI CPT Codes Nebulizer Treatment - Nebulizer Treatment, initial or subsequent: [id number]/MDI RX initial, or Nebulizer Subsequent Treatment ([id number]) Time Spent (min) 30
== END 2023-03-17 13:46 | disposition home or self-care (01) ==
PROVIDERS: PCP Internal Medicine; Visit Provider Nurse Practitioner Primary Care
DX: R06.2 Wheezing (principal)
CPT/HCPCS: 94640; 99214; J7620

== ENCOUNTER 2023-06-02 10:06 | Outpatient (REF) | payer OTHER, SELFPAY | END 2023-06-02 10:07 | disposition home or self-care (01) | LOC: HO.MAMMO 10:06 | PROVIDERS: PCP Internal Medicine; Visit Provider Internal Medicine | DX: Z12.31 Encounter for screening mammogram for malignant neoplasm of breast (principal) | CPT/HCPCS: 77063; 77067 ==

== ENCOUNTER → 2023-06-02 10:15 | Outpatient (BNV) | payer OTHER, SELFPAY | PROVIDERS: PCP Internal Medicine; Visit Provider Radiology Diagnostic Radiology | DX: Z12.31 Encounter for screening mammogram for malignant neoplasm of breast (principal) | CPT/HCPCS: 77063; 77067 ==

== ENCOUNTER 2023-06-30 13:26 | Outpatient (AMB) | payer OTHER, SELFPAY ==
[2023-06-30 13:28] VITALS: BP 120/72; PULSE 73; O2SAT 98; BMI 34.0
--- NOTE | 2023-06-30 13:28 | MHC.PC.OV ---
Vital Signs 06/30/23 13:28 Height 5 ft 2 in Weight 186 lb BMI 34.0 BP 120/72 Blood Pressure Location Lt brachial Position Sitting Pulse 73 Pulse Source Pulse Oximeter Pulse Oximetry (%) 98 Oxygen Delivery Method Room Air Intake Visit Reasons: 3 month follow up Cholesterol test Allergies iron Allergy (Unknown, Verified 06/30/23 13:29) vomiting iodine Allergy (Verified 06/30/23 13:29) Vomiting iron dextran complex [Iron Dextran Complex] Adverse Reaction (Intermediate, Verified 06/30/23 13:29) FLUSHING,SOB,VOMITING,INCREASED ANXIETY,LOW BACK PAIN, Medication List - Last Reconciled 06/30/23 by Maurice De La Rosa MD albuterol sulfate 90 mcg/actuation 2 puffs inhalation Q4-6H PRN albuterol sulfate 2.5 mg (3 mL) inhalation QID PRN albuterol sulfate 2.5 mg (0.5 mL) inhalation Q6H PRN betamethasone dipropionate 0.05% 1 appl topical .every other day 30 days estradiol 0.01%(0.1mg/gram) 2 grams vaginal 3XW 30 days hydroxyzine HCl 25 mg PO QID PRN levothyroxine (Synthroid) 25 mcg PO DAILY lidocaine 5% 1 patch topical DAILY lisinopril 20 mg PO DAILY melatonin 3 mg PO BEDTIME PRN meloxicam 15 mg PO DAILY multivitamin 1 tab PO DAILY Tobacco use date assessed: 06/30/23 Dental Screening Dental Screen Date: 06/30/23 Did you have a dental visit in the last 12 months?: Yes Did you have a dental problem in the last 6 months where you did not have access to dental care?: No Was dental information given to patient?: Patient has dentist HPI 3 month follow up Cholesterol test HPI Details 53-year-old obese female with a history of asthma hypertension hypothyroidism GERD hypercholesterolemia last seen in December 2022. Colon test June 2013, up-to-date with mammogram. [facility] for an upper respiratory tract infection. Rashad [id number] interpret. 02/2023 covid 19 in february was trying to get in touch with the office- states insurance cancelled. throat pain 3 months , this was worse in 2023- coughing, , no sob, , mild ear discomfort L side more but this is better, covid infection 02/2023. dryness of the skin- also complains of R lateral foot to the plantar area area 2 months,. deny fall or trauma. FORMERLY [facility] Medical History Anemia Asthma Axillary adenopathy Bilateral flank pain Esophageal stricture HTN (hypertension) Left lower quadrant abdominal pain Low back pain Migraines Obesity (BMI 30-39.9) Polyarthralgia Right upper quadrant pain Seasonal allergies Shortness of breath TSH elevation Upper respiratory infection Uterine fibroid Viral infection Vitamin D deficiency Surgical History H/O: hysterectomy History of arthroscopy of right knee History of bladder surgery History of knee surgery History of laparoscopy History of tubal ligation Family History Father Stroke Mother Bladder cancer Maternal Grandmother Myocardial infarction Maternal Aunt Myocardial infarction Paternal Aunt No problems noted. Maternal Aunt Stroke Social History Housing: House Alcohol intake: never Patient Tobacco Use Status: Never used Tobacco e-Cigarette/Vaping Use: Never Used Second Hand Smoke Exposure: No service: No Current occupational status: employed Cognitive needs: No Hearing needs: No Vision needs: Yes (reading glasses) Female Reproductive History Menstrual Age of Menarche: 12 Questionnaire PHQ-9 Over the last 2 weeks, how often have you been bothered by any of the following problems? 1. Little interest or pleasure in doing things: not at all 2. Feeling down, depressed, or hopeless: not at all 3. Trouble falling or staying asleep, or sleeping too much: not at all 4. Feeling tired or having little energy: not at all 5. Poor appetite or overeating: not at all 6. Feeling bad about yourself - or that you are a failure or have let yourself or your family down: not at all 7. Trouble concentrating on things, such as reading the newspaper or watching television: not at all 8. Moving or speaking so slowly that other people could have noticed. Or the opposite - being so fidgety or restless that you have been moving around a lot more than usual: not at all 9. Thoughts that you would be better off or of hurting yourself in some way: not at all Total score: 0 Depression Screening Interpretation: Negative Depression Screening Done: Yes Source: Developed by Drs. Jorge Cameron, Jakub Jolley and colleagues, with an educational johnson from [employer] Thrive Questionnaire Date Thrive assessed: 06/30/23 I am a: Patient What is your living situation today?: I have a steady place to live Within the past 12 months, did the food you bought not last and you didn't have the money to get more?: Never true Within the past 12 months, did you worry whether your food would run out before you got money to buy more?: Never true Do you have trouble paying for medicines?: No Do you have trouble getting transportation to medical appointments?: No Do you have trouble paying your heating and electricity bill?: No Do you have trouble taking care of your child, family member or friend?: No Do you have trouble with day-to-day activities such as bathing, preparing meals, shopping, managing finances, etc.?: No Are you currently unemployed and looking for a job?: No Are you interested in more education?: No Currently or been in a relationship where the following occur: no concerns reported THRIVE Score: 0 AUDIT C Alcohol Use Questionnaire (AUDIT-C) 1. How often do you have a drink containing alcohol?: Never Total Score: 0 LOTUS-7 AMB Questionnaire LOTUS-7 Date LOTUS - 7 assessed: 06/30/23 Feeling nervous, anxious, or on edge: 0 = Not at all Not being able to stop or control worryin = Not at all Worrying too much about different things: 0 = Not at all Trouble relaxin = Not at all Being so restless that it is hard to sit still: 0 = Not at all Becoming easily annoyed or irritable: 0 = Not at all Feeling afraid as if something awful might happen: 0 = Not at all Total LOTUS-7 score (0-4 normal; 5-9 mild; 10-14 moderate; 15-21 severe): 0 Source: Developed by Drs. Jorge Cameron, Jakub Jolley and colleagues, with an educational johnson from [employer] Physical exam (Primary Care) Vital Signs: Last Vital Signs Pulse 73 06/30/23 13:28 BP 120/72 06/30/23 13:28 Pulse Ox 98 06/30/23 13:28 Oxygen Delivery Method Room Air 06/30/23 13:28 BMI result Body Mass Index 34.0 Tobacco/Smoking Status: Tobacco use Status Tobacco use date assessed 06/30/23 06/30/23 13:31 Patient Tobacco Use Status Never used Tobacco 06/30/23 13:31 e-Cigarette/Vaping Use Never Used 06/30/23 13:31 PHQ-9: PHQ-9 Score PHQ-9: Total score 0 06/30/23 13:31 Depression Screening Interpretation: Negative Thrive Assessment: Date of Thrive Assessment Date Thrive assessed 06/30/23 06/30/23 13:31 Currently or been in a relationship where the following occur: no concerns reported Const General: alert; No acute distress Eyes Conjunctivae: conjunctivae normal Resp Auscultation: clear to auscultation bilaterally Cardio Rate: regular rate Rhythm: regular rhythm GI Inspection: Yes normal to inspection Extrem General: Yes normal to inspection and No edema Assessment and Plan Assessment & Plan (1) HTN (hypertension): Code(s): I10 - Essential (primary) hypertension Qualifiers: Hypertension type: essential hypertension Qualified Code(s): I10 - Essential (primary) hypertension Plan: Continue with blood pressure medication. Decrease salt intake and exercise patient has lisinopril 20 mg once a day (2) Obesity (BMI 30-39.9): Code(s): E66.9 - Obesity, unspecified Plan: Diet and exercise (3) Asthma: Code(s): J45.909 - Unspecified asthma, uncomplicated Qualifiers: Asthma severity: mild Asthma persistence: intermittent Asthma complication type: uncomplicated Qualified Code(s): J45.20 - Mild intermittent asthma, uncomplicated Plan: Continue with albuterol inhaler as needed (4) Hypothyroid: Code(s): E03.9 - Hypothyroidism, unspecified Qualifiers: Hypothyroidism type: acquired Qualified Code(s): E03.9 - Hypothyroidism, unspecified Plan: Continue with thyroid medication but will need to retest. (5) GERD (gastroesophageal reflux disease): Code(s): K21.9 - Gastro-esophageal reflux disease without esophagitis Plan: Avoid the foods that causes that usually spicy foods, tomato products, juices, coffee, soda and foods that your sensitive to. After eating do not lie down, allow 3-4 hours before in lie down. And keep the head of bed above 30 degrees to avoid the acid from going up. (6) Hypercholesterolemia: Code(s): E78.00 - Pure hypercholesterolemia, unspecified Plan: Avoid fried foods, chicken skin, eggs, butter margarine, pastries and meat. Be it pork or beef they have a lot of cholesterol LDL goal of less than 130 and triglyceride of less than 150. December blood work is good (7) Colon cancer screening: Code(s): Z12.11 - Encounter for screening for malignant neoplasm of colon Plan: Patient is reminded about colonoscopy (8) Plantar fasciitis of right foot: Code(s): M72.2 - Plantar fascial fibromatosis Plan: podiatry referral done (9) Eczema: Code(s): L30.9 - Dermatitis, unspecified Plan: advised hydration of the skin may get hydrocortisone cream [id number] to help. Orders: Orders Vitamin D 25-OH Total Today E03.9 - Hypothyroidism, unspecified Complete Blood Count Auto Diff Today E03.9 - Hypothyroidism, unspecified Comprehensive Met. Panel Today E03.9 - Hypothyroidism, unspecified Free T4 (Free Thyroxine) Today E03.9 - Hypothyroidism, unspecified Thyroid Stimulating Hormone Today E03.9 - Hypothyroidism, unspecified Vitamin B12 and Folate Today E03.9 - Hypothyroidism, unspecified Lipid Panel Today E03.9 - Hypothyroidism, unspecified, E78.00 - Pure hypercholesterolemia, unspecified Referrals Podiatry Referral M72.2 - Plantar fascial fibromatosis Gastroenterology Referral Z12.11 - Encounter for screening for malignant neoplasm of colon Coding Level of Care Code Est Pt Level 4 (99631) Diagnoses Essential hypertension I10 Hypertension type: essential hypertension Obesity (BMI 30-39.9) E66.9 Mild intermittent asthma without complication J45.20 Asthma severity: mild Asthma persistence: intermittent Asthma complication type: uncomplicated Acquired hypothyroidism E03.9 Hypothyroidism type: acquired GERD (gastroesophageal reflux disease) K21.9 Hypercholesterolemia E78.00 Colon cancer screening Z12.11 Plantar fasciitis of right foot M72.2 Eczema L30.9 Additional Codes PHQ-9 - 70095 - PHQ-9 Billing: ([id number])
== END 2023-06-30 14:16 | disposition home or self-care (01) ==
PROVIDERS: PCP Internal Medicine; Visit Provider Internal Medicine
DX: I10 Essential (primary) hypertension (principal); J45.20 Mild intermittent asthma, uncomplicated; E03.9 Hypothyroidism, unspecified; K21.9 Gastro-esophageal reflux disease without esophagitis; E78.00 Pure hypercholesterolemia, unspecified; M72.2 Plantar fascial fibromatosis; L30.9 Dermatitis, unspecified
CPT/HCPCS: 99214

== ENCOUNTER 2023-07-30 09:04 | Outpatient (REF) | payer OTHER, SELFPAY ==
[2023-07-30 09:21] LABS: MANUAL DIFF FLAG NO
[2023-07-30 09:26] LABS: Basophils Percent Auto 0.5 % (0-2); Eosinophils Absolute Auto 0.1 X10*3/uL (0.0-0.4); Eosinophils Percent Auto 1.6 % (0-4); Hematocrit 36.8 % (37.0-47.0); Hemoglobin 13.1 g/dl (12.0-16.0); Imm Gran Abs Auto 0.03 X10*3/uL (0.00-0.03); Imm Gran Pct Auto 0.4 % (0.0-0.4); Lymphocytes Absolute Auto 1.9 X10*3/uL (1.2-4.9); Lymphocytes Percent Auto 25.8 % (20-40); Mean Corpuscular HGB Conc 35.6 g/dl (31.0-35.0); Mean Corpuscular Hemoglobin 33.4 pg (27.0-33.0); Mean Corpuscular Volume 93.9 fL (80.0-98.0); Mean Platelet Volume 9.5 fL (9.4-12.3); Monocytes Absolute Auto 0.5 X10*3/uL (0.1-1.2); Monocytes Percent Auto 6.6 % (2-11); Neutrophils Absolute Auto 4.9 x10*3/uL (2.0-8.3); Neutrophils Percent Auto 65.1 % (45-73); Platelet Count 287 X10*3/uL (160-400); Red Blood Count 3.92 X10*6/uL (4.20-5.50); Red Cell Distribution Width 11.9 % (11.0-16.0); White Blood Count 7.5 X10*3/uL (4.8-10.8)
[2023-07-30 10:08] LABS: Alanine Aminotransferase 7 U/L (0-31); Albumin Level 4.1 g/dL (3.5-5.0); Alkaline Phosphatase 74 U/L (39-117); Anion Gap 11 (12-20); Aspartate Amino Transferase 19 U/L (5-31); Bilirubin Total 0.3 mg/dL (0.0-1.0); Blood Urea Nitrogen 15 mg/dL (9-16); Calcium 9.8 mg/dL (8.4-10.2); Carbon Dioxide 27 mmol/L (22-29); Chloride 108 mmol/L (96-108); Cholesterol 194 mg/dL (<200); Estimated Glomerular Filt Rate > 60; Glucose Random 95 mg/dL (60-115); HDL Cholesterol 44 mg/dL (>40); LDL Cholesterol Calculated 122 mg/dL (<100); Sodium 142 mmol/L (135-145); Total Protein 7.3 g/dL (6.5-8.0); Triglycerides 141 mg/dL (<150)
[2023-07-30 10:22] LABS: Free T4 (Free Thyroxine) 0.96 ng/dL (0.71-1.85); Thyroid Stimulating Hormone 4.19 uIU/mL (0.32-4.0); Vitamin D 25-OH Total 28.7 ng/mL (>30)
[2023-07-30 11:24] LABS: Folate 13.3 ng/mL (> or = 4.0); Vitamin B12 345 pg/mL (200-900)
== END 2023-07-30 09:05 | disposition home or self-care (01) ==
LOC: HO.LAB 09:04
PROVIDERS: PCP Internal Medicine; Visit Provider Internal Medicine
DX: E03.9 Hypothyroidism, unspecified (principal); E78.00 Pure hypercholesterolemia, unspecified
CPT/HCPCS: 36415; 80053; 80061; 82306; 82607; 82746; 84439; 84443; 85025

== ENCOUNTER 2023-07-31 13:06 | Outpatient (AMB) | payer OTHER, SELFPAY ==
--- NOTE | 2023-07-31 13:26 | MHC.OFFVIS ---
Intake Visit Reasons: right knee injection Intake Note: Whitney is a 53 year old female who presents today for a injection in her right knee due to having a lot of pain in her knee. Allergies iron Allergy (Unknown, Verified 06/30/23 13:29) vomiting iodine Allergy (Verified 06/30/23 13:29) Vomiting iron dextran complex [Iron Dextran Complex] Adverse Reaction (Intermediate, Verified 06/30/23 13:29) FLUSHING,SOB,VOMITING,INCREASED ANXIETY,LOW BACK PAIN, HPI HPI right knee injection: Details: 53-year-old female who presents in the office today for a follow up of right knee osteoarthritis. I last saw the patient in the office on 10/07/2022 when she received a cortisone injection. While in the office today the patient reports severe pain in the right knee. FORMERLY [facility], LATER [facility] Medical History Anemia Asthma Axillary adenopathy Bilateral flank pain Esophageal stricture HTN (hypertension) Left lower quadrant abdominal pain Low back pain Migraines Obesity (BMI 30-39.9) Polyarthralgia Right upper quadrant pain Seasonal allergies Shortness of breath TSH elevation Upper respiratory infection Uterine fibroid Viral infection Vitamin D deficiency Surgical History H/O: hysterectomy History of arthroscopy of right knee History of bladder surgery History of knee surgery History of laparoscopy History of tubal ligation Family History Father Stroke Mother Bladder cancer Maternal Grandmother Myocardial infarction Maternal Aunt Myocardial infarction Paternal Aunt No problems noted. Maternal Aunt Stroke Social History Housing: House Alcohol intake: never Patient Tobacco Use Status: Never used Tobacco e-Cigarette/Vaping Use: Never Used Second Hand Smoke Exposure: No service: No Current occupational status: employed Cognitive needs: No Hearing needs: No Vision needs: Yes (reading glasses) Female Reproductive History Menstrual Age of Menarche: 12 Review of Systems Const All systems reviewed & are unremarkable except as noted in HPI and below Physical Exam Const General: cooperative, healthy appearing and no acute distress Resp Effort & Inspection: normal respiratory effort and able to speak in complete sentences Cardio Rate: regular rate Peripheral pulses: Peripheral pulses 2+ throughout GI Palpation (GI): Soft to palpation Skin Lesions: no lesions Rashes: no rashes Extrem Other: Right knee: Normal to inspection. No ecchymosis, erythema, or joint effusion. No tenderness to palpation to the medial or lateral joint lines. Full knee extension and flexion. Crepitus felt with ROM. NVI. Office Procedures Joint Injection/Drain Joint Injection/Drain Primary Site: right knee Prep: site was prepped using aseptic technique, ethochloride spray was applied and injection warnings given Injected: 80 mg of, DepoMedrol, with 8 mL of (2% plain lido ) and in the joint Approach Used: anterolateral Procedure: The patient tolerated the procedure well, but had some pain with the injection and there was some relief with the local anesthesia Coding - Large joint Procedure code (CPT) selection complete Assessment & Plan Assessment & Plan (1) Osteoarthritis of right knee: Code(s): M17.11 - Unilateral primary osteoarthritis, right knee Category: Medical Plan Ms. Banks is a 53-ye ar-old female who presents in the office today for a follow up of right knee osteoarthritis. I last saw the patient in the office on 10/07/2022 when she received a cortisone injection. While in the office today the patient reports severe pain in the right knee. The patient was offered a cortisone injection in the right knee with 80 mg of DepoMedrol. The patient was explained the risk, benefits, and alternatives to receiving this injection. After receiving consent for the injection, the patient had the procedure done while in the office today. The patient tolerated the procedure well with no complications. Discussed with the patient that she can OTC Tylenol Q4H for pain relief. I will also send a prescription for Diclofenac 75 mg PO BID to the pharmacy. I strongly recommend the use of ice when the patient gets home. Follow up will be PRN, or sooner if needed. Medications: New diclofenac sodium 75 mg PO BID PRN 60 tabs 0RF pain 30 days Patient Instructions: Scribed by Halle López lpn or medical assistant, for Radha Farah PA-C on 07/31/2023 at 1:32 pm, EST. Coding Level of Care Code Est Pt Level 3 (65087) Diagnoses Osteoarthritis of right knee M17.11 CPT Codes Coding - Large joint: 48423 - Large joint ([id number])
== END 2023-07-31 13:58 | disposition home or self-care (01) ==
PROVIDERS: PCP Internal Medicine; Visit Provider Physician Assistant
DX: M17.11 Unilateral primary osteoarthritis, right knee (principal)
CPT/HCPCS: 20610; 99213

== ENCOUNTER → 2023-07-31 13:06 | Outpatient (BNVA) | payer OTHER, SELFPAY | PROVIDERS: PCP Internal Medicine; Visit Provider Physician Assistant | DX: M17.11 Unilateral primary osteoarthritis, right knee (principal) | CPT/HCPCS: 20610; 99212; J1010 ==

== ENCOUNTER 2023-08-28 18:09 | Emergency (ER) | payer OTHER, SELFPAY ==
--- NOTE | ~2023-08-28 | US_ITS ---
EXAMINATION: US ABDOMEN LIMITED CLINICAL INFORMATION: Questionable gallbladder stone, epigastric pain. COMPARISON: None available. TECHNIQUE: Real-time imaging of the right upper quadrant abdominal viscera. FINDINGS: PANCREAS: Unremarkable. Tail not visualized. LIVER: Normal. The liver is normal in size. The liver contour is normal. Parenchymal echogenicity is normal. No focal hepatic lesion. There is no intrahepatic biliary duct dilatation seen. GALLBLADDER: Contracted. Nondependent eccentric echogenicity along the gallbladder wall measuring 2 to 3 mm and consistent with a gallbladder polyp. No shadowing calculi are visualized. COMMON BILE DUCT: Normal in caliber measuring 1.1 cm in diameter. RIGHT KIDNEY: Normal. No hydronephrosis. No renal calculi or focal parenchymal lesions. The kidney measures 10.3 cm in maximum dimension. FREE FLUID: None. US/US abdomen limited IMPRESSION: 1. No sonographic evidence of cholecystitis. 2. Dilated CBD measuring up to 1.1 cm. Although not visualized in its entirety, no apparent choledocholithiasis is seen. If there is concern for this, correlate with LFTs and consider MRCP.
--- NOTE | ~2023-08-28 | CT_ITS ---
EXAMINATION: CT ABDOMEN AND PELVIS WITHOUT IV CONTRAST CLINICAL INFORMATION: Left lower quadrant pain COMPARISON: CT abdomen/pelvis 03/14/2021 TECHNIQUE: Multiple axial images were obtained from the superior aspect of the liver through the pubic symphysis without intravenous contrast. Images were evaluated on independent dedicated 3-D workstation and 3-D images were reconstructed with concurrent radiologist supervision and subsequently interpreted. Oral contrast was not administered. This CT examination was performed using dose optimization techniques as appropriate, variously including the following: *Automated exposure control *Adjustment of mA and/or kV according to patient size (this includes techniques or standardized protocols for targeted exams where dose is matched to indication/reason for exam; i.e. extremities or head) *Use of iterative reconstruction technique DLP: 574 mGy-cm FINDINGS: LUNG BASES: The visualized lung bases are clear. CARDIOMEDIASTINUM: The visualized heart is normal in size without pericardial effusion. No coronary artery calcification. LIVER: Homogeneous in attenuation. Normal in size. GALLBLADDER: Noninflamed. BILIARY SYSTEM: No intrahepatic or extrahepatic biliary dilation. PANCREAS: Homogeneous in attenuation. SPLEEN: Normal in size. GENITOURINARY: No contour deforming masses. No perinephric fluid collection. No renal calculi. No hydroureteronephrosis. ADRENAL GLANDS: Unremarkable. REPRODUCTIVE: Uterus absent. No solid adnexal masses. GASTROINTESTINAL: The visualized alimentary tract is normal in course. No evidence of obstruction. APPENDIX: The appendix is not visualized; however, no pericecal inflammatory changes are seen in the right lower quadrant. PERITONEUM: No pneumoperitoneum. No intra-abdominal fluid collection. VASCULATURE: No abdominal aortic aneurysm. LYMPH NODES: No pathologically enlarged abdominal or pelvic lymph nodes. SOFT TISSUES/MUSCULOSKELETAL: There is no acute fracture or significant focal osseous lesion. CT/CT abdomen pelvis wo IV con IMPRESSION: No acute pathology of the abdomen or pelvis on this noncontrast study. Fleischner guidelines were followed.
[2023-08-28 18:34] VITALS: BP 138/70; PULSE 81; RESP 20; TEMP 36.7; O2SAT 100; BMI 34.0
--- NOTE | 2023-08-28 18:43 | ECG_ITS ---
Test Reason : ABDOMINAL PAIN Blood Pressure : / mmHG Vent. Rate : 079 BPM Atrial Rate : 079 BPM P-R Int : 120 ms QRS Dur : 070 ms QT Int : 368 ms P-R-T Axes : 025 007 049 degrees QTc Int : 421 ms Normal sinus rhythm Normal ECG When compared with ECG of 30-NOV-2020 18:19, No significant change was found Referred By: Angie Corrigan Electronically Signed By:KASH OGDEN
--- NOTE | 2023-08-28 18:44 | ED.ABDPAIN ---
HPI - Abdominal Pain General Chief Complaint: Abdominal Pain Stated Complaint: Abd pain Time Seen by Provider: 08/28/23 20:16 Source: patient and family Mode of arrival: ambulatory History of Present Illness ED Provider: callie PRIEST narrative: Patient is a 53-year-old female who presents to the emergency department for evaluation of sudden onset severe epigastric pain 1 hour prior to arrival. Reports that she was passing a normal bowel movement without straining, and her pain developed soon after has associated nausea. Denies upper chest pain, shortness of breath, back pain, vomiting, diarrhea, constipation. Patient is very emotional on arrival had previous CT scan done for similar pain were negative no vomiting no history no gallstones kidney stone no urinary complaints Related Data Home Medications ?Medication ?Instructions ?Recorded ?Confirmed multivitamin 1 tab PO DAILY 01/31/20 06/30/23 melatonin 3 mg capsule 3 mg PO BEDTIME PRN 08/28/21 06/30/23 Previous Rx's ?Medication ?Instructions ?Recorded albuterol sulfate 90 mcg/actuation 2 puff inhalation Q4-6H PRN 11/23/20 aerosol inhaler shortness of breath or wheezing #8.5 grams lidocaine 5 % topical patch 1 patch topical DAILY #30 ea 03/21/21 hydroxyzine HCl 25 mg tablet 25 mg PO QID PRN itching #30 tabs 06/02/22 betamethasone dipropionate 0.05 % 1 appl topical .every other day 30 10/20/22 topical ointment days #15 grams estradiol 0.01% (0.1 mg/gram) 2 g vaginal 3XW 30 days #42.5 grams 10/23/22 vaginal cream lisinopril 20 mg tablet 20 mg PO DAILY #90 tabs 12/15/22 meloxicam 15 mg tablet 15 mg PO DAILY #30 tabs 12/15/22 albuterol sulfate 5 mg/mL(0.5 %) 2.5 mg (0.5 mL) inhalation Q6H PRN 03/17/23 solution for nebulization shortness of breath or wheezing #20 mL albuterol sulfate 2.5 mg/3 mL 2.5 mg (3 mL) inhalation QID PRN 03/23/23 (0.083 %) solution for nebulization shortness of breath or wheezing #180 mL levothyroxine 25 mcg tablet 25 mcg PO DAILY #90 tabs 04/23/23 (Synthroid) diclofenac sodium 75 mg 75 mg PO BID PRN pain 30 days #60 07/31/23 tablet,delayed release tabs cefuroxime axetil 250 mg tablet 250 mg PO BID 7 days #14 tabs 08/28/23 dicyclomine 20 mg tablet 20 mg PO TID #20 tabs 08/28/23 Allergies Allergy/AdvReac Type Severity Reaction Status Date / Time iron Allergy Unknown vomiting Verified 08/28/23 18:42 iodine Allergy Vomiting Verified 08/28/23 18:42 iron dextran complex AdvReac Intermediate FLUSHING,SOB,VOMITING,INCREASED Verified 08/28/23 18:42 [Iron Dextran Complex] ANXIETY,LOW BACK PAIN, Review of Systems Review of Systems Yes all other systems are reviewed and are negative PMFSH Past Medical History Medical History Upper respiratory infection Bilateral flank pain Axillary adenopathy Low back pain Left lower quadrant abdominal pain Right upper quadrant pain Shortness of breath Viral infection TSH elevation Polyarthralgia Uterine fibroid Obesity (BMI 30-39.9) Esophageal stricture Vitamin D deficiency Seasonal allergies Anemia Asthma HTN (hypertension) Migraines Surgical History History of arthroscopy of right knee History of laparoscopy History of bladder surgery History of tubal ligation History of knee surgery H/O: hysterectomy Family History Family History Father Stroke Mother Bladder cancer Maternal Grandmother Myocardial infarction Maternal Aunt Myocardial infarction Paternal Aunt No problems noted. Maternal Aunt Stroke Social History Social History Housing: House Alcohol intake: never Patient Tobacco Use Status: Never used Tobacco e-Cigarette/Vaping Use: Never Used Second Hand Smoke Exposure: No Advance Directives: No Advance Directives Information Provided: No Do you have a plan to hurt others: No Plan service: No Current occupational status: employed Cognitive needs: No Hearing needs: No Vision needs: Yes (reading glasses) Physical Exam ED Vital Signs: Vital Signs - 24 hr 08/28/23 18:34 08/28/23 19:22 08/28/23 21:37 Temperature 98.1 F 98.2 F 98 F Pulse Rate 81 77 73 Respiratory Rate 20 17 17 Blood Pressure 138/70 130/75 142/87 H Pulse Oximetry 100 99 99 Oxygen Delivery Method Room Air Room Air Room Air 08/28/23 23:32 Temperature 97.5 F Pulse Rate 61 Respiratory Rate 18 Blood Pressure 122/77 Pulse Oximetry 100 Oxygen Delivery Method Room Air BMI result Body Mass Index 34.0 Appearance: Alert. Oriented X3. Patient is very emotional Eyes: No pallor or icterus ENT: Pharynx normal. Oral Mucosa moist Neck: Normal inspection. Neck supple. CVS: Normal heart rate and rhythm. Pulses normal. Respiratory: No respiratory distress. Equal air entry bilateral, no wheezing/rales/rhonchi Abdomen: Soft , tenderness in epigastric area Bowel sounds are present, no mass palpable, no CVA tenderness Skin: Skin warm and dry. Normal skin color. Normal skin turgor. Extremities: No lower extremity edema. No calf tenderness Neuro: Oriented X 3. Course Course Course Narrative: This is an RME performed by Adair Corrigan CNP: Additional HPI, ROS, PE not included below will be deferred to primary provider. Patient is a 53-year-old female who presents to the emergency department for evaluation of sudden onset severe epigastric pain 1 hour prior to arrival. Reports that she was passing a normal bowel movement without straining, and her pain developed soon after has associated nausea. Denies upper chest pain, shortness of breath, back pain, vomiting, diarrhea, constipation. She appears significantly uncomfortable, she is crying, guarding over her epigastrium, tenderness upon palpation. Plan: Labs, EKG Medical Decision Making Medical Decision Making [facility] Narrative: Patient with epigastric pain ultrasound abdomen negative for gallstones history of same in the past with CT scans negative denies any urinary symptoms after evaluation patient, will do CT scan as patient is requesting CT scan clinically patient does have UTI/anxiety attack Differential Diagnosis Differential Diagnoses: The differential diagnosis associated with the presentation includes Diverticulitis/anxiety/IBS Lab Data [facility] Lab Attestation statement: I reviewed the patient's lab results. 08/28/23 18:55 08/28/23 18:55 Labs: Lab Results 08/28/23 08/28/23 Range/Units 18:55 19:38 WBC 8.9 (4.8-10.8) X10*3/uL RBC 4.20 (4.20-5.50) X10*6/uL Hgb 13.8 (12.0-16.0) g/dl Hct 38.8 (37.0-47.0) % MCV 92.4 (80.0-98.0) fL MCH 32.9 (27.0-33.0) pg MCHC 35.6 H (31.0-35.0) g/dl RDW 12.4 (11.0-16.0) % Plt Count 310 (160-400) X10*3/uL MPV 9.4 (9.4-12.3) fL Immature Gran % (Auto) 0.2 (0.0-0.4) % Neut % (Auto) 64.7 (45-73) % Lymph % (Auto) 28.1 (20-40) % [place] % (Auto) 5.7 (2-11) % Eos % (Auto) 0.9 (0-4) % Baso % (Auto) 0.4 (0-2) % Lymph # (Auto) 2.5 (1.2-4.9) X10*3/uL [place] # (Auto) 0.5 (0.1-1.2) X10*3/uL Eos # (Auto) 0.1 (0.0-0.4) X10*3/uL Baso # (Auto) 0.0 (0.0-0.2) X10*3/uL Abs Immat Gran (auto) 0.02 (0.00-0.03) X10*3/uL Absolute Neuts (auto) 5.8 (2.0-8.3) x10*3/uL Absolute Nucleated RBC 0.000 (0.0-0.012) X10*3/uL Nucleated RBC % (auto) 0.0 (0.0-0.2) /100WBC PT 11.9 (11.1-13.3) SEC INR 1.0 (0.9-1.1) Sodium 138 (135-145) mmol/L Potassium 3.9 (3.3-5.1) mmol/L Chloride 102 (96-108) mmol/L Carbon Dioxide 27 (22-29) mmol/L Anion Gap 13 (12-20) BUN 16 (9-16) mg/dL Creatinine 0.73 (0.5-1.4) mg/dL Estim Creat Clear Calc 88.7 Estimated GFR > 60 Random Glucose 125 H (60-115) mg/dL Calcium 10.5 H D (8.4-10.2) mg/dL Total Bilirubin 0.3 (0.0-1.0) mg/dL AST 20 (5-31) U/L ALT 9 (0-31) U/L Alkaline Phosphatase 97 (39-117) U/L Troponin I High Sens < 2.7 (<3.5-17.0) ng/L Total Protein 8.0 (6.5-8.0) g/dL Albumin 4.7 (3.5-5.0) g/dL Lipase 35 (8-78) U/L Urine Color Yellow Urine Appearance Clear Urine pH 6.5 (5.0-9.0) Ur Specific [place] 1.015 (1.005-1.025) Urine Protein Negative (Neg-Trace) mg/dL Urine Glucose (UA) Negative (Negative) mg/dL Urine Ketones Negative (Negative) mg/dL Urine Blood Small (1+) H (Negative) Urine Nitrite Negative (Negative) Ur Leukocyte Esterase Moderate (2+) H (Negative) Urine RBC 3-5 H (0-2) /HPF Urine WBC 21-50 H (0-5) /HPF Ur Squamous Epith Cells 0-2 (0-2) /HPF Urine Bacteria None Seen (None Seen) Hyaline Casts 0-2 (0-2) /LPF Medications Administered Discontinued Medications Generic Name Dose Route Start Last Admin Trade Name Freq PRN Reason Stop Dose Admin Al Hydroxide/Mg Hydroxide 30 ml 08/28/23 20:24 08/28/23 20:34 Magnesium Hydrox/Alum Hydrox 30 Ml Oral.Susp PO 08/28/23 20:25 30 ml ONCE ONE Administration Cefuroxime Axetil 250 mg 08/28/23 21:53 08/28/23 21:58 Cefuroxime Axetil 250 Mg Tablet PO 08/28/23 21:54 250 mg ONCE ONE Administration Dicyclomine HCl 20 mg 08/28/23 22:04 08/28/23 22:17 Dicyclomine Hcl 10 Mg Capsule PO 08/28/23 22:05 20 mg ONCE ONE Administration Famotidine 20 mg 08/28/23 20:24 08/28/23 20:34 Famotidine/Pf 20 Mg/2 Ml Vial IVPUSH 08/28/23 20:25 20 mg ONCE ONE Administration Sodium Chloride 1,000 mls @ 999 mls/hr 08/28/23 20:26 08/28/23 21:39 Ns IV 08/28/23 21:26 Infused .Q1H1M ONE Infusion Ketorolac Tromethamine 30 mg 08/28/23 20:26 08/28/23 20:34 Ketorolac Tromethamine 30 Mg/Ml Vial IVPUSH 08/28/23 20:27 30 mg ONCE ONE Administration Lidocaine HCl 15 ml 08/28/23 20:24 08/28/23 20:34 Lidocaine Hcl Viscous 2 % 15 Ml Solution MUCOUS MEM 08/28/23 20:25 15 ml ONCE ONE Administration Discharge Plan Discharge Clinical Impression: Abdominal pain, UTI (urinary tract infection) Patient Disposition: Home, Self-Care Instructions: Chronic Abdominal Pain (ED), Urinary Tract Infection in Older Adults (ED) Additional Instructions: Drink plenty of fluid Your CT scan is negative for acute pathology same as in last 2 CT scan done Your ultrasound is also negative for acute Take medication for abdominal pain as prescribed and 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 Take antibiotic for urinary tract infection Follow with your PCP Prescriptions: New dicyclomine 20 mg tablet 20 mg PO TID Qty: 20 0RF cefuroxime axetil 250 mg tablet 250 mg PO BID 7 Days Qty: 14 0RF No Action estradiol 0.01 % (0.1 mg/gram) cream 2 g vaginal 3XW 30 Days Qty: 42.5 3RF albuterol sulfate 2.5 mg /3 mL (0.083 %) solution for nebulization 2.5 mg inhalation QID PRN (Reason: shortness of breath or wheezing) Qty: 180 0RF levothyroxine [Synthroid] 25 mcg tablet 25 mcg PO DAILY Qty: 90 2RF albuterol sulfate 90 mcg/actuation HFA aerosol inhaler 2 puff inhalation Q4-6H PRN (Reason: shortness of breath or wheezing) Qty: 8.5 0RF multivitamin Tablet 1 tab PO DAILY melatonin 3 mg capsule 3 mg PO BEDTIME PRN hydroxyzine HCl 25 mg tablet 25 mg PO QID PRN (Reason: itching) Qty: 30 0RF Rx Instructions: Use 1 tablet every 6 hours as needed for itching albuterol sulfate 5 mg/mL solution for nebulization 2.5 mg inhalation Q6H PRN (Reason: shortness of breath or wheezing) Qty: 20 0RF lidocaine 5 % adhesive patch,medicated 1 patch topical DAILY Qty: 30 0RF Rx Instructions: leave on most painful area for up to 12 hrs lisinopril 20 mg tablet 20 mg PO DAILY Qty: 90 2RF meloxicam 15 mg tablet 15 mg PO DAILY Qty: 30 2RF betamethasone dipropionate 0.05 % ointment 1 appl topical .every other day 30 Days Qty: 15 0RF Rx Instructions: alternate with estrogen cream that was also prescribed as discussed in the office diclofenac sodium 75 mg tablet,delayed release (DR/EC) 75 mg PO BID PRN (Reason: pain) 30 Days Qty: 60 0RF Print Language: Gabonese
[2023-08-28 19:06] LABS: MANUAL DIFF FLAG NO
[2023-08-28 19:09] LABS: Basophils Percent Auto 0.4 % (0-2); Eosinophils Absolute Auto 0.1 X10*3/uL (0.0-0.4); Eosinophils Percent Auto 0.9 % (0-4); Hematocrit 38.8 % (37.0-47.0); Hemoglobin 13.8 g/dl (12.0-16.0); Imm Gran Abs Auto 0.02 X10*3/uL (0.00-0.03); Imm Gran Pct Auto 0.2 % (0.0-0.4); Lymphocytes Absolute Auto 2.5 X10*3/uL (1.2-4.9); Lymphocytes Percent Auto 28.1 % (20-40); Mean Corpuscular HGB Conc 35.6 g/dl (31.0-35.0); Mean Corpuscular Hemoglobin 32.9 pg (27.0-33.0); Mean Corpuscular Volume 92.4 fL (80.0-98.0); Mean Platelet Volume 9.4 fL (9.4-12.3); Monocytes Absolute Auto 0.5 X10*3/uL (0.1-1.2); Monocytes Percent Auto 5.7 % (2-11); Neutrophils Absolute Auto 5.8 x10*3/uL (2.0-8.3); Neutrophils Percent Auto 64.7 % (45-73); Platelet Count 310 X10*3/uL (160-400); Red Cell Distribution Width 12.4 % (11.0-16.0); White Blood Count 8.9 X10*3/uL (4.8-10.8)
[2023-08-28 19:18] LABS: Prothrombin Time 11.9 SEC (11.1-13.3)
[2023-08-28 19:22] VITALS: BP 130/75; PULSE 77; RESP 17; TEMP 36.8; O2SAT 99
[2023-08-28 19:25] LABS: Alanine Aminotransferase 9 U/L (0-31); Albumin Level 4.7 g/dL (3.5-5.0); Alkaline Phosphatase 97 U/L (39-117); Anion Gap 13 (12-20); Aspartate Amino Transferase 20 U/L (5-31); Bilirubin Total 0.3 mg/dL (0.0-1.0); Blood Urea Nitrogen 16 mg/dL (9-16); Calcium 10.5 mg/dL (8.4-10.2); Carbon Dioxide 27 mmol/L (22-29); Chloride 102 mmol/L (96-108); Creatinine Clr Calc Pharmacy 88.7; Estimated Glomerular Filt Rate > 60; Glucose Random 125 mg/dL (60-115); Lipase 35 U/L (8-78); Potassium 3.9 mmol/L (3.3-5.1); Sodium 138 mmol/L (135-145)
[2023-08-28 19:33] LABS: Troponin-I High Sensitivity < 2.7 ng/L (<3.5-17.0)
[2023-08-28 19:49] LABS: Appearance Urine Clear; Color Urine Yellow; Glucose Urine UA Negative (Negative); Leukocyte Esterase Urine Moderate (2+) (Negative); Nitrite Urine Negative (Negative); PH 6.5 (5.0-9.0); Specific Gravity - Urine 1.015 (1.005-1.025); UMIC TRIGGER UACC YES; Urine Blood Small (1+) (Negative); Urine Ketones Negative (Negative); Urine Protein Negative (Neg-Trace)
[2023-08-28 20:14] LABS: Bacteria Urine None Seen (None Seen); Hyaline Casts Urine 0-2 /LPF (0-2); Squamous Epithelial Cell Urine 0-2 /HPF (0-2); UACC Culture Trigger YES; WBC Urine 21-50 /HPF (0-5)
[2023-08-28] MEDS: Magnesium Hydrox/Alum Hydrox 30 ML ORAL.SUSP PO (20:34)
[2023-08-28] MEDS: Ketorolac Tromethamine 30 MG/ML VIAL IVPUSH (20:34)
[2023-08-28] MEDS: Famotidine/PF 20 MG/2 ML VIAL IVPUSH (20:34)
[2023-08-28] MEDS: 0.9 % Sodium Chloride 1,000 ML 999 ML IV (20:34)
[2023-08-28] MEDS: Lidocaine HCl Viscous 2 % 15 ML SOLUTION MUCOUS MEM (20:34)
[2023-08-28 21:37] VITALS: BP 142/87; PULSE 73; RESP 17; TEMP 36.6; O2SAT 99
[2023-08-28] MEDS: cefuroxime axetiL 250 MG TABLET PO (21:58)
[2023-08-28] MEDS: Dicyclomine HCl 10 MG CAPSULE 20 MG PO (22:17)
[2023-08-28 23:32] VITALS: BP 122/77; PULSE 61; RESP 18; TEMP 36.4; O2SAT 100
--- NOTE | 2023-08-28 23:35 | MHC.EDTECH ---
Hourly rounds and vitals completed,patient ambulated to the bathroom with a steady gait,call luna in reach
[2023-08-29] MEDS: Dicyclomine HCl 10 MG CAPSULE 20 MG PO (00:06)
[2023-08-29 00:09] VITALS: BP 122/77; PULSE 61; RESP 18; TEMP 36.4; O2SAT 100
== END 2023-08-29 00:09 | disposition home or self-care (01) ==
PROVIDERS: Nurse Practitioner Family; Emergency Provider Internal Medicine; PCP Internal Medicine
DX: N39.0 Urinary tract infection, site not specified (principal); R11.2 Nausea with vomiting, unspecified; R10.2 Pelvic and perineal pain; R10.32 Left lower quadrant pain; Z79.899 Other long term (current) drug therapy
CPT/HCPCS: 36415; 74176; 76705; 80053; 81001; 83690; 84484; 85025; 85610; 87086; 93005; 96361; 96374; 96375; 99285; J1885

== ENCOUNTER → 2023-08-28 18:43 | Outpatient (BNV) | payer OTHER, SELFPAY | PROVIDERS: Emergency Provider Internal Medicine; PCP Internal Medicine; Visit Provider Internal Medicine | DX: R10.9 Unspecified abdominal pain (principal) | CPT/HCPCS: 93010 ==

== ENCOUNTER 2023-09-14 15:00 | Outpatient (AMB) | payer OTHER, SELFPAY ==
--- NOTE | 2023-09-14 15:05 | MHC.PC.OV ---
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 per policy Accompanied by: Self / Same As Patient Allergies iron Allergy (Unknown, Verified 09/14/23 15:06) vomiting iodine Allergy (Verified 09/14/23 15:06) Vomiting iron dextran complex [Iron Dextran Complex] Adverse Reaction (Intermediate, Verified 09/14/23 15:06) FLUSHING,SOB,VOMITING,INCREASED ANXIETY,LOW BACK PAIN, Medication List - Last Reconciled 09/14/23 by Maurice De La Rosa MD albuterol sulfate 90 mcg/actuation 2 puffs inhalation Q4-6H PRN albuterol sulfate 2.5 mg (3 mL) inhalation QID PRN albuterol sulfate 2.5 mg (0.5 mL) inhalation Q6H PRN diclofenac sodium 75 mg PO BID PRN 30 days inulin (Fiber Gummies) grams PO levothyroxine (Synthroid) 25 mcg PO DAILY lidocaine 5% 1 patch topical DAILY lisinopril 20 mg PO DAILY magnesium 250 mg PO DAILY meloxicam 15 mg PO DAILY multivitamin 1 tab PO DAILY Tobacco use date assessed: 06/30/23 Dental Screening Dental Screen Date: 06/30/23 HPI PHYSICAL EXAM HPI Details 53-year-old obese female with hypertension asthma hypothyroid GERD hypercholesterolemia last seen in 07/04/2023. Patient is here for physical exam. Patient's colonoscopy last done in June 2013. Mammogram is up-to-date 06/03/2023 review of the notes ER visit in August 27 4 epigastric pain diagnosis of UTI. Patient has also met with Orthopedics for the right knee diagnosis of osteoarthritis and went for an injection. Cortisone 100-728 ([id number]) interpret. epigastric area radiating bilateral, -nausea in the hospital- 1 months already [facility] Medical History Upper respiratory infection Bilateral flank pain Axillary adenopathy Low back pain Left lower quadrant abdominal pain Right upper quadrant pain Shortness of breath Viral infection TSH elevation Polyarthralgia Uterine fibroid Obesity (BMI 30-39.9) Esophageal stricture Vitamin D deficiency Seasonal allergies Anemia Asthma HTN (hypertension) Migraines Surgical History History of arthroscopy of right knee History of laparoscopy History of bladder surgery History of tubal ligation History of knee surgery H/O: hysterectomy Family History (Updated 09/14/23 @ 15:45 by Maurice De La Rosa MD) Father Stroke Mother Bladder cancer Maternal Grandmother Myocardial infarction Maternal Aunt Myocardial infarction Paternal Aunt No problems noted. Maternal Aunt Stroke Brother Myocardial infarction Social History Housing: House Alcohol intake: never Patient Tobacco Use Status: Never used Tobacco e-Cigarette/Vaping Use: Never Used Second Hand Smoke Exposure: No service: No Current occupational status: employed Cognitive needs: No Hearing needs: No Vision needs: Yes (reading glasses) Female Reproductive History Menstrual Age of Menarche: 12 Questionnaire Thrive Questionnaire Date Thrive assessed: 06/30/23 LOTUS-7 AMB Questionnaire LOTUS-7 Date LOTUS - 7 assessed: 06/30/23 Source: Developed by Drs. Jorge Cameron, Yaneth Blair, Jakub Salvador and colleagues, with an educational johnson from [employer]. Review of Systems Const Denies poor appetite and Denies weakness Eyes Denies no additional complaints ENT Reports Normal hearing present, Denies dizziness, Denies nasal congestion, Denies tinnitus and Denies sore throat Card Denies chest pain, Denies syncope, Denies rapid heart rate and Denies dyspnea Resp Denies cough and Denies dyspnea GI Denies change in stool character, Reports constipation, Denies diarrhea, Denies nausea and Denies vomiting Denies urinary frequency, Denies difficulty voiding and Denies dysuria Neuro Reports Normal hearing present, Denies confusion, Denies dizziness, Denies syncope and Denies weakness Psych Denies confusion Physical exam (Primary Care) Vital Signs: Last Vital Signs Pulse 77 09/14/23 15:06 BP 124/74 09/14/23 15:06 Pulse Ox 99 09/14/23 15:06 Oxygen Delivery Method Room Air 09/14/23 15:06 BMI result Body Mass Index 33.8 Tobacco/Smoking Status: Tobacco use Status Tobacco use date assessed 06/30/23 09/14/23 15:06 Patient Tobacco Use Status Never used Tobacco 09/14/23 15:06 e-Cigarette/Vaping Use Never Used 09/14/23 15:06 Thrive Assessment: Date of Thrive Assessment Date Thrive assessed 06/30/23 09/14/23 15:06 Const General: No confusion Orientation/consciousness: No confusion HENMT Head: Yes normocephalic Ears: external ears normal and TM's normal bilaterally Face and sinus: Yes normal facial exam Mouth: moist mucous membranes Throat: Yes tonsils normal Eyes Conjunctivae: conjunctivae normal Pupils: Equal, round and reactive pupils present and Pupil accommodation reflex normal Direct Ophthalmoscopy: normal light reflex Neck Neck: No lymphadenopathy Thyroid: Thyroid normal Chest Chest palpation & inspection: normal inspection of the chest Resp Effort & Inspection: normal respiratory effort and no audible wheezes Auscultation: clear to auscultation bilaterally, no crackles, no wheezes and lung sounds not diminished Cardio Rate: regular rate Rhythm: regular rhythm Peripheral pulses: radial pulses present and dorsalis pedis present GI Palpation (GI): no masses Auscultation: normal bowel sounds and normoactive bowel sounds Rectal Exam - Female: deferred Skin General skin exam: no rashes or lesions noted Rashes: no rashes Neuro General: No confusion Cranial nerves: Yes Equal, round and reactive pupils present and Yes Normal hearing present Cognition (Neuro): normal cognition Gait exam (Neuro): Normal gait present Motor exam (neuro): 5/5 motor strength present throughout Deep tendon reflexes (DTR's): Right brachioradialis reflex intensity grade: 2+, Left brachioradialis reflex intensity grade: 2+, Right patellar reflex intensity grade: 2+ and Left patellar reflex intensity grade: 2+ Extrem General: No edema Assessment and Plan Assessment & Plan (1) Annual physical exam: Code(s): Z00.00 - Encounter for general adult medical examination without abnormal findings Plan: Patient is advised to eat healthy, keep well hydrated, keep active and have adequate sleep. (2) HTN (hypertension): Code(s): I10 - Essential (primary) hypertension Qualifiers: Hypertension type: essential hypertension Qualified Code(s): I10 - Essential (primary) hypertension Plan: Continue with blood pressure medication. Decrease salt intake and exercise patient has lisinopril 20 mg once a day (3) Asthma: Code(s): J45.909 - Unspecified asthma, uncomplicated Qualifiers: Asthma severity: mild Asthma persistence: intermittent Asthma complication type: uncomplicated Qualified Code(s): J45.20 - Mild intermittent asthma, uncomplicated Plan: Continue with albuterol inhaler as needed (4) Obesity (BMI 30-39.9): Code(s): E66.9 - Obesity, unspecified Plan: Diet and exercise (5) Hypothyroid: Code(s): E03.9 - Hypothyroidism, unspecified Qualifiers: Hypothyroidism type: acquired Qualified Code(s): E03.9 - Hypothyroidism, unspecified Plan: Continue with thyroid medication (6) GERD (gastroesophageal reflux disease): Code(s): K21.9 - Gastro-esophageal reflux disease without esophagitis Plan: Avoid the foods that causes that usually spicy foods, tomato products, juices, coffee, soda and foods that your sensitive to. After eating do not lie down, allow 3-4 hours before in lie down. And keep the head of bed above 30 degrees to avoid the acid from going up. will be seeing gastroenterology (7) Hypercholesterolemia: Code(s): E78.00 - Pure hypercholesterolemia, unspecified Plan: Avoid fried foods, chicken skin, eggs, butter margarine, pastries and meat. Be it pork or beef they have a lot of cholesterol LDL goal of less than 130 and triglyceride of less than 150. (8) Knee pain, bilateral: Code(s): M25.561 - Pain in right knee; M25.562 - Pain in left knee Plan: Patient has met with Orthopedics and has had injections of the knee. (9) Constipation: Code(s): K59.00 - Constipation, unspecified Plan: Diet and exercise and increasing oral fluids (10) Colon cancer screening: Code(s): Z12.11 - Encounter for screening for malignant neoplasm of colon Plan: will be seeing Gastroenterology Orders: Orders Free T4 (Free Thyroxine) 3 Months E03.9 - Hypothyroidism, unspecified Thyroid Stimulating Hormone 3 Months E03.9 - Hypothyroidism, unspecified UA CC w/rflx Micro + Cult Today R30.0 - Dysuria, R31.29 - Other microscopic hematuria Medications: New sennosides-docusate sodium 8.6-50 mg (Senna Plus) 2 tab-caps (2 x 8.6-50 mg) PO BEDTIME 30 days 60 caps 8RF K59.00 - Constipation, unspecified omeprazole 20 mg PO DAILY 30 caps 1RF K21.9 - Gastro-esophageal reflux disease without esophagitis Coding Level of Care Code Est Pt Prev Care 40-64y(70503) Diagnoses Annual physical exam Z00.00 Essential hypertension I10 Hypertension type: essential hypertension Mild intermittent asthma without complication J45.20 Asthma severity: mild Asthma persistence: intermittent Asthma complication type: uncomplicated Obesity (BMI 30-39.9) E66.9 Acquired hypothyroidism E03.9 Hypothyroidism type: acquired GERD (gastroesophageal reflux disease) K21.9 Hypercholesterolemia E78.00 Knee pain, bilateral M25.561; M25.562 Constipation K59.00 Colon cancer screening Z12.11
[2023-09-14 15:06] VITALS: BP 124/74; PULSE 77; O2SAT 99; BMI 33.8
== END 2023-09-14 16:35 | disposition home or self-care (01) ==
PROVIDERS: PCP Internal Medicine; Visit Provider Internal Medicine
DX: Z00.00 Encounter for general adult medical examination without abnormal findings (principal); I10 Essential (primary) hypertension; E66.9 Obesity, unspecified; Z68.33 Body mass index [BMI] 33.0-33.9, adult; J45.20 Mild intermittent asthma, uncomplicated; E03.9 Hypothyroidism, unspecified; K21.9 Gastro-esophageal reflux disease without esophagitis; E78.00 Pure hypercholesterolemia, unspecified; M25.561 Pain in right knee; M25.562 Pain in left knee; K59.00 Constipation, unspecified; Z12.11 Encounter for screening for malignant neoplasm of colon
CPT/HCPCS: 99396

== ENCOUNTER 2023-10-06 07:54 | Outpatient (AMB) | payer OTHER, SELFPAY ==
--- NOTE | 2023-10-06 07:59 | A.OFFVIS_ITS ---
Vital Signs 10/06/23 08:12 Height 5 ft 2 in Weight 184 lb 4.903 oz BMI 33.7 BP 98/58 L Blood Pressure Location Rt brachial Position Sitting Pulse 76 Pulse Source Pulse Oximeter Pulse Oximetry (%) 95 Oxygen Delivery Method Room Air Intake Visit Reasons: Colonoscopy Screening Intake Note: Whitney presents in office today for a scheduled colo s/p scrn CC; This s/p was scheduled with routine priority. Pt does report having some sx however; pt has been experiencing a new onset of abdominal pain which is primarily located in the B/L UQ. Pt has also been experiencing GERD type sx primarily worse while they are laying supine. Pt also reports that they have been having intermittent constipation and diarrhea, which is associated with this worsening pain. Pt was seen in the ED last month for these sx. Pt states that these sx are seemingly worse after any type of intake. Pt reports that she has prior hx of colo s/p approximately 10 years ago. Bench Machine Operator Required: Yes Bench Machine Operator Services: Bench Machine Operator Present Bench Machine Operator Name: [id number] Won Accompanied by: Self / Same As Patient Allergies iron Allergy (Unknown, Verified 10/06/23 08:01) vomiting iodine Allergy (Verified 10/06/23 08:01) Vomiting iron dextran complex [Iron Dextran Complex] Adverse Reaction (Intermediate, Verified 10/06/23 08:01) FLUSHING,SOB,VOMITING,INCREASED ANXIETY,LOW BACK PAIN, HPI HPI Colonoscopy Screening: Details: 53-year-old female with past medical history of eczema, osteoarthritis of right knee, hypercholesteremia, dysuria, GERD, hypersomnia, adenopathy, sciatica, hypothyroidism, obesity, migraine headaches, hypertension, asthma is here today for initial consultation. Patient was sent to us for colonoscopy screening. Last colonoscopy in June of 2013. No polyps found, normal colonic mucosa found on colonoscopy and duodenitis without celiac gastritis with H pylori found. Patient reports that in the past few months she has been having epigastric pain as well as pain and all left upper quadrant. Patient is having worse time moving her bowels. Taking senna/Colace combination and still is having trouble moving her bowels. Patient also admits to have epigastric pain postprandially as well as acid reflux. Patient reports that sometimes she feels burning all the way up to her throat. Patient reports that symptoms are worse when she lays down at night time. Currently patient is taking omeprazole feels like it is not helping. Patient denies any melena, hematochezia, unintentional weight loss or ribbon like stools. Patient reports dyspepsia without dysphagia or odynophagia. [facility] Medical History (Updated 10/06/23 @ 21:04 by Lakesha Pena [facility]) Upper respiratory infection Bilateral flank pain Axillary adenopathy Low back pain Left lower quadrant abdominal pain Right upper quadrant pain Shortness of breath Viral infection TSH elevation Polyarthralgia Uterine fibroid Obesity (BMI 30-39.9) Esophageal stricture Vitamin D deficiency Seasonal allergies Anemia Asthma HTN (hypertension) Migraines Surgical History (Updated 10/06/23 @ 08:11 by STEVE Malone) History of colonoscopy (~2013) History of arthroscopy of right knee History of laparoscopy History of bladder surgery History of tubal ligation History of knee surgery H/O: hysterectomy Family History Father Stroke Mother Bladder cancer Maternal Grandmother Myocardial infarction Maternal Aunt Myocardial infarction Paternal Aunt No problems noted. Maternal Aunt Stroke Brother Myocardial infarction Social History Housing: House Alcohol intake: never Patient Tobacco Use Status: Never used Tobacco e-Cigarette/Vaping Use: Never Used Second Hand Smoke Exposure: No service: No Current occupational status: employed Cognitive needs: No Hearing needs: No Vision needs: Yes (reading glasses) Female Reproductive History Menstrual Age of Menarche: 12 Review of Systems Const Denies weight gain and Denies weight loss ENT Reports no additional complaints, Denies dysphagia and Denies odynophagia Card Reports no additional complaints Resp Reports no additional complaints GI Denies abdominal pain, Denies belching, Denies melena, Denies bloating, Reports constipation, Denies dysphagia, Denies excessive flatus, Denies dyspepsia, Reports heartburn, Denies diarrhea, Denies loose stools, Denies nausea, Denies odynophagia and Denies vomiting Reports no additional complaints Musc Reports no additional complaints Neuro Reports no additional complaints Psych Reports no additional complaints Endo Reports no additional complaints Physical Exam Vital Signs: Last Vital Signs Pulse 76 10/06/23 08:12 BP 98/58 L 10/06/23 08:12 Pulse Ox 95 10/06/23 08:12 Oxygen Delivery Method Room Air 10/06/23 08:12 BMI result Body Mass Index 33.7 Const General: healthy appearing and no acute distress Nutritional Appearance: obese Orientation/consciousness: patient oriented x3 Resp Effort & Inspection: normal respiratory effort, able to speak in complete sentences, no tracheal deviation and symmetric chest movement Auscultation: clear to auscultation bilaterally Cardio Rate: regular rate GI Inspection: Yes normal to inspection, No distended and Yes obesity Palpation (GI): Soft to palpation, not firm, nontender and No hepatosplenomegaly present Auscultation: normal bowel sounds General: Yes no CVA tenderness Back/Spine/Pelvis Back: no CVA tenderness Skin General skin exam: elasticity normal, turgor normal and dry skin Neuro General: patient oriented x3 Psych Appearance: grossly normal Mental Status: mental status grossly normal Assessment & Plan Assessment & Plan (1) Colon cancer screening: Code(s): Z12.11 - Encounter for screening for malignant neoplasm of colon Category: Medical (2) Constipation: Code(s): K59.00 - Constipation, unspecified Category: Medical Qualifiers: Constipation type: slow transit constipation Qualified Code(s): K59.01 - Slow transit constipation (3) GERD (gastroesophageal reflux disease): Code(s): K21.9 - Gastro-esophageal reflux disease without esophagitis Category: Medical Qualifiers: Esophagitis presence: esophagitis presence not specified Qualified Code(s): K21.9 - Gastro-esophageal reflux disease without esophagitis (4) Postprandial abdominal bloating: Code(s): R14.0 - Abdominal distension (gaseous) (5) Abdominal pain, LUQ (left upper quadrant): Code(s): R10.12 - Left upper quadrant pain Plan Message sent to surgical schedulers to book procedure for patient. Patient will be sent for upper endoscopy and colonoscopy. Upper endoscopy for recent worsening symptoms of epigastric pain postprandially and acid reflux. Patient will stop taking omeprazole and will start taking pantoprazole. Avoid dietary triggers and late night snacking. Patient will be sent to rule out H pylori and celiac. Staying upright for minimum 3 hours after meals discussed with patient. Patient reports to have constipation and left upper quadrant pain. Patient states that senna/Colace combination do not work for her right now. Patient reports that she is taking 2 tablets every evening and she continues to have left upper quadrant pain and unable to move her bowels but every 2-3 days. Patient will start taking Dulcolax daily. Will call our office in 2 weeks, it might require stronger medication like Linzess or Trulance. Patient denies any issues with anesthesia in the past. No history of sleep apnea. Not on any anticoagulation medication. I will see patient in 3 months to re-evaluate. Patient is agreeable to this plan and verbalizes understanding of instructions. She was given the opportunity to ask questions and all questions answered. Thank you for allowing me to participate in her care Orders: Orders Vitamin B12 and Folate Today R19.7 - Diarrhea, unspecified Transglutaminase Ab IgG Today R10.9 - Unspecified abdominal pain Transglutaminase IgA Today R10.9 - Unspecified abdominal pain H pylori Ag Stool Today K21.9 - Gastro-esophageal reflux disease without esophagitis Medications: New pantoprazole take one tablet half an hour before breakfast 40 mg PO DAILY 30 tabs 2RF K21.9 - Gastro-esophageal reflux disease without esophagitis bisacodyl (Dulcolax (bisacodyl)) 10 mg (2 x 5 mg) PO BEDTIME 180 tabs 4RF Discontinued sennosides-docusate sodium 8.6-50 mg (Senna Plus) Discontinued Reason: Doctor's Order 2 tab-caps (2 x 8.6-50 mg) PO BEDTIME 30 days 60 caps 8RF K59.00 - Constipation, unspecified omeprazole Discontinued Reason: Doctor's Order 20 mg PO DAILY 30 caps 1RF K21.9 - Gastro-esophageal reflux disease without esophagitis Coding Level of Care Code New Pt Level 4 (00016) Diagnoses Colon cancer screening Z12.11 Slow transit constipation K59.01 Constipation type: slow transit constipation Gastroesophageal reflux disease, unspecified whether esophagitis present K21.9 Esophagitis presence: esophagitis presence not specified Postprandial abdominal bloating R14.0 Abdominal pain, LUQ (left upper quadrant) R10.12 Time Spent (min) 45 Comment 30 minutes spent with patient and additional 15 minutes spent reviewing her records
[2023-10-06 08:12] VITALS: BP 98/58; PULSE 76; O2SAT 95; BMI 33.7
== END 2023-10-06 08:42 | disposition home or self-care (01) ==
PROVIDERS: PCP Internal Medicine; Visit Provider Nurse Practitioner Family
DX: Z12.11 Encounter for screening for malignant neoplasm of colon (principal); K59.01 Slow transit constipation; K21.9 Gastro-esophageal reflux disease without esophagitis; R14.0 Abdominal distension (gaseous); R10.12 Left upper quadrant pain; Z01.818 Encounter for other preprocedural examination
CPT/HCPCS: 99204

== ENCOUNTER 2023-10-06 07:54 | Outpatient (REF) | payer OTHER, SELFPAY ==
[2023-10-06 11:29] LABS: Folate 12.8 ng/mL (> or = 4.0); Vitamin B12 423 pg/mL (200-900)
[2023-10-08 14:29] LABS: Transglutaminase Ab IgG <1.0 U/mL; Transglutaminase IgA >250.0 U/mL
== END 2023-10-06 07:55 | disposition home or self-care (01) ==
LOC: HO.LAB 07:54
PROVIDERS: PCP Internal Medicine; Visit Provider Nurse Practitioner Family
DX: R10.9 Unspecified abdominal pain (principal); K21.9 Gastro-esophageal reflux disease without esophagitis; E66.9 Obesity, unspecified; K59.01 Slow transit constipation; R14.0 Abdominal distension (gaseous); R10.12 Left upper quadrant pain; R19.7 Diarrhea, unspecified
CPT/HCPCS: 36415; 82607; 82746; 86364; 99202

== ENCOUNTER 2023-10-08 14:52 | Outpatient (REF) | payer OTHER, SELFPAY ==
--- NOTE | ~2023-10-08 | US_ITS ---
EXAMINATION: US RETROPERITONEAL COMPLETE (RENAL) CLINICAL INFORMATION: Other microscopic hematuria. COMPARISON: CT abdomen and pelvis 08/28/2023. Ultrasound abdomen 08/28/2023. Ultrasound renal 10/07/2022. X-ray KUB 07/12/2015 and 11/12/2012. TECHNIQUE: Real-time imaging of the kidneys and bladder. Limited visualization due to bowel gas. FINDINGS: RIGHT KIDNEY: 11.8 x 6.1 x 5.9 cm (SAG x AP x TRV). Mild right collecting system. Renal cortical thickness is normal. No renal calculi. Limited visualization. LEFT KIDNEY: 10.8 x 5.4 x 5.0 cm (SAG x AP x TRV). No hydronephrosis. No renal calculi. Renal cortical thickness is normal. Limited visualization. BLADDER: Well distended and unremarkable. Bilateral ureteral jets are demonstrated. Prevoid bladder volume is 239 mL. Postvoid bladder volume is 34.5 mL. US/US retroperitoneal comp IMPRESSION: 1. Mild right collecting system. No renal calculi. 2. Postvoid bladder volume is 34.5 mL.
== END 2023-10-08 14:53 | disposition home or self-care (01) ==
LOC: HO.US 14:52
PROVIDERS: PCP Internal Medicine; Visit Provider Nurse Practitioner Family
DX: R31.29 Other microscopic hematuria (principal); N28.1 Cyst of kidney, acquired
CPT/HCPCS: 76770

== ENCOUNTER 2023-10-09 14:25 | Outpatient (REF) | payer OTHER, SELFPAY | END 2023-10-09 14:26 | disposition home or self-care (01) | LOC: HO.LNP 14:25 | PROVIDERS: Visit Provider Nurse Practitioner Family | DX: K21.9 Gastro-esophageal reflux disease without esophagitis (principal) | CPT/HCPCS: 87338 ==

== ENCOUNTER 2023-10-20 14:48 | Outpatient (REF) | payer OTHER, SELFPAY ==
[2023-10-20 16:29] LABS: Urine Cytology See Pathology rpt
== END 2023-10-20 14:49 | disposition home or self-care (01) ==
LOC: HO.LNP 14:48
PROVIDERS: PCP Internal Medicine; Visit Provider Nurse Practitioner Family
DX: N39.0 Urinary tract infection, site not specified (principal); R31.29 Other microscopic hematuria; L28.0 Lichen simplex chronicus; N28.1 Cyst of kidney, acquired
CPT/HCPCS: 81003; 88112; 99212

== ENCOUNTER 2023-10-20 14:48 | Outpatient (AMB) | payer OTHER, SELFPAY ==
--- NOTE | 2023-10-20 14:53 | A.OFFVIS_ITS ---
Intake Visit Reasons: 1y/US(set) Intake Note: Patient presents for 1Y follow up/US Urology Medications: none Blood Thinner: none ALLERGIES: NONE Central Sterile Tech Required: Yes Central Sterile Tech Name: PEDRO SHERIFFNICOLAS Windows Software Developer: Windows Software Developer Present Accompanied by: Self / Same As Patient Allergies iron Allergy (Unknown, Verified 10/20/23 15:21) vomiting iodine Allergy (Verified 10/20/23 15:21) Vomiting iron dextran complex [Iron Dextran Complex] Adverse Reaction (Intermediate, Verified 10/20/23 15:21) FLUSHING,SOB,VOMITING,INCREASED ANXIETY,LOW BACK PAIN, Medication List - Last Reconciled 10/20/23 by SCARLETT Vivar- albuterol sulfate 90 mcg/actuation 2 puffs inhalation Q4-6H PRN albuterol sulfate 2.5 mg (3 mL) inhalation QID PRN betamethasone dipropionate 0.05% 1 appl topical .every other day 30 days bisacodyl (Dulcolax (bisacodyl)) 10 mg (2 x 5 mg) PO BEDTIME diclofenac sodium 75 mg PO BID PRN inulin (Fiber Gummies) grams PO levothyroxine (Synthroid) 25 mcg PO DAILY lidocaine 5% 1 patch topical DAILY lisinopril 20 mg PO DAILY magnesium 250 mg PO DAILY meloxicam 15 mg PO DAILY multivitamin 1 tab PO DAILY pantoprazole 40 mg PO DAILY HPI Comments Details: Whitney is a very pleasant 53-year-old Fijian-speaking female patient of Dr. De La Rosa. She has a past medical history of anemia, asthma, esophageal stricture, hypertension, low back pain, migraines, obesity, polyarthralgia, seasonal allergies, uterine fibroid, and vitamin-D deficiency. She presents to the office today for follow-up of her microscopic hematuria. In discussion with the patient today she reports to be doing and feeling well. She discusses since her last office visit here approximately 1 year ago she has had no bothersome urinary issues however has had continuation of vaginal itching and burning. She discusses following up with baker apprentice here at [facility] and was diagnosed with lunch and simplex chronicus. She also discusses having recently seeked emergency room care for left lower quadrant pain she had been experiencing at which time a CT was ordered and performed. These results were reviewed with the patient today. No acute pathology of the abdomen or pelvis noted on study. She has also had a recent retroperitoneal ultrasound that remains pending. She reports left lower quadrant pain she had been experiencing has since subsided. She denies urinary urgency, urinary frequency, incontinence, nocturia, hematuria, foul smelling urine, changes to urinary stream, flank pain, fever, and or chills. She is happy with her current voiding parameters. In office urinalysis results reviewed with the patient today. Previous urine cytologies 03/04, 06/04, and 11/05 Negative for high grade urothelial carcinoma.?I discussed reasons for blood in the urine may include but are not limited to kidney stones, cancer in the urinary tract, kidney stone disease or inflammatory conditions of the urinary tract. I have discussed workup to include cystoscopy evaluation. Patient denies any known chemical exposure or smoking history. She otherwise offers no issues or concerns at this time. [facility] Medical History Upper respiratory infection Bilateral flank pain Axillary adenopathy Low back pain Left lower quadrant abdominal pain Right upper quadrant pain Shortness of breath Viral infection TSH elevation Polyarthralgia Uterine fibroid Obesity (BMI 30-39.9) Esophageal stricture Vitamin D deficiency Seasonal allergies Anemia Asthma HTN (hypertension) Migraines Surgical History (Updated 10/06/23 @ 08:11 by STEVE Malone) History of colonoscopy (~2013) History of arthroscopy of right knee History of laparoscopy History of bladder surgery History of tubal ligation History of knee surgery H/O: hysterectomy Family History Father Stroke Mother Bladder cancer Maternal Grandmother Myocardial infarction Maternal Aunt Myocardial infarction Paternal Aunt No problems noted. Maternal Aunt Stroke Brother Myocardial infarction Social History Housing: House Alcohol intake: never Patient Tobacco Use Status: Never used Tobacco e-Cigarette/Vaping Use: Never Used Second Hand Smoke Exposure: No service: No Current occupational status: employed Cognitive needs: No Hearing needs: No Vision needs: Yes (reading glasses) Female Reproductive History Menstrual Age of Menarche: 12 Review of Systems Const Reports as per HPI Eyes Reports no additional complaints ENT Reports no additional complaints Card Reports as per HPI Resp Reports as per HPI GI Reports as per HPI Reports as per [facility] Musc Reports as per [facility] Neuro Reports as per HPI Psych Reports no additional complaints Endo Reports no additional complaints Aller/Immun Reports as per [facility] Physical Exam Const General: cooperative, healthy appearing, comfortable, no acute distress, well developed, alert and awake Orientation/consciousness: patient oriented x3 Limitations: no limitations HEENT Head: Yes normal to inspection, Yes normocephalic and Yes atraumatic Ears: hearing grossly normal bilaterally Eyes General: appearance normal, both eyes and all related structures Neck Neck: Yes normal visual inspection and Yes trachea midline Chest Chest palpation & inspection: normal inspection of the chest Resp Effort & Inspection: normal respiratory effort and able to speak in complete sentences Cardio Rate: regular rate GI Inspection: Yes normal to inspection General: Yes no CVA tenderness External Female Exam: other (bilateral leukoplakia no open areas noted) Speculum Exam - Vagina: normal appearance of the vagina, normal palpation and normal vaginal discharge Bimanual exam- vagina & uterus: normal palpation Back/Spine/Pelvis Back: no CVA tenderness Skin General skin exam: no rashes or lesions noted Neuro General: patient oriented x3 Extrem General: Yes normal to inspection Psych Appearance: grossly normal and well kempt Mental Status: mental status grossly normal Speech and movement: Normal speech and movement present and Clear speech present Affect: normal affect Attitude: cooperative Thought process: Normal thought process present Thought content: Normal thought content present Insight: Good insight present (Psych) Judgement: Good judgement present (Psych) Results AMB Urinalysis, Automated UA Leukoctes 15 Kaitlyn/uL Last Edit by STEVE Pena on 10/20/23 15:06 UA Nitrite Negative Last Edit by STEVE Pena on 10/20/23 15:06 UA Urobilinogen 0.2 mg/dL Last Edit by STEVE Pena on 10/20/23 15:0 6 UA Protein 15 mg/dL Last Edit by STEVE Pena on 10/20/23 15:06 UA pH 5.0 Last Edit by STEVE Pena on 10/20/23 15:06 UA Blood 8.0 Bao/uL Last Edit by STEVE Pena on 10/20/23 15:06 UA Specific [place] 1.030 Last Edit by STEVE Pena on 10/20/23 15: 06 UA Ketone Negative Last Edit by STEVE Pena on 10/20/23 15:06 UA Bilirubin 1 mg/dL Last Edit by STEVE Pena on 10/20/23 15:06 UA Glucose 0 mg/dL Last Edit by STEVE Pena on 10/20/23 15:06 Results Reviewed Results Reviewed: Laboratory Last Values Urine pH (Auto) 5.0 10/20/23 15:05 Specific [place] (Auto) 1.030 10/20/23 15:05 Urine Protein (Auto) 15 mg/dL 10/20/23 15:05 Glucose (UA)(Auto) 0 mg/dL 10/20/23 15:05 Urine Ketones (Auto) Negative 10/20/23 15:05 Urine Blood (Auto) 8.0 Bao/uL 10/20/23 15:05 Urine Nitrite (Auto) Negative 10/20/23 15:05 Urine Bilirubin (Auto) 1 mg/dL 10/20/23 15:05 Urine Urobilinogen (Auto) 0.2 mg/dL 10/20/23 15:05 Leukocyte Esterase (Auto) 15 Kaitlyn/uL 10/20/23 15:05 Date of Service: 08/28/23 EXAMINATION: CT ABDOMEN AND PELVIS WITHOUT IV CONTRAST FINDINGS: LUNG BASES: The visualized lung bases are clear. CARDIOMEDIASTINUM: The visualized heart is normal in size without pericardial effusion. No coronary artery calcification. LIVER: Homogeneous in attenuation. Normal in size. GALLBLADDER: Noninflamed. BILIARY SYSTEM: No intrahepatic or extrahepatic biliary dilation. PANCREAS: Homogeneous in attenuation. SPLEEN: Normal in size. GENITOURINARY: No contour deforming masses. No perinephric fluid collection. No renal calculi. No hydroureteronephrosis. ADRENAL GLANDS: Unremarkable. REPRODUCTIVE: Uterus absent. No solid adnexal masses. GASTROINTESTINAL: The visualized alimentary tract is normal in course. No evidence of obstruction. APPENDIX: The appendix is not visualized; however, no pericecal inflammatory changes are seen in the right lower quadrant. PERITONEUM: No pneumoperitoneum. No intra-abdominal fluid collection. VASCULATURE: No abdominal aortic aneurysm. LYMPH NODES: No pathologically enlarged abdominal or pelvic lymph nodes. SOFT TISSUES/MUSCULOSKELETAL: There is no acute fracture or significant focal osseous lesion. IMPRESSION: No acute pathology of the abdomen or pelvis on this noncontrast study. Fleischner guidelines were followed. Assessment & Plan Assessment & Plan (1) Renal cyst: Code(s): N28.1 - Cyst of kidney, acquired Category: Medical (2) Microhematuria: Code(s): R31.29 - Other microscopic hematuria Category: Medical (3) Lichen simplex chronicus: Code(s): L28.0 - Lichen simplex chronicus Category: Medical Plan In office urinalysis results reviewed with the patient today; will send for urine cytology. Discussed at length potential causes for microscopic hematuria. Discussed further microscopic hematuria workup with in office cystoscopy however patient declines at this time. Refill provided for betamethasone. Discussed avoiding irritants such as soaps, detergents, shower gels, bubble baths, and overzealous washing and drying of the vagina. Continue hydroxyzine p.r.n. Recent CT results reviewed with the patient today; as noted above. Patient denies any bothersome urinary issues at this time Patient reports to be happy with current voiding parameters Follow-up in 1 year; or sooner with any issues, concerns, and or questions Orders: Orders AMB Urinalysis Automated Today Z13.9 - Encounter for screening, unspecified Urine Cytology Today N39.0 - Urinary tract infection, site not specified Medications: Refilled betamethasone dipropionate 0.05% alternate with estrogen cream that was also prescribed as discussed in the office 1 appl topical .every other day 30 days 15 grams 0RF L28.0 - Lichen simplex chronicus Patient Instructions: The patient had an opportunity to ask questions regarding the treatment plan. All questions were answered. Physical exam, labs, and imaging were discussed and reviewed in detail. As well as risks, benefits, and discussion of treatment choices. No major barriers to understanding were identified. The patient expressed understanding and agreement with the above treatment plan. The patient was made aware they should contact our office by phone for worsening of their current condition, the appearance of new symptoms, or with any questions or concerns. Compliance is encouraged with any medications and follow up testing that is ordered. It is a privilege to be allowed the opportunity to participate in? your urological care.? Again, if you have any questions or concerns If you have any questions or concerns please do not hesitate to contact me. The office is [phone]. This note is constructed using voice recognition software. While every effort has been made to ensure accuracy operations forester errors may have been included. Yours sincerely, RICHMNOD Vivar Coding Level of Care Code Est Pt Level 3 (23316) Complex EM visit Add On G2211 Diagnoses Renal cyst N28.1 Microhematuria R31.29 Lichen simplex chronicus L28.0
== END 2023-10-20 15:21 | disposition home or self-care (01) ==
PROVIDERS: PCP Internal Medicine; Visit Provider Nurse Practitioner Family
DX: N28.1 Cyst of kidney, acquired (principal); R31.29 Other microscopic hematuria; L28.0 Lichen simplex chronicus; Z13.9 Encounter for screening, unspecified
CPT/HCPCS: 99213; G2211

== ENCOUNTER 2023-11-30 14:27 | Emergency (ER) | payer OTHER, SELFPAY ==
[2023-11-30] VITALS (7 sets, daily range): BP systolic 113–146; BP diastolic 51–79; PULSE 60–78; RESP 20–23; TEMP 36.3–37.7; O2SAT 96–100; BMI 37.1
--- NOTE | ~2023-11-30 | XR_ITS ---
EXAMINATION: XR CHEST CLINICAL INFORMATION: Cough. COMPARISON: Chest radiograph dated 11/30/2020. TECHNIQUE: 2 views of the chest were obtained. FINDINGS: The heart is normal in size. There is no consolidation within either lung. No pleural effusion. No pneumothorax. No acute osseous abnormality. XR/XR chest 2V IMPRESSION: No acute cardiopulmonary disease. Electronically signed by: Jose A Matthews DO 11/30/2023 03:17 PM EDT
--- NOTE | 2023-11-30 14:49 | ED.GENADULT ---
HPI - General Adult General Chief complaint: Upper Respiratory Symptoms Stated complaint: Asthma Back Pain Time Seen by Provider: 11/30/23 16:15 Source: patient and RN notes reviewed Mode of arrival: ambulatory Limitations: no limitations History of Present Illness ED Provider: Vale Luong PA-C HPI narrative: This is a 53-year-old female with a history of hypothyroidism, asthma, hypertension, who presents emergency department with complaints of cough, and fatigue for the last week. Patient also endorses congestion. She has been using her inhalers at home which has provided her with much relief. She denies any fevers, chills, severe headache. She reports that she also has had body aches. She also states that she has had chest pain which is constant over the last several days, worsens with cough. Denies any current shortness for breath or palpitations. No abdominal pain, nausea, vomiting or diarrhea. Denies any other complaints or concerns at this time. MD complaint: Cough, congestion, body aches Onset (ago): week(s) Associated symptoms: cough Treatments prior to arrival: none Related Data Home Medications ?Medication ?Instructions ?Recorded ?Confirmed multivitamin 1 tab PO DAILY 01/31/20 09/14/23 inulin 2 gram chewable tablet g PO 09/14/23 09/14/23 (Fiber Gummies) magnesium 250 mg tablet 250 mg PO DAILY 09/14/23 09/14/23 Previous Rx's ?Medication ?Instructions ?Recorded albuterol sulfate 90 mcg/actuation 2 puff inhalation Q4-6H PRN 11/23/20 aerosol inhaler shortness of breath or wheezing #8.5 grams lidocaine 5 % topical patch 1 patch topical DAILY #30 ea 03/21/21 lisinopril 20 mg tablet 20 mg PO DAILY #90 tabs 12/15/22 meloxicam 15 mg tablet 15 mg PO DAILY #30 tabs 12/15/22 albuterol sulfate 2.5 mg/3 mL 2.5 mg (3 mL) inhalation QID PRN 03/23/23 (0.083 %) solution for nebulization shortness of breath or wheezing #180 mL diclofenac sodium 75 mg 75 mg PO BID PRN for pain #60 tabs 09/30/23 tablet,delayed release levothyroxine 25 mcg tablet 25 mcg PO DAILY #90 tabs 07/17/24 (Synthroid) bisacodyl 5 mg tablet,delayed 10 mg (2 x 5 mg) PO BEDTIME #180 10/06/23 release (Dulcolax (bisacodyl)) tabs pantoprazole 40 mg tablet,delayed 40 mg PO DAILY #30 tabs 10/06/23 release betamethasone dipropionate 0.05 % 1 appl topical .every other day 30 10/20/23 topical ointment days #15 grams acetaminophen 500 mg tablet 500 mg PO Q6H PRN pain #30 tabs 11/30/23 (Tylenol Extra Strength) benzonatate 100 mg capsule 100 mg PO TID PRN cough #14 caps 11/30/23 ibuprofen 600 mg tablet 600 mg PO Q6H PRN pain #30 tabs 11/30/23 lidocaine 5 % topical patch 1 patch topical DAILY #30 ea 11/30/23 (Lidoderm) prednisone 20 mg tablet 40 mg (2 x 20 mg) PO DAILY 5 days 11/30/23 #10 tabs Allergies Allergy/AdvReac Type Severity Reaction Status Date / Time iron Allergy Unknown vomiting Verified 11/30/23 14:49 iodine Allergy Vomiting Verified 11/30/23 14:49 iron dextran complex AdvReac Intermediate FLUSHING,SOB,VOMITING,INCREASED Verified 11/30/23 14:49 [Iron Dextran Complex] ANXIETY,LOW BACK PAIN, Review of Systems Review of Systems: Yes all other systems are reviewed and are negative Constitutional: Constitutional: Reports as per [facility] Past Medical History Attestation statement: The following information was validated with the patient. Medical History Upper respiratory infection Bilateral flank pain Axillary adenopathy Low back pain Left lower quadrant abdominal pain Right upper quadrant pain Shortness of breath Viral infection TSH elevation Polyarthralgia Uterine fibroid Obesity (BMI 30-39.9) Esophageal stricture Vitamin D deficiency Seasonal allergies Anemia Asthma HTN (hypertension) Migraines Surgical History History of colonoscopy (~2013) History of arthroscopy of right knee History of laparoscopy History of bladder surgery History of tubal ligation History of knee surgery H/O: hysterectomy Family History Family History Father Stroke Mother Bladder cancer Maternal Grandmother Myocardial infarction Maternal Aunt Myocardial infarction Paternal Aunt No problems noted. Maternal Aunt Stroke Brother Myocardial infarction Social History Social History Housing: House Alcohol intake: never Patient Tobacco Use Status: Never used Tobacco e-Cigarette/Vaping Use: Never Used Second Hand Smoke Exposure: No Advance Directives: No Advance Directives Information Provided: No Do you have a plan to hurt others: No Plan service: No Current occupational status: employed Cognitive needs: No Hearing needs: No Vision needs: Yes (reading glasses) Physical Exam ED Vital Signs: Vital Signs - 24 hr 11/30/23 14:46 11/30/23 16:00 11/30/23 17:20 Temperature 98.9 F 97.3 F Pulse Rate 68 70 60 Respiratory Rate 20 23 H Blood Pressure 141/79 H 113/51 L 120/61 Pulse Oximetry 99 100 Oxygen Delivery Method Room Air Room Air 11/30/23 17:46 11/30/23 17:47 11/30/23 18:00 Temperature 100 F Pulse Rate 67 69 78 Respiratory Rate 22 H Blood Pressure 129/62 135/69 146/72 H Pulse Oximetry 96 Oxygen Delivery Method Room Air 11/30/23 22:36 Temperature 100 F Pulse Rate 78 Respiratory Rate 22 H Blood Pressure 146/72 H Pulse Oximetry 96 Oxygen Delivery Method Room Air BMI result Body Mass Index 37.1 Const General: cooperative, comfortable and no acute distress Orientation/consciousness: patient oriented x3 Limitations: no limitations HENMT Head: Yes normal to inspection, Yes normocephalic and Yes atraumatic Ears: hearing grossly normal bilaterally and TM's normal bilaterally General nose exam: Normal external nose present Face and sinus: Yes normal facial exam Mouth: Normal oral and palatal mucosa present, oropharynx normal and moist mucous membranes Throat: Yes posterior oropharynx normal Eyes General: appearance normal, both eyes and all related structures Eyelids: Yes eyelids normal Conjunctivae: conjunctivae normal Sclerae: sclerae normal Pupils: Equal, round and reactive pupils present EOM: EOMs intact bilaterally Neck Neck: Yes normal visual inspection, Yes full ROM and Yes no lymphadenopathy Lymphatic: no lymphadenopathy noted Chest Other: Tenderness palpation along the anterior chest wall. Chest palpation & inspection: normal inspection of the chest Resp Effort & Inspection: normal respiratory effort and able to speak in complete sentences Auscultation: clear to auscultation bilaterally, no crackles, no rales, no rhonchi and no wheezes Cardio Rate: regular rate Rhythm: regular rhythm Heart sounds: S1 normal heart sound present and S2 normal heart sound present GI Inspection: Yes normal to inspection Skin General skin exam: no rashes or lesions noted Trauma: no lacerations or abrasions Wounds: no wounds Neuro General: patient oriented x3 and moves all extremities Cranial nerves: Yes Equal, round and reactive pupils present Extrem General: Yes normal to inspection Right upper extremity: normal to inspection Left upper extremity: normal to inspection Right lower extremity: normal to inspection Left lower extremity: normal to inspection Course Course Course Narrative: This is a Rapid Medical Examination (RME) performed by Britt Beasley PA-C in triage. Full HPI, ROS, assessment and treatment plan per primary provider in the Main ED. 53 yo female hx of asthma here for eval of cough and fatigue x1 week. exposed to covid however home covid test negative. using inhaler at home without relief. + coughing. lungs clear. voice is hoarse. Plan: labs, viral swabs, cxr Reevaluation(s) Reevaluation #1: Second troponin negative. Chest x-ray unremarkable. Symptoms likely viral URI, discussed with patient. Will treat with prednisone, updrafts, Tylenol, Motrin. Given strict return precautions. She understands and agrees with plan. Urine with moderate leuk esterases, rbc's, wbc's and squamous cells. Appears to be contaminated. She had a similar-appearing urinalysis several months ago which was not a urinary tract infection. Does not need to be on antibiotics at this time. She will follow-up with your PCP. Patient stable for discharge. Time: 19:24 Medications Administered Discontinued Medications Generic Name Dose Route Start Last Admin Trade Name Cruzq PRN Reason Stop Dose Admin Acetaminophen 975 mg 11/30/23 18:49 11/30/23 19:14 Acetaminophen 325 Mg Tablet PO 11/30/23 18:50 975 mg ONCE ONE Administration Albuterol Sulfate 2 puff 11/30/23 18:59 11/30/23 19:29 Albuterol Sulfate 90 Mcg 8 Gm Inhaler INHALE 11/30/23 19:00 2 puff ONCE ONE Administration Lidocaine 1 patch 11/30/23 18:49 11/30/23 19:13 Lidocaine 4 % Patch Adh..Patch TRANSDERMA 11/30/23 18:50 1 patch ONCE ONE Administration Protocol Medical Decision Making Medical Decision Making [facility] Narrative: this is a 53-year-old Armenian-speaking female, with a history of GERD, hypertension, asthma, who presents emergency department with complaints of cough, congestion, body aches, chest pain for the last week. On arrival, patient mildly hypertensive at 141/79, all other vital signs within normal limits. Chest x-ray was obtained which reveals no acute abnormalities. Viral swabs were obtained, negative. Labs were performed prior to my assessment, she has no leukocytosis, stable H&H, chemistry within normal limits. Added troponin after my assessment. Differential Diagnosis Differential Diagnoses: The differential diagnosis associated with the presentation includes URI, COVID, reactive airway disease, ACS-unlikely Admission/Observation Consideration of admission/observation: Escalation of care including admission/observation considered Lab Data [facility] Lab Attestation statement: I reviewed the patient's lab results. No leukocytosis, stable H&H, chemistry within normal limits. 11/30/23 15:33 11/30/23 15:33 Labs: Lab Results 11/30/23 11/30/23 Range/Units 15:33 17:43 WBC 8.4 (4.8-10.8) X10*3/uL RBC 3.74 L (4.20-5.50) X10*6/uL Hgb 12.2 (12.0-16.0) g/dl Hct 35.2 L (37.0-47.0) % MCV 94.1 (80.0-98.0) fL MCH 32.6 (27.0-33.0) pg MCHC 34.7 (31.0-35.0) g/dl RDW 11.9 (11.0-16.0) % Plt Count 290 (160-400) X10*3/uL MPV 9.6 (9.4-12.3) fL Immature Gran % (Auto) 0.2 (0.0-0.4) % Neut % (Auto) 61.4 (45-73) % Lymph % (Auto) 28.3 (20-40) % [place] % (Auto) 7.5 (2-11) % Eos % (Auto) 2.1 (0-4) % Baso % (Auto) 0.5 (0-2) % Lymph # (Auto) 2.4 (1.2-4.9) X10*3/uL [place] # (Auto) 0.6 (0.1-1.2) X10*3/uL Eos # (Auto) 0.2 (0.0-0.4) X10*3/uL Baso # (Auto) 0.0 (0.0-0.2) X10*3/uL Abs Immat Gran (auto) 0.02 (0.00-0.03) X10*3/uL Absolute Neuts (auto) 5.2 (2.0-8.3) x10*3/uL Absolute Nucleated RBC 0.000 (0.0-0.012) X10*3/uL Nucleated RBC % (auto) 0.0 (0.0-0.2) /100WBC Sodium 141 (135-145) mmol/L Potassium 3.8 (3.3-5.1) mmol/L Chloride 108 (96-108) mmol/L Carbon Dioxide 27 (22-29) mmol/L Anion Gap 10 L (12-20) BUN 13 (9-16) mg/dL Creatinine 0.77 (0.5-1.4) mg/dL Estim Creat Clear Calc 101.9 Estimated GFR > 60 Random Glucose 89 (60-115) mg/dL Calcium 9.7 D (8.4-10.2) mg/dL Magnesium 1.8 (1.6-2.6) mg/dL Total Bilirubin 0.4 (0.0-1.0) mg/dL AST 28 (5-31) U/L ALT 11 (0-31) U/L Alkaline Phosphatase 79 (39-117) U/L Troponin I High Sens < 2.7 (<3.5-17.0) ng/L Total Protein 7.1 (6.5-8.0) g/dL Albumin 4.2 (3.5-5.0) g/dL Urine Color Yellow Urine Appearance Cloudy Urine pH 5.5 (5.0-9.0) Ur Specific [place] 1.025 (1.005-1.025) Urine Protein Negative (Neg-Trace) mg/dL Urine Glucose (UA) Negative (Negative) mg/dL Urine Ketones Negative (Negative) mg/dL Urine Blood Trace H (Negative) Urine Nitrite Negative (Negative) Ur Leukocyte Esterase Moderate (2+) H (Negative) Urine RBC 3-5 H (0-2) /HPF Urine WBC 21-50 H (0-5) /HPF Ur Squamous Epith Cells 11-20 (0-2) /HPF Urine Bacteria 4+ (None Seen) Hyaline Casts 0-2 (0-2) /LPF Influenza Type A (PCR) NEGATIVE (Negative) Influenza Type B (PCR) NEGATIVE (Negative) RSV RNA Qual (PCR) NEGATIVE (Negative) SARS-CoV-2 RNA (RT-PCR) NEGATIVE (Negative) Radiology Impression Discussion of test interpretation with radiology: I have reviewed the radiologist's reading. External Record Review External record reviewed: Inpatient record, Office record, Outpatient record, Prior outpatient labs, Prior outpatient radiology, Primary care record and Outside ED record Discharge Plan Discharge Clinical Impression: Upper respiratory tract infection Qualifiers: URI type: unspecified viral URI Qualified Code(s): J06.9 - Acute upper respiratory infection, unspecified Patient Disposition: Home, Self-Care Instructions: Upper Respiratory Infection (ED) Additional Instructions: You were seen in the emergency department due to cold-like symptoms. Please drink plenty of fluids get plenty of rest. You tested negative for COVID, flu, and RSV. Your chest x-ray was normal. Your EKG was normal. Your labs were reassuring. Take prescribed Tessalon as needed for cough. Continue taking ibuprofen and or Tylenol as needed for pain and symptoms. Follow-up with your primary care physician regarding this visit. If any new or worsening symptoms occur including but not limited to chest pain, shortness of breath, please return for re-evaluation. Prescriptions: New benzonatate 100 mg capsule 100 mg PO TID PRN (Reason: cough) Qty: 14 0RF prednisone 20 mg tablet 40 mg PO DAILY 5 Days Qty: 10 0RF acetaminophen [Tylenol Extra Strength] 500 mg tablet 500 mg PO Q6H PRN (Reason: pain) Qty: 30 0RF ibuprofen 600 mg tablet 600 mg PO Q6H PRN (Reason: pain) Qty: 30 0RF lidocaine [Lidoderm] 5 % adhesive patch,medicated 1 patch topical DAILY Qty: 30 0RF Rx Instructions: leave on most painful area for up to 12 hrs No Action albuterol sulfate 2.5 mg /3 mL (0.083 %) solution for nebulization 2.5 mg inhalation QID PRN (Reason: shortness of breath or wheezing) Qty: 180 0RF diclofenac sodium 75 mg tablet,delayed release (DR/EC) 75 mg PO BID PRN (Reason: for pain) Qty: 60 0RF levothyroxine [Synthroid] 25 mcg tablet 25 mcg PO DAILY Qty: 90 2RF albuterol sulfate 90 mcg/actuation HFA aerosol inhaler 2 puff inhalation Q4-6H PRN (Reason: shortness of breath or wheezing) Qty: 8.5 0RF multivitamin Tablet 1 tab PO DAILY magnesium 250 mg tablet 250 mg PO DAILY Fiber Gummies 2 gram tablet,chewable PO lidocaine 5 % adhesive patch,medicated 1 patch topical DAILY Qty: 30 0RF Rx Instructions: leave on most painful area for up to 12 hrs lisinopril 20 mg tablet 20 mg PO DAILY Qty: 90 2RF meloxicam 15 mg tablet 15 mg PO DAILY Qty: 30 2RF bisacodyl [Dulcolax (bisacodyl)] 5 mg tablet,delayed release (DR/EC) 10 mg PO BEDTIME Qty: 180 4RF pantoprazole 40 mg tablet,delayed release (DR/EC) 40 mg PO DAILY Qty: 30 2RF Rx Instructions: take one tablet half an hour before breakfast betamethasone dipropionate 0.05 % ointment 1 appl topical .every other day 30 Days Qty: 15 0RF Rx Instructions: alternate with estrogen cream that was also prescribed as discussed in the office Interventions: ED Discharge Assessment Last Done: 11/30/23 22:36 Discharge Date/Time: 11/30/23 19:36 Print Language: Armenian
[2023-11-30 15:38] LABS: MANUAL DIFF FLAG NO
[2023-11-30 15:42] LABS: Basophils Percent Auto 0.5 % (0-2); Eosinophils Absolute Auto 0.2 X10*3/uL (0.0-0.4); Eosinophils Percent Auto 2.1 % (0-4); Hematocrit 35.2 % (37.0-47.0); Hemoglobin 12.2 g/dl (12.0-16.0); Imm Gran Abs Auto 0.02 X10*3/uL (0.00-0.03); Imm Gran Pct Auto 0.2 % (0.0-0.4); Lymphocytes Absolute Auto 2.4 X10*3/uL (1.2-4.9); Lymphocytes Percent Auto 28.3 % (20-40); Mean Corpuscular HGB Conc 34.7 g/dl (31.0-35.0); Mean Corpuscular Hemoglobin 32.6 pg (27.0-33.0); Mean Corpuscular Volume 94.1 fL (80.0-98.0); Mean Platelet Volume 9.6 fL (9.4-12.3); Monocytes Absolute Auto 0.6 X10*3/uL (0.1-1.2); Monocytes Percent Auto 7.5 % (2-11); Neutrophils Absolute Auto 5.2 x10*3/uL (2.0-8.3); Neutrophils Percent Auto 61.4 % (45-73); Platelet Count 290 X10*3/uL (160-400); Red Blood Count 3.74 X10*6/uL (4.20-5.50); Red Cell Distribution Width 11.9 % (11.0-16.0); White Blood Count 8.4 X10*3/uL (4.8-10.8)
[2023-11-30 15:56] LABS: Alanine Aminotransferase 11 U/L (0-31); Albumin Level 4.2 g/dL (3.5-5.0); Alkaline Phosphatase 79 U/L (39-117); Anion Gap 10 (12-20); Aspartate Amino Transferase 28 U/L (5-31); Bilirubin Total 0.4 mg/dL (0.0-1.0); Blood Urea Nitrogen 13 mg/dL (9-16); Calcium 9.7 mg/dL (8.4-10.2); Carbon Dioxide 27 mmol/L (22-29); Chloride 108 mmol/L (96-108); Creatinine Clr Calc Pharmacy 101.9; Estimated Glomerular Filt Rate > 60; Glucose Random 89 mg/dL (60-115); Magnesium 1.8 mg/dL (1.6-2.6); Potassium 3.8 mmol/L (3.3-5.1); Sodium 141 mmol/L (135-145); Total Protein 7.1 g/dL (6.5-8.0)
[2023-11-30 16:19] LABS: Influenza A PCR NEGATIVE (Negative); Influenza B PCR NEGATIVE (Negative); Resp Syncy Virus RNA Qual PCR NEGATIVE (Negative); SARS COV2 PCR INHOUSE NEGATIVE (Negative)
--- NOTE | 2023-11-30 17:19 | ECG_ITS ---
Test Reason : CHEST PAIN Blood Pressure : / mmHG Vent. Rate : 059 BPM Atrial Rate : 059 BPM P-R Int : 126 ms QRS Dur : 070 ms QT Int : 442 ms P-R-T Axes : 023 029 048 degrees QTc Int : 437 ms Sinus bradycardia Otherwise normal ECG When compared with ECG of 28-AUG-2023 18:43, No significant change was found Referred By: Vale Lunog Electronically Signed By:GILMA GONZALEZ
[2023-11-30 17:55] LABS: Appearance Urine Cloudy; Color Urine Yellow; Glucose Urine UA Negative (Negative); Leukocyte Esterase Urine Moderate (2+) (Negative); Nitrite Urine Negative (Negative); PH 5.5 (5.0-9.0); Specific Gravity - Urine 1.025 (1.005-1.025); UMIC TRIGGER UACC YES; Urine Blood Trace (Negative); Urine Ketones Negative (Negative); Urine Protein Negative (Neg-Trace)
[2023-11-30 18:05] LABS: Bacteria Urine 4+ (None Seen); Hyaline Casts Urine 0-2 /LPF (0-2); UACC Culture Trigger YES; WBC Urine 21-50 /HPF (0-5)
[2023-11-30 18:33] LABS: Troponin-I High Sensitivity < 2.7 ng/L (<3.5-17.0)
[2023-11-30] MEDS: Lidocaine 4 % Patch ADH..PATCH 1 PATCH TRANSDERMA (19:13)
[2023-11-30] MEDS: Acetaminophen 325 MG TABLET 975 MG PO (19:14)
[2023-11-30] MEDS: Albuterol Sulfate 90 MCG 8 GM INHALER 2 PUFF INHALE (19:29)
== END 2023-11-30 19:36 | disposition home or self-care (01) ==
PROVIDERS: Physician Assistant Medical; Emergency Provider Emergency Medicine; PCP Internal Medicine
DX: J06.9 Acute upper respiratory infection, unspecified (principal); R07.89 Other chest pain; R00.1 Bradycardia, unspecified; Z79.899 Other long term (current) drug therapy; Z03.818 Encounter for observation for suspected exposure to other biological agents ruled out
CPT/HCPCS: 0241U; 71046; 80053; 81001; 83735; 84484; 85025; 87086; 93005; 99284

== ENCOUNTER 2023-12-30 14:07 | Outpatient (AMB) | payer OTHER, SELFPAY ==
--- NOTE | 2023-12-30 14:17 | MHC.OFFVIS ---
Vital Signs 12/30/23 14:22 Height 5 ft 2 in Weight 188 lb 11.451 oz BMI 34.5 BP 112/68 Blood Pressure Location Lt brachial Position Sitting Pulse 74 Pulse Source Pulse Oximeter Pulse Oximetry (%) 96 Oxygen Delivery Method Room Air Intake Visit Reasons: 3 month follow up Intake Note: Relevant Flags or Indicators ? Requires Furniture Assembler And Installer? Y Whitney presents in office today for a scheduled 3 mos FUV. CC; Since last visit; labs ordered ? done (multiple). Rx ordered ? yes (pantoprazole, dulcolax). Diagnostics/images ordered ? done (other specialties). Relevant GI Sx as reported per pt? Reflux ?Abdominal Pain oUpper B/L -- Pt states that they have pain when having BM. Pt does report having more frequent BM as result of new Rx. ?Hx of any recent surgeries? None Furniture Assembler And Installer Required: Yes Furniture Assembler And Installer Services: Furniture Assembler And Installer Present Furniture Assembler And Installer Name: [id number] Information Interpreted: non-clinical & clinical Accompanied by: Self / Same As Patient Allergies iron Allergy (Unknown, Verified 12/30/23 14:17) vomiting iodine Allergy (Verified 12/30/23 14:17) Vomiting iron dextran complex [Iron Dextran Complex] Adverse Reaction (Intermediate, Verified 12/30/23 14:17) FLUSHING,SOB,VOMITING,INCREASED ANXIETY,LOW BACK PAIN, HPI HPI 3 month follow up: Details: LAST VISIT: Colon cancer screening Constipation GERD (gastroesophageal reflux disease) Postprandial abdominal bloating Abdominal pain, LUQ (left upper quadrant) Plan Message sent to surgical schedulers to book procedure for patient. Patient will be sent for upper endoscopy and colonoscopy. Upper endoscopy for recent worsening symptoms of epigastric pain postprandially and acid reflux. Patient will stop taking omeprazole and will start taking pantoprazole. Avoid dietary triggers and late night snacking. Patient will be sent to rule out H pylori and celiac. Staying upright for minimum 3 hours after meals discussed with patient. Patient reports to have constipation and left upper quadrant pain. Patient states that senna/Colace combination do not work for her right now. Patient reports that she is taking 2 tablets every evening and she continues to have left upper quadrant pain and unable to move her bowels but every 2-3 days. Patient will start taking Dulcolax daily. Will call our office in 2 weeks, it might require stronger medication like Linzess or Trulance. Patient denies any issues with anesthesia in the past. No history of sleep apnea. Not on any anticoagulation medication. I will see patient in 3 months to re-evaluate. Patient is agreeable to this plan and verbalizes understanding of instructions. She was given the opportunity to ask questions and all questions answered. ? Thank you for allowing me to participate in her care Orders Orders Vitamin B12 and Folate Today R19.7 Transglutaminase Ab IgG Today R10.9 Transglutaminase IgA Today R10.9 H pylori Ag Stool Today K21.9 Medications New pantoprazole take one tablet half an hour before breakfast 40 mg PO DAILY 30 tabs 2RF K21.9 bisacodyl (Dulcolax (bisacodyl)) 10 mg (2 x 5 mg) PO BEDTIME 180 tabs 4RF Discontinued sennosides-docusate sodium 8.6-50 mg (Senna Plus) Discontinued Reason: Doctor's Order 2 tab-caps (2 x 8.6-50 mg) PO BEDTIME 30 days 60 caps 8RF K59.00 omeprazole Discontinued Reason: Doctor's Order 20 mg PO DAILY 30 caps 1RF K21.9 TODAY'S VISIT Patient is here today for follow-up and to discuss lab results. Possible gluten allergy and celiac will need to do biopsy to verify. Patient continues to have epigastric pain postprandially depending on what she eats. Patient reports that she was seen in the ER for upper respiratory infections last month. Patient reports to be feeling better now. Patient denies any nausea or vomiting. Reports occasional acid reflux with dyspepsia without dysphagia or odynophagia. Patient also reports postprandial abdominal bloating. Patient reports that she moves her bowels better now, however occasionally she will have loose stools most likely related to Dulcolax. Patient denies any melena, hematochezia, unintentional weight loss or ribbon like stools. Nose issues with anesthesia in the past, no history of sleep apnea. Not on any anticoagulation medication. Patient denies any respiratory or cardiac symptoms at this time. [facility] Medical History (Updated 01/16/24 @ 19:40 by Lakesha Pena [facility]) Celiac disease Upper respiratory infection Bilateral flank pain Axillary adenopathy Low back pain Left lower quadrant abdominal pain Right upper quadrant pain Shortness of breath Viral infection TSH elevation Polyarthralgia Uterine fibroid Obesity (BMI 30-39.9) Esophageal stricture Vitamin D deficiency Seasonal allergies Anemia Asthma HTN (hypertension) Migraines Surgical History History of colonoscopy (~2013) History of arthroscopy of right knee History of laparoscopy History of bladder surgery History of tubal ligation History of knee surgery H/O: hysterectomy Family History Father Stroke Mother Bladder cancer Maternal Grandmother Myocardial infarction Maternal Aunt Myocardial infarction Paternal Aunt No problems noted. Maternal Aunt Stroke Brother Myocardial infarction Social History Housing: House Alcohol intake: never Patient Tobacco Use Status: Never used Tobacco e-Cigarette/Vaping Use: Never Used Second Hand Smoke Exposure: No service: No Current occupational status: employed Cognitive needs: No Hearing needs: No Vision needs: Yes (reading glasses) Female Reproductive History Menstrual Age of Menarche: 12 Review of Systems Const Denies weight gain and Denies weight loss ENT Reports no additional complaints, Denies dysphagia and Denies odynophagia Card Reports no additional complaints Resp Reports no additional complaints GI Reports abdominal pain, Denies belching, Denies melena, Reports bloating, Denies change in bowel habits, Reports constipation, Denies dysphagia, Denies excessive flatus, Denies dyspepsia, Reports heartburn, Denies diarrhea, Denies loose stools, Denies nausea, Denies odynophagia and Denies vomiting Reports no additional complaints Musc Reports no additional complaints Neuro Reports no additional complaints Psych Reports no additional complaints Endo Reports no additional complaints Physical Exam Vital Signs: Last Vital Signs Pulse 74 12/30/23 14:22 BP 112/68 12/30/23 14:22 Pulse Ox 96 12/30/23 14:22 Oxygen Delivery Method Room Air 12/30/23 14:22 BMI result Body Mass Index 34.5 Const General: healthy appearing and no acute distress Nutritional Appearance: obese Orientation/consciousness: patient oriented x3 Resp Effort & Inspection: normal respiratory effort, able to speak in complete sentences, no tracheal deviation and symmetric chest movement Auscultation: clear to auscultation bilaterally Cardio Rate: regular rate GI Inspection: Yes normal to inspection, No distended and Yes obesity Palpation (GI): Soft to palpation, not firm, nontender and No hepatosplenomegaly present Auscultation: normal bowel sounds General: Yes no CVA tenderness Back/Spine/Pelvis Back: no CVA tenderness Skin General skin exam: elasticity normal, turgor normal and dry skin Neuro General: patient oriented x3 Psych Appearance: grossly normal Mental Status: mental status grossly normal Results Reviewed Results Reviewed: Laboratory Tests 10/06/23 09:11 Tiss Transglutamin IgG <1.0 Tiss Transglutamin IgA >250.0 H Assessment & Plan Assessment & Plan (1) Colon cancer screening: Code(s): Z12.11 - Encounter for screening for malignant neoplasm of colon Category: Medical (2) Constipation: Code(s): K59.00 - Constipation, unspecified Category: Medical Qualifiers: Constipation type: slow transit constipation Qualified Code(s): K59.01 - Slow transit constipation (3) GERD (gastroesophageal reflux disease): Code(s): K21.9 - Gastro-esophageal reflux disease without esophagitis Category: Medical Qualifiers: Esophagitis presence: esophagitis presence not specified Qualified Code(s): K21.9 - Gastro-esophageal reflux disease without esophagitis (4) Postprandial abdominal bloating: Code(s): R14.0 - Abdominal distension (gaseous) (5) Abdominal pain, LUQ (left upper quadrant): Code(s): R10.12 - Left upper quadrant pain (6) Celiac disease: Code(s): K90.0 - Celiac disease Category: Medical Plan What to expect before during and after procedure discussed with patient. Stressed the importance of good bowel prep and clear liquid diet day before procedure. Continue taking PPI daily. Avoid dietary triggers. Staying upright for 3 hours after meals discussed with patient. Patient was instructed to avoid gluten. Will be sent for upper endoscopy to check biopsy to confirm celiac. I will see patient after the procedure, sooner on as needed basis. She is agreeable to this plan and verbalizes understanding of instructions. She was given the opportunity to ask questions and all questions answered. Thank you for allowing me to participate in her care Medications: New polyethylene glycol 3350 (Miralax) As directed by gastroenterology [facility] at [facility] 238 grams PO ONCE 238 grams 0RF Z12.11 - Encounter for screening for malignant neoplasm of colon Refilled bisacodyl (Dulcolax (bisacodyl)) 10 mg (2 x 5 mg) PO BEDTIME 180 tabs 4RF Coding Level of Care Code Est Pt Level 4 (38139) Diagnoses Colon cancer screening Z12.11 Slow transit constipation K59.01 Constipation type: slow transit constipation Gastroesophageal reflux disease, unspecified whether esophagitis present K21.9 Esophagitis presence: esophagitis presence not specified Postprandial abdominal bloating R14.0 Abdominal pain, LUQ (left upper quadrant) R10.12 Celiac disease K90.0 Time Spent (min) 35 Comment 20 minutes spent with patient and additional 15 minutes spent reviewing her records
[2023-12-30 14:22] VITALS: BP 112/68; PULSE 74; O2SAT 96; BMI 34.5
== END 2023-12-30 14:47 | disposition home or self-care (01) ==
PROVIDERS: PCP Internal Medicine; Visit Provider Nurse Practitioner Family
DX: K59.01 Slow transit constipation (principal); K21.9 Gastro-esophageal reflux disease without esophagitis; Z12.11 Encounter for screening for malignant neoplasm of colon
CPT/HCPCS: 99214

== ENCOUNTER → 2023-12-30 14:07 | Outpatient (BNVA) | payer OTHER, SELFPAY | PROVIDERS: PCP Internal Medicine; Visit Provider Nurse Practitioner Family | DX: Z12.11 Encounter for screening for malignant neoplasm of colon (principal); K59.01 Slow transit constipation; K21.9 Gastro-esophageal reflux disease without esophagitis; K90.0 Celiac disease; R14.0 Abdominal distension (gaseous); R10.12 Left upper quadrant pain | CPT/HCPCS: 99212 ==

== ENCOUNTER 2024-01-22 14:26 | Outpatient (AMB) | payer OTHER, SELFPAY ==
--- NOTE | 2024-01-22 14:36 | MHC.PC.OV ---
Vital Signs 01/22/24 14:37 01/22/24 15:06 Height 5 ft 2 in Weight 186 lb 6 oz BMI 34.1 BP 100/68 116/60 Blood Pressure Location Lt brachial Lt brachial Position Sitting Sitting Pulse 94 Pulse Source Pulse Oximeter Pulse Oximetry (%) 93 Oxygen Delivery Method Room Air Intake Visit Reasons: Gastroesophageal reflux disease (GERD) Intake Note: Patient is here to follow up on GERD. Pricing Specialist Required: Yes Pricing Specialist Language: [employer] Driver Name: Jessica ([id number]) Information Interpreted: non-clinical & clinical Reinforcing Metal Worker: Not Required per policy Accompanied by: Self / Same As Patient Allergies iron Allergy (Unknown, Verified 01/22/24 14:37) vomiting iodine Allergy (Verified 01/22/24 14:37) Vomiting iron dextran complex [Iron Dextran Complex] Adverse Reaction (Intermediate, Verified 01/22/24 14:37) FLUSHING,SOB,VOMITING,INCREASED ANXIETY,LOW BACK PAIN, Medication List - Last Reconciled 01/22/24 by Maurice De La Rosa, acetaminophen (Tylenol Extra Strength) 500 mg PO Q6H PRN albuterol sulfate 90 mcg/actuation 2 puffs inhalation Q4-6H PRN albuterol sulfate 2.5 mg (3 mL) inhalation QID PRN benzonatate 100 mg PO TID PRN betamethasone dipropionate 0.05% 1 appl topical .every other day 30 days bisacodyl (Dulcolax (bisacodyl)) 10 mg (2 x 5 mg) PO BEDTIME ibuprofen 600 mg PO Q6H PRN inulin (Fiber Gummies) grams PO levothyroxine (Synthroid) 25 mcg PO DAILY lidocaine 5% (Lidoderm) 1 patch topical DAILY lisinopril 20 mg PO DAILY magnesium 250 mg PO DAILY multivitamin 1 tab PO DAILY pantoprazole 40 mg PO QAM polyethylene glycol 3350 (Miralax) 238 grams PO ONCE Tobacco use date assessed: 01/22/24 Dental Screening Dental Screen Date: 06/30/23 HPI Gastroesophageal reflux disease (GERD) HPI Details 53-year-old obese female with hypertension asthma hypothyroidism GERD hypercholesterolemia coming in for follow-up. Last seen in September having had a physical exam at that time. Mammogram is up-to-date colonoscopy 2013. Patient was referred to the technician terminal and repeater the last time. Patient has met with a technician terminal and repeater and planned colon test 05/05/2024. Review of the notes has seen Urology 10/20/2023 [id number] ([id number]) colon test 04/2024. for the asthma uses the albuterol states get infections states flu uses 4 x a day x 2 weeks only. PAetint take 2 x a month [facility] Medical History (Updated 01/22/24 @ 15:18 by Maurice De La Rosa MD) Celiac disease Upper respiratory infection Bilateral flank pain Axillary adenopathy Low back pain Left lower quadrant abdominal pain Right upper quadrant pain Shortness of breath Viral infection TSH elevation Polyarthralgia Uterine fibroid Obesity (BMI 30-39.9) Esophageal stricture Vitamin D deficiency Seasonal allergies Anemia Asthma HTN (hypertension) Migraines Surgical History History of colonoscopy (~2013) History of arthroscopy of right knee History of laparoscopy History of bladder surgery History of tubal ligation History of knee surgery H/O: hysterectomy Family History Father Stroke Mother Bladder cancer Maternal Grandmother Myocardial infarction Maternal Aunt Myocardial infarction Paternal Aunt No problems noted. Maternal Aunt Stroke Brother Myocardial infarction Social History Housing: House Alcohol intake: never Patient Tobacco Use Status: Never used Tobacco e-Cigarette/Vaping Use: Never Used Second Hand Smoke Exposure: No service: No Current occupational status: employed Cognitive needs: No Hearing needs: No Vision needs: Yes (reading glasses) Female Reproductive History Menstrual Age of Menarche: 12 Questionnaire Thrive Questionnaire Date Thrive assessed: 06/30/23 LOTUS-7 AMB Questionnaire LOTUS-7 Date LOTUS - 7 assessed: 06/30/23 Source: Developed by Drs. Jorge Cameron, Yaneth Blair, Jakub Salvador and colleagues, with an educational johnson from [employer]. Physical exam (Primary Care) Vital Signs: Last Vital Signs Pulse 94 01/22/24 14:37 BP 100/68 01/22/24 14:37 Pulse Ox 93 01/22/24 14:37 Oxygen Delivery Method Room Air 01/22/24 14:37 BMI result Body Mass Index 34.1 Tobacco/Smoking Status: Tobacco use Status Tobacco use date assessed 01/22/24 01/22/24 14:45 Patient Tobacco Use Status Never used Tobacco 01/22/24 14:45 e-Cigarette/Vaping Use Never Used 01/22/24 14:45 Thrive Assessment: Date of Thrive Assessment Date Thrive assessed 06/30/23 01/22/24 14:45 Const General: alert; No acute distress Eyes Conjunctivae: conjunctivae normal Resp Auscultation: clear to auscultation bilaterally Cardio Rate: regular rate Rhythm: regular rhythm GI Inspection: Yes normal to inspection Extrem General: Yes normal to inspection and No edema Office Procedures Flu Questionnaire Does the patient have a severe egg allergy?: No Does the patient have severe life threatening allergies?: No Does the patient have a fever or illness today?: No Has the patient ever had Guillain-Dunellen Syndrome?: No Has the patient ever had any past reaction to a flu shot?: No Immunizations Fluarix Triv [id number] (PF) 45 mcg (15 mcg x 3)/0.5 mL IM syringe Performing Provider: Maurice De La Rosa MD [facility] Administered by: Ryanne Hernadez RN on 01/22/24 14:54 Dose Route Admin Location Dispensed Lot Number Expiration Date [facility] Reference Assistant 0.5 mL IM Left Deltoid 0.5 mL [id number] 09/12/24 70421-483-93 [employer] VIS Given Date VIS Provided VIS Publication Date 01/22/24 Single Vaccine 20 Eligibility Eligibility Date Funding Source Not [facility] Eligible 01/22/24 Private Coding Level of Care Code Est Pt Level 4 (34277) Diagnoses Mild intermittent asthma without complication J45.20 Asthma severity: mild Asthma persistence: intermittent Asthma complication type: uncomplicated Essential hypertension I10 Hypertension type: essential hypertension Obesity (BMI 30-39.9) E66.9 Acquired hypothyroidism E03.9 Hypothyroidism type: acquired Gastroesophageal reflux disease, unspecified whether esophagitis present K21.9 Esophagitis presence: esophagitis presence not specified Hypercholesterolemia E78.00 Chronic pain of both knees M25.561; M25.562; G89.29 Chronicity: chronic Assessment & Plan Assessment & Plan (1) Asthma: Code(s): J45.909 - Unspecified asthma, uncomplicated Category: Medical Qualifiers: Asthma severity: mild Asthma persistence: intermittent Asthma complication type: uncomplicated Qualified Code(s): J45.20 - Mild intermittent asthma, uncomplicated Plan: Patient has been placed on albuterol. Use only on periods of infections. (2) HTN (hypertension): Code(s): I10 - Essential (primary) hypertension Category: Medical Qualifiers: Hypertension type: essential hypertension Qualified Code(s): I10 - Essential (primary) hypertension Plan: Continue with blood pressure medication. Decrease salt intake and exercise on lisinopril 20 mg once a day advised to continue monitoring blood pressure. (3) Obesity (BMI 30-39.9): Code(s): E66.9 - Obesity, unspecified Category: Medical Plan: Diet and exercise (4) Hypothyroid: Code(s): E03.9 - Hypothyroidism, unspecified Category: Medical Qualifiers: Hypothyroidism type: acquired Qualified Code(s): E03.9 - Hypothyroidism, unspecified Plan: Continue with thyroid medication 25 mcg once a day advised to get blood work done (5) GERD (gastroesophageal reflux disease): Code(s): K21.9 - Gastro-esophageal reflux disease without esophagitis Category: Medical Qualifiers: Esophagitis presence: esophagitis presence not specified Qualified Code(s): K21.9 - Gastro-esophageal reflux disease without esophagitis Plan: Avoid the foods that causes that usually spicy foods, tomato products, juices, coffee, soda and foods that your sensitive to. After eating do not lie down, allow 3-4 hours before in lie down. And keep the head of bed above 30 degrees to avoid the acid from going up. (6) Hypercholesterolemia: Code(s): E78.00 - Pure hypercholesterolemia, unspecified Category: Medical Plan: Avoid fried foods, chicken skin, eggs, butter margarine, pastries and meat. Be it pork or beef they have a lot of cholesterol LDL goal of less than 130 and triglyceride of less than 150 (7) Knee pain, bilateral: Code(s): M25.561 - Pain in right knee; M25.562 - Pain in left knee Category: Medical Qualifiers: Chronicity: chronic Qualified Code(s): M25.561 - Pain in right knee; M25.562 - Pain in left knee; G89.29 - Other chronic pain Plan: Will request for repeat x-ray of the knee. This was done last year showing osteoarthritis. Will do a referral to ortho also. Orders: Orders Influenza [id number] Immunization Today Z23 - Encounter for immunization XR knee standing BI Today M25.561 - Pain in right knee, M25.562 - Pain in left knee XR hip BI w PEL1V Today M25.551 - Pain in right hip, M25.552 - Pain in left hip Referrals Orthopedics Referral M25.551 - Pain in right hip, M25.552 - Pain in left hip Medications: Discontinued prednisone Discontinued Reason: Doctor's Order 40 mg (2 x 20 mg) PO DAILY 5 days 10 tabs 0RF meloxicam Discontinued Reason: Doctor's Order 15 mg PO DAILY 30 tabs 2RF M17.11 - Unilateral primary osteoarthritis, right knee diclofenac sodium Discontinued Reason: Duplicate 75 mg PO BID PRN 60 tabs 0RF for pain
[2024-01-22 14:37] VITALS: BP 100/68; PULSE 94; O2SAT 93; BMI 34.1
[2024-01-22 15:06] VITALS: BP 116/60
== END 2024-01-22 15:17 | disposition home or self-care (01) ==
PROVIDERS: PCP Internal Medicine; Visit Provider Internal Medicine
DX: J45.20 Mild intermittent asthma, uncomplicated (principal); I10 Essential (primary) hypertension; E66.9 Obesity, unspecified; Z68.34 Body mass index [BMI] 34.0-34.9, adult; E03.9 Hypothyroidism, unspecified; K21.9 Gastro-esophageal reflux disease without esophagitis; E78.00 Pure hypercholesterolemia, unspecified; M25.561 Pain in right knee; M25.562 Pain in left knee; G89.29 Other chronic pain

== ENCOUNTER → 2024-01-22 14:26 | Outpatient (BNVA) | payer OTHER, SELFPAY | PROVIDERS: PCP Internal Medicine; Visit Provider Internal Medicine | DX: Z23 Encounter for immunization (principal); J45.20 Mild intermittent asthma, uncomplicated; I10 Essential (primary) hypertension; E66.9 Obesity, unspecified; E03.9 Hypothyroidism, unspecified; K21.9 Gastro-esophageal reflux disease without esophagitis; E78.00 Pure hypercholesterolemia, unspecified; M25.561 Pain in right knee; M25.562 Pain in left knee; G89.29 Other chronic pain | CPT/HCPCS: 90471; 90656; 99212 ==

== ENCOUNTER 2024-02-01 15:08 | Outpatient (REF) | payer OTHER, SELFPAY ==
[2024-02-01 15:49] LABS: Appearance Urine Clear; Color Urine Yellow; Glucose Urine UA Negative (Negative); Leukocyte Esterase Urine Negative (Negative); Nitrite Urine Negative (Negative); PH 5.5 (5.0-9.0); Specific Gravity - Urine >= 1.030 (1.005-1.025); UMIC TRIGGER UACC YES; Urine Blood Moderate (2+) (Negative); Urine Ketones Negative (Negative); Urine Protein Negative (Neg-Trace)
[2024-02-01 16:18] LABS: Bacteria Urine Trace (None Seen); Hyaline Casts Urine 0-2 /LPF (0-2); UACC Culture Trigger YES
[2024-02-01 16:34] LABS: Free T4 (Free Thyroxine) 1.07 ng/dL (0.71-1.85)
== END 2024-02-01 15:09 | disposition home or self-care (01) ==
LOC: HO.XRAY 15:08
PROVIDERS: PCP Internal Medicine; Visit Provider Internal Medicine
DX: E03.9 Hypothyroidism, unspecified (principal); M25.561 Pain in right knee; M25.562 Pain in left knee; M25.552 Pain in left hip; M25.551 Pain in right hip
CPT/HCPCS: 36415; 73521; 73565; 81001; 84439; 84443; 87086

== ENCOUNTER 2024-02-10 14:53 | Outpatient (AMB) | payer OTHER, SELFPAY ==
--- NOTE | 2024-02-10 14:54 | A.OFFPC_ITS ---
Intake Visit Reasons: Cold Symptoms Allergies iron Allergy (Unknown, Verified 02/10/24 14:54) vomiting iodine Allergy (Verified 02/10/24 14:54) Vomiting iron dextran complex [Iron Dextran Complex] Adverse Reaction (Intermediate, Verified 02/10/24 14:54) FLUSHING,SOB,VOMITING,INCREASED ANXIETY,LOW BACK PAIN, Tobacco use date assessed: 01/22/24 Dental Screening Dental Screen Date: 06/30/23 HPI Cold Symptoms HPI Details 53-year-old obese female with asthma hyp ertension hypothyroid GERD hypercholesterolemia last seen in January 21 calling in for an acute problem.3 days ago fever,, wheezing ,no phlegm. has sore throat, no diarhea, , negative covid yesterday [facility] Medical History (Updated 02/10/24 @ 15:19 by Maurice De La Rosa MD) Celiac disease Upper respiratory infection Bilateral flank pain Axillary adenopathy Low back pain Left lower quadrant abdominal pain Right upper quadrant pain Shortness of breath Viral infection TSH elevation Polyarthralgia Uterine fibroid Obesity (BMI 30-39.9) Esophageal stricture Vitamin D deficiency Seasonal allergies Anemia Asthma HTN (hypertension) Migraines Surgical History History of colonoscopy (~2013) History of arthroscopy of right knee History of laparoscopy History of bladder surgery History of tubal ligation History of knee surgery H/O: hysterectomy Family History Father Stroke Mother Bladder cancer Maternal Grandmother Myocardial infarction Maternal Aunt Myocardial infarction Paternal Aunt No problems noted. Maternal Aunt Stroke Brother Myocardial infarction Social History Housing: House Alcohol intake: never Patient Tobacco Use Status: Never used Tobacco e-Cigarette/Vaping Use: Never Used Second Hand Smoke Exposure: No service: No Current occupational status: employed Cognitive needs: No Hearing needs: No Vision needs: Yes (reading glasses) Female Reproductive History Menstrual Age of Menarche: 12 Questionnaire Thrive Questionnaire Date Thrive assessed: 06/30/23 LOTUS-7 AMB Questionnaire LOTUS-7 Date LOTUS - 7 assessed: 06/30/23 Source: Developed by Drs. Jorge Cameron, Yaneth Jakub Valencia and colleagues, with an educational johnson from [employer]. Physical exam (Primary Care) Tobacco/Smoking Status: Tobacco use Status Tobacco use date assessed 01/22/24 02/10/24 14:55 Patient Tobacco Use Status Never used Tobacco 02/10/24 14:55 e-Cigarette/Vaping Use Never Used 02/10/24 14:55 Thrive Assessment: Date of Thrive Assessment Date Thrive assessed 06/30/23 02/10/24 14:55 Telehealth Telehealth Location of provider rendering services: practice address Location of patient: address on file Patient Identification confirmed using: Name, : Yes Telehealth method: voice only Patient verbally consented to treatment: Yes Patient verbally consented to billing insurance company: Yes Patient informed of any privacy concerns related to visit: Yes Minutes spent on Phone/Video with Pt.: 15 Coding Level of Care Code Tele Est Pt Level 3 (48231) Diagnoses Mild intermittent asthma with exacerbation J45.21 Asthma severity: mild Asthma persistence: intermittent Assessment & Plan Assessment & Plan (1) Asthma exacerbation: Code(s): J45.901 - Unspecified asthma with (acute) exacerbation Category: Medical Qualifiers: Asthma severity: mild Asthma persistence: intermittent Qualified Code(s): J45.21 - Mild intermittent asthma with (acute) exacerbation Plan: Patient is prescribed prednisone to help with exacerbation. Advised to increase oral fluids and to call if there is any problem. Medications: New 2 prednisone 4 tabs QD x 2 days then 3 tabs QD x 2 days then 2 tabs Qd x 2 days then 1 tab QD x 2 days PO daily; 20 tabs 0RF J45.909 - Unspecified asthma, uncomplicated
== END 2024-02-10 15:29 | disposition home or self-care (01) ==
LOC: HO.HMCH 14:53
PROVIDERS: PCP Internal Medicine; Visit Provider Internal Medicine
DX: J45.21 Mild intermittent asthma with (acute) exacerbation (principal)

== ENCOUNTER → 2024-02-10 14:53 | Outpatient (BNVA) | payer OTHER, SELFPAY | PROVIDERS: PCP Internal Medicine; Visit Provider Internal Medicine ==

== ENCOUNTER 2024-03-03 13:13 | Outpatient (AMB) | payer OTHER, SELFPAY ==
--- NOTE | 2024-03-03 13:31 | A.OFFVIS_ITS ---
Intake Visit Reasons: New Prob - b/L hip pain Intake Note: Whitney is a 54 year old female who presents today for a evaluation of her bilateral hip pain. Patient reports ongoing pain for about 2 years, but it has worsened since the last month. She states that her right hip is worse. Patient mentions that her pain is worse when she walks or uses stairs, lives on a second floor. Her pain is localized to the hips. She believes her bilateral hip pain comes from her knees as she has been experiencing bilateral knee pain, right is worse. Patient things her right knee pain is what is causing her right hip to give out. 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 The patient was referred by Dr. Maurice De La Rosa, [facility], for evaluation and treatment of bilateral hip pain. I last saw the patient in the office on for right knee pain, when the patient was given a cortisone injection in the right knee. A prescription for Diclofenac 75 mg PO BID was sent to the pharmacy. She was instructed to use ice for the pain. While in the office today, the patient reports experiencing bilateral hip pain ongoing for the past 2 years and has been worsening since the last month. The patient states her right hip pain is worse than the left hip pain. Pain aggravates with ambulation and when using the stairs, as she resides on a second floor. The patient experiences localized hip and bilateral knee pain, with her r ight knee worse than her left. She suspects hip pain originates from her knees. She also wonders if her right knee pain is causing her right hip to give out. FOR[facility]LY [facility], [facility] Medical History (Updated 03/03/24 @ 14:55 by Fabby Kent) Celiac disease Upper respiratory infection Bilateral flank pain Axillary adenopathy Low back pain Left lower quadrant abdominal pain Right upper quadrant pain Shortness of breath Viral infection TSH elevation Polyarthralgia Uterine fibroid Obesity (BMI 30-39.9) Esophageal stricture Vitamin D deficiency Seasonal allergies Anemia Asthma HTN (hypertension) Migraines Surgical History History of colonoscopy (~2013) History of arthroscopy of right knee History of laparoscopy History of bladder surgery History of tubal ligation History of knee surgery H/O: hysterectomy Family History Father Stroke Mother Bladder cancer Maternal Grandmother Myocardial infarction Maternal Aunt Myocardial infarction Paternal Aunt No problems noted. Maternal Aunt Stroke Brother Myocardial infarction Social History Housing: House Alcohol intake: never Patient Tobacco Use Status: Never used Tobacco e-Cigarette/Vaping Use: Never Used Second Hand Smoke Exposure: No service: No Current occupational status: employed Cognitive needs: No Hearing needs: No Vision needs: Yes (reading glasses) Female Reproductive History Menstrual Age of Menarche: 12 Review of Systems Const All systems reviewed & are unremarkable except as noted in HPI and below Physical Exam Const General: cooperative, healthy appearing and no acute distress Resp Effort & Inspection: normal respiratory effort and able to speak in complete sentences Cardio Rate: regular rate Peripheral pulses: Peripheral pulses 2+ throughout GI Palpation (GI): Soft to palpation Skin Lesions: no lesions Rashes: no rashes Extrem Other: Right knee: Mild to moderate effusion. No erythema or ecchymosis. Slight tenderness to palpation of the medial and lateral joint lines. Range of motion is 0-100 degrees. NVI Bilateral hip: Normal to inspection. Full hip ROM in all planes. 5/5 strength with resisted hip flexion, knee extension, abduction, and abduction. Pain with internal and external rotation. Slight tenderness to palpation over greater trochanteric bursa. Able to perform straight leg raise. NVI. Assessment & Plan Assessment & Plan (1) Osteoarthritis of knees, bilateral: Code(s): M17.0 - Bilateral primary osteoarthritis of knee Category: Medical (2) Osteoarthritis, hip, bilateral: Code(s): M16.0 - Bilateral primary osteoarthritis of hip Category: Medical Plan Ms. Banks is a 54-year-old female who is Honduran-speaking and presents in the office today for an evaluation of bilateral hip pain as well as follow-up of right knee pain. The patient was referred by Dr. Maurice De La Rosa, [facility], for evaluation and treatment of bilateral hip pain. I last saw the patient in the office on 07/31/23 for right knee pain, when the patient was given a cortisone injection in the right knee. A prescription for diclofenac 75 mg PO BID was sent to the pharmacy. She was instructed to use ice for the pain. While in the office today, the patient reports experiencing bilateral hip pain ongoing for the past 2 years and has been worsening since the last month. The patient states her right hip pain is worse than the left hip pain. Pain aggravates with ambulation and when using the stairs, as she resides on a second floor. The patient experiences localized hip and bilateral knee pain, with her right knee worse than her left. She suspects hip pain originates from her knees. She also wonders if her right knee pain is causing her right hip to give out. For her right knee pain, I recommended and discussed the role of gel injection and referral to pain management for the possibility of genicular nerve blocks. The patient would like to think about the options. She will contact the office once she decides. For her bilateral hip pain: We discussed the role of cortisone injection; however, the patient declines to move forward with the option at this time. She would like to think about the cortisone injection and will contact the office about what she decides. Should she decide on a cortisone injection for the hip, then that would be done under imaging guidance. Follow-up will be PRN, or sooner if needed. X-rays of the bilateral knee, which were obtained while in the office today and were reviewed by Radha lemus PA-C, revealed: Osteoarthritis. X-rays of the bilateral hip, which were obtained while in the office today and were reviewed by Radha lemus PA-C, revealed: Osteoarthritis. No acture fracture or dislocation. Patient Instructions: Scribed by Fabby Kent biomedical specialist, for Radha Farah PA-C on 03/03/24 at 2:10 pm EST. Coding Level of Care Code Est Pt Level 4 (07862) Diagnoses Osteoarthritis of knees, bilateral M17.0 Osteoarthritis, hip, bilateral M16.0
== END 2024-03-03 14:13 | disposition home or self-care (01) ==
PROVIDERS: PCP Internal Medicine; Visit Provider Physician Assistant
DX: M17.0 Bilateral primary osteoarthritis of knee (principal); M16.0 Bilateral primary osteoarthritis of hip
CPT/HCPCS: 99214

== ENCOUNTER → 2024-03-03 13:13 | Outpatient (BNVA) | payer OTHER, SELFPAY | PROVIDERS: PCP Internal Medicine; Visit Provider Physician Assistant | DX: M17.0 Bilateral primary osteoarthritis of knee (principal); M16.0 Bilateral primary osteoarthritis of hip | CPT/HCPCS: 99212 ==

== ENCOUNTER 2024-04-21 07:19 | Day surgery (SDC) | payer OTHER, SELFPAY ==
[2024-04-19 10:59] VITALS: BMI 34.6
--- NOTE | 2024-04-20 09:51 | HO.ANESPROP2 ---
Documented by User: Anamaria Sandoval NP 04/20/24 09:52 HPI - Anesthesia Eval Consult details Narrative: 54yo F for Colonoscopy PMFSH Active Problems Active Problems: All Active Problems Osteoarthritis, hip, bilateral (Acute) Osteoarthritis of knees, bilateral (Acute) Celiac disease (Acute) Constipation (Acute) Eczema (Acute) Plantar fasciitis of right foot (Acute) Colon cancer screening (Acute) Microhematuria (Acute) Renal cyst (Acute) Visual impairment (Acute) Osteoarthritis of right knee (Acute) Hypercholesterolemia (Acute) Temporomandibular dysfunction syndrome (Acute) Dysuria (Acute) Upper respiratory tract infection (Acute) Lichen simplex chronicus (Acute) Shoulder pain (Acute) Knee pain, bilateral (Acute) Hip pain, bilateral (Acute) GERD (gastroesophageal reflux disease) (Acute) Hypersomnia (Acute) Annual physical exam (Acute) Vulvar lesion (Acute) Urinary incontinence (Acute) Adenopathy (Acute) Hematuria (Acute) Vitamin D deficiency (Acute) Vitamin B 12 deficiency (Acute) Hypothyroid (Acute) Sciatica (Acute) Shoulder pain, left (Acute) MAI positive (Acute) Polyarthralgia (Acute) COVID-19 virus infection (Acute) Obesity (BMI 30-39.9) (Acute) Migraines (Acute) HTN (hypertension) (Acute) Asthma (Acute) Past Medical History Medical History Celiac disease Upper respiratory infection Bilateral flank pain Axillary adenopathy Low back pain Left lower quadrant abdominal pain Right upper quadrant pain Shortness of breath Viral infection TSH elevation Polyarthralgia Uterine fibroid Obesity (BMI 30-39.9) Esophageal stricture Vitamin D deficiency Seasonal allergies Anemia Asthma HTN (hypertension) Migraines Family History Family History Father Stroke Mother Bladder cancer Maternal Grandmother Myocardial infarction Maternal Aunt Myocardial infarction Paternal Aunt No problems noted. Maternal Aunt Stroke Brother Myocardial infarction Surgical History Surgical History History of colonoscopy (~2013) History of arthroscopy of right knee History of laparoscopy History of bladder surgery History of tubal ligation History of knee surgery H/O: hysterectomy Social History Social History Housing: House Alcohol intake: never Patient Tobacco Use Status: Never used Tobacco e-Cigarette/Vaping Use: Never Used Second Hand Smoke Exposure: No Use of substances other than those prescribed or required for medical reasons: No Are you DNR?: No Advance Directives: No Advance Directives Information Provided: Yes Recently lost weight without trying: No Nutrition Risks: No Nutritional Risk Patient : No service: No Current occupational status: employed Cognitive needs: No Hearing needs: No Vision needs: Yes (reading glasses) Meds Allergies Allergy/AdvReac Type Severity Reaction Status Date / Time iron dextran complex AdvReac Intermediate flushing/anxiety/dyspnea/back Verified 04/19/24 10:55 [Iron Dextran Complex] pain Home Medications ?Medication ?Instructions ?Recorded ?Confirmed ?Last Taken ?Type multivitamin 1 tab PO DAILY 01/31/20 04/19/24 Unknown History inulin 2 gram chewable tablet 2 g PO DAILY 09/14/23 04/19/24 Unknown History (Fiber Gummies) magnesium 250 mg tablet 250 mg PO DAILY 09/14/23 04/19/24 Unknown History Exam Height,Weight and Vital Signs: Height 5 ft 2 in Weight 85.729 kg Assessment and Plan Assessment Anesthesia Assessment: Chart Reviewed Documented by User: Bianca Shaw MD 04/21/24 09:11 PMFSH Past Medical History Medical History Celiac disease Upper respiratory infection Bilateral flank pain Axillary adenopathy Low back pain Left lower quadrant abdominal pain Right upper quadrant pain Shortness of breath Viral infection TSH elevation Polyarthralgia Uterine fibroid Obesity (BMI 30-39.9) Esophageal stricture Vitamin D deficiency Seasonal allergies Anemia Asthma HTN (hypertension) Migraines Family History Family History Father Stroke Mother Bladder cancer Maternal Grandmother Myocardial infarction Maternal Aunt Myocardial infarction Paternal Aunt No problems noted. Maternal Aunt Stroke Brother Myocardial infarction Surgical History Surgical History History of colonoscopy (~2013) History of arthroscopy of right knee History of laparoscopy History of bladder surgery History of tubal ligation History of knee surgery H/O: hysterectomy History of Problems with Anesthesia: No Social History Social History Housing: House Alcohol intake: never Patient Tobacco Use Status: Never used Tobacco e-Cigarette/Vaping Use: Never Used Second Hand Smoke Exposure: No Use of substances other than those prescribed or required for medical reasons: No Are you DNR?: No Advance Directives: No Advance Directives Information Provided: Yes Recently lost weight without trying: No Nutrition Risks: No Nutritional Risk Patient : No service: No Current occupational status: employed Cognitive needs: No Hearing needs: No Vision needs: Yes (reading glasses) Meds Allergies Allergy/AdvReac Type Severity Reaction Status Date / Time iron dextran complex AdvReac Intermediate flushing/anxiety/dyspnea/back Verified 04/19/24 10:55 [Iron Dextran Complex] pain Home Medications ?Medication ?Instructions ?Recorded ?Confirmed ?Last Taken ?Type multivitamin 1 tab PO DAILY 01/31/20 04/19/24 Unknown History inulin 2 gram chewable tablet 2 g PO DAILY 09/14/23 04/19/24 Unknown History (Fiber Gummies) magnesium 250 mg tablet 250 mg PO DAILY 09/14/23 04/19/24 Unknown History Exam Airway Mallampati Class: III TM Dist: >3cm Neck ROM: Full Loose/Missing/Broken Teeth: No Heart: RRR Lungs: CTA Assessment and Plan Assessment Anesthesia Assessment: Anesthesia Plan Discussed Final Anesthetic Review History of Problems with Anesthesia: No NPO: Yes ASA Class: III Final Preanesthetic Review: Meds/Allgs Chart Reviewed, Consent Obtained/Reviewed and Anes Risks/Benef Reviewed Patient Risk: Intermediate Procedure Risk: Intermediate Anesthetic Plan Anesthetic Plan: MAC: Disposition: Standard PACU
[2024-04-21 08:03] VITALS: BMI 33.3
--- NOTE | 2024-04-21 08:22 | MHC.SHP ---
Pre-Procedural Eval Section A - 24 Hr Update-Section A only Date of Service: 04/21/24 Section B - Complete if H&P > 30 days Chief Complaint: Abd pain, diarrhea Details of Present Illness: Celiac disease Upper respiratory infection Bilateral flank pain Axillary adenopathy Low back pain Left lower quadrant abdominal pain Right upper quadrant pain Shortness of breath Viral infection TSH elevation Polyarthralgia Uterine fibroid Obesity (BMI 30-39.9) Esophageal stricture Vitamin D deficiency Seasonal allergies Anemia Asthma HTN (hypertension) Migraines Surgical History History of colonoscopy (~2013) History of arthroscopy of right knee History of laparoscopy History of bladder surgery History of tubal ligation History of knee surgery H/O: hysterectomy Present Medications: see Short Stay Collaborative assessment Allergies: Allergies Allergy/AdvReac Type Severity Reaction Status Date / Time iron dextran complex AdvReac Intermediate flushing/anxiety/dyspnea/back Verified 04/19/24 10:55 [Iron Dextran Complex] pain Review of Systems Review of Systems Comment: 10 point ROS negative Exam Exam Comment: Gen appear: No acute distress HEENT: no icterus Chest: No overt resp distress Abd: soft, nontender, nondistended Psych: Stable affect, answering questions appropriately Neuro: A/Ox3 noted to move all extremities spontaneously Ext: no peripheral edema Plan Diagnosis/Plan: Unchanged I have reviewed the history and physical and performed a pertinent physical examination on my patient. No changes have occurred unless specified. Time Spent With Patient Time: Total time managing care of this patient today ____ minutes.
[2024-04-21 08:23] VITALS: BP 122/72; PULSE 76; RESP 16; TEMP 36.5; O2SAT 98
[2024-04-21] MEDS: Lactated Ringers 1,000 ML 100 ML IVCONT (08:33)
--- NOTE | 2024-04-21 08:53 | P.OPN-COLO_ITS ---
Colonoscopy Operative Note Operative Note Date of Service: 04/21/24 Narrative: Procedure: Upper endoscopy and colonoscopy Indication: Abd pain, diarrhea Endoscopist: Paula Pompa MD Anesthesia Provider: Dr Denisse Shaw Anesthesia type: MAC Instrument: [id number] and [id number] EGD Procedure:?? The procedure, indications, preparation and potential complications were reviewed with the patient, who indicated understanding and gave written informed consent to proceed. The endoscope was introduced through the mouth, and advanced to the 2nd part of the duodenum. The mucosa was carefully examined on slow withdrawal of the endoscope. The patient tolerated the procedure well. There were no immediate complications.? EGD Findings:? * Esophagus:? A small patch of heterotopic gastric mucosa was noted in the upper esophagus, remaining esophageal mucosa was normal. The Z-line was at 33 cm. The diaphragmatic pinch was noted at 35 cm. * Stomach:? Normal gastric mucosa. Retroflexion was performed in the cardia that showed Hill grade 2 hiatal hernia. Random cold forceps biopsies were taken from the stomach. * Duodenum:? Erythema, edema and scant heme was noted in the duodenal bulb. Cold forceps biopsies were taken from the duodenal bulb and 2nd portion of the duodenum to rule out celiac sprue. Colonoscopy Procedure:? The patient was then turned for the colonoscopy. A digital rectal exam was performed which was normal.? A distal attachment cap was affixed to the tip of the scope and the colonoscope was then inserted through the anus and advanced through the colon and advanced to the cecum at 80 cm.? Appendiceal orifice and ileocecal valve were identified. Mucosa was carefully examined under high definition white light as the instrument was slowly withdrawn in a retrograde panoramic fashion. Retroflexion was performed in rectum. The procedure was not difficult. The quality of the prep was BBPS: 2+3+2 = adequate Withdrawal time 8 minutes Limitations: No limitations Findings: Mucosa: Normal colon mucosa. Cold forceps biopsies were taken from the right and left side of the colon to rule out microscopic colitis. Protruding lesions: * 1 sessile polyp of size 4 mm was noted in the ascending colon. Cold forceps polypectomy was performed. The polyp was completely removed and retrieved. * Large internal hemorrhoids without stigmata of recent bleeding. Impression: 1. Inlet patch (biopsy) 2. Hiatal hernia 3. Normal stomach (biopsy) 4. Peptic duodenitis (biopsy) 5. Normal colon mucosa (biopsy) 6. 1 polyp removed 7. Internal hemorrhoids Recommendations:?? * Follow-up path results * Avoid NSAIDs * H Pylori treatment if biopsies + * Stop pantoprazole. Esomeprazole 20 mg BID Rxed to be taken for 8-12 weeks, and then once daily. * Repeat colonoscopy for CRC screening in 7-10 years depending on the results.
[2024-04-21 09:33] VITALS: BP 98/64; PULSE 80; RESP 18; TEMP 36.3; O2SAT 100
[2024-04-21 09:43] VITALS: BP 116/78; PULSE 68; RESP 18; O2SAT 98
[2024-04-21 09:58] VITALS: BP 119/79; PULSE 65; RESP 18; TEMP 36.2; O2SAT 100
[2024-04-21 10:13] VITALS: BP 133/76; PULSE 65; PULSE 66; RESP 16; RESP 18; TEMP 36.2; O2SAT 100; O2SAT 97
[2024-04-21 10:28] VITALS: BP 124/72; PULSE 65; RESP 16; TEMP 36.2; O2SAT 99
== END 2024-04-21 11:01 | disposition home or self-care (01) ==
PROVIDERS: PCP Internal Medicine; Visit Provider Internal Medicine
PROC: (CPT 45380; principal; 2024-04-21 09:00)
DX: Z12.11 Encounter for screening for malignant neoplasm of colon (principal); D12.2 Benign neoplasm of ascending colon; K64.8 Other hemorrhoids; K90.0 Celiac disease; K86.81 Exocrine pancreatic insufficiency; R14.0 Abdominal distension (gaseous); R10.12 Left upper quadrant pain; K29.80 Duodenitis without bleeding; K21.9 Gastro-esophageal reflux disease without esophagitis; K44.9 Diaphragmatic hernia without obstruction or gangrene; Q39.8 Other congenital malformations of esophagus; I10 Essential (primary) hypertension; J45.909 Unspecified asthma, uncomplicated; D64.9 Anemia, unspecified; Z79.899 Other long term (current) drug therapy; Z88.8 Allergy status to other drugs, medicaments and biological substances; Z98.890 Other specified postprocedural states
CPT/HCPCS: 45380; 43239; 88305; 88313; 88342; J2003; J2704

== ENCOUNTER → 2024-04-21 07:19 | Outpatient (BNV) | payer OTHER, SELFPAY | PROVIDERS: PCP Internal Medicine; Visit Provider Internal Medicine | DX: R19.7 Diarrhea, unspecified (principal); D12.2 Benign neoplasm of ascending colon; K64.8 Other hemorrhoids; K29.80 Duodenitis without bleeding; K22.89 Other specified disease of esophagus; R10.9 Unspecified abdominal pain | CPT/HCPCS: 43239; 45380 ==

== ENCOUNTER 2024-05-04 14:53 | Outpatient (AMB) | payer OTHER, SELFPAY ==
--- OUTSIDE RECORDS SUMMARY | 2024-05-04 14:55 | XMS_ITS | Clinical Summary ---
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 Name Role Phone Unavailable Primary Care Provider Unavailabl e Immunizations Name Administration Dates Next Due Moderna Covid-19 Vaccine 6+ Bivalent 04/14/2022 Social History Tobacco Use Types Packs/Day Years Used Date Smoking Tobacco: Never Assessed Comments Unknown Sex and Gender Information Value Date Recorded Sex Assigned at Female 04/14/2022 10:54 AM EST Legal Sex Female 10:51 AM EST Gender Identity Female 04/14/2022 10:54 AM EST Sexual Orientation Straight 04/14/2022 10 :54 AM EST Plan of Treatment Health Maintenance Due Date Last Done Comments CT Colonography 1969 Colonoscopy 1969 Colorectal Cancer Screening 1969 Depression Screening 1969 FIT DNA/Cologuard 1969 FIT 1969 FOBT 1969 HIV Screening 1969 SDOH Screening 1969 Sigmoidoscopy 1969 Alcohol/Substance Use Screening 1981 Tobacco Screening 1981 Hepatitis C Screening 1987 DTaP/Tdap/Td Vaccines (1 - Tdap) 02/24/1988 Hepatitis B Vaccines (1 of 3 - 19+ 3-dose series) 02/24/1988 Pap Smear 1990 Cervical Cancer Screening 1999 HPV/Cotest 1999 Mammogram 2009 Pneumococcal Vaccine: 50+ Ye ars (1 of 1 - PCV) 2019 Zoster Vaccines (1 of 2) 2019 COVID-19 Vaccine (2 - 2023-2 5 season) 2023 04/14/2022 Influenza Vaccine (#1) 2023 RSV Patients and Pa tients Aged 60 years or older (1 - 1-dose 75+ series) 02/24/2044 HIB Vaccines Aged Out No longer eligi ble based on patient's age to complete this topic HPV Vaccines Aged Out No longer eligi ble based on patient's age to complete this topic Hepatitis A Vaccines Aged Out No long er eligible based on patient's age to complete this topic IPV Vaccines Aged Out No longer eligi ble based on patient's age to complete this topic Meningococcal Vaccine Aged Out No shalini mackenzie eligible based on patient's age to complete this topic Pneumococcal Vaccine: Pediat rics (0 to 5 Years) and At-Risk Patients (6 to 49) Years) Aged Out No longer elig ible based on patient's age to complete this topic RSV under 20 months Aged Out No longe r eligible based on patient's age to complete this topic Rotavirus Vaccines Aged Out No longer eligible based on patient's age to complete this topic Insurance [facility] STANDARD [facility] PL[facility]
--- NOTE | 2024-05-04 14:58 | A.OFFVIS_ITS ---
Vital Signs 05/04/24 15:02 Height 5 ft 2 in Weight 185 lb BMI 33.8 BP 110/65 Blood Pressure Location Lt brachial Position Sitting Pulse 82 Pulse Oximetry (%) 99 Oxygen Delivery Method Room Air Intake Visit Reasons: S/P Commiskey; Dr. Pompa Intake Note: Patient follow up for EGD/Colonoscopy results. Patient cc: abdominal pain on and off, medication Esomeprazole was not approve by insurance/Dr. Pompa prescribe med after procedures, GERD on and off, painfull constipation come and go. Coconut Cooker Required: Yes Coconut Cooker Name: Vlad Rangel LM Accompanied by: Self / Same As Patient Allergies iron dextran complex [Iron Dextran Complex] Adverse Reaction (Intermediate, Verified 05/13/24 14:49) flushing/anxiety/dyspnea/back pain HPI HPI S/P Commiskey; Dr. Pompa: Details: LAST VISIT Colon cancer screening Constipation GERD (gastroesophageal reflux disease) Postprandial abdominal bloating Abdominal pain, LUQ (left upper quadrant) Celiac disease Plan What to expect before during and after procedure discussed with patient. Stressed the importance of good bowel prep and clear liquid diet day before procedure. Continue taking PPI daily. Avoid dietary triggers. Staying upright for 3 hours after meals discussed with patient. Patient was instructed to avoid gluten. Will be sent for upper endoscopy to check biopsy to confirm celiac. I will see patient after the procedure, sooner on as needed basis. She is agreeable to this plan and verbalizes understanding of instructions. She was given the opportunity to ask questions and all questions answered. ? Thank you for allowing me to participate in her care Medications New polyethylene glycol 3350 (Miralax) As directed by gastroenterology department at [facility] 238 grams PO ONCE 238 grams 0RF Z12.11 Refilled bisacodyl (Dulcolax (bisacodyl)) 10 mg (2 x 5 mg) PO BEDTIME 180 tabs 4RF UPPER ENDOSCOPY AND COLONOSCOPY EGD Findings:? * Esophagus:? A small patch of heterotopic gastric mucosa was noted in the upper esophagus, remaining esophageal mucosa was normal. The Z-line was at 33 cm. The diaphragmatic pinch was noted at 35 cm. * Stomach:? Normal gastric mucosa. Retroflexion was performed in the cardia that showed Hill grade 2 hiatal hernia. Random cold forceps biopsies were taken from the stomach. * Duodenum:? Erythema, edema and scant heme was noted in the duodenal bulb. Cold forceps biopsies were taken from the duodenal bulb and 2nd portion of the duodenum to rule out celiac sprue. Colonoscopy Procedure:? The patient was then turned for the colonoscopy. A digital rectal exam was performed which was normal.? A distal attachment cap was affixed to the tip of the scope and the colonoscope was then inserted through the anus and advanced through the colon and advanced to the cecum at 80 cm.? Appendiceal orifice and ileocecal valve were identified. Mucosa was carefully examined under high definition white light as the instrument was slowly withdrawn in a retrograde panoramic fashion. Retroflexion was performed in rectum. The procedure was not difficult. The quality of the prep was BBPS: 2+3+2 = adequate Withdrawal time 8 minutes Limitations: No limitations Findings: Mucosa: Normal colon mucosa. Cold forceps biopsies were taken from the right and left side of the colon to rule out microscopic colitis. Protruding lesions: * 1 sessile polyp of size 4 mm was noted in the ascending colon. Cold forceps polypectomy was performed. The polyp was completely removed and retrieved. * Large internal hemorrhoids without stigmata of recent bleeding. Impression: 1. Inlet patch (biopsy) 2. Hiatal hernia 3. Normal stomach (biopsy) 4. Peptic duodenitis (biopsy) 5. Normal colon mucosa (biopsy) 6. 1 polyp removed 7. Internal hemorrhoids Recommendations:?? * Follow-up path results * Avoid NSAIDs * H Pylori treatment if biopsies + * Stop pantoprazole. Esomeprazole 20 mg BID Rxed to be taken for 8-12 weeks, and then once daily. * Repeat colonoscopy for CRC screening in 7-10 years depending on the results. PATHOLOGY RESULTS Diagnosis A. Duodenum, biopsy: Duodenal mucosa with partial villous blunting and increased intraepithelial lymphocytes. See comment. B. Stomach, random, biopsy: Antral-type and oxyntic mucosa with mild chronic inactive inflammation; no Helicobacter organisms seen. C. Colon, ascending, polypectomy: Tubular adenoma; negative for high-grade dysp lasia or carcinoma. D. Colon, right, biopsy: Colonic mucosa within normal limits. E. Colon, left, biopsy: Colonic mucosa within normal limits. Comment: One of the fragments in part A has complete effacement of the villous architecture; these findings are consistent with celiac disease in the proper clinical contex TODAY'S VISIT Patient is here today for follow-up in to discuss upper endoscopy and colonoscopy. Upper endoscopy confirms with biopsy celiac disease. Patient tries to avoid gluten. No H pylori, chronic mild inactive inflammation in her stomach no esophagitis. One tubular adenoma otherwise normal colonic mucosa. Patient denies any ill effects from the prep, anesthesia or procedure itself. D iscussed with patient biopsy results. Patient was unable to get Nexium as it was not covered by her insurance. Pantoprazole patient feels like it is working for the most part. Occasional acid reflux depending on what she eats. Patient does admit that she might have occasional constipation and abdominal bloating if unable to have a bowel movement in 1 or 2 days. Patient denies melena, hematoch ezia, unintentional weight loss or ribbon like stools. [facility] Medical History (Updated 05/13/24 @ 15:26 by Maurice De La Rosa MD) Celiac disease Upper respiratory infection Bilateral flank pain Axillary adenopathy Low back pain Left lower quadrant abdominal pain Right upper quadrant pain Shortness of breath Viral infection TSH elevation Polyarthralgia Uterine fibroid Obesity (BMI 30-39.9) Esophageal stricture Vitamin D deficiency Seasonal allergies Anemia Asthma HTN (hypertension) Migraines Surgical History Hx of esophagogastroduodenoscopy History of colonoscopy (~2013) History of arthroscopy of right knee History of laparoscopy History of bladder surgery History of tubal ligation History of knee surgery H/O: hysterectomy Family History Father Stroke Mother Bladder cancer Maternal Grandmother Myocardial infarction Maternal Aunt Myocardial infarction Paternal Aunt No problems noted. Maternal Aunt Stroke Brother Myocardial infarction Social History Housing: House Alcohol intake: never Patient Tobacco Use Status: Never used Tobacco e-Cigarette/Vaping Use: Never Used Second Hand Smoke Exposure: No service: No Current occupational status: employed Cognitive needs: No Hearing needs: No Vision needs: Yes (reading glasses) Female Reproductive History Menstrual Age of Menarche: 12 Review of Systems Const Denies weight gain and Denies weight loss ENT Reports no additional complaints, Denies dysphagia and Denies odynophagia Card Reports no additional complaints Resp Reports no additional complaints GI Denies abdominal pain, Denies belching, Denies melena, Denies bloating, Denies change in bowel habits, Denies dysphagia, Denies excessive flatus, Denies dyspepsia, Denies heartburn, Denies diarrhea, Denies loose stools, Denies nausea, Denies odynophagia and Denies vomiting Musc Reports no additional complaints Neuro Reports no additional complaints Psych Reports no additional complaints Endo Reports no additional complaints Physical Exam Vital Signs: Last Vital Signs Pulse 82 05/04/24 15:02 BP 110/65 05/04/24 15:02 Pulse Ox 99 05/04/24 15:02 Oxygen Delivery Method Room Air 05/04/24 15:02 BMI result Body Mass Index 33.8 Const General: healthy appearing and no acute distress Nutritional Appearance: obese Orientation/consciousness: patient oriented x3 Resp Effort & Inspection: normal respiratory effort, able to speak in complete sen tences, no tracheal deviation and symmetric chest movement Auscultation: clear to auscultation bilaterally Cardio Rate: regular rate GI Inspection: Yes normal to inspection, No distended and Yes obesity Palpation (GI): Soft to palpation, not firm, nontender and No hepatosplenomegaly present Auscultation: normal bowel sounds General: Yes no CVA tenderness Back/Spine/Pelvis Back: no CVA tenderness Skin General skin exam: elasticity normal, turgor normal and dry skin Neuro General: patient oriented x3 Psych Appearance: grossly normal Mental Status: mental status grossly normal Assessment & Plan Assessment & Plan (1) Constipation: Code(s): K59.00 - Constipation, unspecified Category: Medical Qualifiers: Constipation type: slow transit constipation Qualified Code(s): K59.01 - Slow transit constipation (2) GERD (gastroesophageal reflux disease): Code(s): K21.9 - Gastro-esophageal reflux disease without esophagitis Category: Medical Qualifiers: Esophagitis presence: esophagitis presence not specified Qualified Code(s): K21.9 - Gastro-esophageal reflux disease without esophagitis (3) Celiac disease: Code(s): K90.0 - Celiac disease Category: Medical (4) Postprandial abdominal bloating: Code(s): R14.0 - Abdominal distension (gaseous) Plan Discussed with patient importance of avoiding gluten. Discussed with her that her epigastric pain could be related to the fact that she might still be eating food that contains gluten. Discussed with her trying to get an gilbert that scans gluten free items. Avoid NSAIDs. Patient was encouraged to avoid dietary triggers in late night snacking. Staying upright for minimal 3 hours after meals discussed with patient. Encourage patient to increase fluid intake and activity to promote better bowel motility. Patient can take [id number] fiber supplements. Follow-up in 3 months, sooner on as needed basis. Patient is agreeable to this plan and verbalizes understanding of instructions. She was given the opportunity to ask questions and all questions answered. Thank you for allowing me to participate in her care Coding Level of Care Code Est Pt Level 4 (92815) Complex EM visit Add On G2211 Diagnoses Slow transit constipation K59.01 Constipation type: slow transit constipation Gastroesophageal reflux disease, unspecified whether esophagitis present K21.9 Esophagitis presence: esophagitis presence not specified Celiac disease K90.0 Postprandial abdominal bloating R14.0 Time Spent (min) 35 Comment 25 minute spent with patient and additional 10 minute spent reviewing her records
[2024-05-04 15:02] VITALS: BP 110/65; PULSE 82; O2SAT 99; BMI 33.8
== END 2024-05-04 15:48 | disposition home or self-care (01) ==
PROVIDERS: PCP Internal Medicine; Visit Provider Nurse Practitioner Family
DX: K90.0 Celiac disease (principal); K21.9 Gastro-esophageal reflux disease without esophagitis; R14.0 Abdominal distension (gaseous)
CPT/HCPCS: 99214; G2211

== ENCOUNTER → 2024-05-04 14:53 | Outpatient (BNVA) | payer OTHER, SELFPAY | PROVIDERS: PCP Internal Medicine; Visit Provider Nurse Practitioner Family | DX: K59.01 Slow transit constipation (principal); K21.9 Gastro-esophageal reflux disease without esophagitis; K90.0 Celiac disease; R14.0 Abdominal distension (gaseous) | CPT/HCPCS: 99212 ==

== ENCOUNTER 2024-05-05 08:40 | Outpatient (REF) | payer OTHER, SELFPAY ==
[2024-05-05 08:56] LABS: MANUAL DIFF FLAG NO
--- OUTSIDE RECORDS SUMMARY | 2024-05-05 09:06 | XMS_ITS | Clinical Summary ---
Author Organization [employer] Address [address] [place] [address] Care Team Providers Care Channel Manager Name Role Phone Unavailable Primary Care Provider [...] patient's age to complete this topic Insurance [facility] STANDARD [facility]
[2024-05-05 10:05] LABS: Basophils Percent Auto 0.4 % (0-2); Eosinophils Absolute Auto 0.1 X10*3/uL (0.0-0.4); Eosinophils Percent Auto 1.6 % (0-4); Hematocrit 38.4 % (37.0-47.0); Hemoglobin 13.2 g/dl (12.0-16.0); Imm Gran Abs Auto 0.02 X10*3/uL (0.00-0.03); Imm Gran Pct Auto 0.3 % (0.0-0.4); Lymphocytes Percent Auto 28.8 % (20-40); Mean Corpuscular HGB Conc 34.4 g/dl (31.0-35.0); Mean Platelet Volume 10.1 fL (9.4-12.3); Monocytes Absolute Auto 0.5 X10*3/uL (0.1-1.2); Monocytes Percent Auto 7.1 % (2-11); Neutrophils Absolute Auto 4.3 x10*3/uL (2.0-8.3); Neutrophils Percent Auto 61.8 % (45-73); Platelet Count 320 X10*3/uL (160-400); Red Blood Count 4.13 X10*6/uL (4.20-5.50); White Blood Count 6.9 X10*3/uL (4.8-10.8)
[2024-05-05 10:25] LABS: Appearance Urine Cloudy; Color Urine Yellow; Glucose Urine UA Negative (Negative); Leukocyte Esterase Urine Small (1+) (Negative); Nitrite Urine Negative (Negative); Specific Gravity - Urine >= 1.030 (1.005-1.025); UMIC TRIGGER UACC YES; Urine Blood Moderate (2+) (Negative); Urine Ketones Negative (Negative); Urine Protein Negative (Neg-Trace)
[2024-05-05 10:27] LABS: Bacteria Urine Trace (None Seen); Hyaline Casts Urine 0-2 /LPF (0-2); UACC Culture Trigger YES
[2024-05-05 10:49] LABS: Alanine Aminotransferase 13 U/L (0-31); Albumin Level 4.2 g/dL (3.5-5.0); Alkaline Phosphatase 86 U/L (39-117); Anion Gap 11 (12-20); Aspartate Amino Transferase 24 U/L (5-31); Bilirubin Total 0.4 mg/dL (0.0-1.0); Blood Urea Nitrogen 18 mg/dL (9-16); Calcium 9.3 mg/dL (8.4-10.2); Carbon Dioxide 26 mmol/L (22-29); Chloride 109 mmol/L (96-108); Cholesterol 196 mg/dL (<200); Estimated Glomerular Filt Rate > 60; Free T4 (Free Thyroxine) 1.08 ng/dL (0.71-1.85); Glucose Random 98 mg/dL (60-115); HDL Cholesterol 43 mg/dL (>40); LDL Cholesterol Calculated 122 mg/dL (<100); Potassium 4.1 mmol/L (3.3-5.1); Sodium 142 mmol/L (135-145); Thyroid Stimulating Hormone 3.69 uIU/mL (0.32-4.0); Total Protein 7.5 g/dL (6.5-8.0); Triglycerides 158 mg/dL (<150); Vitamin D 25-OH Total 32.4 ng/mL (>30)
[2024-05-05 11:05] LABS: Folate 12.1 ng/mL (> or = 4.0); Vitamin B12 339 pg/mL (200-900)
== END 2024-05-05 08:41 | disposition home or self-care (01) ==
LOC: HO.LAB 08:40
PROVIDERS: PCP Internal Medicine; Visit Provider Internal Medicine
DX: E78.00 Pure hypercholesterolemia, unspecified (principal)
CPT/HCPCS: 36415; 80053; 80061; 81001; 82306; 82607; 82746; 84439; 84443; 85025; 87086; 87088; 87186

== ENCOUNTER 2024-05-13 14:39 | Outpatient (AMB) | payer OTHER, SELFPAY ==
--- NOTE | 2024-05-13 14:45 | MHC.PC.OV ---
Vital Signs 05/13/24 14:46 Height 5 ft 2 in Weight 184 lb 6 oz BMI 33.7 BP 106/60 Blood Pressure Location Lt brachial Position Sitting Pulse 90 Pulse Source Pulse Oximeter Temp 97.1 F Temp Source Temporal Artery Scan Pulse Oximetry (%) 97 Oxygen Delivery Method Room Air Intake Visit Reasons: 3mth f/u Traffic Control Signaler Required: Yes Traffic Control Signaler Language: Ukrainian Accompanied by: Self / Same As Patient Allergies iron dextran complex [Iron Dextran Complex] Adverse Reaction (Intermediate, Verified 05/13/24 14:49) flushing/anxiety/dyspnea/back pain Tobacco use date assessed: 05/13/24 Dental Screening Dental Screen Date: 05/13/24 Did you have a dental visit in the last 12 months?: No Did you have a dental problem in the last 6 months where you did not have access to dental care?: No Was dental information given to patient?: Patient has dentist [facility] Medical History (Updated 05/13/24 @ 15:26 by Maurice De La Rosa MD) Celiac disease Upper respiratory infection Bilateral flank pain Axillary adenopathy Low back pain Left lower quadrant abdominal pain Right upper quadrant pain Shortness of breath Viral infection TSH elevation Polyarthralgia Uterine fibroid Obesity (BMI 30-39.9) Esophageal stricture Vitamin D deficiency Seasonal allergies Anemia Asthma HTN (hypertension) Migraines Surgical History Hx of esophagogastroduodenoscopy History of colonoscopy (~2013) History of arthroscopy of right knee History of laparoscopy History of bladder surgery History of tubal ligation History of knee surgery H/O: hysterectomy Family History Father Stroke Mother Bladder cancer Maternal Grandmother Myocardial infarction Maternal Aunt Myocardial infarction Paternal Aunt No problems noted. Maternal Aunt Stroke Brother Myocardial infarction Social History Housing: House Alcohol intake: never Patient Tobacco Use Status: Never used Tobacco e-Cigarette/Vaping Use: Never Used Second Hand Smoke Exposure: No service: No Current occupational status: employed Cognitive needs: No Hearing needs: No Vision needs: Yes (reading glasses) Female Reproductive History Menstrual Age of Menarche: 12 Questionnaire PHQ-9 Over the last 2 weeks, how often have you been bothered by any of the following problems? 1. Little interest or pleasure in doing things: not at all 2. Feeling down, depressed, or hopeless: not at all 3. Trouble falling or staying asleep, or sleeping too much: not at all 4. Feeling tired or having little energy: not at all 5. Poor appetite or overeating: not at all 6. Feeling bad about yourself - or that you are a failure or have let yourself or your family down: not at all 7. Trouble concentrating on things, such as reading the newspaper or watching television: not at all 8. Moving or speaking so slowly that other people could have noticed. Or the opposite - being so fidgety or restless that you have been moving around a lot more than usual: not at all 9. Thoughts that you would be better off or of hurting yourself in some way: not at all Total score: 0 Depression Screening Interpretation: Negative Depression Screening Done: Yes 79173 - PHQ-9 Billing: Yes Source: Developed by Drs. Jorge Cameron, Yaneth Blair, Jakub Salvador and colleagues, with an educational johnson from [employer]. Thrive Questionnaire Date Thrive assessed: 05/13/24 I am a: Patient What is your living situation today?: I have a steady place to live Within the past 12 months, did the food you bought not last and you didn't have the money to get more?: Never true Within the past 12 months, did you worry whether your food would run out before you got money to buy more?: Never true Do you have trouble paying for medicines?: No Do you have trouble getting transportation to medical appointments?: No Do you have trouble paying your heating and electricity bill?: No Do you have trouble taking care of your child, family member or friend?: No Do you have trouble with day-to-day activities such as bathing, preparing meals, shopping, managing finances, etc.?: No Are you currently unemployed and looking for a job?: No Are you interested in more education?: No Please select the resources that you would like help with: None Currently or been in a relationship where the following occur: No concerns reported THRIVE Score: 0 AUDIT C Alcohol Use Questionnaire (AUDIT-C) 1. How often do you have a drink containing alcohol?: Never 3. How often do you have six or more drinks on one occasion?: Never Total Score: 0 LOTUS-7 AMB Questionnaire LOTUS-7 Date LOTUS - 7 assessed: 05/13/24 Feeling nervous, anxious, or on edge: 0 = Not at all Not being able to stop or control worryin = Not at all Worrying too much about different things: 0 = Not at all Trouble relaxin = Not at all Being so restless that it is hard to sit still: 0 = Not at all Becoming easily annoyed or irritable: 0 = Not at all Feeling afraid as if something awful might happen: 0 = Not at all Total LOTUS-7 score (0-4 normal; 5-9 mild; 10-14 moderate; 15-21 severe): 0 Source: Developed by Drs. Jorge Cameron, Yaneth Blair, Jakub Salvador and colleagues, with an educational johnson from [employer]. LOTUS-7 Assessment Billing LOTUS-7 Assessment Tool: LOTUS-7 Assessment 68850 Physical exam (Primary Care) Vital Signs: Last Vital Signs Temp 97.1 F 05/13/24 14:46 Pulse 90 05/13/24 14:46 BP 106/60 05/13/24 14:46 Pulse Ox 97 05/13/24 14:46 Oxygen Delivery Method Room Air 05/13/24 14:46 BMI result Body Mass Index 33.7 Tobacco/Smoking Status: Tobacco use Status Tobacco use date assessed 05/13/24 05/13/24 14:51 Patient Tobacco Use Status Never used Tobacco 05/13/24 14:51 e-Cigarette/Vaping Use Never Used 05/13/24 14:51 PHQ-9: PHQ-9 Score PHQ-9: Total score 0 05/13/24 15:17 Depression Screening Interpretation: Negative Thrive Assessment: Date of Thrive Assessment Date Thrive assessed 05/13/24 05/13/24 14:51 Currently or been in a relationship where the following occur: No concerns reported Const General: alert; No acute distress Eyes Conjunctivae: conjunctivae normal Resp Auscultation: clear to auscultation bilaterally Cardio Rate: regular rate Rhythm: regular rhythm GI Inspection: Yes normal to inspection Extrem General: Yes normal to inspection and No edema Coding Level of Care Code Est Pt Level 4 (69913) Complex EM visit Add On G2211 Diagnoses Osteoarthritis, hip, bilateral M16.0 Tubular adenoma of colon D12.6 Essential hypertension I10 Hypertension type: essential hypertension Mild intermittent asthma without complication J45.20 Asthma complication type: uncomplicated Asthma persistence: intermittent Asthma severity: mild Obesity (BMI 30-39.9) E66.9 Acquired hypothyroidism E03.9 Hypothyroidism type: acquired Gastroesophageal reflux disease, unspecified whether esophagitis present K21.9 Esophagitis presence: esophagitis presence not specified Vaginal pruritus N89.8 Cough R05.9 Additional Codes LOTUS-7 Assessment Billing - LOTUS-7 Assessment Tool: LOTUS-7 Assessment 60910 ([id number]) PHQ-9 - 26262 - PHQ-9 Billing: Yes ([id number]) Assessment & Plan Assessment & Plan (1) Osteoarthritis, hip, bilateral: Code(s): M16.0 - Bilateral primary osteoarthritis of hip Category: Medical Plan: Patient has seen Orthopedics and has recommended injections but would like to hold off. (2) Tubular adenoma of colon: Comment: 05/05/2024 Dr. Reed Code(s): D12.6 - Benign neoplasm of colon, unspecified Category: Medical Plan: Continuing to monitor usually 5 years recall (3) HTN (hypertension): Code(s): I10 - Essential (primary) hypertension Category: Medical Qualifiers: Hypertension type: essential hypertension Qualified Code(s): I10 - Essential (primary) hypertension Plan: Continue with blood pressure medication. Decrease salt intake and exercise patient on lisinopril 20 mg once a day (4) Asthma: Code(s): J45.909 - Unspecified asthma, uncomplicated Category: Medical Qualifiers: Asthma complication type: uncomplicated Asthma persistence: intermittent Asthma severity: mild Qualified Code(s): J45.20 - Mild intermittent asthma, uncomplicated Plan: Continue with albuterol inhaler as needed (5) Obesity (BMI 30-39.9): Code(s): E66.9 - Obesity, unspecified Category: Medical Plan: Diet and exercise (6) Hypothyroid: Code(s): E03.9 - Hypothyroidism, unspecified Category: Medical Qualifiers: Hypothyroidism type: acquired Qualified Code(s): E03.9 - Hypothyroidism, unspecified Plan: Continue with thyroid medication (7) GERD (gastroesophageal reflux disease): Code(s): K21.9 - Gastro-esophageal reflux disease without esophagitis Category: Medical Qualifiers: Esophagitis presence: esophagitis presence not specified Qualified Code(s): K21.9 - Gastro-esophageal reflux disease without esophagitis Plan: Avoid the foods that causes that usually spicy foods, tomato products, juices, coffee, soda and foods that your sensitive to. After eating do not lie down, allow 3-4 hours before in lie down. And keep the head of bed above 30 degrees to avoid the acid from going up. (8) Vaginal pruritus: Code(s): N89.8 - Other specified noninflammatory disorders of vagina Category: Medical (9) Cough: Code(s): R05.9 - Cough, unspecified Category: Medical Plan History of Present Illness The patient is a 54-year-old female presenting for follow-up of multiple chronic conditions, including asthma, managed currently with albuterol, and hypertension, managed with Lisinopril. She has hypothyroidism with stabilized thyroid levels, GERD managed with esomeprazole, and hypercholesterolemia with adequate LDL control. Significant past procedures include a colonoscopy revealing a benign tubular adenoma and a recommendation for future surveillance colonoscopy. She has primary osteoarthritis of the hip and has opted to delay injections. Routine blood work has depicted norms across metabolic panels except mild hypercholesterolemia, in addition to incidental hematuria. Lifestyle and dietary management are in focus for ongoing hip pain and GERD symptom management. Health Maintenance - Mammogram last done in May 2023. - Colonoscopy performed in April 2024 showed a benign tubular adenoma. - Routine blood work in April 2024 shows normal renal and liver function, and blood sugar levels. - LDL cholesterol at 122 mg/dL; triglycerides were mildly elevated at 158 mg/dL. - Monitoring of vitamin B12 and folic acid levels within normal limits. - Recommendation for cardiovascular risk reduction through diet and exercise. - Advice to elevate head while sleeping to manage GERD symptoms. - Follow-up for tubular adenoma colonoscopy set for 5 to 7 years. Social History - Patient experiences dietary restrictions due to celiac disease. - Recently mentioned challenges with gluten-containing foods affecting lifestyle choices. - Lifestyle includes managing asthma, maintaining diet and exercise for health maintenance. - No substance use reported or other social determinants discussed. Review of Systems - Respiratory: Reports asthma managed with albuterol inhaler as needed. - Gastrointestinal: Reports GERD with esomeprazole management. Reports previous colonoscopy findings. - Musculoskeletal: Reports hip pain due to osteoarthritis, current conservative management. - Hematologic: Denies anemia, normal blood work reported. Physical Exam - Respiratory- Lungs clear upon auscultation. - HEENT- Oral cavity color appeared normal. - General- No fever, viral syndrome indications present. Results - Labs: Normal blood count and electrolytes, mild hypercholesterolemia with LDL 122 mg/dL, triglycerides 158 mg/dL. - Tests: Urinalysis showing hematuria. - Procedures: Colonoscopy in April 2024 identified a benign tubular adenoma. Plan Continuation of the existing treatment plan for asthma, hypertension, hypothyroidism, GERD, hypercholesterolemia, and hip osteoarthritis was emphasized. The patient is advised to maintain medication adherence and lifestyle adjustments, particularly regarding GERD and lipid management. Osteoarthritis of the hip remains under conservative care. Follow-up for the benign tubular adenoma is scheduled as per standard guidelines. Monitoring of triglyceride levels and dietary intake continues to be reinforced. Further diagnostic measures for the hematuria will be pursued if clinically indicated. Recommendations for exercise and dietary modifications, particularly in relation to symptom management and health maintenance, are being maintained. Patient was informed and verbally consented to the use of an ambient scribe for clinic note documentation during this visit. Discussion Notes I discussed with the patient the ongoing management of her chronic health conditions and the importance of medication adherence. We reviewed the plan for her asthma, including the use of albuterol as needed. We talked about the significance of maintaining stable blood pressure with Lisinopril and that her thyroid medication is well adjusted. I emphasized dietary modifications for GERD and reinforced the need for lifestyle changes to manage her cholesterol levels. During the discussion, I detailed the conservative management options for her hip osteoarthritis, acknowledging her decision to defer injections at this time. Follow-up intervals for further colonoscopy post-tubular adenoma detection were addressed. I answered her queries regarding dietary concerns related to gluten intake, offering reassurance about lifestyle adjustments and symptom relief strategies. For her lab results, I pointed out the minor elevation in triglycerides and the steps to manage this through diet. We concluded with reinforcements of good hydration, avoiding trigger foods, maintaining an elevated head position when sleeping for GERD symptoms, and the tentative referral to gynecology for additional assistance with itchiness. Patient Instructions - Continue using albuterol inhaler as needed for asthma. - Take Lisinopril 20 mg daily and adhere to the current thyroid medication. - Use esomeprazole for GERD and follow dietary recommendations, including elevating the head of the bed. - Maintain a cholesterol-friendly diet and exercise regularly. - Monitor for worsening of hip symptoms and consult if the pain intensifies. - Await referral to gynecology to address itchiness. - Report any new gastrointestinal symptoms and adhere to a gluten-free diet. - Drink plenty of fluids to stay hydrated. - Follow up for further colonoscopy in 5-7 years as recommended. - Visit the lab for further testing if instructed. Orders: Orders SARS-CoV2/FLU/RSV Today N89.8 - Other specified noninflammatory disorders of vagina Referrals HOTEL HOUSEMAN Referral N89.8 - Other specified noninflammatory disorders of vagina
[2024-05-13 14:46] VITALS: BP 106/60; PULSE 90; TEMP 36.2; O2SAT 97; BMI 33.7
--- OUTSIDE RECORDS SUMMARY | 2024-05-13 16:48 | XMS_ITS | Clinical Summary ---
Author Organization [employer] Address [address] [place] [address] Care Team Providers Care Environmental Coordinator Name Role Phone Unavailable Primary Care Provider [...] patient's age to complete this topic Insurance [facility] STANDARD [facility] PLAN
== END 2024-05-13 15:31 | disposition home or self-care (01) ==
PROVIDERS: PCP Internal Medicine; Visit Provider Internal Medicine
DX: M16.0 Bilateral primary osteoarthritis of hip (principal); D12.6 Benign neoplasm of colon, unspecified; I10 Essential (primary) hypertension; J45.20 Mild intermittent asthma, uncomplicated; Z68.33 Body mass index [BMI] 33.0-33.9, adult; E66.9 Obesity, unspecified; E03.9 Hypothyroidism, unspecified; K21.9 Gastro-esophageal reflux disease without esophagitis; N89.8 Other specified noninflammatory disorders of vagina; R05.9 Cough, unspecified

== ENCOUNTER 2024-05-13 14:39 | Outpatient (REF) | payer OTHER, SELFPAY ==
[2024-05-13 16:34] LABS: Appearance Urine Clear; Color Urine Yellow; Glucose Urine UA Negative (Negative); Leukocyte Esterase Urine Trace (Negative); Nitrite Urine Negative (Negative); PH 5.5 (5.0-9.0); Specific Gravity - Urine 1.025 (1.005-1.025); UMIC TRIGGER UACC YES; Urine Blood Trace (Negative); Urine Ketones Negative (Negative); Urine Protein Negative (Neg-Trace)
[2024-05-13 16:39] LABS: Bacteria Urine None Seen (None Seen); Hyaline Casts Urine 0-2 /LPF (0-2); Squamous Epithelial Cell Urine 0-2 /HPF (0-2); WBC Urine 0-5 /HPF (0-5)
[2024-05-13 16:43] LABS: Influenza A PCR NEGATIVE (Negative); Influenza B PCR NEGATIVE (Negative); Resp Syncy Virus RNA Qual PCR NEGATIVE (Negative); SARS COV2 PCR INHOUSE NEGATIVE (Negative)
--- OUTSIDE RECORDS SUMMARY | 2024-05-13 17:40 | XMS_ITS | Clinical Summary ---
Author Organization [employer] Address [address] [place] [address] Care Team Providers Care Wall Washer Name Role Phone Unavailable Primary Care Provider [...] patient's age to complete this topic Insurance [facility] STANDARD [facility] PLAN
== END 2024-05-13 14:40 | disposition home or self-care (01) ==
LOC: HO.LAB 14:39
PROVIDERS: PCP Internal Medicine; Visit Provider Internal Medicine
DX: M16.0 Bilateral primary osteoarthritis of hip (principal); D12.6 Benign neoplasm of colon, unspecified; I10 Essential (primary) hypertension; J45.20 Mild intermittent asthma, uncomplicated; E66.9 Obesity, unspecified; Z68.33 Body mass index [BMI] 33.0-33.9, adult; E03.9 Hypothyroidism, unspecified; K21.9 Gastro-esophageal reflux disease without esophagitis; N89.8 Other specified noninflammatory disorders of vagina; R05.9 Cough, unspecified; Z79.899 Other long term (current) drug therapy
CPT/HCPCS: 0241U; 81001; 96127; 99212

== ENCOUNTER 2024-06-02 12:59 | Outpatient (REF) | payer OTHER, SELFPAY ==
--- OUTSIDE RECORDS SUMMARY | 2024-06-02 15:24 | XMS_ITS | Clinical Summary ---
Author Organization [employer] Address [address] [place] [address] Care Team Providers Care Biostatistics Professor Name Role Phone Unavailable Primary Care Provider [...] patient's age to complete this topic Insurance [facility] STANDARD [facility] PLAN
== END 2024-06-02 13:00 | disposition home or self-care (01) ==
LOC: HO.MAMMO 12:59
PROVIDERS: PCP Internal Medicine; Visit Provider Internal Medicine
DX: Z12.31 Encounter for screening mammogram for malignant neoplasm of breast (principal)
CPT/HCPCS: 77063; 77067

== ENCOUNTER → 2024-06-02 13:15 | Outpatient (BNV) | payer OTHER, SELFPAY | PROVIDERS: PCP Internal Medicine; Visit Provider Internal Medicine | DX: Z12.31 Encounter for screening mammogram for malignant neoplasm of breast (principal) | CPT/HCPCS: 77063; 77067 ==

== ENCOUNTER 2024-08-03 15:48 | Outpatient (AMB) | payer OTHER, SELFPAY ==
--- NOTE | 2024-08-03 15:49 | A.OFFVIS_ITS ---
Vital Signs 08/03/24 15:59 Height 5 ft 2 in Weight 185 lb BMI 33.8 BP 132/70 Blood Pressure Location Rt brachial Position Sitting Pulse 86 Pulse Source Pulse Oximeter Pulse Oximetry (%) 99 Oxygen Delivery Method Room Air Intake Visit Reasons: 3 mo f/u Celiac Intake Note: ESTABLISHED PATIENT for mgmt of celiac, abd pain, and diarrhea. CC; Pt reports having intermittent episodes where they have breakthrough sx despite their tx. However, overall, she is doing much better and is stable. No concerns at this time per pt. Energy Efficiency Finance Manager Required: Yes Energy Efficiency Finance Manager Services: Energy Efficiency Finance Manager Present Energy Efficiency Finance Manager Name: Angelique [id number] Information Interpreted: clinical only Accompanied by: Self / Same As Patient Allergies iron dextran complex [Iron Dextran Complex] Adverse Reaction (Intermediate, Verified 08/03/24 15:49) flushing/anxiety/dyspnea/back pain HPI HPI 3 mo f/u Celiac: Details: LAST VISIT: Constipation GERD (gastroesophageal reflux disease) Celiac disease Postprandial abdominal bloating Plan Discussed with patient importance of avoiding gluten. Discussed with her that her epigastric pain could be related to the fact that she might still be eating food that contains gluten. Discussed with her trying to get an gilbert that scans gluten free items. Avoid NSAIDs. Patient was encouraged to avoid dietary tri ggers in late night snacking. Staying upright for minimal 3 hours after meals discussed with patient. Encourage patient to increase fluid intake and activity to promote better bowel motility. Patient can take [id number] fiber supplements. Follow-up in 3 months, sooner on as needed basis. Patient is agreeable to this plan and verbalizes understanding of instructions. She was given the opportunity to ask questions and all questions answered. ? TODAY'S VISIT Patient is here today for follow-up. Patient reports that she has been feeling fairly good. Tries to avoid gluten. Symptoms of acid reflux are suppressed with PPI. Patient denies any nausea or vomiting. Denies any dyspepsia, dyspha nataliia or odynophagia. Uses Dulcolax as needed for constipation. Patient denies any melena, hematochezia. Patient admits that is very hard for her to avoid gluten but patient is doing the best as she can. Patient denies any nausea or vomiting. Denies any other GI concerning symptoms. [facility] Medical History Celiac disease Upper respiratory infection Bilateral flank pain Axillary adenopathy Low back pain Left lower quadrant abdominal pain Right upper quadrant pain Shortness of breath Viral infection TSH elevation Polyarthralgia Uterine fibroid Obesity (BMI 30-39.9) Esophageal stricture Vitamin D deficiency Seasonal allergies Anemia Asthma HTN (hypertension) Migraines Surgical History Hx of esophagogastroduodenoscopy History of colonoscopy (~2013) History of arthroscopy of right knee History of laparoscopy History of bladder surgery History of tubal ligation History of knee surgery H/O: hysterectomy Family History Father Stroke Mother Bladder cancer Maternal Grandmother Myocardial infarction Maternal Aunt Myocardial infarction Paternal Aunt No problems noted. Maternal Aunt Stroke Brother Myocardial infarction Social History Housing: House Alcohol intake: never Patient Tobacco Use Status: Never used Tobacco e-Cigarette/Vaping Use: Never Used Second Hand Smoke Exposure: No service: No Current occupational status: employed Cognitive needs: No Hearing needs: No Vision needs: Yes (reading glasses) Female Reproductive History Menstrual Age of Menarche: 12 Review of Systems Const Denies weight gain and Denies weight loss ENT Reports no additional complaints, Denies dysphagia and Denies odynophagia Card Reports no additional complaints Resp Reports no additional complaints GI Denies abdominal pain, Denies belching, Denies melena, Reports bloating (Occasional), Denies change in bowel habits, Reports constipation, Denies dysphagia, Denies excessive flatus, Denies dyspepsia, Denies heartburn, Denies diarrhea, Denies loose stools, Denies nausea, Denies odynophagia and Denies vomiting Reports no additional complaints Musc Reports no additional complaints Neuro Reports no additional complaints Psych Reports no additional complaints Endo Reports no additional complaints Physical Exam Vital Signs: Last Vital Signs Pulse 86 08/03/24 15:59 BP 132/70 08/03/24 15:59 Pulse Ox 99 08/03/24 15:59 Oxygen Delivery Method Room Air 08/03/24 15:59 BMI result Body Mass Index 33.8 Const General: healthy appearing and no acute distress Nutritional Appearance: obese Orientation/consciousness: patient oriented x3 Resp Effort & Inspection: normal respiratory effort, able to speak in complete sentences, no tracheal deviation and symmetric chest movement Auscultation: clear to auscultation bilaterally Cardio Rate: regular rate GI Inspection: Yes normal to inspection, No distended and Yes obesity Palpation (GI): Soft to palpation, not firm, nontender and No hepatosplenomegaly present Auscultation: normal bowel sounds General: Yes no CVA tenderness Back/Spine/Pelvis Back: no CVA tenderness Skin General skin exam: elasticity normal, turgor normal and dry skin Neuro General: patient oriented x3 Psych Appearance: grossly normal Mental Status: mental status grossly normal Assessment & Plan Assessment & Plan (1) Celiac disease: Code(s): K90.0 - Celiac disease Category: Medical (2) Constipation: Code(s): K59.00 - Constipation, unspecified Category: Medical Qualifiers: Constipation type: slow transit constipation Qualified Code(s): K59.01 - Slow transit constipation (3) GERD (gastroesophageal reflux disease): Code(s): K21.9 - Gastro-esophageal reflux disease without esophagitis Category: Medical Qualifiers: Esophagitis presence: esophagitis presence not specified Qualified Code(s): K21.9 - Gastro-esophageal reflux disease without esophagitis (4) Postprandial abdominal bloating: Code(s): R14.0 - Abdominal distension (gaseous) Plan Patient will continue taking Nexium daily. Continue avoiding gluten. Patient is reading labels. Patient will try to download gluten scanner gilbert. avoid dietary triggers and late night snacking. Staying upright for minimum 3 hours after meals discussed with patient. Increase fluid intake and activity to promote better bowel motility. May use Dulcolax as needed. Follow-up in 6 months, sooner on as needed basis. Patient is agreeable to plan of care and verbalizes understanding of instructions. She was given the opportunity to ask questions and all questions answered. Thank you for allowing me to participate in her care Medications: Refilled bisacodyl (Dulcolax (bisacodyl)) 10 mg (2 x 5 mg) PO BEDTIME 180 tabs 4RF Coding Level of Care Code Est Pt Level 3 (19892) Diagnoses Celiac disease K90.0 Slow transit constipation K59.01 Constipation type: slow transit constipation Gastroesophageal reflux disease, unspecified whether esophagitis present K21.9 Esophagitis presence: esophagitis presence not specified Postprandial abdominal bloating R14.0 Time Spent (min) 25 Comment 15 minutes spent with patient and additional 10 minutes spent reviewing her records
--- OUTSIDE RECORDS SUMMARY | 2024-08-03 15:51 | XMS_ITS | Clinical Summary ---
Author Organization [employer] Address [address] [place] [address] Care Team Providers Care Home Service Consultant Name Role Phone Unavailable Primary Care Provider Unavailabl e Immunizations Immunization Administration Dates Next Due Moderna Covid-19 Vaccine [...] Screening 1969 SDOH Screening 1969 Sigmoidoscopy 1969 Disability Screening 1969 Alcohol/Substance Use Screening 1981 Tobacco Screening [...] patient's age to complete this topic Meningococcal B Vaccine Aged Out No l onger eligible based on patient's age to complete this topic Meningococcal Vaccine Aged Out No shalini mackenzie eligible based on patient's age to complete this topic RSV under 20 months Aged Out No longe r eligible based on patient's age to complete this topic Rotavirus Vaccines Aged Out No longer eligible based on patient's age to complete this topic Insurance [facility] STANDARD [facility] PLAN
[2024-08-03 15:59] VITALS: BP 132/70; PULSE 86; O2SAT 99; BMI 33.8
== END 2024-08-03 16:22 | disposition home or self-care (01) ==
LOC: HO.HGI 15:48
PROVIDERS: PCP Internal Medicine; Visit Provider Nurse Practitioner Family
DX: K90.0 Celiac disease (principal); K21.9 Gastro-esophageal reflux disease without esophagitis; R14.0 Abdominal distension (gaseous)
CPT/HCPCS: 99213

== ENCOUNTER → 2024-08-03 15:48 | Outpatient (BNVA) | payer OTHER, SELFPAY | PROVIDERS: PCP Internal Medicine; Visit Provider Nurse Practitioner Family | DX: K90.0 Celiac disease (principal); K59.01 Slow transit constipation; K21.9 Gastro-esophageal reflux disease without esophagitis; R14.0 Abdominal distension (gaseous) | CPT/HCPCS: 99212 ==

== ENCOUNTER 2024-08-16 14:47 | Outpatient (AMB) | payer OTHER, SELFPAY ==
--- NOTE | 2024-08-16 14:55 | A.OFFPC_ITS ---
Vital Signs 08/16/24 14:56 Height 5 ft 2 in Weight 182 lb 4 oz BMI 33.3 BP 110/82 Blood Pressure Location Lt brachial Position Sitting Pulse 82 Pulse Source Pulse Oximeter Pulse Oximetry (%) 98 Oxygen Delivery Method Room Air Intake Visit Reasons: asthma Pricing Coordinator Required: No Accompanied by: Self / Same As Patient Allergies iron dextran complex [Iron Dextran Complex] Adverse Reaction (Intermediate, Verified 08/16/24 14:56) flushing/anxiety/dyspnea/back pain Medication List - Last Reconciled 08/16/24 by Maurice De La Rosa MD acetaminophen (Tylenol Extra Strength) 500 mg PO Q6H PRN albuterol sulfate 90 mcg/actuation 2 puffs inhalation Q4-6H PRN betamethasone dipropionate 0.05% 1 appl topical .every other day 30 days bisacodyl (Dulcolax (bisacodyl)) 10 mg (2 x 5 mg) PO BEDTIME esomeprazole magnesium 40 mg PO DAILY ibuprofen 600 mg PO Q6H PRN inulin (Fiber Gummies) 2 grams PO DAILY levothyroxine (Synthroid) 25 mcg PO DAILY lidocaine 5% (Lidoderm) 1 patch topical DAILY lisinopril 20 mg PO DAILY magnesium 250 mg PO DAILY multivitamin 1 tab PO DAILY omega-3 acid ethyl esters 1 cap PO DAILY Tobacco use date assessed: 08/16/24 Dental Screening Dental Screen Date: 08/16/24 Did you have a dental visit in the last 12 months?: No Did you have a dental problem in the last 6 months where you did not have access to dental care?: No Was dental information given to patient?: No ON LICENSE OF [facility] Medical History (Updated 08/16/24 @ 15:39 by Maurice De La Rosa MD) Celiac disease Upper respiratory infection Bilateral flank pain Axillary adenopathy Low back pain Left lower quadrant abdominal pain Right upper quadrant pain Shortness of breath Viral infection TSH elevation Polyarthralgia Uterine fibroid Obesity (BMI 30-39.9) Esophageal stricture Vitamin D deficiency Seasonal allergies Anemia Asthma HTN (hypertension) Migraines Surgical History Hx of esophagogastroduodenoscopy History of colonoscopy (~2013) History of arthroscopy of right knee History of laparoscopy History of bladder surgery History of tubal ligation History of knee surgery H/O: hysterectomy Family History Father Stroke Mother Bladder cancer Maternal Grandmother Myocardial infarction Maternal Aunt Myocardial infarction Paternal Aunt No problems noted. Maternal Aunt Stroke Brother Myocardial infarction Social History Housing: House Alcohol intake: never Patient Tobacco Use Status: Never used Tobacco e-Cigarette/Vaping Use: Never Used Second Hand Smoke Exposure: No service: No Current occupational status: employed Cognitive needs: No Hearing needs: No Vision needs: Yes (reading glasses) Female Reproductive History Menstrual Age of Menarche: 12 Questionnaire PHQ-9 Over the last 2 weeks, how often have you been bothered by any of the following problems? 1. Little interest or pleasure in doing things: several days 2. Feeling down, depressed, or hopeless: several days 3. Trouble falling or staying asleep, or sleeping too much: several days 4. Feeling tired or having little energy: several days 5. Poor appetite or overeating: not at all 6. Feeling bad about yourself - or that you are a failure or have let yourself or your family down: not at all 7. Trouble concentrating on things, such as reading the newspaper or watching television: not at all 8. Moving or speaking so slowly that other people could have noticed. Or the opposite - being so fidgety or restless that you have been moving around a lot more than usual: not at all 9. Thoughts that you would be better off or of hurting yourself in some way: not at all Total score: 4 Source: Developed by Drs. Jorge Cameron, Yaneth Blair, Jakub Salvador and colleagues, with an educational johnson from [employer]. Thrive Questionnaire Date Thrive assessed: 08/16/24 I am a: Patient What is your living situation today?: I have a steady place to live Within the past 12 months, did the food you bought not last and you didn't have the money to get more?: Never true Within the past 12 months, did you worry whether your food would run out before you got money to buy more?: Never true Do you have trouble paying for medicines?: No Do you have trouble getting transportation to medical appointments?: No Do you have trouble paying your heating and electricity bill?: No Do you have trouble taking care of your child, family member or friend?: No Do you have trouble with day-to-day activities such as bathing, preparing meals, shopping, managing finances, etc.?: No Are you currently unemployed and looking for a job?: No Are you interested in more education?: No Please select the resources that you would like help with: None Currently or been in a relationship where the following occur: No concerns reported THRIVE Score: 0 AUDIT C Alcohol Use Questionnaire (AUDIT-C) 1. How often do you have a drink containing alcohol?: Never 3. How often do you have six or more drinks on one occasion?: Never Total Score: 0 LOTUS-7 AMB Questionnaire LOTUS-7 Date LOTUS - 7 assessed: 08/16/24 Feeling nervous, anxious, or on edge: 0 = Not at all Not being able to stop or control worryin = Not at all Worrying too much about different things: 0 = Not at all Trouble relaxin = Not at all Being so restless that it is hard to sit still: 0 = Not at all Becoming easily annoyed or irritable: 0 = Not at all Feeling afraid as if something awful might happen: 0 = Not at all Total LOTUS-7 score (0-4 normal; 5-9 mild; 10-14 moderate; 15-21 severe): 0 Source: Developed by Drs. Jorge Cameron, Yaneth Blair, Jakub Salvador and colleagues, with an educational johnson from [employer]. LOTUS-7 Assessment Billing LOTUS-7 Assessment Tool: LOTUS-7 Assessment 02494 Physical exam (Primary Care) Vital Signs: Last Vital Signs Pulse 82 08/16/24 14:56 BP 110/82 08/16/24 14:56 Pulse Ox 98 08/16/24 14:56 Oxygen Delivery Method Room Air 08/16/24 14:56 BMI result Body Mass Index 33.3 Tobacco/Smoking Status: Tobacco use Status Tobacco use date assessed 08/16/24 08/16/24 15:02 Patient Tobacco Use Status Never used Tobacco 08/16/24 15:02 e-Cigarette/Vaping Use Never Used 08/16/24 15:02 PHQ-9: PHQ-9 Score PHQ-9: Total score 4 08/16/24 15:34 Thrive Assessment: Date of Thrive Assessment Date Thrive assessed 08/16/24 08/16/24 15:02 Currently or been in a relationship where the following occur: No concerns reported Const General: alert; No acute distress Eyes Conjunctivae: conjunctivae normal Resp Auscultation: clear to auscultation bilaterally Cardio Rate: regular rate Rhythm: regular rhythm GI Inspection: Yes normal to inspection Extrem General: Yes normal to inspection and No edema Coding Level of Care Code Est Pt Level 4 (55794) Complex EM visit Add On G2211 Diagnoses Celiac disease K90.0 Hypercholesterolemia E78.00 Gastroesophageal reflux disease, unspecified whether esophagitis present K21.9 Esophagitis presence: esophagitis presence not specified Acquired hypothyroidism E03.9 Hypothyroidism type: acquired Essential hypertension I10 Hypertension type: essential hypertension Mild intermittent asthma without complication J45.20 Asthma complication type: uncomplicated Asthma persistence: intermittent Asthma severity: mild Obesity (BMI 30-39.9) E66.9 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 Be it pork or beef they have a lot of cholesterol LDL goal of less than 130 and triglyceride of less than 150 (3) GERD (gastroesophageal reflux disease): Code(s): K21.9 - Gastro-esophageal reflux disease without esophagitis Category: Medical Qualifiers: Esophagitis presence: esophagitis presence not specified Qualified Code(s): K21.9 - Gastro-esophageal reflux disease without esophagitis Plan: Avoid the foods that causes that usually spicy foods, tomato products, juices, coffee, soda and foods that your sensitive to. After eating do not lie down, allow 3-4 hours before in lie down. And keep the head of bed above 30 degrees to avoid the acid from going up. (4) Hypothyroid: Code(s): E03.9 - Hypothyroidism, unspecified Category: Medical Qualifiers: Hypothyroidism type: acquired Qualified Code(s): E03.9 - Hypothyroidism, unspecified Plan: Continue with the thyroid medication April 2024 last blood (5) HTN (hypertension): Code(s): I10 - Essential (primary) hypertension Category: Medical Qualifiers: Hypertension type: essential hypertension Qualified Code(s): I10 - Essential (primary) hypertension Plan: Continue with blood pressure medication. Decrease salt intake and exercise takes lisinopril 20 mg once a day (6) Asthma: Code(s): J45.909 - Unspecified asthma, uncomplicated Category: Medical Qualifiers: Asthma complication type: uncomplicated Asthma persistence: intermitt ent Asthma severity: mild Qualified Code(s): J45.20 - Mild intermittent asthma, uncomplicated Plan: Stable with albuterol inhaler (7) Obesity (BMI 30-39.9): Code(s): E66.9 - Obesity, unspecified Category: Medical Plan: Diet and exercise (8) Multiple pigmented nevi: Code(s): D22.9 - Melanocytic nevi, unspecified Category: Medical (9) Hypersomnia: Code(s): G47.10 - Hypersomnia, unspecified Category: Medical Plan History of Present Illness The patient is a 54-year-old female presenting for 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 She continues to struggle with dietary compliance due to her celiac disease, which exacerbates her gastroenterological symptoms, despite acknowledgment of gluten causing significant discomfort. Her asthma remains controlled, with decreased usage of albuterol. Previous diagnostics include a colonoscopy which identified a benign tubular adenoma, as well as laboratory testing revealing mild hypertriglyceridemia. Her blood pressure is well-managed with lisinopril, and her thyroid function is stable. She also reports ongoing sleep disturbances, characterized by frequent awakenings and confirmed snoring, indicating potential sleep apnea. Further dermatological evaluation is needed for a facial rash associated with itchiness and discomfort. Health Maintenance - Due for follow-up with gastroenterology for celiac disease management - Advised to continue a gluten-free diet to manage celiac symptoms - Cholesterol management with LDL target <130 mg/dL and triglycerides <150 mg/dL - Heartburn managed with esomeprazole - Blood pressure managed with lisinopril 20 mg daily - Declined medications for sleep; suggested to increase melatonin to 10 mg - Referral to sleep study for evaluation of sleep apnea - Referral to dermatology for skin rash evaluation - Vaccinations: Pneumonia, Tetanus, and Shingles shots are up to date Social History - Reports dietary challenges with maintaining a gluten-free diet due to personal preferences and difficulties finding suitable options - Current sleep habits disrupted by late bedtimes and frequent nocturnal awakenings, impacting daytime energy levels Review of Systems - Gastrointestinal: Reports adherence difficulty with a gluten-free diet for celiac disease; Reports well-managed GERD with esomeprazole - Respiratory: Denies using albuterol recently, indicating well-controlled asthma - Dermatological: Reports an itchy rash on the face and breast; further evaluation by dermatology planned - Neurological: Denies recent migraines - Musculoskeletal: No recent changes in hip osteoarthritis symptoms Physical Exam Results - Labs: April 2024 blood work with normal blood count, electrolytes, renal function, blood sugar, and liver function. Mildly elevated triglyceride level noted. Normal B12, vitamin D, and folic acid levels. Thyroid function within normal limits. - Procedures: Colonoscopy in April 2024 showed tubular adenoma. Plan The current management plan centers on maintaining effective control over the patient's chronic conditions. Lisinopril will continue to be administered at the current dosage to maintain stable blood pressure. Management of GERD with esomeprazole is ongoing due to demonstrated efficacy. Strong encouragement to adhere to a gluten-free diet for celiac disease management was provided, with a follow-up planned with gastroenterology. Increasing melatonin dosage for sleep disturbances is recommended, though the patient does not favor pharmacologic interventions for sleep. A sleep study will be arranged to explore potential sleep apnea. Dermatology referral is set up to address the facial rash. Regular monitoring of lipid levels will continue with the aim to achieve specified lipid targets. Vaccinations are current. The patient will follow up in three months to reassess management needs. Patient was informed and verbally consented to the use of an ambient scribe for clinic note documentation during this visit. Discussion Notes During our consultation, I reviewed the patient's chronic medical needs and reinforced the importance of dietary adherence for celiac disease management, despite acknowledged difficulties. We discussed the strategic plan to manage her GERD effectively with esomeprazole, while maintaining hypertension control with lisinopril. I recommended increasing melatonin for sleep disturbances, and after confirming symptoms suggestive of sleep apnea, I proposed a home sleep study. We covered dermatological concerns and advised her of the referral process to [facility]. The patient was informed about regular lipid monitoring to achieve target goals. Our dialogue emphasized maintaining compliance with the outlined management strategy and adjusting based on the progression of her symptoms. The next follow-up is set for three months. Patient Instructions - Continue taking lisinopril 20 mg daily for blood pressure control - Follow a gluten-free diet as much as possible for celiac disease - Continue esomeprazole as prescribed for heartburn - Consider increasing melatonin to 10 mg for sleep issues - Await scheduling of a sleep study for suspected sleep apnea - Follow up with the referred [place] Operator for the skin rash - Complete any outstanding blood work as advised - Maintain regular physical activity and healthy diet to manage weight - Return for follow-up in three months or sooner if symptoms worsen Orders: Orders RT home sleep study Today G47.10 - Hypersomnia, unspecified Referrals Dermatology Referral D22.9 - Melanocytic nevi, unspecified
[2024-08-16 14:56] VITALS: BP 110/82; PULSE 82; O2SAT 98; BMI 33.3
--- OUTSIDE RECORDS SUMMARY | 2024-08-16 16:31 | XMS_ITS | Clinical Summary ---
Author Organization [facility] Address [address] [place] [address] Care Team Providers Care Organ Pipe Finisher Name Role Phone Unavailable Primary Care Provider [...] 2023-2 5 season) 2023 04/14/2022 Influenza Vaccine (Season Ended) 2024 RSV Patients and Pa tients Aged 60 [...] patient's age to complete this topic Insurance [facility] STANDARD [facility] PLAN
== END 2024-08-16 15:48 | disposition home or self-care (01) ==
LOC: HO.HMCH 14:48
PROVIDERS: PCP Internal Medicine; Visit Provider Internal Medicine
DX: K90.0 Celiac disease (principal); E78.00 Pure hypercholesterolemia, unspecified; E66.9 Obesity, unspecified; Z68.33 Body mass index [BMI] 33.0-33.9, adult; K21.9 Gastro-esophageal reflux disease without esophagitis; E03.9 Hypothyroidism, unspecified; I10 Essential (primary) hypertension; J45.20 Mild intermittent asthma, uncomplicated; D22.9 Melanocytic nevi, unspecified; G47.10 Hypersomnia, unspecified

== ENCOUNTER → 2024-08-16 14:47 | Outpatient (BNVA) | payer OTHER, SELFPAY | PROVIDERS: PCP Internal Medicine; Visit Provider Internal Medicine | DX: K90.0 Celiac disease (principal); J45.909 Unspecified asthma, uncomplicated; E78.00 Pure hypercholesterolemia, unspecified; K21.9 Gastro-esophageal reflux disease without esophagitis; E03.9 Hypothyroidism, unspecified; I10 Essential (primary) hypertension; J45.20 Mild intermittent asthma, uncomplicated; E66.9 Obesity, unspecified; D22.9 Melanocytic nevi, unspecified; G47.10 Hypersomnia, unspecified; Z68.33 Body mass index [BMI] 33.0-33.9, adult | CPT/HCPCS: 96127; 99212 ==

== ENCOUNTER → 2024-08-29 14:54 | Outpatient (REF) | payer OTHER, SELFPAY ==
--- OUTSIDE RECORDS SUMMARY | 2024-08-29 16:38 | XMS_ITS | Clinical Summary ---
Author Organization [employer] Address [address] [facility] [address] [place] [address] Care Team Providers Care Computer Security Coordinator Name Role Phone Unavailable Primary Care [...] patient's age to complete this topic Insurance [facility]
== END ==
LOC: HO.SL 14:54
PROVIDERS: PCP Internal Medicine; Visit Provider Internal Medicine
DX: G47.10 Hypersomnia, unspecified (principal); R06.83 Snoring; R40.0 Somnolence
CPT/HCPCS: 95806

== ENCOUNTER → 2024-08-29 15:19 | Outpatient (BNV) | payer OTHER, SELFPAY | PROVIDERS: PCP Internal Medicine; Visit Provider Internal Medicine | DX: R06.83 Snoring (principal) | CPT/HCPCS: 95806 ==

== ENCOUNTER 2024-08-30 15:02 | Outpatient (REF) | payer OTHER, SELFPAY | END 2024-08-30 15:03 | disposition home or self-care (01) | LOC: HO.LNP 15:02 | PROVIDERS: PCP Internal Medicine; Visit Provider Obstetrics & Gynecology | DX: N90.89 Other specified noninflammatory disorders of vulva and perineum (principal); L28.0 Lichen simplex chronicus | CPT/HCPCS: 56605; 56606; 88305; 88312; 99212 ==

== ENCOUNTER 2024-08-30 15:02 | Outpatient (AMB) | payer OTHER, SELFPAY ==
[2024-08-30 15:21] VITALS: BMI 33.3
--- NOTE | 2024-08-30 15:21 | MHC.OFFVIS ---
Vital Signs 08/30/24 15:21 Height 5 ft 2 in Weight 182 lb BMI 33.3 Intake Visit Reasons: disorder of vag/Internal Referral Assistant Finance Manager Required: Yes Assistant Finance Manager Language: Food Technologist Services: Assistant Finance Manager Present (in person) Assistant Finance Manager Name: Ynes ROSALES Information Interpreted: non-clinical & clinical Child Care Coordinator: Child Care Coordinator Present (Ynes ROSALES) Accompanied by: Self / Same As Patient Allergies iron dextran complex [Iron Dextran Complex] Adverse Reaction (Intermediate, Verified 08/30/24 15:22) flushing/anxiety/dyspnea/back pain HPI Comments Details: Presenting complaining of bilateral vulvar itching. The patient had vulvar biopsies in 2021 showed clear lichen simplex chronicus since then her itching has been getting worse [facility] Medical History (Updated 08/30/24 @ 15:51 by Praful Perera MD) Celiac disease Upper respiratory infection Bilateral flank pain Axillary adenopathy Low back pain Left lower quadrant abdominal pain Right upper quadrant pain Shortness of breath Viral infection TSH elevation Polyarthralgia Uterine fibroid Obesity (BMI 30-39.9) Esophageal stricture Vitamin D deficiency Seasonal allergies Anemia Asthma HTN (hypertension) Migraines Surgical History Hx of esophagogastroduodenoscopy History of colonoscopy (~2013) History of arthroscopy of right knee History of laparoscopy History of bladder surgery History of tubal ligation History of knee surgery H/O: hysterectomy Family History Father Stroke Mother Bladder cancer Maternal Grandmother Myocardial infarction Maternal Aunt Myocardial infarction Paternal Aunt No problems noted. Maternal Aunt Stroke Brother Myocardial infarction Social History Housing: House Alcohol intake: never Patient Tobacco Use Status: Never used Tobacco e-Cigarette/Vaping Use: Never Used Second Hand Smoke Exposure: No service: No Current occupational status: employed Cognitive needs: No Hearing needs: No Vision needs: Yes (reading glasses) Female Reproductive History Menstrual Age of Menarche: 12 Review of Systems Const All systems reviewed & are unremarkable except as noted in HPI and below Card Reports as per HPI and Reports no additional complaints Resp Reports as per HPI and Reports no additional complaints GI Reports as per HPI and Reports no additional complaints Reports as per HPI Physical Exam Vital Signs: BMI result Body Mass Index 33.3 Const General: cooperative, healthy appearing and comfortable General: Yes bladder normal to palpation External Female Exam: lesion (Bilateral leukoplakia right lesion, left ulcer) Speculum Exam - Vagina: normal appearance of the vagina, normal vaginal discharge and not erythematous Speculum Exam - Cervix: Cervix absent Bimanual exam- vagina & uterus: bladder normal to palpation and uterus absent Bimanual Exam- Adnexa, other: Other (No masses detected) Office Procedures SLITTER CREASER SLOTTER HELPER Biopsy Before the procedure was started d/w patient the procedure, alternatives ( do nothing, medical rx), & all the risks associated with the procedure ( bleeding , infection, vulvar scarring, painful intercourse, injury to vessels, possible need for transfusion with all its risks) then patient signed the consent. 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 3 cc of lidocaine was used for anesthesia at the ilateral leukoplakia right labia majora hard area, left labia majora ulcer areas ; using punch biopsy and pickup the ilateral leukoplakia right labia majora hard area, left labia majora ulcer were both biopsied. Pressure was used for hemostasis. The patient tolerated the procedure well. Discharge Instructions: The patient was instructed to schedule an appointment in 2 weeks for follow-up and to call if temp>100.4, area of the biopsy redness or pain, nausea/vomiting. This note was generated with a voice recognition program. Some errors may have been overlooked during the review of this note. Sometimes these errors may affect the content or meaning of a given sentence. 90404-Xwayhe of Vulva/Perineum 23788-Axgvpz of Vulva/Perineum, additional site Procedure code (CPT) selection complete Assessment & Plan Assessment & Plan (1) Vulvar lesion: Comment: Bilateral leukoplakias Right labia majora hard area, left labia majora ulcer Code(s): N90.89 - Other specified noninflammatory disorders of vulva and perineum Category: Medical Plan: Discussed with the patient the finding on pelvic exam, recommended biopsy from the right labia majora hard area and left labia majora ulcer to rule out RANDELL , bilateral biopsy is done, see procedure note.Will treat with clobetasol 0.05 % b.i.d. for 2 week. Instructions given the patient to schedule a 2 week follow-up appointment Orders: Orders AMB SLITTER CREASER SLOTTER HELPER Biopsy Today N90.89 - Other specified noninflammatory disorders of vulva and perineum Surgical Today L28.0 - Lichen simplex chronicus Medications: New clobetasol 0.05% Then maintenance 2 to 3 times a week 1 appl topical BID 2 weeks 45 grams 1RF Coding Level of Care Code Est Pt Level 3 (45905) Procedure Only Diagnoses Vulvar lesion N90.89 CPT Codes SLITTER CREASER SLOTTER HELPER Biopsy - CPT: 83173-Mazwxk of Vulva/Perineum ([id number]) SLITTER CREASER SLOTTER HELPER Biopsy - CPT: 11118-Dpikzj of Vulva/Perineum, additional site ([id number])
--- OUTSIDE RECORDS SUMMARY | 2024-08-30 17:31 | XMS_ITS | Clinical Summary ---
Author Organization [employer] Address [address] [facility] [address] [place] [address] Care Team Providers Care Coronary Clinical Specialist Name Role Phone Unavailable Primary Care Provider [...] patient's age to complete this topic Insurance [facility] STANDARD [facility] PLAN
== END 2024-08-30 16:00 | disposition home or self-care (01) ==
LOC: HO.HWS 15:02
PROVIDERS: PCP Internal Medicine; Visit Provider Obstetrics & Gynecology
DX: N90.89 Other specified noninflammatory disorders of vulva and perineum (principal)
CPT/HCPCS: 56605; 56606; 99213

== ENCOUNTER 2024-09-19 09:41 | Outpatient (AMB) | payer OTHER, SELFPAY ==
--- NOTE | 2024-09-19 09:42 | A.OFFVIS_ITS ---
Intake Visit Reasons: Biopsy Results Block Out Machine Operator Required: Yes Block Out Machine Operator Language: Magneto Repairer Services: Block Out Machine Operator Present (in person) Block Out Machine Operator Name: BOBBY Little Information Interpreted: non-clinical & clinical Director Recreation: Director Recreation Present (BOBBY Little) Accompanied by: Self / Same As Patient Allergies iron dextran complex (Iron Dextran Complex) Adverse Reaction (Intermediate, Verified 08/30/24 15:22) flushing/anxiety/dyspnea/back pain HPI Comments Details: Presenting post vulvar biopsy doing well with no complaints. The pathology showed the following: A. Vulva, right labia majora lesion, biopsy: Minute fragments of benign squamous epithelium with marked hyperplasia, hyperkeratosis, and features of chronic irritation; negative for fungi and dysplasia. (see comment). Comment: Very scant dermal tissue is present with melanophages. The changes are in keeping with with lichen simplex chronicus. B. Vulva, left labia majora ulcer, biopsy: Benign squamous epithelium with hyperplasia, ulcer, and hyalinized dermal fibrosis; negative dysplasia (see comment). Comment: The findings raise the possibility of concomitant lichen sclerosus. Fungal stain is pending; addendum to follow [facility] Medical History (Updated 09/19/24 @ 09:58 by Praful Perera MD) Celiac disease Upper respiratory infection Bilateral flank pain Axillary adenopathy Low back pain Left lower quadrant abdominal pain Right upper quadrant pain Shortness of breath Viral infection TSH elevation Polyarthralgia Uterine fibroid Obesity (BMI 30-39.9) Esophageal stricture Vitamin D deficiency Seasonal allergies Anemia Asthma HTN (hypertension) Migraines Surgical History Hx of esophagogastroduodenoscopy History of colonoscopy (~2013) History of arthroscopy of right knee History of laparoscopy History of bladder surgery History of tubal ligation History of knee surgery H/O: hysterectomy Family History Father Stroke Mother Bladder cancer Maternal Grandmother Myocardial infarction Maternal Aunt Myocardial infarction Paternal Aunt No problems noted. Maternal Aunt Stroke Brother Myocardial infarction Social History Housing: House Alcohol intake: never Patient Tobacco Use Status: Never used Tobacco e-Cigarette/Vaping Use: Never Used Second Hand Smoke Exposure: No service: No Current occupational status: employed Cognitive needs: No Hearing needs: No Vision needs: Yes (reading glasses) Female Reproductive History Menstrual Age of Menarche: 12 Review of Systems Const All systems reviewed & are unremarkable except as noted in HPI and below Reports as per HPI and Reports no additional complaints GI Reports no additional complaints Reports no additional complaints Assessment & Plan Assessment & Plan (1) Lichen sclerosus: Code(s): L90.0 - Lichen sclerosus et atrophicus Category: Medical Plan: Discussed with the patient the pathology results showing lichen sclerosis. Explained to the patient that Lichen sclerosus refers to a benign, chronic, progressive dermatologic condition characterized by marked inflammation, epithelial thinning accompanied by pruritus and pain. In addition, discussed with the patient that there is a small increased risk of squamous cell cancer of the vulva in patients with lichen sclerosus. Adequate treatment of the disease seems to be associated with a reduced risk of development of neoplasia. Instructed the patient to schedule an appointment in a year to examine the affected area, with possible biopsy of suspicious lesions, in addition explained to the patient that she should look at the skin of the affected area and touch with fingertips monthly to search for thickened lumps or sores that do not heal & to report such findings for inspection & possible biopsy to rule out vulvar cancer Recommended Clobetasol propionate 0.05% ointment maintenance therapy two to three times per week . Coding Level of Care Code Est Pt Level 3 (17031) Diagnoses Lichen sclerosus L90.0
--- OUTSIDE RECORDS SUMMARY | 2024-09-19 10:12 | XMS_ITS | Clinical Summary ---
Author Organization [employer] Address [address] [place] [address] Care Team Providers Care Mirror Department Supervisor Name Role Phone Unavailable Primary Care Provider [...] 5 season) 2023 04/14/2022 Influenza Vaccine (#1) 2024 RSV Patients and Pa tients Aged [...] patient's age to complete this topic Insurance [facility] STANDARD [facility] PLAN
== END 2024-09-19 10:10 | disposition home or self-care (01) ==
PROVIDERS: PCP Internal Medicine; Visit Provider Obstetrics & Gynecology
DX: L90.0 Lichen sclerosus et atrophicus (principal)
CPT/HCPCS: 99213

== ENCOUNTER → 2024-09-19 09:41 | Outpatient (BNVA) | payer OTHER, SELFPAY | PROVIDERS: PCP Internal Medicine; Visit Provider Obstetrics & Gynecology | DX: L90.0 Lichen sclerosus et atrophicus (principal) | CPT/HCPCS: 99212 ==

== ENCOUNTER 2024-11-07 15:14 | Outpatient (REF) | payer OTHER, SELFPAY ==
--- OUTSIDE RECORDS SUMMARY | 2024-11-07 17:53 | XMS_ITS | Clinical Summary ---
Author Organization [employer] Address [address] [place] [address] Care Team Providers Care Chute Worker Name Role Phone Unavailable Primary Care Provider [...] patient's age to complete this topic Insurance [facility] STANDARD [facility] PLAN
== END 2024-11-07 15:15 | disposition home or self-care (01) ==
LOC: HO.LAB 15:14
PROVIDERS: PCP Internal Medicine; Visit Provider Nurse Practitioner Family
DX: R31.29 Other microscopic hematuria (principal); N28.1 Cyst of kidney, acquired; L28.0 Lichen simplex chronicus; Z13.89 Encounter for screening for other disorder
CPT/HCPCS: 81003; 88112; 99212

== ENCOUNTER 2024-11-07 15:14 | Outpatient (AMB) | payer OTHER, SELFPAY ==
--- NOTE | 2024-11-07 15:18 | MHC.OFFVIS ---
Intake Visit Reasons: 1y follow up Intake Note: Patient is present for 1YF/U Urology Medication:NONE Antibiotic Allergy:NONE Blood Thinner:NONE M60A2 Armor Crewman Required: No M60A2 Armor Crewman Services: M60A2 Armor Crewman Present M60A2 Armor Crewman Name: Kiran Allergies iron dextran complex (Iron Dextran Complex) Adverse Reaction (Intermediate, Verified 11/07/24 15:58) flushing/anxiety/dyspnea/back pain Medication List - Last Reconciled 11/07/24 by MIGUEL A VivarP- bisacodyl (Dulcolax (bisacodyl)) 10 mg (2 x 5 mg) PO BEDTIME esomeprazole magnesium 40 mg PO DAILY halobetasol propionate 0.05% 1 appl topical .2 times 2 weeks ibuprofen 600 mg PO Q6H PRN magnesium 250 mg PO DAILY multivitamin 1 tab PO DAILY HPI Comments Details: Whitney is a very pleasant 54-year-old Urdu-speaking female patient of Dr. De La Rosa. She has a past medical history of anemia, asthma, esophageal stricture, hypertension, low back pain, migraines, obesity, polyarthralgia, seasonal allergies, uterine fibroid, and vitamin-D deficiency. She presents to the office today for follow-up of her microscopic hematuria. In discussion with the patient today she reports to be doing and feeling well. She discusses having followed up with certified orthotist/pedorthist for ongoing issues with pruritus to her vagina and has since been diagnosed with lichen simplex chronicus. She reports most recently she was given a cream and feels this has been extremely helpful in itchiness and skin irritation she had been experiencing. She denies having had any bothersome urinary issues since her last office visit here. In office urinalysis results reviewed with the patient today. Patient with 2+ microscopic hematuria. We did discussed at length potential causes of microscopic hematuria as well as further interventions and risks and benefits of these interventions. Previous workup has included a CT abdomen and pelvis without contrast 09/06 as well as a retroperitoneal ultrasound 10/06 that noted No acute pathology of the abdomen or pelvis noted on study. She denies urinary urgency, urinary frequency, incontinence, nocturia, gross/visible hematuria, foul smelling urine, changes to urinary stream, flank pain, fever, and or chills. She is happy with her current voiding parameters. Previous urine cytologies 03/04, 06/04, 11/05, 11/06: Negative for high grade urothelial carcinoma.?I discussed reasons for blood in the urine may include but are not limited to kidney stones, cancer in the urinary tract, kidney stone disease or inflammatory conditions of the urinary tract. I have discussed workup to include cystoscopy evaluation. Patient denies any known chemical exposure or smoking history. She otherwise offers no issues or concerns at this time. [facility] Medical History Celiac disease Upper respiratory infection Bilateral flank pain Axillary adenopathy Low back pain Left lower quadrant abdominal pain Right upper quadrant pain Shortness of breath Viral infection TSH elevation Polyarthralgia Uterine fibroid Obesity (BMI 30-39.9) Esophageal stricture Vitamin D deficiency Seasonal allergies Anemia Asthma HTN (hypertension) Migraines Surgical History Hx of esophagogastroduodenoscopy History of colonoscopy (~2013) History of arthroscopy of right knee History of laparoscopy History of bladder surgery History of tubal ligation History of knee surgery H/O: hysterectomy Family History Father Stroke Mother Bladder cancer Maternal Grandmother Myocardial infarction Maternal Aunt Myocardial infarction Paternal Aunt No problems noted. Maternal Aunt Stroke Brother Myocardial infarction Social History Housing: House Alcohol intake: never Patient Tobacco Use Status: Never used Tobacco e-Cigarette/Vaping Use: Never Used Second Hand Smoke Exposure: No service: No Current occupational status: employed Cognitive needs: No Hearing needs: No Vision needs: Yes (reading glasses) Female Reproductive History Menstrual Age of Menarche: 12 Review of Systems Const Reports as per HPI Eyes Reports no additional complaints ENT Reports no additional complaints Card Reports as per HPI Resp Reports as per HPI GI Reports as per HPI Reports as per HPI Musc Reports as per HPI Neuro Reports as per HPI Psych Reports no additional complaints Endo Reports no additional complaints Aller/Immun Reports as per HPI Physical Exam Const General: cooperative, healthy appearing, comfortable, no acute distress, well developed, alert and awake Orientation/consciousness: patient oriented x3 Limitations: no limitations HEENT Head: Yes normal to inspection, Yes normocephalic and Yes atraumatic Ears: hearing grossly normal bilaterally Eyes General: appearance normal, both eyes and all related structures Neck Neck: Yes normal visual inspection and Yes trachea midline Chest Chest palpation & inspection: normal inspection of the chest Resp Effort & Inspection: normal respiratory effort and able to speak in complete sentences Cardio Rate: regular rate GI Inspection: Yes normal to inspection General: Yes no CVA tenderness External Female Exam: other (bilateral leukoplakia no open areas noted) Speculum Exam - Vagina: normal appearance of the vagina, normal palpation and normal vaginal discharge Bimanual exam- vagina & uterus: normal palpation Back/Spine/Pelvis Back: no CVA tenderness Skin General skin exam: no rashes or lesions noted Neuro General: patient oriented x3 Extrem General: Yes normal to inspection Psych Appearance: grossly normal and well kempt Mental Status: mental status grossly normal Speech and movement: Normal speech and movement present and Clear speech present Affect: normal affect Attitude: cooperative Thought process: Normal thought process present Thought content: Normal thought content present Insight: Good insight present (Psych) Judgement: Good judgement present (Psych) Results AMB Urinalysis, Automated UA Leukoctes 70 Kaitlyn/uL Last Edit by STEVE Pena on 11/07/24 16:26 UA Nitrite Negative Last Edit by STEVE Pena on 11/07/24 16:26 UA Urobilinogen 0.2 mg/dL Last Edit by STEVE Pena on 11/07/24 16:26 UA Protein 0 mg/dL Last Edit by STEVE Pena on 11/07/24 16:26 UA pH 5.5 Last Edit by STEVE Pena on 11/07/24 16:26 UA Blood 80 Bao/uL Last Edit by STEVE Pena on 11/07/24 16:26 UA Specific [place] 1.030 Last Edit by STEVE Pena on 11/07/24 16:26 UA Ketone Negative Last Edit by STEVE Pena on 11/07/24 16:26 UA Bilirubin 1 mg/dL Last Edit by STEVE Pena on 11/07/24 16:26 UA Glucose 0 mg/dL Last Edit by Jade Duvall CCM on 11/07/24 16:26 Results Reviewed Results Reviewed: Laboratory Last Values Urine pH (Auto) 5.5 11/07/24 16:[address] [place] (Auto) 1.030 11/07/24 16:26 Urine Protein (Auto) 0 mg/dL 11/07/24 16:26 Glucose (UA)(Auto) 0 mg/dL 11/07/24 16:26 Urine Ketones (Auto) Negative 11/07/24 16:26 Urine Blood (Auto) 80 Bao/uL 11/07/24 16:26 Urine Nitrite (Auto) Negative 11/07/24 16:26 Urine Bilirubin (Auto) 1 mg/dL 11/07/24 16:26 Urine Urobilinogen (Auto) 0.2 mg/dL 11/07/24 16:26 Leukocyte Esterase (Auto) 70 Kaitlyn/uL 11/07/24 16:26 Assessment & Plan Assessment & Plan (1) Microhematuria: Code(s): R31.29 - Other microscopic hematuria Category: Medical (2) Renal cyst: Code(s): N28.1 - Cyst of kidney, acquired Category: Medical (3) Lichen simplex chronicus: Code(s): L28.0 - Lichen simplex chronicus Category: Medical Plan In office urinalysis results reviewed with the patient today; will send for urine cytology. Discussed at length potential causes for microscopic hematuria. Discussed further microscopic hematuria workup with cystoscopy however patient declines at this time. Patient denies any bothersome urinary issues at this time Patient reports to be happy with current voiding parameters All questions were answered Will continue with surveillance monitoring Follow-up in 1 year; or sooner with any issues, concerns, and or questions Orders: Orders Urine Cytology Today R31.29 - Other microscopic hematuria AMB Urinalysis Automated Today Z13.9 - Encounter for screening, unspecified Patient Instructions: The patient had an opportunity to ask questions regarding the treatment plan. All questions were answered. Physical exam, labs, and imaging were discussed and reviewed in detail. As well as risks, benefits, and discussion of treatment choices. No major barriers to understanding were identified. The patient expressed understanding and agreement with the above treatment plan. The patient was made aware they should contact our office by phone for worsening of their current condition, the appearance of new symptoms, or with any questions or concerns. Compliance is encouraged with any medications and follow up testing that is ordered. It is a privilege to be allowed the opportunity to participate in? your urological care.? Again, if you have any questions or concerns If you have any questions or concerns please do not hesitate to contact me. The office is [phone]. This note is constructed using voice recognition software. While every effort has been made to ensure accuracy filleter errors may have been included. Yours sincerely, RICHMOND Vivar Coding Level of Care Code Est Pt Level 3 (61360) Complex EM visit Add On G2211 Diagnoses Microhematuria R31.29 Renal cyst N28.1 Lichen simplex chronicus L28.0
== END 2024-11-07 16:00 | disposition home or self-care (01) ==
LOC: HO.HUSH 15:15
PROVIDERS: PCP Internal Medicine; Visit Provider Nurse Practitioner Family
DX: R31.29 Other microscopic hematuria (principal); N28.1 Cyst of kidney, acquired; L28.0 Lichen simplex chronicus; Z13.9 Encounter for screening, unspecified
CPT/HCPCS: 99213

== ENCOUNTER 2024-12-05 14:55 | Outpatient (AMB) | payer OTHER, SELFPAY ==
[2024-12-05 16:13] VITALS: BP 126/70; PULSE 93; TEMP 36.3; O2SAT 99; BMI 34.1
--- NOTE | 2024-12-05 16:13 | A.OFFPC_ITS ---
Vital Signs 12/05/24 16:13 Height 5 ft 2 in Weight 186 lb 4 oz BMI 34.1 BP 126/70 Blood Pressure Location Lt brachial Position Sitting Pulse 93 Pulse Source Pulse Oximeter Temp 97.3 F Temp Source Temporal Artery Scan Pulse Oximetry (%) 99 Oxygen Delivery Method Room Air Intake Visit Reasons: hypersomnia Credit And Loan Collections Supervisor Required: Yes Credit And Loan Collections Supervisor Language: English Accompanied by: Spouse Allergies iron dextran complex (Iron Dextran Complex) Adverse Reaction (Intermediate, Verified 12/05/24 16:18) flushing/anxiety/dyspnea/back pain Tobacco use date assessed: 12/05/24 Dental Screening Dental Screen Date: 12/05/24 Did you have a dental visit in the last 12 months?: No Did you have a dental problem in the last 6 months where you did not have access to dental care?: No Was dental information given to patient?: No HPI hypersomnia HPI Details thursday asthma exacerbation, ? fevers, coughing, no productive . R knee pain PFSH Medical History Celiac disease Upper respiratory infection Bilateral flank pain Axillary adenopathy Low back pain Left lower quadrant abdominal pain Right upper quadrant pain Shortness of breath Viral infection TSH elevation Polyarthralgia Uterine fibroid Obesity (BMI 30-39.9) Esophageal stricture Vitamin D deficiency Seasonal allergies Anemia Asthma HTN (hypertension) Migraines Surgical History Hx of esophagogastroduodenoscopy History of colonoscopy (~2013) History of arthroscopy of right knee History of laparoscopy History of bladder surgery History of tubal ligation History of knee surgery H/O: hysterectomy Family History Father Stroke Mother Bladder cancer Maternal Grandmother Myocardial infarction Maternal Aunt Myocardial infarction Paternal Aunt No problems noted. Maternal Aunt Stroke Brother Myocardial infarction Social History Housing: House Alcohol intake: never Patient Tobacco Use Status: Never used Tobacco e-Cigarette/Vaping Use: Never Used Second Hand Smoke Exposure: No service: No Current occupational status: employed Cognitive needs: No Hearing needs: No Vision needs: Yes (reading glasses) Female Reproductive History Menstrual Age of Menarche: 12 Questionnaire PHQ-9 Over the last 2 weeks, how often have you been bothered by any of the following problems? 1. Little interest or pleasure in doing things: several days 2. Feeling down, depressed, or hopeless: several days 3. Trouble falling or staying asleep, or sleeping too much: several days 4. Feeling tired or having little energy: several days 5. Poor appetite or overeating: not at all 6. Feeling bad about yourself - or that you are a failure or have let yourself or your family down: not at all 7. Trouble concentrating on things, such as reading the newspaper or watching television: not at all 8. Moving or speaking so slowly that other people could have noticed. Or the opposite - being so fidgety or restless that you have been moving around a lot more than usual: not at all 9. Thoughts that you would be better off or of hurting yourself in some way: not at all Total score: 4 Source: Developed by Drs. Jorge Cameron, Yaneth Blair, Jakub Salvador and colleagues, with an educational johnson from [employer]. Thrive Questionnaire Date Thrive assessed: 08/16/24 I am a: Patient What is your living situation today?: I have a steady place to live Within the past 12 months, did the food you bought not last and you didn't have the money to get more?: Never true Within the past 12 months, did you worry whether your food would run out before you got money to buy more?: Never true Do you have trouble paying for medicines?: No Do you have trouble getting transportation to medical appointments?: No Do you have trouble paying your heating and electricity bill?: No Do you have trouble taking care of your child, family member or friend?: No Do you have trouble with day-to-day activities such as bathing, preparing meals, shopping, managing finances, etc.?: No Are you currently unemployed and looking for a job?: No Are you interested in more education?: No Please select the resources that you would like help with: None Currently or been in a relationship where the following occur: No concerns reported THRIVE Score: 0 AUDIT C Alcohol Use Questionnaire (AUDIT-C) 1. How often do you have a drink containing alcohol?: Never 3. How often do you have six or more drinks on one occasion?: Never Total Score: 0 LOTUS-7 AMB Questionnaire LOTUS-7 Date LOTUS - 7 assessed: 08/16/24 Feeling nervous, anxious, or on edge: 0 = Not at all Not being able to stop or control worryin = Not at all Worrying too much about different things: 1 = Several days Trouble relaxin = Several days Being so restless that it is hard to sit still: 0 = Not at all Becoming easily annoyed or irritable: 1 = Several days Feeling afraid as if something awful might happen: 0 = Not at all Total LOTUS-7 score (0-4 normal; 5-9 mild; 10-14 moderate; 15-21 severe): 3 Source: Developed by Drs. Jorge Cameron, Yaneth Blair, Jakub Salvador and colleagues, with an educational johnson from [employer]. Physical exam (Primary Care) Vital Signs: Last Vital Signs Temp 97.3 F 12/05/24 16:13 Pulse 93 12/05/24 16:13 BP 126/70 12/05/24 16:13 Pulse Ox 99 12/05/24 16:13 Oxygen Delivery Method Room Air 12/05/24 16:13 BMI result Body Mass Index 34.1 Tobacco/Smoking Status: Tobacco use Status Tobacco use date assessed 12/05/24 12/05/24 16:19 Patient Tobacco Use Status Never used Tobacco 12/05/24 16:19 e-Cigarette/Vaping Use Never Used 12/05/24 16:19 PHQ-9: PHQ-9 Score PHQ-9: Total score 4 12/05/24 16:34 Thrive Assessment: Date of Thrive Assessment Date Thrive assessed 08/16/24 12/05/24 16:19 Currently or been in a relationship where the following occur: No concerns reported Const General: alert; No acute distress Eyes Conjunctivae: conjunctivae normal Resp Auscultation: clear to auscultation bilaterally Cardio Rate: regular rate Rhythm: regular rhythm GI Inspection: Yes normal to inspection Extrem General: Yes normal to inspection and No edema Coding Level of Care Code Est Pt Level 4 (52282) Complex EM visit Add On G2211 Diagnoses Hypercholesterolemia E78.00 Acquired hypothyroidism E03.9 Hypothyroidism type: acquired Obesity (BMI 30-39.9) E66.9 Gastroesophageal reflux disease, unspecified whether esophagitis present K21.9 Esophagitis presence: esophagitis presence not specified Hematuria R31.9 Mild intermittent asthma without complication J45.20 Asthma complication type: uncomplicated Asthma persistence: intermittent Asthma severity: mild Primary osteoarthritis of knee M17.10 Assessment & Plan Assessment & Plan (1) Hypercholesterolemia: Code(s): E78.00 - Pure hypercholesterolemia, unspecified Category: Medical Plan: Avoid fried foods, chicken skin, eggs, butter margarine, pastries and meat. Be it pork or beef they have a lot of cholesterol LDL goal of less than 130 and triglyceride of less than 150 (2) Hypothyroid: Code(s): E03.9 - Hypothyroidism, unspecified Category: Medical Qualifiers: Hypothyroidism type: acquired Qualified Code(s): E03.9 - Hypothyroidism, unspecified Plan: Continue with thyroid medication (3) Obesity (BMI 30-39.9): Code(s): E66.9 - Obesity, unspecified Category: Medical Plan: Diet and exercise (4) GERD (gastroesophageal reflux disease): Code(s): K21.9 - Gastro-esophageal reflux disease without esophagitis Category: Medical Qualifiers: Esophagitis presence: esophagitis presence not specified Qualified Code(s): K21.9 - Gastro-esophageal reflux disease without esophagitis Plan: Avoid the foods that causes that usually spicy foods, tomato products, juices, coffee, soda and foods that your sensitive to. After eating do not lie down, allow 3-4 hours before in lie down. And keep the head of bed above 30 degrees to avoid the acid from going up. (5) Hematuria: Code(s): R31.9 - Hematuria, unspecified Category: Medical Plan: Patient is being followed up by Urology (6) Asthma: Code(s): J45.909 - Unspecified asthma, uncomplicated Category: Medical Qualifiers: Asthma complication type: uncomplicated Asthma persistence: intermittent Asthma severity: mild Qualified Code(s): J45.20 - Mild intermittent asthma, uncomplicated (7) Primary osteoarthritis of knee: Code(s): M17.10 - Unilateral primary osteoarthritis, unspecified knee Category: Medical Plan History of Present Illness The patient is a 54-year-old female presenting for a follow-up visit. She has a history of asthma, which has been managed over the years with medication. Her hypertension is currently diet-controlled, and she continues to monitor her blood pressure regularly. The patient also has a history of migraines, which are managed with medication as needed. Her hypothyroidism is managed with thyroid medication, and she is advised to continue with her current regimen. She has been diagnosed with gastroesophageal reflux disease (GERD) and is being followed up by urology for related symptoms. Her hypercholesterolemia is being managed with a goal of maintaining LDL cholesterol below 130 mg/dL and triglycerides below 150 mg/dL. The patient has celiac disease and a history of tubular adenoma of the colon, with her last colonoscopy performed in April 2024. She is up to date with her mammogram screenings. She has been experiencing hematuria and is undergoing urine cytology for further evaluation. Additionally, she follows up with gynecology for lichen sclerosus and lichen simplex chronicus. Health Maintenance - Colonoscopy performed in April 2024 - Mammogram up to date Social History Review of Systems Physical Exam Results - Labs: Normal blood count, normal electrolytes, renal function normal, cholest melanie LDL of 122 mg/dL, triglycerides 158 mg/dL, normal folic acid, normal thyroid function - Tests: Normal sleep study with EHIF 3.4 Plan Patient was informed and verbally consented to the use of an ambient scribe for clinic note documentation during this visit. 1. Asthma The patient's asthma is managed with medication, and she should continue her current treatment regimen. 2. Essential Hypertension The patient's hypertension is diet-controlled, and she should continue monitoring her blood pressure regularly. 3. Migraines The patient's migraines are managed with medication as needed, and she should continue this approach. 4. Hypothyroidism The patient should continue her thyroid medication as prescribed. 5. Gastroesophageal Reflux Disease (Gerd) The patient is being followed up by urology for GERD-related symptoms. 6. Hypercholesterolemia The patient should aim to maintain LDL cholesterol below 130 mg/dL and triglycerides below 150 mg/dL through diet and exercise. 7. Celiac Disease The patient should continue to manage her celiac disease with dietary modifications. 8. Tubular Adenoma Of The Colon The patient should continue regular colonoscopy screenings as recommended. 9. Hematuria The patient is undergoing urine cytology for further evaluation of hematuria. 10. Lichen Sclerosus The patient should continue follow-up with gynecology for management of lichen sclerosus. 11. Lichen Simplex Chronicus The patient should continue follow-up with gynecology for management of lichen simplex chronicus. Discussion Notes Patient Instructions Orders: Orders Comprehensive Met. Panel Today K21.9 - Gastro-esophageal reflux disease without esophagitis Free T4 (Free Thyroxine) Today K21.9 - Gastro-esophageal reflux disease without esophagitis Lipid Panel Today E78.00 - Pure hypercholesterolemia, unspecified, K21.9 - Gastro-esophageal reflux disease without esophagitis Complete Blood Count Auto Diff Today K21.9 - Gastro-esophageal reflux disease without esophagitis Thyroid Stimulating Hormone Today K21.9 - Gastro-esophageal reflux disease without esophagitis Vitamin B12 and Folate Today K21.9 - Gastro-esophageal reflux disease without esophagitis Vitamin D 25-OH Total Today K21.9 - Gastro-esophageal reflux disease without esophagitis Hemoglobin A1c Today K21.9 - Gastro-esophageal reflux disease without esophagitis Referrals Orthopedics Referral M17.10 - Unilateral primary osteoarthritis, unspecified knee Medications: New prednisone 4 tabs QD x 2 days then 3 tabs QD x 2 days then 2 tabs Qd x 2 days then 1 tab QD x 2 days PO daily; 20 tabs 0RF J45.20 - Mild intermittent asthma, uncomplicated, J45.909 - Unspecified asthma, uncomplicated azithromycin (Zithromax) For 250 mg dose pack: take 500 mg today (day 1), then 250 mg for 4 days (days 2-5) PO 6 tabs 0RF J45.20 - Mild intermittent asthma, u ncomplicated
== END 2024-12-05 16:56 | disposition home or self-care (01) ==
LOC: HO.HMCH 14:56
PROVIDERS: PCP Internal Medicine; Visit Provider Internal Medicine
DX: E78.00 Pure hypercholesterolemia, unspecified (principal); E03.9 Hypothyroidism, unspecified; E66.9 Obesity, unspecified; Z68.34 Body mass index [BMI] 34.0-34.9, adult; K21.9 Gastro-esophageal reflux disease without esophagitis; R31.9 Hematuria, unspecified; J45.20 Mild intermittent asthma, uncomplicated; M17.10 Unilateral primary osteoarthritis, unspecified knee

== ENCOUNTER → 2024-12-05 14:55 | Outpatient (BNVA) | payer OTHER, SELFPAY | PROVIDERS: PCP Internal Medicine; Visit Provider Internal Medicine | DX: J45.20 Mild intermittent asthma, uncomplicated (principal); E03.9 Hypothyroidism, unspecified; E78.00 Pure hypercholesterolemia, unspecified; K21.9 Gastro-esophageal reflux disease without esophagitis; R31.9 Hematuria, unspecified; M17.10 Unilateral primary osteoarthritis, unspecified knee; I10 Essential (primary) hypertension; G43.909 Migraine, unspecified, not intractable, without status migrainosus; K90.0 Celiac disease; L90.0 Lichen sclerosus et atrophicus; L28.0 Lichen simplex chronicus; E66.9 Obesity, unspecified; Z68.34 Body mass index [BMI] 34.0-34.9, adult | CPT/HCPCS: 99212 ==

== ENCOUNTER 2024-12-06 10:58 | Outpatient (AMB) | payer OTHER, SELFPAY ==
--- NOTE | 2024-12-06 11:04 | A.OFFVIS_ITS ---
Intake Visit Reasons: OV-bilat knee OA Intake Note: Whitney is a 54 year old female who presents today for a follow up of her bilateral knee OA, last injection was on the right knee 0n 07/31/23. Patient reports today her knees are in a lot of pain but the right knee is worse. She states that her last injection gave her 3 - 4 months of relief. Patient notices that her pain is getting worse. Accompanied by: Daughter Allergies iron dextran complex (Iron Dextran Complex) Adverse Reaction (Intermediate, Verified 12/06/24 11:08) flushing/anxiety/dyspnea/back pain HPI HPI OV-bilat knee OA: Details: Ms. Darren ojeda is a 54-year-old female who presents to the office today for chronic bilateral knee pain due to osteoarthritis. Her last injection in our office was on 07/31/2023 for her right knee. She reports that the injection gave her roughly 3-4 months of relief. She reports today that both of her knees are bothering her with the right knee being worse. She would like to repeat injections while in the office today and is looking to receive injections in both knees. [facility] Medical History Celiac disease Upper respiratory infection Bilateral flank pain Axillary adenopathy Low back pain Left lower quadrant abdominal pain Right upper quadrant pain Shortness of breath Viral infection TSH elevation Polyarthralgia Uterine fibroid Obesity (BMI 30-39.9) Esophageal stricture Vitamin D deficiency Seasonal allergies Anemia Asthma HTN (hypertension) Migraines Surgical History Hx of esophagogastroduodenoscopy History of colonoscopy (~2013) History of arthroscopy of right knee History of laparoscopy History of bladder surgery History of tubal ligation History of knee surgery H/O: hysterectomy Family History Father Stroke Mother Bladder cancer Maternal Grandmother Myocardial infarction Maternal Aunt Myocardial infarction Paternal Aunt No problems noted. Maternal Aunt Stroke Brother Myocardial infarction Social History Housing: House Alcohol intake: never Patient Tobacco Use Status: Never used Tobacco e-Cigarette/Vaping Use: Never Used Second Hand Smoke Exposure: No service: No Current occupational status: employed Cognitive needs: No Hearing needs: No Vision needs: Yes (reading glasses) Female Reproductive History Menstrual Age of Menarche: 12 Review of Systems Const All systems reviewed & are unremarkable except as noted in HPI and below Physical Exam Const General: cooperative, healthy appearing and no acute distress Resp Effort & Inspection: normal respiratory effort and able to speak in complete sentences Cardio Rate: regular rate Peripheral pulses: Peripheral pulses 2+ throughout GI Palpation (GI): Soft to palpation Skin Lesions: no lesions Rashes: no rashes Extrem Other: Bilateral knees: Mild to moderate effusion. No erythema or ecchymosis. Tenderness to palpation of the medial and lateral joint lines. Range of motion is 0-100 degrees. [facility] Office Procedures AMB Joint Injection/Aspiration Joint Injection/Aspiration Primary Site: right knee Secondary Site: left knee Prep: site was prepped using aseptic technique, ethochloride spray was applied and injection warnings given Injected: 40 mg of, with 3 mL of, 1% plain lidocaine, 0.25% bupivacaine, in the joint and decadron Approach Used: anterolateral Procedure: The patient tolerated the procedure well, but had some pain with the injection and there was some relief with the local anesthesia Coding - Bilateral Large Joint Procedure code (CPT) selection complete Assessment & Plan Assessment & Plan (1) Osteoarthritis of knees, bilateral: Code(s): M17.0 - Bilateral primary osteoarthritis of knee Category: Medical Plan The patient was offered cortisone injections in bilateral knees. The patient was explained the risks, benefits, and alternatives to receiving this injection. After receiving consent for the injection, the patient had the procedure done while in the office today. The patient tolerated the procedure well with no complications. Follow-up will be PRN, or sooner if needed Coding Level of Care Code Est Pt Level 3 (36039) Diagnoses Osteoarthritis of knees, bilateral M17.0 CPT Codes Coding - - Bilateral Large Joint: 29024 - Bilateral Large Joint ([id number])
--- OUTSIDE RECORDS SUMMARY | 2024-12-06 13:37 | XMS_ITS | Clinical Summary ---
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
== END 2024-12-06 11:57 | disposition home or self-care (01) ==
LOC: HO.HOS 10:59
PROVIDERS: PCP Internal Medicine; Visit Provider Physician Assistant
DX: M17.0 Bilateral primary osteoarthritis of knee (principal)
CPT/HCPCS: 20610; 99213

== ENCOUNTER → 2024-12-06 10:58 | Outpatient (BNVA) | payer OTHER, SELFPAY | PROVIDERS: PCP Internal Medicine; Visit Provider Physician Assistant | DX: M17.0 Bilateral primary osteoarthritis of knee (principal) | CPT/HCPCS: 20610; 99212; J0665; J1100; J2003 ==

== ENCOUNTER 2024-12-30 14:54 | Outpatient (AMB) | payer OTHER, SELFPAY ==
--- NOTE | 2024-12-30 15:08 | A.OFFPC_ITS ---
Vital Signs 12/30/24 15:09 12/30/24 15:38 Height 5 ft 2 in Weight 188 lb 6 oz BMI 34.5 BP 100/62 126/70 Blood Pressure Location Lt brachial Lt brachial Position Sitting Sitting Pulse 94 Pulse Source Pulse Oximeter Temp 97.3 F Temp Source Temporal Artery Scan Pulse Oximetry (%) 97 Oxygen Delivery Method Room Air Intake Visit Reasons: PE Intake Note: Patient is here today for a physical. Media Strategist Required: No Benefits Specialist Recruiter: Not Required per policy Accompanied by: Self / Same As Patient Allergies iron dextran complex (Iron Dextran Complex) Adverse Reaction (Intermediate, Verified 12/30/24 15:09) flushing/anxiety/dyspnea/back pain Medication List - Last Reconciled 12/30/24 by Maurice De La Rosa MD bisacodyl (Dulcolax (bisacodyl)) 10 mg (2 x 5 mg) PO BEDTIME halobetasol propionate 0.05% 1 appl topical .2 times 2 weeks multivitamin 1 tab PO DAILY Tobacco use date assessed: 12/30/24 Dental Screening Dental Screen Date: 12/05/24 HPI PE HPI Details dizzy, PFSH Medical History Celiac disease Upper respiratory infection Bilateral flank pain Axillary adenopathy Low back pain Left lower quadrant abdominal pain Right upper quadrant pain Shortness of breath Viral infection TSH elevation Polyarthralgia Uterine fibroid Obesity (BMI 30-39.9) Esophageal stricture Vitamin D deficiency Seasonal allergies Anemia Asthma HTN (hypertension) Migraines Surgical History Hx of esophagogastroduodenoscopy History of colonoscopy (~2013) History of arthroscopy of right knee History of laparoscopy History of bladder surgery History of tubal ligation History of knee surgery H/O: hysterectomy Family History Father Stroke Mother Bladder cancer Maternal Grandmother Myocardial infarction Maternal Aunt Myocardial infarction Paternal Aunt No problems noted. Maternal Aunt Stroke Brother Myocardial infarction Social History Housing: House Alcohol intake: never Patient Tobacco Use Status: Never used Tobacco Tobacco use type: Cigarette e-Cigarette/Vaping Use: Never Used Second Hand Smoke Exposure: No service: No Current occupational status: employed Cognitive needs: No Hearing needs: No Vision needs: Yes (reading glasses) Female Reproductive History Menstrual Age of Menarche: 12 Questionnaire Thrive Questionnaire Date Thrive assessed: 08/16/24 I am a: Patient What is your living situation today?: I have a steady place to live Within the past 12 months, did the food you bought not last and you didn't have the money to get more?: Never true Within the past 12 months, did you worry whether your food would run out before you got money to buy more?: Never true Do you have trouble paying for medicines?: No Do you have trouble getting transportation to medical appointments?: No Do you have trouble paying your heating and electricity bill?: No Do you have trouble taking care of your child, family member or friend?: No Do you have trouble with day-to-day activities such as bathing, preparing meals, shopping, managing finances, etc.?: No Are you currently unemployed and looking for a job?: No Are you interested in more education?: No Please select the resources that you would like help with: None Currently or been in a relationship where the following occur: No concerns reported THRIVE Score: 0 LOTUS-7 AMB Questionnaire LOTUS-7 Date LOTUS - 7 assessed: 08/16/24 Source: Developed by Drs. Jorge Cameron, Yaneth Blair, Jakub Salvador and colleagues, with an educational johnson from [employer]. Review of Systems Const Denies poor appetite and Denies weakness Eyes Denies no additional complaints ENT Reports Normal hearing present, Denies dizziness, Denies nasal congestion, Denies tinnitus and Denies sore throat Card Denies chest pain, Denies syncope, Denies rapid heart rate and Denies dyspnea Resp Denies cough and Denies dyspnea GI Denies change in stool character, Reports constipation, Denies diarrhea, Denies nausea and Denies vomiting Denies urinary frequency, Denies difficulty voiding and Denies dysuria Neuro Reports Normal hearing present, Denies confusion, Denies dizziness, Denies syncope and Denies weakness Psych Denies confusion Physical exam (Primary Care) Vital Signs: Last Vital Signs Temp 97.3 F 12/30/24 15:09 Pulse 94 12/30/24 15:09 BP 126/70 12/30/24 15:38 Pulse Ox 97 12/30/24 15:09 Oxygen Delivery Method Room Air 12/30/24 15:09 BMI result Body Mass Index 34.5 Tobacco/Smoking Status: Tobacco use Status Tobacco use date assessed 12/30/24 12/30/24 15:14 Patient Tobacco Use Status Never used Tobacco 12/30/24 15:14 Tobacco use type Cigarette 12/30/24 15:42 e-Cigarette/Vaping Use Never Used 12/30/24 15:14 Thrive Assessment: Date of Thrive Assessment Date Thrive assessed 08/16/24 12/30/24 15:14 Currently or been in a relationship where the following occur: No concerns reported Const General: No confusion Orientation/consciousness: No confusion HENMT Head: Yes normocephalic Ears: external ears normal and TM's normal bilaterally Face and sinus: Yes normal facial exam Mouth: moist mucous membranes Throat: Yes tonsils normal Eyes Conjunctivae: conjunctivae normal Pupils: Equal, round and reactive pupils present and Pupil accommodation reflex normal Direct Ophthalmoscopy: normal light reflex Neck Neck: No lymphadenopathy Thyroid: Thyroid normal Chest Chest palpation & inspection: normal inspection of the chest Resp Effort & Inspection: normal respiratory effort and no audible wheezes Auscultation: clear to auscultation bilaterally, no crackles, no wheezes and lung sounds not diminished Cardio Rate: regular rate Rhythm: regular rhythm Peripheral pulses: radial pulses present and dorsalis pedis present GI Palpation (GI): no masses Auscultation: normal bowel sounds and normoactive bowel sounds Rectal Exam - Female: deferred Skin General skin exam: no rashes or lesions noted Rashes: no rashes Neuro General: No confusion Cranial nerves: Yes Equal, round and reactive pupils present and Yes Normal hearing present Cognition (Neuro): normal cognition Gait exam (Neuro): Normal gait present Motor exam (neuro): 5/5 motor strength present throughout Deep tendon reflexes (DTR's): Right brachioradialis reflex intensity grade: 2+, Left brachioradialis reflex intensity grade: 2+, Right patellar reflex intensity grade: 2+ and Left patellar reflex intensity grade: 2+ Extrem General: No edema Office Procedures Flu Questionnaire Does the patient have a severe egg allergy?: No Does the patient have severe life threatening allergies?: No Does the patient have a fever or illness today?: No Has the patient ever had Guillain-[place] Syndrome?: No Has the patient ever had any past reaction to a flu shot?: No Immunizations Fluarix [id number] (PF) 45 mcg (15 mcg x 3)/0.5 mL IM syringe Performing Provider: Maurice De La Rosa MD [facility] Administered by: BOBBY Willis on 12/30/24 16:00 Dose Route Admin Location Dispensed Lot Number Expiration Date N[employer] Software Tester 0.5 mL IM Left Deltoid 0.5 mL [id number] 09/12/25 [id number] [employer] VIS Given Date VIS Provided VIS Publication Date 12/30/24 Single Vaccine 24 Eligibility Eligibility Date Funding Source Not [facility] Eligible 12/30/24 Private Coding Level of Care Code Est Pt Prev Care 40-64y(14629) Diagnoses Annual physical exam Z00.00 Obesity (BMI 30-39.9) E66.9 Gastroesophageal reflux disease, unspecified whether esophagitis present K21.9 Esophagitis presence: esophagitis presence not specified Osteoarthritis of knees, bilateral M17.0 Migraines G43.909 Frequency of micturition R35.0 Essential hypertension I10 Hypertension type: essential hypertension Hypercholesterolemia E78.00 Acquired hypothyroidism E03.9 Hypothyroidism type: acquired Assessment & Plan Assessment & Plan (1) Annual physical exam: Code(s): Z00.00 - Encounter for general adult medical examination without abnormal findings Category: Medical Plan: Patient is advised to eat healthy, keep well hydrated, keep active and have adequate sleep. (2) Obesity (BMI 30-39.9): Code(s): E66.9 - Obesity, unspecified Category: Medical Plan: Diet and exercise (3) GERD (gastroesophageal reflux disease): Code(s): K21.9 - Gastro-esophageal reflux disease without esophagitis Category: Medical Qualifiers: Esophagitis presence: esophagitis presence not specified Qualified Code(s): K21.9 - Gastro-esophageal reflux disease without esophagitis Plan: Avoid the foods that causes that usually spicy foods, tomato products, juices, coffee, soda and foods that your sensitive to. After eating do not lie down, allow 3-4 hours before in lie down. And keep the head of bed above 30 degrees to avoid the acid from going up. (4) Osteoarthritis of knees, bilateral: Code(s): M17.0 - Bilateral primary osteoarthritis of knee Category: Medical Plan: Patient did see Orthopedics and had injections (5) Migraines: Code(s): G43.909 - Migraine, unspecified, not intractable, without status migrainosus Category: Medical Plan: Patient is advised to eat healthy, keep well hydrated, keep active and have adequate sleep. (6) Frequency of micturition: Code(s): R35.0 - Frequency of micturition Category: Medical (7) HTN (hypertension): Code(s): I10 - Essential (primary) hypertension Category: Medical Qualifiers: Hypertension type: essential hypertension Qualified Code(s): I10 - Essential (primary) hypertension (8) Hypercholesterolemia: Code(s): E78.00 - Pure hypercholesterolemia, unspecified Category: Medical (9) Hypothyroid: Code(s): E03.9 - Hypothyroidism, unspecified Category: Medical Qualifiers: Hypothyroidism type: acquired Qualified Code(s): E03.9 - Hypothyroid ism, unspecified Plan History of Present Illness The patient is a 54-year-old female presenting for a physical examination and management of chronic conditions including knee osteoarthritis. The patient has a history of obesity, hypertension, asthma, migraine, hypothyroidism, gastroesophageal reflux disease, and hypercholesterolemia. She has been managing these conditions with medications including lisinopril for hypertension, levothyroxine for hypothyroidism, and pantoprazole for GERD. In April 2024, the patient underwent a colonoscopy which revealed a tubular adenoma of the colon. Her last mammogram was up to date as of May 2024. The patient reports bilateral knee pain due to osteoarthritis, for which she received knee injections from orthopedics. She experiences dizziness but denies any episodes of syncope. Family history is significant for cardiovascular diseases, including stroke in her father and heart attacks in her grandmother, aunt, and brother. Her mother had bladder cancer. Health Maintenance - Mammogram up to date as of May 2024 - Colonoscopy performed in April 2024, revealed tubular adenoma - Blood work in April 2024 showed normal results - Vaccinations: Flu shot planned for today, shingles and pneumonia shots up to date Social History - Denies alcohol and tobacco use Review of Systems - General: Reports dizziness, denies syncope - Cardiovascular: Denies chest pain - Respiratory: Denies shortness of breath except during colds - Gastrointestinal: Denies nausea, vomiting, reports frequent urination at night - Neurological: Denies headaches, reports dizziness Physical Exam General: Cooperative, healthy appearing, comfortable, no acute distress and well developed Orientation: Patient oriented x3 Limitations: No limitations Head: Normal to inspection Ears: Hearing grossly normal bilaterally Nose: Normal external nose present Face and sinus: Normal facial exam Eyes: Appearance normal, both eyes and all related structures Neck: Normal visual inspection and Yes full ROM Respiratory: Normal respiratory effort and able to speak in complete sentences. Clear to auscultation bilaterally Cardiovascular: Regular rate and rhythm. Normal S1 and S2 GI: Normal to inspection. Soft to palpation and nontender, except for a little bit of tenderness noted Skin: No rashes or lesions noted Neuro: Patient oriented x3 Extremities: Normal to inspection Results - Labs: Blood work in April 2024 showed normal blood count, electrolytes, renal function, blood sugar, liver function, cholesterol with LDL 122 mg/dL, triglycerides 158 mg/dL, B12, vitamin D, folic acid, and thyroid levels within normal limits Plan Patient was informed and verbally consented to the use of an ambient scribe for clinic note documentation during this visit. 1. Hypertension Continue current antihypertensive therapy with lisinopril. Monitor blood pressure regularly at home and report any significant changes. 2. Hypothyroidism Maintain current dose of levothyroxine. Re-evaluate thyroid function tests as needed. 3. Gastroesophageal Reflux Disease (Gerd) Continue pantoprazole for management of GERD symptoms. 4. Asthma Use albuterol as needed for asthma symptoms. 5. Knee Osteoarthritis Patient received knee injections from orthopedics for osteoarthritis management. 6. Preventative Care Administer flu vaccination today. Ensure all other vaccinations are up to date. Discussion Notes During the visit, we discussed the management of hypertension with lisinopril and the importance of regular blood pressure monitoring at home. We also reviewed the continuation of levothyroxine for hypothyroidism and the need for periodic thyroid function tests. The patient was advised to continue pantoprazole for GERD and use albuterol as needed for asthma symptoms. Preventative care measures were emphasized, including the administration of the flu vaccine and ensuring other vaccinations are current. Patient Instructions - Continue taking lisinopril for blood pressure management. - Monitor your blood pressure at home and report any significant changes. - Maintain your current dose of levothyroxine for thyroid management. - Continue pantoprazole for GERD symptoms. - Use albuterol as needed for asthma symptoms. - Receive your flu vaccination today and ensure all other vaccinations are up to date. Orders: Orders UA CC w/rflx Micro + Cult Today R30.0 - Dysuria Influenza [id number] Immunization Today Z23 - Encounter for immunization Medications: Refilled lisinopril 20 mg PO DAILY 90 tabs 2RF acetaminophen (Tylenol Extra Strength) 500 mg PO Q6H PRN 30 tabs 0RF pain levothyroxine (Synthroid) 25 mcg PO DAILY 90 tabs 2RF E03.9 - Hypothyroidism, unspecified albuterol sulfate 90 mcg/actuation 2 puffs inhalation Q4-6H PRN 8.5 grams 0RF shortness of breath or wheezing
[2024-12-30 15:09] VITALS: BP 100/62; PULSE 94; TEMP 36.3; O2SAT 97; BMI 34.5
[2024-12-30 15:38] VITALS: BP 126/70
== END 2024-12-30 16:36 | disposition home or self-care (01) ==
LOC: HO.HMCH 14:56
PROVIDERS: PCP Internal Medicine; Visit Provider Internal Medicine
DX: Z00.00 Encounter for general adult medical examination without abnormal findings (principal); E66.9 Obesity, unspecified; Z68.34 Body mass index [BMI] 34.0-34.9, adult; K21.9 Gastro-esophageal reflux disease without esophagitis; M17.0 Bilateral primary osteoarthritis of knee; G43.909 Migraine, unspecified, not intractable, without status migrainosus; R35.0 Frequency of micturition; I10 Essential (primary) hypertension; E78.00 Pure hypercholesterolemia, unspecified; E03.9 Hypothyroidism, unspecified; Z23 Encounter for immunization

== ENCOUNTER → 2024-12-30 14:54 | Outpatient (BNVA) | payer OTHER, SELFPAY | PROVIDERS: PCP Internal Medicine; Visit Provider Internal Medicine | DX: Z00.00 Encounter for general adult medical examination without abnormal findings (principal); I10 Essential (primary) hypertension; E66.9 Obesity, unspecified; K21.9 Gastro-esophageal reflux disease without esophagitis; M17.0 Bilateral primary osteoarthritis of knee; G43.909 Migraine, unspecified, not intractable, without status migrainosus; R35.0 Frequency of micturition; E78.00 Pure hypercholesterolemia, unspecified; E03.9 Hypothyroidism, unspecified; J45.909 Unspecified asthma, uncomplicated; R30.0 Dysuria; Z23 Encounter for immunization; Z68.34 Body mass index [BMI] 34.0-34.9, adult | CPT/HCPCS: 90471; 90656; 99396 ==

== ENCOUNTER 2025-01-06 08:31 | Outpatient (REF) | payer OTHER, SELFPAY ==
[2025-01-06 08:53] LABS: MANUAL DIFF FLAG NO
[2025-01-06 09:13] LABS: Hematocrit 38.5 % (37.0-47.0); Hemoglobin 12.9 g/dl (12.0-16.0); Imm Gran Abs Auto 0.02 X10*3/uL (0.00-0.03); Imm Gran Pct Auto 0.3 % (0.0-0.4); Lymphocytes Absolute Auto 2.0 X10*3/uL (1.2-4.9); Mean Corpuscular HGB Conc 33.5 g/dl (31.0-35.0); Mean Corpuscular Hemoglobin 31.5 pg (27.0-33.0); Mean Corpuscular Volume 93.9 fL (80.0-98.0); NRBC Abs Auto 0.000 X10*3/uL (0.0-0.012); NRBC Pct Auto 0.0 /100WBC (0.0-0.2); Platelet Count 325 X10*3/uL (160-400); Red Blood Count 4.10 X10*6/uL (4.20-5.50); White Blood Count 6.8 X10*3/uL (4.8-10.8)
[2025-01-06 09:50] LABS: Alanine Aminotransferase 11 U/L (0-31); Albumin Level 4.4 g/dL (3.5-5.0); Alkaline Phosphatase 90 U/L (39-117); Anion Gap 9 (12-20); Aspartate Amino Transferase 24 U/L (5-31); Blood Urea Nitrogen 14 mg/dL (9-16); Calcium 9.6 mg/dL (8.4-10.2); Carbon Dioxide 29 mmol/L (22-29); Chloride 108 mmol/L (96-108); Cholesterol 213 mg/dL (<200); Estimated Glomerular Filt Rate > 60; HDL Cholesterol 45 mg/dL (>40); Potassium 4.3 mmol/L (3.3-5.1); Sodium 142 mmol/L (135-145); Total Protein 7.2 g/dL (6.5-8.0); Triglycerides 176 mg/dL (<150)
[2025-01-06 10:07] LABS: Free T4 (Free Thyroxine) 1.02 ng/dL (0.71-1.85); Thyroid Stimulating Hormone 4.70 uIU/mL (0.32-4.0)
[2025-01-06 10:14] LABS: Folate 12.8 ng/mL (> or = 4.0); Vitamin B12 403 pg/mL (200-900)
[2025-01-06 15:30] LABS: Appearance Urine Clear; Glucose Urine UA Negative (Negative); PH 5.0 (5.0-9.0); Specific Gravity - Urine 1.025 (1.005-1.025); UMIC TRIGGER UACC YES
== END 2025-01-06 08:32 | disposition home or self-care (01) ==
LOC: HO.LAB 08:31
PROVIDERS: PCP Internal Medicine; Visit Provider Internal Medicine
DX: K21.9 Gastro-esophageal reflux disease without esophagitis (principal); E78.00 Pure hypercholesterolemia, unspecified; R30.0 Dysuria
CPT/HCPCS: 36415; 80053; 80061; 81001; 82306; 82607; 82746; 83036; 84439; 84443; 85025

== ENCOUNTER 2025-01-18 13:14 | Outpatient (AMB) | payer OTHER, SELFPAY ==
[2025-01-18 13:20] VITALS: BP 124/68; PULSE 73; O2SAT 98; BMI 34.4
--- NOTE | 2025-01-18 13:20 | MHC.PC.OV ---
Vital Signs 01/18/25 13:20 Height 5 ft 2 in Weight 188 lb BMI 34.4 BP 124/68 Blood Pressure Location Lt brachial Position Sitting Pulse 73 Pulse Source Pulse Oximeter Pulse Oximetry (%) 98 Oxygen Delivery Method Room Air Intake Visit Reasons: Sleep Study Request Allergies iron dextran complex (Iron Dextran Complex) Adverse Reaction (Intermediate, Verified 01/18/25 13:21) flushing/anxiety/dyspnea/back pain Tobacco use date assessed: 12/30/24 Dental Screening Dental Screen Date: 12/05/24 HPI Sleep Study Request HPI Details sleepiness, sleeps on watching tv,, sleepy at times when driving, occ sleeps in the afternoon and occ sleepy after meal- [facility] Medical History Celiac disease Upper respiratory infection Bilateral flank pain Axillary adenopathy Low back pain Left lower quadrant abdominal pain Right upper quadrant pain Shortness of breath Viral infection TSH elevation Polyarthralgia Uterine fibroid Obesity (BMI 30-39.9) Esophageal stricture Vitamin D deficiency Seasonal allergies Anemia Asthma HTN (hypertension) Migraines Surgical History Hx of esophagogastroduodenoscopy History of colonoscopy (~2013) History of arthroscopy of right knee History of laparoscopy History of bladder surgery History of tubal ligation History of knee surgery H/O: hysterectomy Family History Father Stroke Mother Bladder cancer Maternal Grandmother Myocardial infarction Maternal Aunt Myocardial infarction Paternal Aunt No problems noted. Maternal Aunt Stroke Brother Myocardial infarction Social History Housing: House Alcohol intake: never Patient Tobacco Use Status: Never used Tobacco Tobacco use type: Cigarette e-Cigarette/Vaping Use: Never Used Second Hand Smoke Exposure: No service: No Current occupational status: employed Cognitive needs: No Hearing needs: No Vision needs: Yes (reading glasses) Female Reproductive History Menstrual Age of Menarche: 12 Questionnaire Thrive Questionnaire Date Thrive assessed: 08/16/24 I am a: Patient What is your living situation today?: I have a steady place to live Within the past 12 months, did the food you bought not last and you didn't have the money to get more?: Never true Within the past 12 months, did you worry whether your food would run out before you got money to buy more?: Never true Do you have trouble paying for medicines?: No Do you have trouble getting transportation to medical appointments?: No Do you have trouble paying your heating and electricity bill?: No Do you have trouble taking care of your child, family member or friend?: No Do you have trouble with day-to-day activities such as bathing, preparing meals, shopping, managing finances, etc.?: No Are you currently unemployed and looking for a job?: No Are you interested in more education?: No Please select the resources that you would like help with: None Currently or been in a relationship where the following occur: No concerns reported THRIVE Score: 0 LOTUS-7 AMB Questionnaire LOTUS-7 Date LOTUS - 7 assessed: 08/16/24 Source: Developed by Drs. Jorge Cameron, Yaneth Blair, Jakub Salvador and colleagues, with an educational johnson from [employer]. Physical exam (Primary Care) Vital Signs: Last Vital Signs Pulse 73 01/18/25 13:20 BP 124/68 01/18/25 13:20 Pulse Ox 98 01/18/25 13:20 Oxygen Delivery Method Room Air 01/18/25 13:20 BMI result Body Mass Index 34.4 Tobacco/Smoking Status: Tobacco use Status Tobacco use date assessed 12/30/24 01/18/25 13:28 Patient Tobacco Use Status Never used Tobacco 01/18/25 13:28 Tobacco use type Cigarette 01/18/25 13:28 e-Cigarette/Vaping Use Never Used 01/18/25 13:28 Thrive Assessment: Date of Thrive Assessment Date Thrive assessed 08/16/24 01/18/25 13:28 Currently or been in a relationship where the following occur: No concerns reported Const General: alert; No acute distress Eyes Conjunctivae: conjunctivae normal Resp Auscultation: clear to auscultation bilaterally Cardio Rate: regular rate Rhythm: regular rhythm GI Inspection: Yes normal to inspection Extrem General: Yes normal to inspection and No edema Coding Level of Care Code Est Pt Level 4 (27909) Complex EM visit Add On G2211 Diagnoses Essential hypertension I10 Hypertension type: essential hypertension Hypercholesterolemia E78.00 Acquired hypothyroidism E03.9 Hypothyroidism type: acquired Obesity (BMI 30-39.9) E66.9 Impaired glucose tolerance R73.02 Gastroesophageal reflux disease, unspecified whether esophagitis present K21.9 Esophagitis presence: esophagitis presence not specified Hypersomnia G47.10 Chest pain R07.9 Assessment & Plan Assessment & Plan (1) HTN (hypertension): Code(s): I10 - Essential (primary) hypertension Category: Medical Qualifiers: Hypertension type: essential hypertension Qualified Code(s): I10 - Essential (primary) hypertension Plan: Continue with blood pressure medication. Decrease salt intake and exercise on lisinopril 20 mg once a day (2) Hypercholesterolemia: Code(s): E78.00 - Pure hypercholesterolemia, unspecified Category: Medical Plan: Avoid fried foods, chicken skin, eggs, butter margarine, pastries and meat. Be it pork or beef they have a lot of cholesterol LDL goal of less than 130 and triglyceride of less than 150 (3) Hypothyroid: Code(s): E03.9 - Hypothyroidism, unspecified Category: Medical Qualifiers: Hypothyroidism type: acquired Qualified Code(s): E03.9 - Hypothyroidism, unspecified Plan: Continue with thyroid medication 25 mcg once a day (4) Obesity (BMI 30-39.9): Code(s): E66.9 - Obesity, unspecified Category: Medical Plan: Diet and exercise (5) Impaired glucose tolerance: Code(s): R73.02 - Impaired glucose tolerance (oral) Category: Medical Plan: Decrease the amount of carbohydrate intake, pasta, bread, rice and potatoes are all sugar and that is aside from all the sweet stuff, remember that fruits are good but they are Sweet also. (6) GERD (gastroesophageal reflux disease): Code(s): K21.9 - Gastro-esophageal reflux disease without esophagitis Category: Medical Qualifiers: Esophagitis presence: esophagitis presence not specified Qualified Code(s): K21.9 - Gastro-esophageal reflux disease without esophagitis Plan: Avoid the foods that causes that usually spicy foods, tomato products, juices, coffee, soda and foods that your sensitive to. After eating do not lie down, allow 3-4 hours before in lie down. And keep the head of bed above 30 degrees to avoid the acid from going up. (7) Hypersomnia: Code(s): G47.10 - Hypersomnia, unspecified Category: Medical (8) Chest pain: Code(s): R07.9 - Chest pain, unspecified Category: Medical Plan History of Present Illness The patient is a 54-year-old obese female presenting for a follow-up on her chronic conditions and to review recent blood work. Her medical history includes asthma, hypertension, migraines, hypercholesterolemia, and a history of tubular adenoma, with her last colonoscopy performed in April 2024. She has a long-standing history of hypothyroidism and reports being compliant with levothyroxine 25 mcg, which she takes daily in the morning. The patient also has a history of impaired glucose tolerance, with a recent hemoglobin A1c of 5.7. The patient reports feeling tired and sometimes sleepy while driving. She underwent a home sleep study this year, which was negative for sleep apnea. She also reports experiencing occasional chest pain. Her health maintenance is up to date, including a recent mammogram and her annual flu shot. Health Maintenance - Influenza vaccination: Patient confirms she has received her flu shot for the season. - Breast cancer screening: Mammogram is up to date. - Colorectal cancer screening: Patient has a history of tubular adenoma and had her last colonoscopy in April 2024. - Prediabetes counseling: The patient was advised to be cautious with her diet, specifically limiting pasta, bread, rice, potatoes, and sweets, due to her Hemoglobin A1c of 5.7. - Hypercholesterolemia counseling: The patient was advised to monitor her diet due to rising cholesterol levels to reduce the risk of heart attack. Social History - Functional Status: Patient reports she is able to walk, but not excessively. - Diet: Counseled to limit intake of pasta, bread, rice, potatoes, and sweets. Review of Systems - General: Reports fatigue. - Cardiovascular: Reports occasional chest pain. - Neurological: Reports feeling sleepy, including occasional sleepiness while driving. - Sleep: Reports sleeping late at around 2 a.m. and sometimes falling asleep while watching TV. - Denies afternoon naps. Physical Exam - No physical examination findings were discussed in the conversation. Results - Labs - Complete Blood Count: Normal, with no anemia; white blood cell and platelet counts are normal. - Comprehensive Metabolic Panel: Electrolytes, sodium, and potassium are good, and kidney function is normal. - Liver Function Tests: Normal. - Fasting Blood Sugar: Normal. - Hemoglobin A1c: 5.7. - Lipid Panel: Total cholesterol is 213 (up from 196), LDL is 133 (up from 122), and triglycerides are 176 (up from 158). - TSH: 4.7, which is elevated compared to previous results of 3.2 and 3.6. - Vitamins: B12, vitamin D, and folic acid are normal. - Tests and Diagnostics - Sleep Study: A home sleep study performed this year was negative for sleep apnea. Plan Patient was informed and verbally consented to the use of an ambient scribe for clinic note documentation during this visit. 1. Hypothyroidism The patient's TSH is elevated at 4.7, and she reports feeling tired. The plan is to increase her daily dose of levothyroxine from 25 mcg to 50 mcg. She was advised that she can take two of her current 25 mcg tablets to use up her current supply. A follow-up fasting blood test to check thyroid and sugar levels will be conducted in 2-3 months. 2. Hypercholesterolemia Recent lab work shows elevated cholesterol, with an LDL of 133 and triglycerides of 176. The patient was counseled on the importance of managing cholesterol to prevent cardiovascular events and was advised to be mindful of her diet, particularly with the approaching holidays. 3. Prediabetes The patient's hemoglobin A1c is 5.7, indicating prediabetes, but does not require medication at this time. She was advised to be careful with her diet, limiting carbohydrates such as pasta, bread, rice, potatoes, and sweets. A follow-up sugar test will be performed along with her thyroid check in 3 months. 4. Chest Pain The patient reports occasional chest pain. To further evaluate this symptom, a cardiac workup will be initiated, including a treadmill stress test and a cardiac ultrasound. Discussion Notes I reviewed the patient's recent lab results with her, noting several changes. We discussed her hemoglobin A1c of 5.7, explaining that while it indicates prediabetes, it doesn't require medication, but I counseled her on dietary modifications to manage it. I pointed out that her cholesterol has increased and discussed the associated risk of heart attacks, advising caution with her diet. Her TSH level was elevated at 4.7, and I explained that this may be contributing to her fatigue. I recommended increasing her levothyroxine dose from 25 to 50 mcg and will retest her levels in 2-3 months. We confirmed her prior sleep study was negative for sleep apnea. In response to her report of occasional chest pain, I recommended a cardiac workup, including a treadmill stress test and a heart ultrasound, to ensure there are no underlying issues. I summarized the plan, which includes the medication adjustment, new cardiac tests, and follow-up blood work in three months. Patient Instructions - Increase your thyroid medication, levothyroxine, from 25 mcg to 50 mcg daily, starting tomorrow. - You can finish your current prescription by taking two of the 25 mcg pills together each day. - Be careful with your diet to help manage your blood sugar and cholesterol. - Try to limit your intake of pasta, bread, rice, potatoes, and sugary foods. - We are ordering a treadmill stress test and an ultrasound of your heart to check for any issues related to your occasional chest pain. - You will need to get fasting blood work done in about 3 months to recheck your thyroid and blood sugar levels. - Please contact the office to let us know when you need the new 50 mcg prescription for levothyroxine sent to your pharmacy. Orders: Orders Free T4 (Free Thyroxine) 3 Months E03.9 - Hypothyroidism, unspecified Thyroid Stimulating Hormone 3 Months E03.9 - Hypothyroidism, unspecified Hemoglobin A1c 3 Months E03.9 - Hypothyroidism, unspecified Comprehensive Met. Panel 3 Months E03.9 - Hypothyroidism, unspecified CA stress test Today R07.9 - Chest pain, unspecified Lipid Panel 3 Months E03.9 - Hypothyroidism, unspecified, E78.00 - Pure hypercholesterolemia, unspecified CA echo transthoracic complete Today I10 - Essential (primary) hypertension Medications: Changed From levothyroxine (Synthroid) 25 mcg PO DAILY 90 tabs 2RF E03.9 - Hypothyroidism, unspecified To levothyroxine 50 mcg PO DAILY 30 tabs 2RF E03.9 - Hypothyroidism, unspecified
--- OUTSIDE RECORDS SUMMARY | 2025-01-18 16:03 | XMS_ITS | Clinical Summary ---
Author Organization [employer] Address [address] [place] [address] Care Team Providers Care Roustabout Supervisor Name Role Phone Unavailable Primary Care [...] patient's age to complete this topic Insurance [facility] STANDARD [facility] PLAN
== END 2025-01-18 13:46 | disposition home or self-care (01) ==
LOC: HO.HMCH 13:15
PROVIDERS: PCP Internal Medicine; Visit Provider Internal Medicine
DX: I10 Essential (primary) hypertension (principal); E78.00 Pure hypercholesterolemia, unspecified; E66.9 Obesity, unspecified; Z68.34 Body mass index [BMI] 34.0-34.9, adult; E03.9 Hypothyroidism, unspecified; R73.02 Impaired glucose tolerance (oral); K21.9 Gastro-esophageal reflux disease without esophagitis; G47.10 Hypersomnia, unspecified; R07.9 Chest pain, unspecified

== ENCOUNTER → 2025-01-18 13:14 | Outpatient (BNVA) | payer OTHER, SELFPAY | PROVIDERS: PCP Internal Medicine; Visit Provider Internal Medicine | DX: I10 Essential (primary) hypertension (principal); E78.00 Pure hypercholesterolemia, unspecified; E03.9 Hypothyroidism, unspecified; E66.9 Obesity, unspecified; K21.9 Gastro-esophageal reflux disease without esophagitis; G47.10 Hypersomnia, unspecified; R07.9 Chest pain, unspecified; R73.03 Prediabetes | CPT/HCPCS: 99212 ==

== ENCOUNTER 2025-02-22 11:13 | Outpatient (AMB) | payer OTHER, SELFPAY ==
--- NOTE | 2025-02-22 11:15 | A.OFFVIS_ITS ---
Vital Signs 02/22/25 11:16 Height 5 ft 2 in Intake Visit Reasons: vaginal itching/sores Sort Operations Supervisor Required: Yes Sort Operations Supervisor Language: Test Man Services: Sort Operations Supervisor Present (in person) Sort Operations Supervisor Name: Ynes ROSALES Information Interpreted: non-clinical & clinical Market Research Lead: Market Research Lead Present (Ynes ROSALES) Accompanied by: Self / Same As Patient Allergies iron dextran complex (Iron Dextran Complex) Adverse Reaction (Intermediate, Verified 01/18/25 13:21) flushing/anxiety/dyspnea/back pain Post menopausal: Yes HPI Comments Details: Presenting complaining of vulvar irritation. The patient had a vulvar biopsy which was lichen simplex chronicus, was prescribed halobetasol 0.05% and has been using it regularly and her symptoms were under control till November which decided to stop and since then her symptoms getting worse PFSH Medical History Celiac disease Upper respiratory infection Bilateral flank pain Axillary adenopathy Low back pain Left lower quadrant abdominal pain Right upper quadrant pain Shortness of breath Viral infection TSH elevation Polyarthralgia Uterine fibroid Obesity (BMI 30-39.9) Esophageal stricture Vitamin D deficiency Seasonal allergies Anemia Asthma HTN (hypertension) Migraines Surgical History Hx of esophagogastroduodenoscopy History of colonoscopy (~2013) History of arthroscopy of right knee History of laparoscopy History of bladder surgery History of tubal ligation History of knee surgery H/O: hysterectomy Family History Father Stroke Mother Bladder cancer Maternal Grandmother Myocardial infarction Maternal Aunt Myocardial infarction Paternal Aunt No problems noted. Maternal Aunt Stroke Brother Myocardial infarction Social History Housing: House Alcohol intake: never Patient Tobacco Use Status: Never used Tobacco Tobacco use type: Cigarette e-Cigarette/Vaping Use: Never Used Second Hand Smoke Exposure: No service: No Current occupational status: employed Cognitive needs: No Hearing needs: No Vision needs: Yes (reading glasses) Female Reproductive History Menstrual Age of Menarche: 12 Review of Systems Const All systems reviewed & are unremarkable except as noted in HPI and below Physical Exam General: Yes no CVA tenderness External Female Exam: No normal external appearance (Bilateral leukoplakia ) and normal appearance of the urethra Speculum Exam - Vagina: normal appearance of the vagina, normal palpation, no lesions and no masses Speculum Exam - Cervix: normal appearance of the cervix, normal palpation, no l esions, no masses and nontender Bimanual exam- vagina & uterus: normal bimanual exam, normal palpation, uterine size normal, normal palpation, uterine shape normal, No Cervical tenderness present and non-tender Bimanual Exam- Adnexa, other: normal adnexae Back/Spine/Pelvis Back: no CVA tenderness Assessment & Plan Assessment & Plan (1) Lichen simplex chronicus: Code(s): L28.0 - Lichen simplex chronicus Category: Medical Plan: Recommended using halobetasol 0.05% b.i.d. for 2 weeks and schedule a reinspection in 2 weeks if not improved we will proceed with repeat vulvar biopsy to rule out RANDELL. All questions answered, the patient verbalized understanding Medications: Refilled halobetasol propionate 0.05% Then maintenance 2 to 3 times a week 1 appl topical .2 times 50 grams 1RF 2 weeks Coding Level of Care Code Est Pt Level 3 (21706) Diagnoses Lichen simplex chronicus L28.0
== END 2025-02-22 11:59 | disposition home or self-care (01) ==
LOC: HO.HWS 11:14
PROVIDERS: PCP Internal Medicine; Visit Provider Obstetrics & Gynecology
DX: L28.0 Lichen simplex chronicus (principal)
CPT/HCPCS: 99213

== ENCOUNTER → 2025-02-22 11:13 | Outpatient (BNVA) | payer OTHER, SELFPAY | PROVIDERS: PCP Internal Medicine; Visit Provider Obstetrics & Gynecology | DX: L28.0 Lichen simplex chronicus (principal); Z98.51 Tubal ligation status | CPT/HCPCS: 99212 ==

== ENCOUNTER → 2025-03-14 07:52 | Outpatient (REF) | payer OTHER, SELFPAY ==
--- NOTE | 2025-03-14 07:57 | CA_ITS ---
Acquisition Time: 2025-03-14 08:51:09 Total Exercise Time: 00:05:00 Test Indications: cp Medications: see h&p Protocol: AJ Max HR: 151 BPM 92% of Pred: 164 BPM Max BP: 150/70 mmHG Max Work Load: 7.0 METS Exercise stress test with exercise 5 mins of Aj Protocol, achieving 92% MPHR, with reports of 87/10 mid chest stabbing pain and tightness, with SOB, without any arrythmias, with normotensive response to exercise. Without any EKG changes changes meeting criteria for ischemia. In recovery, chest discomfort resolved and breathing returend nolvia baseline. Recommend nuclear stress test for further eval of the chest pain. Test reviewed with Dr. Magana. Referred By: Maurice De La Rosa Electronically Signed By: Homero Yu
--- OUTSIDE RECORDS SUMMARY | 2025-03-14 09:17 | XMS_ITS | Clinical Summary ---
Author Organization [employer] Address [address] [place] [address] Care Team Providers Care Transfer Machine Operator Name Role Phone Unavailable Primary Care Provider [...] patient's age to complete this topic Insurance [facility] STANDARD [facility] PL[facility]
== END ==
LOC: HO.CARD 07:52
PROVIDERS: PCP Internal Medicine; Visit Provider Internal Medicine
DX: I10 Essential (primary) hypertension (principal); R07.9 Chest pain, unspecified
CPT/HCPCS: 93017; 93306

== ENCOUNTER → 2025-03-14 07:57 | Outpatient (BNV) | payer OTHER, SELFPAY | PROVIDERS: PCP Internal Medicine | DX: R07.9 Chest pain, unspecified (principal); R06.02 Shortness of breath | CPT/HCPCS: 93016; 93018 ==